=== PATIENT | female | born 1930 | race Caucasian/White ===

== ENCOUNTER 2016-09-01 09:49 | Inpatient (IN) | payer OTHER, MEDICARE ==
[~2016-09-01] VITALS: Ht 149.9 cm; Wt 108.4 kg
[~2016-09-01 09:49] MED LIST: ALLOPURINOL300 M1 PO; BIOTIN1 M1 PO; COUMADIN3 M1 PO; FUROSEMIDE40 M1 PO; LOSARTAN POTASS50 M1 PO; MELATONIN3 M4 PO; POTASSIUM CHLO20 ME2 PO; PROAIR HFA8.5 GM INH; SPIRIVA18 MCG INH; VITAMIN D2000 UNI1 PO
--- NOTE | 2016-09-01 10:36 | NUR ---
PT TO ED C/O VAGINAL BLEEDING FOR A FEW DAYS. DENIES ANY ABD OR PELVIC PAIN. ALSO STATES HER LEG EDEMA HAS BEEN WORSENING AND HAVING WORSENING SOB WITH IT. REPORTS SHE HAD A PACEMAKER PLACED IN APRIL FOR LOW HR AND THAT HELPED SOME OF THE SOB AT THAT TIME, BUT HAS BEEN GETTING WORSE SINCE THEN. STATES ACCOUNTS COLLECTOR IS DR MARTINEZ. STATES SHE HAS HAD INCREASED LETHARGY WELL AND HER INDEPENDENCE AT HOME HAS DECREASED. REPORTS ON VACATION LAST WEEK HAD A BLISTER THAT SWELLED UP AND HAD IT DRAINED IN THE HOSPITAL AND WAS TOLD IT WAS TESTED AND CAME BACK RINGWORM.
--- NOTE | 2016-09-01 10:38 | NUR ---
PA AT BEDSIDE.
--- NOTE | 2016-09-01 10:41 | ED CARDIAC/CP/PALPITATIONS ---
History of Present Illness General Chief Complaint: General Adult Stated Complaint: VAG BLEEDING, SOB, EDEMA Source: patient, family, old records Exam Limitations: no limitations Vital Signs & Intake/Output Vital Signs & Intake/Output Vital Signs Date Time Temp Pulse Resp B/P B/P Pulse O2 O2 Flow FiO2 Mean Ox Delivery Rate 09/01 1755 97.8 61 20 128/78 93 Room Air 09/01 1612 97.0 67 22 135/77 94 Room Air 09/01 1350 134/63 09/01 1226 97.7 63 16 127/59 95 Room Air 09/01 1022 98.1 60 18 117/72 95 Room Air Triage Note: PT TO ED C/O VAGINAL BLEEDING FOR A FEW DAYS. DENIES ANY ABD OR PELVIC PAIN. ALSO STATES HER LEG EDEMA HAS BEEN WORSENING AND HAVING WORSENING SOB WITH IT. REPORTS SHE HAD A PACEMAKER PLACED IN APRIL FOR LOW HR AND THAT HELPED SOME OF THE SOB AT THAT TIME, BUT HAS BEEN GETTING WORSE SINCE THEN. STATES HORTICULTURAL AGENT IS DR MARTINEZ. STATES SHE HAS HAD INCREASED LETHARGY WELL AND HER INDEPENDENCE AT HOME HAS DECREASED. REPORTS ON VACATION LAST WEEK HAD A BLISTER THAT SWELLED UP AND HAD IT DRAINED IN THE HOSPITAL AND WAS TOLD IT WAS TESTED AND CAME BACK RINGWORM. Triage Nurses Notes Reviewed? yes Onset: Gradual Duration: getting worse Timing: recent history Radiation: no radiation HPI: Patient is a 86-year-old female with a past medical history of postmenopausal bleeding with history of D&C Dr. 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 fib on Coumadin, diabetes, hypertension, sleep apnea and obesity who presents emergency room with daughter and which patient recently flew to [place] on August 21 and has noticed increased bilateral leg edema and shortness of breath and dyspnea on exertion in which they were evaluated on 2 occasions in [place] at the emergency room where she was advised to be admitted however she declined patient also had complaints of a dorsal right foot blister that is significant worsen or she is in [place] where the ER provider had drained the blister. Patient also has been complaining of intermittent vaginal bleeding episodes and patient also complains of generalized weakness and fatigue. Patient returned from [place] yesterday and is complaining of persistent leg edema increased weight gain and generalized weakness and fatigue. Patient did take her Lasix this morning of 40 mg. Patient denies any fever chills chest pain arm pain and jaw pain nausea vomiting. (MANAN SCHMIDT) Allergies Coded Allergies: guaifenesin (HIVES 09/01/16) Reconcile Medications Acetaminophen (Tylenol Arthritis) 650 MG TABLET.ER 2 TAB PO QPM PAIN ( Reported) Albuterol Sulfate (Proair Hfa) 90 MCG HFA.AER.AD 2 PUF INH Q4-6 PRN PRN BREATHING (Reported) Allopurinol 300 MG TABLET 0.5 TAB PO QAM GOUT (Reported) Biotin (Unknown Strength) TABLET (Unknown Dose) PO DAILY SUPPLEMENT (Reported ) Calcium Carb/Vitamin D3/Vit K1 (Calcium + Vit D & K Chew Tab) 500 MG CALCIUM-500 UNIT-40 MCG TAB.CHEW 1 TAB PO DAILY SUPPLEMENT (Reported) Cephalexin 500 MG CAPSULE 1 CAP PO TID ANTIBIOTIC (Reported) Cholecalciferol (Vitamin D3) (Vitamin D) 2,000 UNIT TABLET 1 TAB PO 1700 SUPPLEMENT (Reported) Citalopram Hydrobromide (Citalopram HBr) 20 MG TABLET 1 TAB PO DAILY MENTAL HEALTH (Reported) Furosemide 40 MG TABLET 1 TAB PO BID WATER PILL (Reported) Ketoconazole 2 % CREAM..G. 1 PONCHO TOP BID RINGWORM (Reported) apply to affected area(s) Losartan Potassium 50 MG TABLET 1 TAB PO DAILY HEART (Reported) Potassium Chloride 20 MEQ TAB.ER.PRT 1 TAB PO DAILY SUPPLEMENT (Reported) Tiotropium [place] (Spiriva) 18 MCG CAP.W.DEV 1 CAP INH DAILY BREATHING PROBLEMS (Reported) Tramadol HCl 50 MG TABLET 1 TAB PO QPM PRN PAIN (Reported) Warfarin Sodium (Coumadin) 3 MG TABLET 1 TAB PO AD BLOOD THINNER (Reported) Warfarin Sodium (Coumadin) 1 MG TABLET 1.5 TAB PO AD BLOOD THINNER (Reported) (VADIM REYNOLDS,YVAN Moseley) Past History Travel History Traveled to [place] past 21 day No Medical History Any Pertinent Medical History? see below for history Neurological: NONE EENT: NONE Cardiovascular: AFIB, CHF, hypertension Respiratory: NONE Gastrointestinal: NONE Hepatic: NONE Renal: NONE Musculoskeletal: NONE Psychiatric: NONE Endocrine: NONE Blood Disorders: NONE Cancer(s): NONE SAND BOBBER/Reproductive: NONE Surgical History Surgical History: non-contributory Psychosocial History Who do you live with Patient/Self What is your primary language Faroese Tobacco Use: Never used Family History Hx Contributory? No (MANAN SCHMIDT) Review of Systems Review of Systems Constitutional: Reports: see HPI, malaise, weakness. EENTM: Reports: no symptoms. Respiratory: Reports: see HPI, short of breath. Cardiovascular: Reports: see HPI, peripheral edema. Denies: chest pain. GI: Reports: no symptoms. Genitourinary: Reports: no symptoms. Musculoskeletal: Reports: no symptoms. Skin: Reports: no symptoms. Neurological/Psychological: Reports: no symptoms. Hematologic/Endocrine: Reports: see HPI, bleeding. Immunologic/Allergic: Reports: no symptoms. All Other Systems: Reviewed and Negative (MANAN SCHMIDT) Physical Exam Physical Exam General Appearance: no apparent distress, obese Head: atraumatic Eyes: Bilateral: normal appearance, PERRL. Ears, Nose, Throat: normal pharynx, hearing grossly normal Neck: normal inspection Respiratory: quiet respiration, decreased breath sounds Cardiovascular: regular rate/rhythm Peripheral Pulses: 2+ dorsalis pedis (R), 2+ dorsalis pedis (L) Gastrointestinal: normal bowel sounds, soft, non-tender, no organomegaly Back: normal inspection Extremities: +2 BILATERAL LOWER EXTREMITY PITTING EDEMA Skin: normal color Lymphatic: no anterior cervical victor m Comments: Right foot noted 4 cm circular superficial skin open wound, no active bleeding no surrounding erythema no warmth no tenderness - NORMAL EXTERNAL INSPECTION NO ACTIVE BLEEDING MILD BLOOD NOTED AFTER DIGITAL INSPECTION NO MASS Core Measures ACS in differential dx? Yes Severe Sepsis Present: No Septic Shock Present: No (MANAN SCHMIDT) Progress Differential Diagnosis: AMI, aortic dissection, atrial fibrillation, cholecystitis, CHF/pulm edema, costochondritis, hyperkalemia, hypovolemia, hyperthyroid, hyperventilation, intracranial hemorrhage, musculoskeletal pain, myocarditis, pancreatitis, pericarditis, pneumonia, pneumothorax, PSVT, pulmonary embolism, PUD/GERD, PVCs/PACs, respiratory failure, rib fracture, sepsis, unstable angina, V-fib/V-Tach, WPW syndrome Plan of Care: Orders Procedure Date/time Status Regular Diet 09/01 D Active Vital Signs 09/01 1749 Active Teach/Educate 09/01 1749 Active Pain Treatment and Response 09/01 1749 Active Nutritional Intake, Monitor 09/01 1749 Active Isolation 09/01 1749 Active Intake & Output 09/01 1749 Active Patient Care Conference 05/21 1750 Active Activity/Ambulation 09/01 1750 Active Simpson, Insertion/Removal/Asses 09/01 1613 Active Saline Lock 09/01 1456 Active Misc Message 09/01 1456 Active ED Holding Orders 09/01 1456 Active Vital Signs 09/01 1456 Active Activity/Ambulation 09/01 1456 Active Code Status 09/01 1456 Active Patient Data 09/01 1452 Active CULTURE,URINE 09/01 1449 Active Admit to inpatient 09/01 1427 Active Intake & Output 09/01 1209 Active EKG 09/01 1155 Active Add-on Test (ER Only) 09/01 1139 Active DIRECT BILIRUBIN 09/01 1050 Complete URINALYSIS 09/01 1042 Complete TROPONIN LEVEL 09/01 1042 Complete PARTIAL THROMBOPLASTIN TIME 09/01 1042 Complete PROTHROMBIN TIME 09/01 1042 Complete D-DIMER 09/01 1042 Complete COMPREHENSIVE METABOLIC PANEL 09/01 1042 Complete CBC WITHOUT DIFFERENTIAL 09/01 1042 Complete B-TYPE NATRIURETIC PEP (BNP) 09/01 1042 Complete Laboratory Tests 09/01/16 1200: Urinalysis LIGHT H, Urine Color BLDY H, Urine Clarity CLDY H, Urine pH 5.5, Ur Specific Morgan 1.020, Urine Protein 100 H, Urine Ketones TRACE H, Urine Nitrite POS H, Urine Bilirubin NEG, Urine Urobilinogen 1.0, Ur Leukocyte Esterase TRACE H, Ur Microscopic SEDIMENT EXAMINED, Urine RBC PACKD H, Urine WBC 3-5 H, Ur Epithelial Cells FEW, Urine Bacteria FEW H, Hyaline Casts RARE H, Urine Hemoglobin LARGE H, Urine Glucose NEG 09/01/16 1050: Anion Gap 11, Estimated GFR 53 L, BUN/Creatinine Ratio 35.0 H, Glucose 120 H, Calcium 8.5, Total Bilirubin 3.9 H, Direct Bilirubin 2.0 H, AST 30, ALT 28, Alkaline Phosphatase 172 H, Troponin I 0.04, Goy-D-Qxqzguwgikr Pept 2680 H, Total Protein 6.7, Albumin 3.1 L, Globulin 3.6, Albumin/Globulin Ratio 0.9 L, PT 43.5 *H, INR 4.20 *H, APTT 50 H, D-Dimer 301 H, CBC w Diff MAN DIFF ORDERED , RBC 3.38 L, MCV 99.0, MCH 31.7 H, RDW 17.7 H, MPV 10.9 H, Gran % 69.8, Lymphocytes % 15.1 L, Monocytes % 12.8 H, Eosinophils % 1.7, Basophils % 0.6, Absolute Granulocytes 3.2, Absolute Lymphocytes 0.7 L, Absolute Monocytes 0.6, Absolute Eosinophils 0.1, Absolute Basophils 0, Platelet Estimate DECREASED, Polychromasia 1+, Anisocytosis 1+, Stomatocytes 1+, PUBS MCHC 32.0 L Microbiology 09/01 1450 URINE ROUT: Urine Culture - RECD Patient currently was resting comfortably at bedside. It is noted through previous emergency room visits in [place] that patient had chest x-ray findings concerning of cardiomegaly however no overt signs of pleural effusion. Patient also had a previous BNP of 1367. Today patient has chest x-ray findings of trace pleural effusion elevated BNP and worsening leg edema and shortness of breath and dyspnea on exertion which patient was advised to be admitted under telemetry for consistent with CHF. Discussed plan with patient and daughter who agreed. Patient was given IV Lasix. Simpson will be placed for measurement of in and out. Patient also had elevated bilirubin however ultrasound was unremarkable for acute cholecystitis however there is distention noted. Patient may require gastroenterology consultation and CARPENTER SUPERVISOR for vaginal bleeding. Also discussed with patient of elevated INR. (WOOD MICHAELS,MANAN) Diagnostic Imaging: Viewed by Me: Radiology Read, Ultrasound. Radiology Impression: SEE COMMENTS Initial ED EKG: normal intervals, normal p-waves, normal QRS complex, 59 BPM NORMAL SINUS RHYTHM Prior EKG: unchanged Comments: PATIENT: HENRY CHAMBERS PRESENT AGE: 86 PATIENT ACCOUNT NO: [id number] : 32 LOCATION: [facility] ORDERING PHYSICIAN: MANAN MICHAELS SERVICE DATE: 09/01/16-2754 EXAM TYPE: US - US-LIMITED ABDOMEN EXAMINATION: US ABDOMEN LIMITED CLINICAL INFORMATION: Increased bilirubin level. COMPARISON: CT abdomen and pelvis dated 03/25/2012; abdominal ultrasound dated 03/23/2012. TECHNIQUE: Real-time imaging of the right upper quadrant abdominal viscera. Imaging limited by overlapping bowel gas. FINDINGS: PANCREAS: Largely obscured by overlapping bowel gas. LIVER: Normal. The liver demonstrates normal size, contour and echogenicity. No focal lesion or intrahepatic biliary duct dilatation. GALLBLADDER: Normal. The gallbladder is physiologically distended without evidence of stones, sludge, polyps, wall thickening or pericholecystic fluid. There is no sonographic Jones's sign. COMMON BILE DUCT: Normal in caliber measuring 0.2 cm in diameter. RIGHT KIDNEY: Normal. No hydronephrosis. No renal calculi or focal parenchymal lesions. The kidney measures 10.0 cm in maximum dimension. FREE FLUID: None. IMPRESSION: 1. Ultrasound examination, in particular of the pancreas, limited by overlapping bowel gas. 2. No acute finding. PATIENT: HENRY CHAMBERS PRESENT AGE: 86 PATIENT ACCOUNT NO: [id number] : 32 LOCATION: [facility] ORDERING PHYSICIAN: MANAN MICHAELS SERVICE DATE: 09/01/16 EXAM TYPE: RAD - XRY-CHEST XRAY, PA AND LATERAL EXAMINATION: XR CHEST CLINICAL INFORMATION: Congestive heart failure. COMPARISON: Chest x-ray of 03/27/2016 and multiple previous chest x-rays dated back to 09/15/2013. TECHNIQUE: Frontal and lateral views of the chest are acquired. FINDINGS: There is interval placement of single lead pacemaker with the intact-appearing pacer lead terminating in the expected location of the proximal portion of the right ventricle. Recommend clinical correlation and comparison with prior post pacemaker placement chest x-rays. The cardiomediastinal silhouette is stable with moderate cardiomegaly. The lungs are normally and symmetrically expanded. There is mild diffuse some vascular interstitial prominent, suggesting interstitial pulmonary edema. No evidence of overt alveolar edema. Trace bilateral pleural effusions. No focal consolidation. No pneumothorax. Minimal degenerative changes are noted in the spine. IMPRESSION: Stable moderate cardiomegaly. Mild changes of interstitial edema. Trace bilateral pleural effusions. The pacemaker lead terminates in the expected location of the proximal portion of the right ventricle. There are no prior post pacemaker placement x-rays were comparison at this institution. DICTATED BY: GERMÁN REYNOLDS,RODOLFO DATE/TIME DICTATED:09/01/161110 STRING TOP SEALER:IVORY (WOOD MICHAELS,MANAN) Departure Departure Disposition: STILL A PATIENT Condition: Stable Clinical Impression Primary Impression: CHF (congestive heart failure) Secondary Impressions: Elevated bilirubin, Elevated INR, Vaginal bleeding Referrals: CADY MOLINA APRN (PCP/Family) Departure Forms: Customer Survey General Discharge Information Admission Note Spoke With: SAM PATRICIA MD Documentation of Exam: Documentation of any treatments & extenuating circumstances including Concerns Regarding Discharge (functional status, medication knowledge or non-compliance, living conditions, etc.) that warrant an admission rather than observation: [ Discussed patient with who agrees with telemetry admission for concerns of CHF is requires IV Lasix in which patient has failed outpatient treatment, patient will also require cardiology consultation gastroenterology Consultation and CARPENTER SUPERVISOR, WOUND CARE OF FOOT. Patient Requires Repeat Lab bilirubin INR, Echocardiogram. Outpatient Treatment at This Time Would Be Medically Harmful] (MANAN SCHMIDT) PA/GUIDANCE CONSULTANT Co-Sign Statement Statement: ED Attending supervision documentation- [X] I saw and evaluated the patient. I have also reviewed all the pertinent lab results and diagnostic results. I agree with the findings and the plan of care as documented in the PA's/GUIDANCE CONSULTANT's documentation. [X] I have reviewed the ED Record and agree with the PA's/GUIDANCE CONSULTANT's documentation. [] Additions or exceptions (if any) to the PAs/GUIDANCE CONSULTANT's note and plan are summarized below: [] (VADIM REYNOLDS,YVAN Moseley) Critical Care Note Critical Care Note Critical Care Time: 30-74 min (MANAN SCHMIDT)
--- NOTE | 2016-09-01 10:55 | NUR ---
PT ALERT ORIENTED,REPORTS FEELING SOB, TIRED. PT VERY EDEMATOUS, ALL OVER. R FOOT HAS HALF DOLLAR SIZE BLISTER TO TOP OF FOOT 1/2 OPEN, NONDRAINING. NO OVERT S/S OF BLEEDING. LABS DRAWN AND SENT LAV, GOLD, BLUE, SINGH , PINK. FAMILY AT BEDSIDE
[2016-09-01 11:15] LABS: ABSOLUTE BASOPHIL COUNT 0 /CUMM (0.0-0.2); ABSOLUTE EOSINOPHIL COUNT 0.1 /CUMM (0.0-0.7); ABSOLUTE GRANULOCYTE CT 3.2 /CUMM (1.4-6.5); ABSOLUTE LYMPH COUNT 0.7 /CUMM (1.2-3.4); ABSOLUTE MONOCYTE COUNT 0.6 /CUMM (0.10-0.60); BASOPHIL % 0.6 % (0.0-2.0); EOSINOPHIL % 1.7 % (0-5); GRANULOCYTE % 69.8 % (42.2-75.2); HEMATOCRIT 33.4 % (37-47); MEAN CORPUSCULAR HGB 31.7 PG (27.0-31.0); MEAN PLATELET VOLUME 10.9 FL (7.4-10.4); RBC DISTRIBUTION WIDTH 17.7 % (11.5-14.5); RED BLOOD CELL CT 3.38 /CUMM (4.20-5.40); WHITE BLOOD CELL COUNT 4.5 /CUMM (4.8-10.8)
[2016-09-01 11:16] LABS: PTT 50 SEC (25-37)
[2016-09-01 11:18] LABS: PLATELET COUNT 69 /CUMM (130-400)
--- NOTE | 2016-09-01 11:18 | NUR ---
ASSUMED CARE OF PATIENT
[2016-09-01 11:25] LABS: PT 43.5 SEC (9.4-12.5)
--- NOTE | 2016-09-01 11:25 | NUR ---
CRITICAL TEST RESULTS [id number] HENRY CHAMBERS 86 F TESTS AND RESULTS: PT: 43.5 INR: 4.20 Results received and read back by: ROB BREEN Results received date and time: 09/01/16 1125 The following provider was notified of the results, and read the results back: DR FIERRO Notified date and time: 09/01/16 at 1126
--- NOTE | 2016-09-01 11:27 | RADIOLOGY REPORT ---
EXAMINATION: XR CHEST CLINICAL INFORMATION: Congestive heart failure. COMPARISON: Chest x-ray of 03/27/2016 and multiple previous chest x-rays dated back to 09/15/2013. TECHNIQUE: Frontal and lateral views of the chest are acquired. FINDINGS: There is interval placement of single lead pacemaker with the intact-appearing pacer lead terminating in the expected location of the proximal portion of the right ventricle. Recommend clinical correlation and comparison with prior post pacemaker placement chest x-rays. The cardiomediastinal silhouette is stable with moderate cardiomegaly. The lungs are normally and symmetrically expanded. There is mild diffuse some vascular interstitial prominent, suggesting interstitial pulmonary edema. No evidence of overt alveolar edema. Trace bilateral pleural effusions. No focal consolidation. No pneumothorax. Minimal degenerative changes are noted in the spine. IMPRESSION: Stable moderate cardiomegaly. Mild changes of interstitial edema. Trace bilateral pleural effusions. The pacemaker lead terminates in the expected location of the proximal portion of the right ventricle. There are no prior post pacemaker placement x-rays were comparison at this institution.
--- NOTE | 2016-09-01 11:46 | NUR ---
PA AT BEDSIDE WITH FAMILY AND PT
--- NOTE | 2016-09-01 12:58 | NUR ---
PT TO ULTRASOUND
--- NOTE | 2016-09-01 13:06 | NUR ---
PT RETURNED FROM ULTRASOUND
--- NOTE | 2016-09-01 13:31 | NUR ---
PT BACK FROM ULTRASOUND
--- NOTE | 2016-09-01 13:47 | ULTRASOUND REPORT ---
EXAMINATION: US ABDOMEN LIMITED CLINICAL INFORMATION: Increased bilirubin level. COMPARISON: CT abdomen and pelvis dated 03/25/2012; abdominal ultrasound dated 03/23/2012. TECHNIQUE: Real-time imaging of the right upper quadrant abdominal viscera. Imaging limited by overlapping bowel gas. FINDINGS: PANCREAS: Largely obscured by overlapping bowel gas. LIVER: Normal. The liver demonstrates normal size, contour and echogenicity. No focal lesion or intrahepatic biliary duct dilatation. GALLBLADDER: Normal. The gallbladder is physiologically distended without evidence of stones, sludge, polyps, wall thickening or pericholecystic fluid. There is no sonographic Jones's sign. COMMON BILE DUCT: Normal in caliber measuring 0.2 cm in diameter. RIGHT KIDNEY: Normal. No hydronephrosis. No renal calculi or focal parenchymal lesions. The kidney measures 10.0 cm in maximum dimension. FREE FLUID: None. IMPRESSION: 1. Ultrasound examination, in particular of the pancreas, limited by overlapping bowel gas. 2. No acute finding.
--- NOTE | 2016-09-01 14:45 | NUR ---
PT WITH CATHETER IN PLACE, RESTING IN NAD
--- NOTE | 2016-09-01 14:53 | History & Physical ---
DENISSE BOLES 09/01/16 1453: General Information and HPI MD Statement: I have seen and personally examined HENRY CHAMBERS and documented this H&P. The patient is a 86 year old F who presented with a patient stated chief complaint of worsening lower extremity edema and shortness of breath for 1 week []. Source of Information: patient, family Exam Limitations: no limitations History of Present Illness: Patient is 86-year-old female with past medical history significant for congestive heart failure, chronic lower extremity edema, obstructive sleep apnea on CPAP. Atrial fibrillation on anticoagulation, hypertension, gout on allopurinol came with chief complaint of worsening shortness of breath and lower extremity edema for last week. According to patient she had chronic lower extremity edema and visiting CHF clinic weekly for IV Lasix. She stayed in [place] from August 21 to August 31. She was seen in emergency room in [place] because of worsening lower extremity rash and blister on right dorsum of her foot. First he was treated for cellulitis with cephalexin 500 mg 3 times a day for 7 days which she finished today and also her blister on right foot was drained and was also given topical ketoconazole for ringworm. Her rash/ cellulitis is getting better but her edema is not at her baseline. She also More short of breath than usual but no hypoxia was noted. She denied cough, chills, fever, chest pain, palpitations, nausea, vomiting, diarrhea, any urinary or bowel complaints. Of note patient had pacemaker placement in April 2016 when she was noted to have symptomatic bradycardia. Patient sees Dr. Gottlieb and last was is was almost a month ago. Her vital signs on admission were temperature 98.1, pulse 60, respiratory rate 18, blood pressure 117/72 and she was saturating 95% on room air. Allergies/Medications Allergies: Coded Allergies: guaifenesin (HIVES 09/01/16) Home Med list Acetaminophen (Tylenol Arthritis) 650 MG TABLET.ER 2 TAB PO QPM PAIN ( Reported) Albuterol Sulfate (Proair Hfa) 90 MCG HFA.AER.AD 2 PUF INH Q4-6 PRN PRN BREATHING (Reported) Allopurinol 300 MG TABLET 0.5 TAB PO QAM GOUT (Reported) Biotin (Unknown Strength) TABLET (Unknown Dose) PO DAILY SUPPLEMENT (Reported ) Calcium Carb/Vitamin D3/Vit K1 (Calcium + Vit D & K Chew Tab) 500 MG CALCIUM-500 UNIT-40 MCG TAB.CHEW 1 TAB PO DAILY SUPPLEMENT (Reported) Cephalexin 500 MG CAPSULE 1 CAP PO TID ANTIBIOTIC (Reported) Cholecalciferol (Vitamin D3) (Vitamin D) 2,000 UNIT TABLET 1 TAB PO 1700 SUPPLEMENT (Reported) Citalopram Hydrobromide (Citalopram HBr) 20 MG TABLET 1 TAB PO DAILY MENTAL HEALTH (Reported) Furosemide 40 MG TABLET 1 TAB PO BID WATER PILL (Reported) Ketoconazole 2 % CREAM..G. 1 PONCHO TOP BID RINGWORM (Reported) apply to affected area(s) Potassium Chloride 20 MEQ TAB.ER.PRT 1 TAB PO DAILY SUPPLEMENT (Reported) Tiotropium [place] (Spiriva) 18 MCG CAP.W.DEV 1 CAP INH DAILY BREATHING PROBLEMS (Reported) Tramadol HCl 50 MG TABLET 1 TAB PO QPM PRN PAIN (Reported) Warfarin Sodium (Coumadin) 3 MG TABLET 1 TAB PO AD BLOOD THINNER (Reported) Warfarin Sodium (Coumadin) 1 MG TABLET 1.5 TAB PO AD BLOOD THINNER (Reported) Compliance With Home Meds: FAIR Past History Travel History Traveled to [place] past 21 day No Medical History Neurological: NONE EENT: NONE Cardiovascular: AFIB, CHF, hypertension Respiratory: NONE Gastrointestinal: NONE Hepatic: NONE Renal: NONE Musculoskeletal: NONE Psychiatric: NONE Endocrine: NONE Blood Disorders: NONE Cancer(s): 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 Home Who Do You Live With? self Services at Home: Home Health Aide Primary Language: Tuval[place] ETOH Use: denies use Illicit Drug Use: denies illicit drug use Living Will? no Functional Ability ADLs Independent: dressing, eating, toileting, bathing. Ambulation: independent, walker IADLs Needs Assist: shopping, housework, finances, food prep, telephone, transportation, medication admin. Review of Systems Review of Systems Constitutional: Reports: weakness. Denies: chills, diaphoresis. Cardiovascular: Reports: edema, orthopena, peripheral edema. Denies: chest pain, palpitations. Respiratory: Reports: short of breath. Denies: cough, hemoptysis. GI: Denies: bloating, constipation, diarrhea. Genitourinary: Denies: dysuria, frequency, hematuria. Musculoskeletal: Reports: gout. Skin: Reports: see HPI. Neurological/Psychological: Reports: see HPI. Hematologic/Endocrine: Reports: bleeding. Exam & Diagnostic Data Last 24 Hrs of Vital Signs/I&O Vital Signs Date Time Temp Pulse Resp B/P B/P Pulse O2 O2 Flow FiO2 Mean Ox Delivery Rate 09/01 1755 97.8 61 20 128/78 93 Room Air 09/01 1612 97.0 67 22 135/77 94 Room Air 09/01 1350 134/63 09/01 1226 97.7 63 16 127/59 95 Room Air 09/01 1022 98.1 60 18 117/72 95 Room Air Intake & Output 09/01 1600 09/01 0800 09/01 0000 Intake Total Output Total 50 Balance -50 Output, Urine 50 Patient 225 lb Weight Weight Reported by Patient Measurement Method Physical Exam General Appearance Alert, Oriented X3, Cooperative, No Acute Distress Skin SUPERFICIAL SKIN PEELING ON RIGHT DORSUM OF FOOT WITH NORMAL GRANULATION, NO SIGNS OF INFECTION Cardiovascular Normal S1, Normal S2, IRREGULARLY IRREGULAR Lungs BILATERAL BASAL CREPTS/RONCHI Abdomen Soft, No Tenderness, No Hepatospenomegaly, OBESE Neurological Normal Speech, Normal Tone, Sensation Intact Extremities MODERATE TO SEVERE BILATERAL LOWER EXTREMITY EDEMA Last 24 Hrs of Labs/Otis: Laboratory Tests 09/01/16 1200: Urinalysis LIGHT H, Urine Color BLDY H, Urine Clarity CLDY H, Urine pH 5.5, Ur Specific [place] 1.020, Urine Protein 100 H, Urine Ketones TRACE H, Urine Nitrite POS H, Urine Bilirubin NEG, Urine Urobilinogen 1.0, Ur Leukocyte Esterase TRACE H, Ur Microscopic SEDIMENT EXAMINED, Urine RBC PACKD H, Urine WBC 3-5 H, Ur Epithelial Cells FEW, Urine Bacteria FEW H, Hyaline Casts RARE H, Urine Hemoglobin LARGE H, Urine Glucose NEG 09/01/16 1050: Anion Gap 11, Estimated GFR 53 L, BUN/Creatinine Ratio 35.0 H, Glucose 120 H, Calcium 8.5, Total Bilirubin 3.9 H, Direct Bilirubin 2.0 H, AST 30, ALT 28, Alkaline Phosphatase 172 H, Troponin I 0.04, Ftz-X-Jjaiotnwdzp Pept 2680 H, Total Protein 6.7, Albumin 3.1 L, Globulin 3.6, Albumin/Globulin Ratio 0.9 L, PT 43.5 *H, INR 4.20 *H, APTT 50 H, D-Dimer 301 H, CBC w Diff MAN DIFF ORDERED , RBC 3.38 L, MCV 99.0, MCH 31.7 H, RDW 17.7 H, MPV 10.9 H, Gran % 69.8, Lymphocytes % 15.1 L, Monocytes % 12.8 H, Eosinophils % 1.7, Basophils % 0.6, Absolute Granulocytes 3.2, Absolute Lymphocytes 0.7 L, Absolute Monocytes 0.6, Absolute Eosinophils 0.1, Absolute Basophils 0, Platelet Estimate DECREASED, Polychromasia 1+, Anisocytosis 1+, Stomatocytes 1+, PUBS MCHC 32.0 L Microbiology 09/01 1450 URINE ROUT: Urine Culture - RECD Diagnostic Data EKG Results NO ACUTE AT T WAVE CHANGES CXR Results EXAMINATION: XR CHEST CLINICAL INFORMATION: Congestive heart failure. COMPARISON: Chest x-ray of 03/27/2016 and multiple previous chest x-rays dated back to 09/15/2013. TECHNIQUE: Frontal and lateral views of the chest are acquired. FINDINGS: There is interval placement of single lead pacemaker with the intact-appearing pacer lead terminating in the expected location of the proximal portion of the right ventricle. Recommend clinical correlation and comparison with prior post pacemaker placement chest x-rays. The cardiomediastinal silhouette is stable with moderate cardiomegaly. The lungs are normally and symmetrically expanded. There is mild diffuse some vascular interstitial prominent, suggesting interstitial pulmonary edema. No evidence of overt alveolar edema. Trace bilateral pleural effusions. No focal consolidation. No pneumothorax. Minimal degenerative changes are noted in the spine. IMPRESSION: Stable moderate cardiomegaly. Mild changes of interstitial edema. Trace bilateral pleural effusions. The pacemaker lead terminates in the expected location of the proximal portion of the right ventricle. There are no prior post pacemaker placement x-rays were comparison at this institution. Assessment/Plan Assessment: Patient is 86-year-old female with past medical history significant for atrial fibrillation on Coumadin, congestive heart failure with preserved ejection fraction, status post pacemaker placement, chronic lower extremity edema with peripheral vascular disease, gout on allopurinol, hypertension and hyperlipidemia came with worsening lower extremity edema and shortness of breath most likely due to CHF exacerbation. Problem list 1. Shortness of breath and worsening edema most likely CHF exacerbation 2. Right lower extremity wound 3. Hypertension 4. History of hyperlipidemia 5. Obstructive sleep apnea on nocturnal CPAP 6. Supratherapeutic INR 7. Thrombocytopenia which is chronic 8. Elevated bilirubin which is chronic 9. Postmenopausal bleeding status post D&C Plan 1. We'll monitor patient on telemetry floor 2. Patient was given 60 mg of Lasix here and she took 20 at home. We'll start her on 40 mg Lasix IV twice a day. 3. We will consult cardiology in a.m. 4. As her last echocardiogram was in 2011 repeat echocardiogram for left ventricular function and rule out myocardial ischemia 5. Her initial troponins were negative but we will trend troponins and EKG 3 6. We will repeat LFTs in the morning as her liver function tests were abnormal and showed elevated bilirubin which was present in the past as well. 7. Patient was found to have elevated INR to supratherapeutic level. We will hold warfarin for now and will repeat INR in a.m. 8. We will hold her allopurinol for gout as that can cause a rash or hepatic insufficiency and we'll restart after confirming LFTs in a.m. 9. Local wound care 10. We will restart her home medications except allopurinol. 11. Daily ins and outs Heart healthy diet We will pharmacological DVT prophylaxis as her INR is supratherapeutic as well as she has thrombocytopenia Patient is full code As Ranked By This Provider Problem List: 1. Elevated INR 2. Vaginal bleeding 3. Elevated bilirubin 4. CHF (congestive heart failure) Core Measures/Miscellaneous Acute Coronary Syndrome ACS Diagnosis: No Cerebrovascular Accident CVA/TIA Diagnosis: No Congestive Heart Failure CHF Diagnosis: Yes Date of most recent Echo: 03/23/12 Last Known EF %: 65 Venous Thromboembolism VTE Risk Factors: Age > 40 No [facility] VTE prophylaxis d/t: LE Edema No VTE Pharm Prophylaxis d/t: Blood coag disorder VTE Diagnosis: No VTE Type: NONE VTE Confirmed by (Test): NONE Severe Sepsis Severe Sepsis Present: No Septic Shock Septic Shock Present: No Miscellaneous Documentation Attending Case Discussed With: SAM PATRICIA MD Primary Care Physician: CADY MOLINA APRN Patient sees these Specialists CARDIOLOGY Level of Patient Care: Telemetry SAM PATRICIA MD 09/01/16 2332: Attending Review Statement Attending Statement Attending Statement: examined this patient, discuss w/resident/PA/DIRECTOR OF SEARCH ENGINE MARKETING, agreed w/resident/PA/DIRECTOR OF SEARCH ENGINE MARKETING, discussed with family, reviewed EMR data (avail), discussed with nursing, discussed with case mgmt, reviewed images, amended to note Attending Assessment/Plan: 86F with pmhx of cHF, obstructive sleep apnea on CPAP, Afib on AC, HTN, comes with c/o worsening shortness of breath and lower extremity edema for one week. Pt goes to CHF clinic weekly for IV Lasix. Was recently treated for LE cellulitis. CXR- Stable moderate cardiomegaly. Mild changes of interstitial edema. Trace bilateral pleural effusions. BNP-2680. Pertinant +ve labs: Pancytopenia(chronic) , Elevated T bili and Alk phos. USG abdo -ve. P/E- b/l lung crackles, b/l pedal edema. Plan: Admit to tele. iv Lasix 40mg BiD Strict I/o's Serial EKG/Trops Echo Cardio consult. Hold coumadin for supratherapeutic INR Repeat LFT in am. DVT Px- Supratherapeutic INR, on Coumadin
--- NOTE | 2016-09-01 15:48 | NUR ---
PT ASSIGNED TO [place] [id number]
--- NOTE | 2016-09-01 16:12 | NUR ---
HOUSE STAFF IN WITH PATIENT
--- NOTE | 2016-09-01 16:50 | NUR ---
REPORT GIVEN TO JOLIE MOORE
[2016-09-01] MEDS ORDERED: CALCIUM + VIT1 EACH PO (17:00)
[2016-09-01] MEDS ORDERED: CITALOPRAM HBR20 MG PO (17:01)
[2016-09-01] MEDS ORDERED: COUMADIN1 M1 PO (17:02)
[2016-09-01] MEDS ORDERED: KETOCONAZOLE15 GM TOP (17:03)
[2016-09-01] MEDS ORDERED: CEPHALEXIN500 M3 PO (17:03)
[2016-09-01] MEDS ORDERED: TRAMADOL HCL50 M1 PO (17:04)
[2016-09-01] MEDS ORDERED: TYLENOL ARTHRI650 M1 PO (17:05)
[2016-09-01] MEDS ORDERED: ALLOPURINOL300 M1 PO (17:05)
[2016-09-01 17:55] VITALS: BP 128/78
--- NOTE | 2016-09-01 18:02 | Admission Certification ---
Admission Certification Certification Statement - As attending physician, I certify that at the time of - admission, based on clinical presentation, severity of - symptoms, need for further diagnostic testing and - therapeutic interventions, and risk of adverse outcomes - without in-hospital treatment, in my clinical assessment, - this patient requires an acute hospital stay for a minimum - of two nights or longer. I have also considered psychsocial - factors such as support system, advanced age, financial - issues, cognitive issues, and failed out-patient treatments, - past re-admission history, safety of patient, and lack of - compliance as applicable. Specific rationale supporting this admission is: Acute on chronic CHF exacerbation, will need IV lasix, Cardiology consult, I/O's monitoring, serial EKG/Troponin
[2016-09-01 23:00] VITALS: BP 110/62
--- NOTE | 2016-09-02 07:29 | PN- Housestaff ---
See Addendum Subjective Follow-up For: 1. CHF exacerbation 2. Right lower extremity wound 3. Hypertension 4. History of hyperlipidemia 5. Obstructive sleep apnea on nocturnal CPAP 6. Supratherapeutic INR 7. Thrombocytopenia 8. Elevated bilirubin which is chronic 9. Postmenopausal bleeding status post D&C Tele-Events Since Last Visit: Normal sinus rhythm, heart rate 60-65, with no events. Subjective: Afebrile, hemodynamically stable, saturating well on room air. No overnight event reported. Patient denies any current complaints. Review of Systems Constitutional: Reports: no symptoms. Objective Last 24 Hrs of Vital Signs/I&O Vital Signs Date Time Temp Pulse Resp B/P B/P Pulse O2 O2 Flow FiO2 Mean Ox Delivery Rate 09/02 0904 98.2 59 17 124/56 96 Room Air 09/02 0846 95 09/02 0008 60 98 09/02 0000 CPAP 2.0L 09/01 2300 97.7 60 24 110/62 94 Room Air 09/01 2150 60 99 09/01 1755 97.8 61 20 128/78 93 Room Air 09/01 1612 97.0 67 22 135/77 94 Room Air Intake & Output 09/02 1600 09/02 0800 09/02 0000 Intake Total 100 100 Output Total 175 250 Balance -75 -150 Intake, IV 0 0 Intake, Oral 100 100 Number 0 0 Bowel Movements Output, Urine 175 250 Physical Exam General Appearance: Alert, Oriented X3, Cooperative, No Acute Distress HEENT: Atraumatic, PERRLA, EOMI, Mucous Membr. moist/pink Cardiovascular: Regular Rate, Normal S1, Normal S2, No Murmurs Lungs: diminished air-entry over both lungs Abdomen: Normal Bowel Sounds, Soft, No Tenderness Neurological: Normal Speech Extremities: No Clubbing, No Cyanosis, +2 Edema , right foot has an unlcer thats covered with dress Assessment/Plan Assessment: 86-year-old woman with a past medical history of atrial fibrillation, chronic congestive heart failure (preserved LV systolic function) and hypertension. She presents to our hospital with worsening dyspnea as well as recent increase in her lower extremity edema. She was found to have an elevated BNP and findings consistent with acute on chronic congestive heart failure. #Exertional dyspnea most likely CHF exacerbation As she has recently had a pacemaker implantation. Patient would like to exclude acute pacer-induced cardio myopathy by ordering echo. * Pending echo * Lasix as needed * Strict I's and O's * Daily weights #Atrial fibrillation: * Heartrate is in 60s well controlled with the pacemaker * Patient was found to have a supratherapeutic INR * We will hold Coumadin and repeat INR daily * We will dose Coumadin once necessary #Right lower extremity wound: * Wound consult #Vaginal bleeding: * Can be addressed as an outpatient #Obstructive sleep apnea. * Continue nocturnal CPAP #Elevated bilirubin * We will repeat liver function test tomorrow morning\ * We will order a GGT Heart healthy diet DVT prophylaxis patient is supratherapeutic INR Full code Problem List: 1. Elevated INR 2. Obstructive sleep apnea syndrome 3. CHF (congestive heart failure) 4. Elevated bilirubin 5. Vaginal bleeding Pain Ratin Pain Location: NA Pain Goal: Remain pain free Pain Plan: See A&P Tomorrow's Labs & Rationales: bep and lft and GGt
[2016-09-02 08:31] LABS: ABSOLUTE BASOPHIL COUNT 0 /CUMM (0.0-0.2); ABSOLUTE EOSINOPHIL COUNT 0.1 /CUMM (0.0-0.7); ABSOLUTE GRANULOCYTE CT 2.8 /CUMM (1.4-6.5); ABSOLUTE LYMPH COUNT 0.8 /CUMM (1.2-3.4); ABSOLUTE MONOCYTE COUNT 0.5 /CUMM (0.10-0.60); BASOPHIL % 0.6 % (0.0-2.0); EOSINOPHIL % 2.9 % (0-5); HEMATOCRIT 33.8 % (37-47); MEAN CORPUSCULAR HGB 31.8 PG (27.0-31.0); MEAN CORPUSCULAR VOLUME 99.2 FL (81.0-99.0); MEAN PLATELET VOLUME 11.1 FL (7.4-10.4); PLATELET COUNT 71 /CUMM (130-400); RBC DISTRIBUTION WIDTH 18.7 % (11.5-14.5); RED BLOOD CELL CT 3.41 /CUMM (4.20-5.40); WHITE BLOOD CELL COUNT 4.2 /CUMM (4.8-10.8)
[2016-09-02 08:55] LABS: PT 41.9 SEC (9.4-12.5)
[2016-09-02 09:04] VITALS: BP 124/56
--- NOTE | 2016-09-02 11:34 | Cons- Cardiology ---
General Information and HPI Consulting Request Date of Consult: 09/02/16 Requested By: SUN CHI MD Reason for Consult: Edema, dyspnea Source of Information: patient, old records Exam Limitations: no limitations History of Present Illness: The patient is an 86-year-old woman with a past medical history of atrial fibrillation, chronic congestive heart failure (preserved LV systolic function) and hypertension. She presents to our hospital with worsening dyspnea as well as increasing pedal edema over period of proximately one month; however, worsening over the past several days. The patient had recently been in [place] over the past week, and was treated for possible cellulitis (subsequently diagnosed as ringworm). She had been enrolled in a CHF during system wherein she was receiving weekly IV Lasix treatments; however, had apparently not receive one while in [place]. The patient otherwise denies symptoms of chest pains palpitations nor URI symptoms recently. She describes being able to perform approximately 4 METs of physical activity and a regular basis without difficulty. 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 Her presenting BNP however was elevated at 2680 Allergies/Medications Allergies: Coded Allergies: guaifenesin (HIVES 09/01/16) Home Med List: Acetaminophen (Tylenol Arthritis) 650 MG TABLET.ER 2 TAB PO QPM PAIN ( Reported) Albuterol Sulfate (Proair Hfa) 90 MCG HFA.AER.AD 2 PUF INH Q4-6 PRN PRN BREATHING (Reported) Allopurinol 300 MG TABLET 0.5 TAB PO QAM GOUT (Reported) Biotin (Unknown Strength) TABLET (Unknown Dose) PO DAILY SUPPLEMENT (Reported ) Calcium Carb/Vitamin D3/Vit K1 (Calcium + Vit D & K Chew Tab) 500 MG CALCIUM-500 UNIT-40 MCG TAB.CHEW 1 TAB PO DAILY SUPPLEMENT (Reported) Cephalexin 500 MG CAPSULE 1 CAP PO TID ANTIBIOTIC (Reported) Cholecalciferol (Vitamin D3) (Vitamin D) 2,000 UNIT TABLET 1 TAB PO 1700 SUPPLEMENT (Reported) Citalopram Hydrobromide (Citalopram HBr) 20 MG TABLET 1 TAB PO DAILY MENTAL HEALTH (Reported) Furosemide 40 MG TABLET 1 TAB PO BID WATER PILL (Reported) Ketoconazole 2 % CREAM..G. 1 PONCHO TOP BID RINGWORM (Reported) apply to affected area(s) Potassium Chloride 20 MEQ TAB.ER.PRT 1 TAB PO DAILY SUPPLEMENT (Reported) Tiotropium [place] (Spiriva) 18 MCG CAP.W.DEV 1 CAP INH DAILY BREATHING PROBLEMS (Reported) Tramadol HCl 50 MG TABLET 1 TAB PO QPM PRN PAIN (Reported) Warfarin Sodium (Coumadin) 3 MG TABLET 1 TAB PO AD BLOOD THINNER (Reported) Warfarin Sodium (Coumadin) 1 MG TABLET 1.5 TAB PO AD BLOOD THINNER (Reported) Current Medications: Current Medications Sig/Aparna Start time Last Medication Dose Route Stop Time Status Admin Acetaminophen 650 MG Q6P PRN 09/01 181 AC PO Citalopram 20 MG DAILY 09/02 1000 AC 09/02 Hydrobromide PO 1030 Furosemide 40 MG 7:30 AM, & 4:30 PM 09/02 0730 AC 09/02 IV 1029 Furosemide 0 .STK-MED ONE 09/01 1313 DC IV Furosemide 60 MG ONCE ONE 09/01 1300 DC 09/01 IV 09/01 1301 1350 Ibuprofen 600 MG Q6P PRN 09/01 181 AC PO Morphine Sulfate 2 MG Q4P PRN 09/01 181 AC IV Tiotropium [place] 1 PUF DAILY 09/01 1817 AC 09/02 INH 1030 Review of Systems Review of Systems: The review of systems is negative for chest pains, palpitations nor lightheadedness. The remainder of the 14 point review of systems is noncontributory with the exception of above. 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 Home Who Do You Live With? self Services at Home: Home Health Aide Primary Language: [place] Islander Smoking Status: Never Smoked ETOH Use: denies use Illicit Drug Use: denies illicit drug use Living Will? no Functional Ability ADLs Independent: dressing, eating, toileting, bathing. Ambulation: independent, walker IADLs Needs Assist: shopping, housework, finances, food prep, telephone, transportation, medication admin. Exam & Diagnostic Data Vital Signs and I&O Vital Signs Date Time Temp Pulse Resp B/P B/P Pulse O2 O2 Flow FiO2 Mean Ox Delivery Rate 09/02 0904 98.2 59 17 124/56 96 Room Air 09/02 0846 95 09/02 0008 60 98 09/02 0000 CPAP 2.0L 09/01 2300 97.7 60 24 110/62 94 Room Air 09/01 2150 60 99 09/01 1755 97.8 61 20 128/78 93 Room Air 09/01 1612 97.0 67 22 135/77 94 Room Air 09/01 1350 134/63 09/01 1226 97.7 63 16 127/59 95 Room Air Intake & Output 09/02 1600 09/02 0800 09/02 0000 09/01 1600 09/01 0800 09/01 0000 Intake Total 100 100 Output Total 175 250 50 Balance -75 -150 -50 Intake, IV 0 0 Intake, Oral 100 100 Number 0 0 Bowel Movements Output, Urine 175 250 50 Patient 225 lb Weight Weight Reported by Patient Measurement Method Physical Exam: General: Nontoxic, no apparent distress. HEENT: Sclera and conjunctiva within normal limits, without xanthelasmas. Neck: Carotids 2+ without bruits. Respiratory: Clear to auscultation, air movement is good, without accessory respiratory muscle use. Heart: Irregularly irregular rate and rhythm, 2-6 systolic ejection murmur at left sternal border, without JVD. Abdomen: Soft, nontender, no masses, normoactive bowel sounds. Extremities: Without clubbing, cyanosis, mixed pitting and nonpitting edema in both lower extremities with approximately 2 mm of pitting edema to the knees.. Neuro: Nonfocal exam, strength, 5 out of 5 Skin: Within normal limits without lesions, with the exception of right dorsum of foot. Psych: Mood and affect: Normal Labs/Otis Results: Laboratory Tests 09/02 09/02 09/01 0650 0030 1848 Chemistry Sodium (137 - 145 mmol/L) 139 Potassium (3.5 - 5.1 mmol/L) 3.8 Chloride (98 - 107 mmol/L) 102 Carbon Dioxide (22 - 30 mmol/L) 28 Anion Gap (5 - 16) 9 BUN (7 - 17 mg/dL) 34 H Creatinine (0.5 - 1.0 mg/dL) 1.0 Estimated GFR (>60 ml/min) 53 L BUN/Creatinine Ratio (7 - 25 %) 34.0 H Total Bilirubin (0.2 - 1.3 mg/dL) 3.7 H Direct Bilirubin (< 0.4 mg/dL) 2.1 H AST (14 - 36 U/L) 32 ALT (9 - 52 U/L) 36 Alkaline Phosphatase (<127 U/L) 197 H Troponin I (< 0.11 ng/ml) 0.04 0.04 Total Protein (6.3 - 8.2 g/dL) 7.0 Albumin (3.5 - 5.0 g/dL) 3.2 L Coagulation PT (9.4 - 12.5 SEC) 41.9 H INR (0.90 - 1.19) 4.05 *H Hematology CBC w Diff NO MAN DIFF REQ WBC (4.8 - 10.8 /CUMM) 4.2 L RBC (4.20 - 5.40 /CUMM) 3.41 L Hgb (12.0 - 16.0 G/DL) 10.8 L Hct (37 - 47 %) 33.8 L MCV (81.0 - 99.0 FL) 99.2 H MCH (27.0 - 31.0 PG) 31.8 H RDW (11.5 - 14.5 %) 18.7 H Plt Count (130 - 400 /CUMM) 71 L MPV (7.4 - 10.4 FL) 11.1 H Gran % (42.2 - 75.2 %) 67.0 Lymphocytes % (20.5 - 51.1 %) 18.3 L Monocytes % (1.7 - 9.3 %) 11.2 H Eosinophils % (0 - 5 %) 2.9 Basophils % (0.0 - 2.0 %) 0.6 Absolute Granulocytes (1.4 - 6.5 /CUMM) 2.8 Absolute Lymphocytes (1.2 - 3.4 /CUMM) 0.8 L Absolute Monocytes (0.10 - 0.60 /CUMM) 0.5 Absolute Eosinophils (0.0 - 0.7 /CUMM) 0.1 Absolute Basophils (0.0 - 0.2 /CUMM) 0 PUBS MCHC (33.0 - 37.0 G/DL) 32.0 L / 05/21 1200 1050 Chemistry Sodium (137 - 145 mmol/L) 138 Potassium (3.5 - 5.1 mmol/L) 4.2 Chloride (98 - 107 mmol/L) 100 Carbon Dioxide (22 - 30 mmol/L) 27 Anion Gap (5 - 16) 11 BUN (7 - 17 mg/dL) 35 H Creatinine (0.5 - 1.0 mg/dL) 1.0 Estimated GFR (>60 ml/min) 53 L BUN/Creatinine Ratio (7 - 25 %) 35.0 H Glucose (65 - 99 mg/dL) 120 H Calcium (8.4 - 10.2 mg/dL) 8.5 Total Bilirubin (0.2 - 1.3 mg/dL) 3.9 H Direct Bilirubin (< 0.4 mg/dL) 2.0 H AST (14 - 36 U/L) 30 ALT (9 - 52 U/L) 28 Alkaline Phosphatase (<127 U/L) 172 H Troponin I (< 0.11 ng/ml) 0.04 [id number]-[id number] Pept (<125 pg/mL) 2680 H Total Protein (6.3 - 8.2 g/dL) 6.7 Albumin (3.5 - 5.0 g/dL) 3.1 L Globulin (1.9 - 4.2 gm/dL) 3.6 Albumin/Globulin Ratio (1.1 - 2.2 %) 0.9 L Coagulation PT (9.4 - 12.5 SEC) 43.5 *H INR (0.90 - 1.19) 4.20 *H APTT (25 - 37 SEC) 50 H D-Dimer (70 - 232 ng/ml) 301 H Hematology CBC w Diff MAN DIFF ORDERED WBC (4.8 - 10.8 /CUMM) 4.5 L RBC (4.20 - 5.40 /CUMM) 3.38 L Hgb (12.0 - 16.0 G/DL) 10.7 L Hct (37 - 47 %) 33.4 L MCV (81.0 - 99.0 FL) 99.0 MCH (27.0 - 31.0 PG) 31.7 H RDW (11.5 - 14.5 %) 17.7 H Plt Count (130 - 400 /CUMM) 69 L MPV (7.4 - 10.4 FL) 10.9 H Gran % (42.2 - 75.2 %) 69.8 Lymphocytes % (20.5 - 51.1 %) 15.1 L Monocytes % (1.7 - 9.3 %) 12.8 H Eosinophils % (0 - 5 %) 1.7 Basophils % (0.0 - 2.0 %) 0.6 Absolute Granulocytes (1.4 - 6.5 /CUMM) 3.2 Absolute Lymphocytes (1.2 - 3.4 /CUMM) 0.7 L Absolute Monocytes (0.10 - 0.60 /CUMM) 0.6 Absolute Eosinophils (0.0 - 0.7 /CUMM) 0.1 Absolute Basophils (0.0 - 0.2 /CUMM) 0 Platelet Estimate (ADEQUATE) DECREASED Polychromasia 1+ Anisocytosis 1+ Stomatocytes 1+ PUBS MCHC (33.0 - 37.0 G/DL) 32.0 L Urines Urinalysis LIGHT H Urine Color (YEL,AMB,STR) BLDY H Urine Clarity (CLEAR) CLDY H Urine pH (5.0 - 8.0) 5.5 Ur Specific [place] (1.001 - 1.035) 1.020 Urine Protein (NEG,<30 MG/DL) 100 H Urine Ketones (NEG) TRACE H Urine Nitrite (NEG) POS H Urine Bilirubin (NEG) NEG Urine Urobilinogen (0.1 - 1.0 EU/dl) 1.0 Ur Leukocyte Esterase (NEG) TRACE H Ur Microscopic SEDIMENT EXAMINED Urine RBC (0 - 5 /HPF) PACKD H Urine WBC (0 - 2 /HPF) 3-5 H Ur Epithelial Cells (NONE,FEW) FEW Urine Bacteria (NEG/NONE) FEW H Hyaline Casts (0/LPF) RARE H Urine Hemoglobin (NEG) LARGE H Urine Glucose (N MG/DL) NEG Assessment/Plan Assessment/Plan 86-year-old woman with a past medical history of atrial fibrillation, chronic congestive heart failure (preserved LV systolic function) and hypertension. She presents to our hospital with worsening dyspnea as well as increasing pedal edema over period of proximately one month; however, worsening over the past several days. She was found to have an elevated BNP and findings consistent with acute on chronic congestive heart failure. Acute CHF secondary to diastolic dysfunction: Possibly due to a change in her regimen recently while in [place]. As she has recently had a pacemaker implantation, we will obtain an echocardiogram to ensure acute pacer-induced cardio myopathy is not a cause. We will diurese with IV Lasix as needed. Daily weights should be followed strictly Atrial fibrillation: Stable, continue with current medication regimen and full and coagulation Right lower extremity wound: Continue treatment as per medical team Hypertension: Stable, we'll continue to monitor Vaginal bleeding: The patient had a remote D&C performed approximately 3 years ago. We will follow up with LOCKSTITCH HEMMER Thank you for allowing us to participate in the care of your patient. Please do not hesitate to contact us further with any questions. Sincerely, Roman Snider MD [facility] Consult Acknowledgment - Thank you for your consult request.
[2016-09-02 16:13] VITALS: BP 123/54
--- NOTE | 2016-09-02 18:10 | Cons- Gastroenterology ---
General Information and HPI Consulting Request Date of Consult: 09/02/16 (MD MEE/GASTROENTEROLOGY) Requested By: SUN CHI MD Reason for Consult: Jaundice Source of Information: patient, old records History of Present Illness: 86-year-old female admitted with CHF. She has been found to have hyperbilirubinemia and elevated alkaline phosphatase, the latter of which is chronic. The patient denies previous liver disease or known abnormal liver tests, jaundice, abdominal pain, history of gallbladder or pancreatic disease. She denies recurrent or frequent heartburn, dyspepsia, dysphagia, nausea. Her bowel movements are regular, without blood or black stool. There is no family history of liver disease. She is remote alcohol drinker, but not recently excessive. Review of records demonstrates elevated alkaline phosphatase since 2008 as well as thrombocytopenia. She had elevated bilirubin from February 2012 through May 2012, with normal ultrasound and CT scan of the liver and spleen. There is no apparent further evaluation. Allergies/Medications Allergies: Coded Allergies: guaifenesin (HIVES 09/01/16) Home Med List: Acetaminophen (Tylenol Arthritis) 650 MG TABLET.ER 2 TAB PO QPM PAIN ( Reported) Albuterol Sulfate (Proair Hfa) 90 MCG HFA.AER.AD 2 PUF INH Q4-6 PRN PRN BREATHING (Reported) Allopurinol 300 MG TABLET 0.5 TAB PO QAM GOUT (Reported) Biotin (Unknown Strength) TABLET (Unknown Dose) PO DAILY SUPPLEMENT (Reported ) Calcium Carb/Vitamin D3/Vit K1 (Calcium + Vit D & K Chew Tab) 500 MG CALCIUM-500 UNIT-40 MCG TAB.CHEW 1 TAB PO DAILY SUPPLEMENT (Reported) Cephalexin 500 MG CAPSULE 1 CAP PO TID ANTIBIOTIC (Reported) Cholecalciferol (Vitamin D3) (Vitamin D) 2,000 UNIT TABLET 1 TAB PO 1700 SUPPLEMENT (Reported) Citalopram Hydrobromide (Citalopram HBr) 20 MG TABLET 1 TAB PO DAILY MENTAL HEALTH (Reported) Furosemide 40 MG TABLET 1 TAB PO BID WATER PILL (Reported) Ketoconazole 2 % CREAM..G. 1 PONCHO TOP BID RINGWORM (Reported) apply to affected area(s) Potassium Chloride 20 MEQ TAB.ER.PRT 1 TAB PO DAILY SUPPLEMENT (Reported) Tiotropium [place] (Spiriva) 18 MCG CAP.W.DEV 1 CAP INH DAILY BREATHING PROBLEMS (Reported) Tramadol HCl 50 MG TABLET 1 TAB PO QPM PRN PAIN (Reported) Warfarin Sodium (Coumadin) 3 MG TABLET 1 TAB PO AD BLOOD THINNER (Reported) Warfarin Sodium (Coumadin) 1 MG TABLET 1.5 TAB PO AD BLOOD THINNER (Reported) Current Medications: Current Medications Sig/Aparna Start time Last Medication Dose Route Stop Time Status Admin Acetaminophen 650 MG Q6P PRN 09/01 1814 AC PO Citalopram 20 MG DAILY 09/02 1000 AC 09/02 Hydrobromide PO 1030 Furosemide 40 MG 7:30 AM, & 4:30 PM 09/02 0730 AC 09/02 IV 1728 Ibuprofen 600 MG Q6P PRN 09/01 1814 AC PO Morphine Sulfate 2 MG Q4P PRN 09/01 1814 AC IV Tiotropium [place] 1 PUF DAILY 09/01 181 AC 09/02 INH 1030 Past History Travel History Traveled to [place] past 21 day No Medical History Blood Transfusion Hx: No Neurological: NONE EENT: NONE Cardiovascular: AFIB, CHF, hypertension Respiratory: NONE Gastrointestinal: NONE Hepatic: NONE Renal: NONE Musculoskeletal: NONE Psychiatric: NONE Endocrine: NONE Blood Disorders: NONE Cancer(s): 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 Home Who Do You Live With? self Services at Home: Home Health Aide Primary Language: Czech Smoking Status: Never Smoked ETOH Use: denies use Illicit Drug Use: denies illicit drug use Living Will? no Functional Ability ADLs Independent: dressing, eating, toileting, bathing. Ambulation: independent, walker IADLs Needs Assist: shopping, housework, finances, food prep, telephone, transportation, medication admin. Review of Systems Review of Systems Constitutional: Denies: chills, fever. EENTM: Denies: icterus, epistaxis. Cardiovascular: Reports: peripheral edema. Denies: chest pain, palpitations, syncope. Respiratory: Reports: short of breath. Denies: cough, hemoptysis. GI: Reports: see HPI. Genitourinary: Denies: dysuria, hematuria. Musculoskeletal: Denies: joint swelling, neck pain. Skin: Denies: jaundice, lesions. Neurological/Psychological: Denies: cognitive dysfunction, dementia. Hematologic/Endocrine: Reports: bruising. Denies: bleeding. Exam & Diagnostic Data Vital Signs and I&O Vital Signs Date Time Temp Pulse Resp B/P B/P Pulse O2 O2 Flow FiO2 Mean Ox Delivery Rate 09/02 1613 98.1 70 17 123/54 94 Room Air 09/02 0904 98.2 59 17 124/56 96 Room Air 09/02 0846 95 09/02 0008 60 98 09/02 0000 CPAP 2.0L 09/01 2300 97.7 60 24 110/62 94 Room Air 09/01 2150 60 99 Intake & Output 09/02 1600 09/02 0400 09/01 0400 08/31 0400 Intake Total 580 100 Output Total 575 250 50 Balance 5 -150 -50 Intake, IV 0 0 Intake, Oral 580 100 Number 0 0 Bowel Movements Output, Urine 575 250 50 Patient 225 lb Weight Weight Reported by Patient Measurement Method Physical Exam: Obese white female, no apparent distress. Alert and oriented with normal cognition. Skin without rash, jaundice, spider telangiectasias or palmar erythema. No adenopathy. Sclera are anicteric. No oropharyngeal lesions. Neck supple without mass or thyromegaly. Positive hepatojugular reflux. Heart with irregular rhythm, and 2/6 systolic murmur. Pacemaker intact. Lungs clear bilaterally. Abdomen obese with pannus, normal bowel sounds; no tenderness, no appreciable hepatosplenomegaly. Extremities with bilateral edema to the knees, no cyanosis. Results Pertinent Lab Results: Laboratory Tests 09/02 09/02 09/01 0650 0030 1848 Chemistry Sodium (137 - 145 mmol/L) 139 Potassium (3.5 - 5.1 mmol/L) 3.8 Chloride (98 - 107 mmol/L) 102 Carbon Dioxide (22 - 30 mmol/L) 28 Anion Gap (5 - 16) 9 BUN (7 - 17 mg/dL) 34 H Creatinine (0.5 - 1.0 mg/dL) 1.0 Estimated GFR (>60 ml/min) 53 L BUN/Creatinine Ratio (7 - 25 %) 34.0 H Total Bilirubin (0.2 - 1.3 mg/dL) 3.7 H Direct Bilirubin (< 0.4 mg/dL) 2.1 H AST (14 - 36 U/L) 32 ALT (9 - 52 U/L) 36 Alkaline Phosphatase (<127 U/L) 197 H Troponin I (< 0.11 ng/ml) 0.04 0.04 Total Protein (6.3 - 8.2 g/dL) 7.0 Albumin (3.5 - 5.0 g/dL) 3.2 L Coagulation PT (9.4 - 12.5 SEC) 41.9 H INR (0.90 - 1.19) 4.05 *H Hematology CBC w Diff NO MAN DIFF REQ WBC (4.8 - 10.8 /CUMM) 4.2 L RBC (4.20 - 5.40 /CUMM) 3.41 L Hgb (12.0 - 16.0 G/DL) 10.8 L Hct (37 - 47 %) 33.8 L MCV (81.0 - 99.0 FL) 99.2 H MCH (27.0 - 31.0 PG) 31.8 H RDW (11.5 - 14.5 %) 18.7 H Plt Count (130 - 400 /CUMM) 71 L MPV (7.4 - 10.4 FL) 11.1 H Gran % (42.2 - 75.2 %) 67.0 Lymphocytes % (20.5 - 51.1 %) 18.3 L Monocytes % (1.7 - 9.3 %) 11.2 H Eosinophils % (0 - 5 %) 2.9 Basophils % (0.0 - 2.0 %) 0.6 Absolute Granulocytes (1.4 - 6.5 /CUMM) 2.8 Absolute Lymphocytes (1.2 - 3.4 /CUMM) 0.8 L Absolute Monocytes (0.10 - 0.60 /CUMM) 0.5 Absolute Eosinophils (0.0 - 0.7 /CUMM) 0.1 Absolute Basophils (0.0 - 0.2 /CUMM) 0 PUBS MCHC (33.0 - 37.0 G/DL) 32.0 L 09/01 04/ 1200 1050 Chemistry Sodium (137 - 145 mmol/L) 138 Potassium (3.5 - 5.1 mmol/L) 4.2 Chloride (98 - 107 mmol/L) 100 Carbon Dioxide (22 - 30 mmol/L) 27 Anion Gap (5 - 16) 11 BUN (7 - 17 mg/dL) 35 H Creatinine (0.5 - 1.0 mg/dL) 1.0 Estimated GFR (>60 ml/min) 53 L BUN/Creatinine Ratio (7 - 25 %) 35.0 H Glucose (65 - 99 mg/dL) 120 H Calcium (8.4 - 10.2 mg/dL) 8.5 Total Bilirubin (0.2 - 1.3 mg/dL) 3.9 H Direct Bilirubin (< 0.4 mg/dL) 2.0 H AST (14 - 36 U/L) 30 ALT (9 - 52 U/L) 28 Alkaline Phosphatase (<127 U/L) 172 H Troponin I (< 0.11 ng/ml) 0.04 [id number] Pept (<125 pg/mL) 2680 H Total Protein (6.3 - 8.2 g/dL) 6.7 Albumin (3.5 - 5.0 g/dL) 3.1 L Globulin (1.9 - 4.2 gm/dL) 3.6 Albumin/Globulin Ratio (1.1 - 2.2 %) 0.9 L Coagulation PT (9.4 - 12.5 SEC) 43.5 *H INR (0.90 - 1.19) 4.20 *H APTT (25 - 37 SEC) 50 H D-Dimer (70 - 232 ng/ml) 301 H Hematology CBC w Diff MAN DIFF ORDERED WBC (4.8 - 10.8 /CUMM) 4.5 L RBC (4.20 - 5.40 /CUMM) 3.38 L Hgb (12.0 - 16.0 G/DL) 10.7 L Hct (37 - 47 %) 33.4 L MCV (81.0 - 99.0 FL) 99.0 MCH (27.0 - 31.0 PG) 31.7 H RDW (11.5 - 14.5 %) 17.7 H Plt Count (130 - 400 /CUMM) 69 L MPV (7.4 - 10.4 FL) 10.9 H Gran % (42.2 - 75.2 %) 69.8 Lymphocytes % (20.5 - 51.1 %) 15.1 L Monocytes % (1.7 - 9.3 %) 12.8 H Eosinophils % (0 - 5 %) 1.7 Basophils % (0.0 - 2.0 %) 0.6 Absolute Granulocytes (1.4 - 6.5 /CUMM) 3.2 Absolute Lymphocytes (1.2 - 3.4 /CUMM) 0.7 L Absolute Monocytes (0.10 - 0.60 /CUMM) 0.6 Absolute Eosinophils (0.0 - 0.7 /CUMM) 0.1 Absolute Basophils (0.0 - 0.2 /CUMM) 0 Platelet Estimate (ADEQUATE) DECREASED Polychromasia 1+ Anisocytosis 1+ Stomatocytes 1+ PUBS MCHC (33.0 - 37.0 G/DL) 32.0 L Urines Urinalysis LIGHT H Urine Color (YEL,AMB,STR) BLDY H Urine Clarity (CLEAR) CLDY H Urine pH (5.0 - 8.0) 5.5 Ur Specific [place] (1.001 - 1.035) 1.020 Urine Protein (NEG,<30 MG/DL) 100 H Urine Ketones (NEG) TRACE H Urine Nitrite (NEG) POS H Urine Bilirubin (NEG) NEG Urine Urobilinogen (0.1 - 1.0 EU/dl) 1.0 Ur Leukocyte Esterase (NEG) TRACE H Ur Microscopic SEDIMENT EXAMINED Urine RBC (0 - 5 /HPF) PACKD H Urine WBC (0 - 2 /HPF) 3-5 H Ur Epithelial Cells (NONE,FEW) FEW Urine Bacteria (NEG/NONE) FEW H Hyaline Casts (0/LPF) RARE H Urine Hemoglobin (NEG) LARGE H Urine Glucose (N MG/DL) NEG Imaging/Other Studies: Ultrasound normal gallbladder, bile ducts, and liver. 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 The thrombocytopenia is concerning for underlying cirrhosis. 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 There may of course be other reasons for cholestasis such as medications ( apparently recently on ketoconazole), autoimmune cholangiopathy, etc. Recommendations * Follow LFTs with diuresis * Consider cross-sectional imaging (multiphasic CT scan with contrast) of liver and spleen to assess for evidence of congestive hepatopathy (dilated IVC and hepatic veins) and cirrhosis, screening for hepatocellular carcinoma, and confirm absence of obstructive or infiltrative process. * Check mitochondrial antibody, antinuclear antibody, 5'-nucleotidase * Would not pursue nuclear liver spleen scan or elastography; they are unreliable in the setting of passive congestion. At this point would not consider liver biopsy, since it would be unlikely to alter management. * Would consider eventual EGD to rule out varices, if cardiac status allows Copies To: CADY MOLINA APRN Consult Acknowledgment - Thank you for your consult request.
[2016-09-03 00:31] VITALS: BP 120/60
--- NOTE | 2016-09-03 07:50 | ECHOCARDIOGRAM REPORT ---
HENRY CHAMBERS Age: 86 : 1930 Gender: F Exam Date: 09/02/2016 11:50 Exam Location: [address] Ht (in): 59 Wt (lb): 225 BSA: 2.13 BP: 124 / 56 Ordering Physician: DENISSE BOLES MD Referring Physician: DENISSE BOLES MD Technologist: Joaquín Merrill [facility] Room Number: 188-1 Indications: AFIB/FLUTTER Rhythm: Atrial fibrillation Technical Quality: fair FINDINGS Left Ventricle Normal global left ventricular size, wall thickness, systolic function with no obvious regional wall motion abnormalities. Normal left ventricular ejection fraction estimated at 60-65%. Right Ventricle Mild right ventricular dilatation. Mildly reduced right ventricular global systolic function. Right Atrium Mild Right atrial enlargement Left Atrium Mild left atrial dilatation. Mitral Valve Mild mitral annular calcification. Mild mitral regurgitation. Aortic Valve Diffuse thickening (sclerosis) of the aortic valve cusps without reduced excursion. Mild Aortic regurgitation Tricuspid Valve Tricuspid valve is normal in structure and function. Mild tricuspid regurgitation. Right ventricular systolic pressure estimated to be elevated at 80 mmHg. Pulmonic Valve Pulmonic valve not well visualized, grossly normal. Moderate Pulmonary regurgitation Pericardium No pericardial effusion. Great Vessels Normal size aortic root. CONCLUSIONS Normal left ventricular systolic function with borderline hypertrophy. Right ventricular dilatation and hypokinesia. Severe Pulmonary hypertension by doppler. Biatrial enlargement. Mookie Rizvi M.D. (Electronically Signed) Final Date: 03 Sep 2016 07:49 MEASUREMENTS (Male / Female) Normal Values 2D ECHO LV Diastolic Diameter PLAX 4.5 cm 4.2 - 5.9 / 3.9 - 5.3 cm LV Systolic Diameter PLAX 2.9 cm 2.1 - 4.0 cm LV Fractional Shortening PLAX 35.6 % 25 - 46 % LV Ejection Fraction 2D Teich 65.2 % IVS Diastolic Thickness 1.1 cm LVPW Diastolic Thickness 1.2 cm LV Relative Wall Thickness 0.5 RV Internal Dim ED PLAX 4.4 cm 1.9 - 3.8 cm LVOT Diameter 1.9 cm Aortic Root Diameter 3.0 cm LA Systolic Diameter LX 3.8 cm 3.0 - 4.0 / 2.7 - 3.8 cm LA Volume 67.0 cm 18 - 58 / 22 - 52 cm Ascending Aorta Diameter 3.2 cm DOPPLER AV Peak Velocity 166.0 cm/s AV Peak Gradient 11.0 mmHg AV Mean Velocity 114.0 cm/s AV Mean Gradient 6.0 mmHg AV Velocity Time Integral 44.1 cm AI Deceleration [place] 195.0 cm/s AI Peak Velocity 366.0 cm/s AI Pressure Half Time 549.5 ms AI Peak Gradient 53.6 mmHg LVOT Peak Velocity 65.8 cm/s LVOT Peak Gradient 1.7 mmHg LVOT Mean Velocity 42.3 cm/s LVOT Mean Gradient 1.0 mmHg LVOT Velocity Time Integral 16.4 cm LVOT Stroke Volume 46.5 cm AV Area Cont Eq vti 1.1 cm AV Area Cont Eq pk 1.1 cm MV Peak Velocity 178.0 cm/s MV Peak Gradient 12.7 mmHg MV Mean Velocity 75.6 cm/s MV Mean Gradient 3.0 mmHg Mitral E Point Velocity 176.0 cm/s Mitral A Point Velocity 48.7 cm/s Mitral E to A Ratio 3.6 MV PHT Velocity 187.0 cm/s MV Deceleration [place] 807.0 cm/s MV Pressure Half Time 69.5 ms MV Area PHT 3.2 cm MV Deceleration Time 194.0 ms MR Peak Velocity 493.0 cm/s MR Peak Gradient 97.2 mmHg TR Peak Velocity 425.0 cm/s TR Peak Gradient 72.3 mmHg Right Atrial Pressure 10.0 mmHg Pulmonary Artery Systolic Pressu 82.3 mmHg Right Ventricular Systolic Press 82.3 mmHg PV Peak Velocity 127.0 cm/s PV Peak Gradient 6.5 mmHg PV Mean Velocity 74.8 cm/s PV Mean Gradient 3.0 mmHg PV Velocity Time Integral 27.0 cm
[2016-09-03 07:54] VITALS: BP 124/62
--- NOTE | 2016-09-03 08:44 | PN- Housestaff ---
See Addendum Subjective Follow-up For: 1. CHF exacerbation 2. Right lower extremity wound 3. Hypertension 4. History of hyperlipidemia 5. Obstructive sleep apnea on nocturnal CPAP 6. Supratherapeutic INR 7. Thrombocytopenia 8. Elevated bilirubin which is chronic 9. Postmenopausal bleeding status post D&C Tele-Events Since Last Visit: NSR, HR 62-72, with 1st heart block and some PVCs Subjective: Afebrile, hemodynamically stable, saturating well on 2 L of oxygen. No overnight event reported. Patient denies any current complaints. Patient has blood on the Simpson cath bag. Review of Systems Constitutional: Reports: no symptoms. Objective Last 24 Hrs of Vital Signs/I&O Vital Signs Date Time Temp Pulse Resp B/P B/P Pulse O2 O2 Flow FiO2 Mean Ox Delivery Rate 09/03 0959 CPAP 2.0L 09/03 0754 97.5 62 20 124/62 97 CPAP 09/03 0031 98.3 67 18 120/60 96 BIPAP 09/03 0000 CPAP 09/02 1613 98.1 70 17 123/54 94 Room Air Intake & Output 09/03 1600 09/03 0800 09/03 0000 Intake Total 60 730 Output Total 300 1150 Balance -240 -420 Intake, IV 10 10 Intake, Oral 50 720 Output, Urine 300 1150 Physical Exam General Appearance: Alert, Oriented X3, Cooperative, No Acute Distress HEENT: Atraumatic, PERRLA, EOMI, Mucous Membr. moist/pink Cardiovascular: Regular Rate, Normal S1, Normal S2, No Murmurs Lungs: diminished air entry over lung bases bilaterally Abdomen: Normal Bowel Sounds, Soft, No Tenderness Neurological: Normal Speech Extremities: No Clubbing, No Cyanosis, +1 edema over lower extremity bilaterally Assessment/Plan Assessment: 86-year-old woman with a past medical history of atrial fibrillation, chronic congestive heart failure (preserved LV systolic function) and hypertension. She presents to our hospital with worsening dyspnea as well as recent increase in her lower extremity edema. She was found to have an elevated BNP and findings consistent with acute on chronic congestive heart failure. #Exertional dyspnea most likely CHF exacerbation As she has recently had a pacemaker implantation. Cardiology would like to exclude acute pacer-induced cardio myopathy by echo. Echocardiogram result: Normal left ventricular systolic function with borderline hypertrophy. Right ventricular dilatation and hypokinesia. Severe Pulmonary hypertension by doppler. Biatrial enlargement. * Continue diuresis * Strict I's and O's * Daily weights #Atrial fibrillation: * Heartrate is in 60s well controlled with the pacemaker * Patient was found to have a supratherapeutic INR * We will hold Coumadin and repeat INR daily * We will dose Coumadin once necessary #Right lower extremity wound: * Wound consult #Vaginal bleeding vs hematuria Patient fully catheter bag is filled with urine mixed with blood. Urinalysis on the day of admission shows packed RBCs. Patient had a supratherapeutic INR. * We will consult urology * Repeat CBC daily #Obstructive sleep apnea. * Continue nocturnal CPAP #Elevated bilirubin Patient bilirubin slightly improved, GGT is high up to 64. GI was consulted * Follow LFTs * As per GI, we will consider outpatient cross-sectional imaging, check mitochondrial antibody, antinuclear antibody, 5'-nucleotidase, and consider eventual EGD to rule out varices, if cardiac status allows Heart healthy diet DVT prophylaxis patient is supratherapeutic INR Full code Problem List: 1. Elevated INR 2. Elevated bilirubin 3. CHF (congestive heart failure) Pain Ratin Pain Location: NA Pain Goal: Remain pain free Pain Plan: See A&P Tomorrow's Labs & Rationales: CBC, BEP and INR
--- NOTE | 2016-09-03 10:43 | PN- Cardiology ---
Subjective Subjective: The patient is awake, alert States feeling minimally improved from a respiratory status The events of the last 24 hours as well as telemetry were reviewed. Review of Systems: The review of systems is negative for chest pains, palpitations nor lightheadedness. The remainder of the 14 point review of systems is noncontributory with the exception of above. Objective Vital Signs and I&Os Vital Signs Date Time Temp Pulse Resp B/P B/P Pulse O2 O2 Flow FiO2 Mean Ox Delivery Rate 09/03 0959 CPAP 2.0L 09/03 0754 97.5 62 20 124/62 97 CPAP 09/03 0031 98.3 67 18 120/60 96 BIPAP 09/03 0000 CPAP 09/02 1613 98.1 70 17 123/54 94 Room Air Intake & Output 09/03 1600 09/03 0800 09/03 0000 09/02 1600 09/02 0809/02 0000 Intake Total 60 250 960 100 100 Output Total 300 750 800 175 250 Balance -240 -500 160 -75 -150 Intake, IV 10 10 0 0 Intake, Oral 50 240 960 100 100 Number 0 0 Bowel Movements Output, Urine 300 750 800 175 250 Physical Exam: General: Nontoxic, no apparent distress. HEENT: Sclera and conjunctiva within normal limits, without xanthelasmas. Neck: Carotids 2+ without bruits. Respiratory: Scattered rhonchi, air movement is good, without accessory respiratory muscle use. Heart: Regular rate and rhythm, 2/6 systolic ejection murmur at left sternal border, without JVD. Abdomen: Soft, nontender, no masses, normoactive bowel sounds. Extremities: Without clubbing, cyanosis, without edema. Neuro: Nonfocal exam, strength, 5 out of 5 Skin: Within normal limits without lesions. Psych: Mood and affect: Normal Current Medications: Current Medications Sig/Aparna Start time Last Medication Dose Route Stop Time Status Admin Acetaminophen 650 MG Q6P PRN 09/01 1814 AC PO Citalopram 20 MG DAILY 09/02 1000 AC 09/03 Hydrobromide PO 31 Furosemide 40 MG 7:30 AM, & 4:30 PM 09/02 0730 AC 09/03 IV 0831 Ibuprofen 600 MG Q6P PRN 09/01 1814 AC PO Morphine Sulfate 2 MG Q4P PRN 09/01 1814 AC IV Tiotropium [place] 1 PUF DAILY 09/01 181 AC 09/03 INH 0831 Results Last 48 Hrs of Labs/Mics: Laboratory Tests 09/03/16 0620: Anion Gap 10, Estimated GFR 47 L, BUN/Creatinine Ratio 31.8 H, Total Bilirubin 3.5 H, Direct Bilirubin 2.0 H, GGT 64 H, AST 35, ALT 38, Alkaline Phosphatase 193 H, Total Protein 6.7, Albumin 3.1 L 09/02/16 0650: Anion Gap 9, Estimated GFR 53 L, BUN/Creatinine Ratio 34.0 H, Total Bilirubin 3.7 H, Direct Bilirubin 2.1 H, AST 32, ALT 36, Alkaline Phosphatase 197 H, Total Protein 7.0, Albumin 3.2 L, PT 41.9 H, INR 4.05 *H, CBC w Diff NO MAN DIFF REQ, RBC 3.41 L, MCV 99.2 H, MCH 31.8 H, RDW 18.7 H, MPV 11.1 H, Gran % 67.0, Lymphocytes % 18.3 L, Monocytes % 11.2 H, Eosinophils % 2.9, Basophils % 0.6, Absolute Granulocytes 2.8, Absolute Lymphocytes 0.8 L, Absolute Monocytes 0.5, Absolute Eosinophils 0.1, Absolute Basophils 0, PUBS MCHC 32.0 L 09/02/16 0030: Troponin I 0.04 09/01/16 1848: Troponin I 0.04 09/01/16 1200: Urinalysis LIGHT H, Urine Color BLDY H, Urine Clarity CLDY H, Urine pH 5.5, Ur Specific Hedley 1.020, Urine Protein 100 H, Urine Ketones TRACE H, Urine Nitrite POS H, Urine Bilirubin NEG, Urine Urobilinogen 1.0, Ur Leukocyte Esterase TRACE H, Ur Microscopic SEDIMENT EXAMINED, Urine RBC PACKD H, Urine WBC 3-5 H, Ur Epithelial Cells FEW, Urine Bacteria FEW H, Hyaline Casts RARE H, Urine Hemoglobin LARGE H, Urine Glucose NEG 09/01/16 1050: Anion Gap 11, Estimated GFR 53 L, BUN/Creatinine Ratio 35.0 H, Glucose 120 H, Calcium 8.5, Total Bilirubin 3.9 H, Direct Bilirubin 2.0 H, AST 30, ALT 28, Alkaline Phosphatase 172 H, Troponin I 0.04, Nts-X-Rjyiukqulpw Pept 2680 H, Total Protein 6.7, Albumin 3.1 L, Globulin 3.6, Albumin/Globulin Ratio 0.9 L, PT 43.5 *H, INR 4.20 *H, APTT 50 H, D-Dimer 301 H, CBC w Diff MAN DIFF ORDERED , RBC 3.38 L, MCV 99.0, MCH 31.7 H, RDW 17.7 H, MPV 10.9 H, Gran % 69.8, Lymphocytes % 15.1 L, Monocytes % 12.8 H, Eosinophils % 1.7, Basophils % 0.6, Absolute Granulocytes 3.2, Absolute Lymphocytes 0.7 L, Absolute Monocytes 0.6, Absolute Eosinophils 0.1, Absolute Basophils 0, Platelet Estimate DECREASED, Polychromasia 1+, Anisocytosis 1+, Stomatocytes 1+, PUBS MCHC 32.0 L Microbiology 09/01 1450 URINE ROUT: Urine Culture - COMP Assessment/Plan Assessment/Plan 86-year-old woman with a past medical history of atrial fibrillation, chronic congestive heart failure (preserved LV systolic function) and hypertension. She presents to our hospital with worsening dyspnea as well as increasing pedal edema over period of proximately one month; however, worsening over the past several days. She was found to have an elevated BNP and findings consistent with acute on chronic congestive heart failure. Acute CHF secondary to diastolic dysfunction: Possibly due to a change in her regimen recently while in [place]. Her repeat echocardiogram demonstrated significant pulmonary hypertension (80 mmHg). She has diuresed slightly overnight and we will attempt to continue the same. Further follow-up with pulmonary regarding treatment for underlying pulmonary hypertension will be maintained; however, will be reevaluated following diuresis. Atrial fibrillation: Stable, continue with current medication regimen and full and coagulation Right lower extremity wound: Continue treatment as per medical team Hypertension: Stable, we'll continue to monitor Vaginal bleeding: The patient had a remote D&C performed approximately 3 years ago. We will follow up with [employer] Continue telemetry? Yes
[2016-09-03 12:00] LABS: PT 43.4 SEC (9.4-12.5)
[2016-09-03 15:40] VITALS: BP 128/70
--- NOTE | 2016-09-03 15:49 | Cons- Urology ---
General Information and HPI Consulting Request Date of Consult: 09/03/16 Requested By: SUN CHI MD Reason for Consult: gross hematuria Source of Information: patient Exam Limitations: no limitations History of Present Illness: Patient is an 86-year-old female with congestive heart failure, chronic lower extremity edema, obstructive sleep apnea on CPAP, atrial fibrillation on anticoagulation, hypertension, gout who was admitted with worsening shortness of breath and lower extremity edema for one week. She is on warfarin for Afibb. She also had vaginal bleeding (D&C three years ago) and had a edgar placed with subsequent gross hematuria. She has no hx of chronic UTIs or kidney stones. An ABD US showed no abnormalities in the right kidney. Allergies/Medications Allergies: Coded Allergies: guaifenesin (HIVES 09/01/16) Home Med List: Acetaminophen (Tylenol Arthritis) 650 MG TABLET.ER 2 TAB PO QPM PAIN ( Reported) Albuterol Sulfate (Proair Hfa) 90 MCG HFA.AER.AD 2 PUF INH Q4-6 PRN PRN BREATHING (Reported) Allopurinol 300 MG TABLET 0.5 TAB PO QAM GOUT (Reported) Biotin (Unknown Strength) TABLET (Unknown Dose) PO DAILY SUPPLEMENT (Reported ) Calcium Carb/Vitamin D3/Vit K1 (Calcium + Vit D & K Chew Tab) 500 MG CALCIUM-500 UNIT-40 MCG TAB.CHEW 1 TAB PO DAILY SUPPLEMENT (Reported) Cephalexin 500 MG CAPSULE 1 CAP PO TID ANTIBIOTIC (Reported) Cholecalciferol (Vitamin D3) (Vitamin D) 2,000 UNIT TABLET 1 TAB PO 1700 SUPPLEMENT (Reported) Citalopram Hydrobromide (Citalopram HBr) 20 MG TABLET 1 TAB PO DAILY MENTAL HEALTH (Reported) Furosemide 40 MG TABLET 1 TAB PO BID WATER PILL (Reported) Ketoconazole 2 % CREAM..G. 1 PONCHO TOP BID RINGWORM (Reported) apply to affected area(s) Potassium Chloride 20 MEQ TAB.ER.PRT 1 TAB PO DAILY SUPPLEMENT (Reported) Tiotropium Coello (Spiriva) 18 MCG CAP.W.DEV 1 CAP INH DAILY BREATHING PROBLEMS (Reported) Tramadol HCl 50 MG TABLET 1 TAB PO QPM PRN PAIN (Reported) Warfarin Sodium (Coumadin) 3 MG TABLET 1 TAB PO AD BLOOD THINNER (Reported) Warfarin Sodium (Coumadin) 1 MG TABLET 1.5 TAB PO AD BLOOD THINNER (Reported) Current Medications: Current Medications Sig/Aparna Start time Last Medication Dose Route Stop Time Status Admin Acetaminophen 650 MG Q6P PRN 09/01 1814 AC PO Citalopram 20 MG DAILY 09/02 1000 AC 09/03 Hydrobromide PO 08 Furosemide 40 MG 7:30 AM, & 4:30 PM 09/02 0730 AC 09/03 IV 0831 Ibuprofen 600 MG Q6P PRN 09/01 181 AC PO Morphine Sulfate 2 MG Q4P PRN 09/01 181 AC IV Patient Medication 1 ED .STK-MED ONE 09/03 1413 DC Teaching ED 09/03 1414 Phytonadione 5 MG ONCE ONE 09/03 1600 DC PO 09/03 1601 Tiotropium [place] 1 PUF DAILY 09/01 1816 AC 09/03 INH 0831 Past History Medical History Blood Transfusion Hx: No Neurological: NONE EENT: NONE Cardiovascular: AFIB, CHF, hypertension Respiratory: NONE Gastrointestinal: NONE Hepatic: NONE Renal: NONE Musculoskeletal: NONE Psychiatric: NONE Endocrine: NONE Blood Disorders: NONE Cancer(s): NONE 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 Home Who Do You Live With? self Services at Home: Home Health Aide Primary Language: Latvian Smoking Status: Never Smoked (exposed 2nd hand smoke chronic) ETOH Use: denies use Illicit Drug Use: denies illicit drug use Living Will? no Functional Ability ADLs Independent: dressing, eating, toileting, bathing. Ambulation: independent, walker IADLs Needs Assist: shopping, housework, finances, food prep, telephone, transportation, medication admin. Review of Systems Review of Systems Constitutional: Reports: weakness. EENTM: Reports: no symptoms. Cardiovascular: Reports: see HPI. Respiratory: Reports: short of breath. GI: Reports: no symptoms. Genitourinary: Reports: hematuria. Musculoskeletal: Reports: gout. Skin: Reports: see HPI. Neurological/Psychological: Reports: no symptoms. Hematologic/Endocrine: Reports: bleeding. Immunologic/Allergic: Reports: no symptoms. Exam & Diagnostic Data Vital Signs and I&O Vital Signs Date Time Temp Pulse Resp B/P B/P Pulse O2 O2 Flow FiO2 Mean Ox Delivery Rate 09/03 1540 98.3 59 16 128/70 98 Nasal 2.0L Cannula 09/03 1448 CPAP 2.0L 09/03 1445 CPAP 2.0L 09/03 0959 CPAP 2.0L 09/03 0754 97.5 62 20 124/62 97 CPAP 09/03 0031 98.3 67 18 120/60 96 BIPAP 09/03 0000 CPAP Intake & Output 09/03 0800 09/03 0000 09/02 0800 09/02 0000 Intake Total 480 60 250 960 100 100 Output Total 400 300 750 800 175 250 Balance 80 -240 -500 160 -75 -150 Intake, IV 10 10 0 0 Intake, Oral 480 50 240 960 100 100 Number 0 0 Bowel Movements Output, Urine 400 300 750 800 175 250 Patient 106.821 kg Weight Weight Chair scale Measurement Method Physical Exam: awake and alert, NAD sitting up in chair Bad soft, obese and nontender Edgar in place with gross hematuria- dark merlot colored urine output with some clots LE edema Physical Exam General Appearance: alert, awake, comfortable Head: atraumatic, normal appearance Ears, Nose, Throat: normal ENT inspection Gastrointestinal: normal bowel sounds, soft, non-tender Back: normal inspection Extremities: swelling Neurologic/Psych: awake, alert, oriented x 3 Cranial Nerves: normal hearing, normal speech Skin: intact, warm/dry Last 24 Hours of Labs: Laboratory Tests 09/03 09/03 1100 0620 Chemistry Sodium (137 - 145 mmol/L) 138 Potassium (3.5 - 5.1 mmol/L) 4.0 Chloride (98 - 107 mmol/L) 101 Carbon Dioxide (22 - 30 mmol/L) 27 Anion Gap (5 - 16) 10 BUN (7 - 17 mg/dL) 35 H Creatinine (0.5 - 1.0 mg/dL) 1.1 H Estimated GFR (>60 ml/min) 47 L BUN/Creatinine Ratio (7 - 25 %) 31.8 H Total Bilirubin (0.2 - 1.3 mg/dL) 3.5 H Direct Bilirubin (< 0.4 mg/dL) 2.0 H GGT (12 - 43 U/L) 64 H AST (14 - 36 U/L) 35 ALT (9 - 52 U/L) 38 Alkaline Phosphatase (<127 U/L) 193 H Total Protein (6.3 - 8.2 g/dL) 6.7 Albumin (3.5 - 5.0 g/dL) 3.1 L Coagulation PT (9.4 - 12.5 SEC) 43.4 *H INR (0.90 - 1.19) 4.19 *H Imaging Results: abd US with normal right kidney Assessment/Plan Assessment/Plan 86 yo female on warfarin for Afib with gross hematuria of unclear etiology. SHe has no hx of UTIs chronically and her urine culture was negative. Recommend renal/bladder US. May be due to traumatic edgar placement with supratherapeutic INR vs bladder abnormality eg tumor. FU after imaging. Consult Acknowledgment - Thank you for your consult request.
--- NOTE | 2016-09-03 17:55 | ULTRASOUND REPORT ---
EXAMINATION: US RETROPERITONEAL COMPLETE (RENAL) CLINICAL INFORMATION: Hematuria.. COMPARISON: Ultrasound from 09/01/2016. CT 03/25/2012. TECHNIQUE: Real-time imaging of the kidneys and bladder. FINDINGS: RIGHT KIDNEY: 10 x 4.9 x 5.2 cm (SAG x AP x TRV). The kidney is normal in size, contour, and echogenicity. Renal cortical thickness is normal. No calculi or focal parenchymal lesions. No hydronephrosis. LEFT KIDNEY: 10.6 x 5 x 4.2 cm (SAG x AP x TRV). The kidney is normal in size, contour, and echogenicity. Renal cortical thickness is normal. No calculi or focal parenchymal lesions. No hydronephrosis. BLADDER: The bladder is decompressed with a Simpson catheter in place. IMPRESSION: Unremarkable appearance of the kidneys. Decompressed bladder limits evaluation..
[2016-09-04 00:09] VITALS: BP 130/64
[2016-09-04 08:00] VITALS: BP 118/58
[2016-09-04 08:12] LABS: ABSOLUTE BASOPHIL COUNT 0 /CUMM (0.0-0.2); ABSOLUTE EOSINOPHIL COUNT 0.1 /CUMM (0.0-0.7); ABSOLUTE GRANULOCYTE CT 3.2 /CUMM (1.4-6.5); ABSOLUTE LYMPH COUNT 0.9 /CUMM (1.2-3.4); ABSOLUTE MONOCYTE COUNT 0.5 /CUMM (0.10-0.60); BASOPHIL % 0.4 % (0.0-2.0); EOSINOPHIL % 1.9 % (0-5); GRANULOCYTE % 68.2 % (42.2-75.2); HEMATOCRIT 31.5 % (37-47); MEAN CORPUSCULAR HGB 31.7 PG (27.0-31.0); MEAN CORPUSCULAR HGB CONC 32.1 G/DL (33.0-37.0); PLATELET COUNT 69 /CUMM (130-400); RBC DISTRIBUTION WIDTH 18.5 % (11.5-14.5); RED BLOOD CELL CT 3.18 /CUMM (4.20-5.40); WHITE BLOOD CELL COUNT 4.7 /CUMM (4.8-10.8)
[2016-09-04 08:16] LABS: PT 31.3 SEC (9.4-12.5)
--- NOTE | 2016-09-04 09:30 | PN- Housestaff ---
Subjective Follow-up For: 1. CHF exacerbation 2. Right lower extremity wound 3. Hypertension 4. History of hyperlipidemia 5. Obstructive sleep apnea on nocturnal CPAP 6. Supratherapeutic INR 7. Thrombocytopenia 8. Elevated bilirubin which is chronic 9. Postmenopausal bleeding status post D&C Tele-Events Since Last Visit: Junctional rhythm, heart rate 68-85. No overnight events reported on the nurse monitoring Subjective: Afebrile, hemodynamically stable, saturating well on 2 L of oxygen. No overnight events reported. Patient denies any current complaint. Patient still having hematuria. Her INR is down to 3 the same. She denies any symptoms suggestive of anemia. Review of Systems Constitutional: Reports: no symptoms. Objective Last 24 Hrs of Vital Signs/I&O Vital Signs Date Time Temp Pulse Resp B/P B/P Pulse O2 O2 Flow FiO2 Mean Ox Delivery Rate 09/04 1721 97.9 58 18 116/60 98 09/04 0800 Nasal 2.0L Cannula 09/04 0800 98.6 73 18 118/58 97 Nasal 2.0L Cannula 09/04 0009 98.3 67 16 130/64 98 BIPAP 09/04 0000 CPAP 09/03 2103 63 98 Intake & Output 09/04 1600 09/04 0800 09/04 0000 Intake Total 490 120 480 Output Total 450 300 400 Balance 40 -180 80 Intake, IV 10 Intake, Oral 480 120 480 Output, Urine 450 300 400 Patient 108.947 kg Weight Weight Chair scale Measurement Method Physical Exam General Appearance: Alert, Oriented X3, Cooperative, No Acute Distress HEENT: Atraumatic, PERRLA, EOMI, Mucous Membr. moist/pink Cardiovascular: Normal S1, Normal S2, No Murmurs, irregular Lungs: decrease air entry over both lungs bases Abdomen: Normal Bowel Sounds, Soft, No Tenderness Neurological: Normal Speech Extremities: No Clubbing, No Cyanosis, trace edema Current Medications: Current Medications Sig/Aparna Start time Last Medication Dose Route Stop Time Status Admin Acetaminophen 650 MG Q6P PRN 09/01 1815 AC 09/04 PO 1258 Citalopram 20 MG DAILY 09/02 1000 AC 09/04 Hydrobromide PO 0810 Furosemide 40 MG 7:30 AM, & 4:30 PM 09/02 0730 AC 09/04 IV 1621 Ibuprofen 600 MG Q6P PRN 09/01 181 AC PO Morphine Sulfate 2 MG Q4P PRN 09/01 1814 IV Potassium Chloride 40 MEQ ONCE ONE 09/04 1515 DC 09/04 PO 09/04 1516 1621 Tiotropium [place] 1 PUF DAILY 09/01 1816 AC 09/04 INH 0810 Last 24 Hrs of Lab/Otis Results Last 24 Hrs of Labs/Mics: Laboratory Tests 09/04/16 0616: Anion Gap 10, Estimated GFR 53 L, BUN/Creatinine Ratio 33.0 H, PT 31.3 H, INR 3.01 H, CBC w Diff NO MAN DIFF REQ, RBC 3.18 L, MCV 99.0, MCH 31.7 H, RDW 18.5 H, MPV 11.0 H, Gran % 68.2, Lymphocytes % 19.3 L, Monocytes % 10.2 H, Eosinophils % 1.9, Basophils % 0.4, Absolute Granulocytes 3.2, Absolute Lymphocytes 0.9 L, Absolute Monocytes 0.5, Absolute Eosinophils 0.1, Absolute Basophils 0, PUBS MCHC 32.1 L Assessment/Plan Assessment: 86-year-old woman with a past medical history of atrial fibrillation, chronic congestive heart failure (preserved LV systolic function) and hypertension. She presents to our hospital with worsening dyspnea as well as recent increase in her lower extremity edema. She was found to have an elevated BNP and findings consistent with acute on chronic congestive heart failure. #Exertional dyspnea most likely CHF exacerbation As she has recently had a pacemaker implantation. Cardiology would like to exclude acute pacer-induced cardio myopathy by echo. Echocardiogram result: Normal left ventricular systolic function with borderline hypertrophy. Right ventricular dilatation and hypokinesia. Severe Pulmonary hypertension by doppler. Biatrial enlargement. * We will increase furosemide from 40 mg twice a day IV to 60 mg twice a day IV, as patient had positive fluid balance yesterday * Strict I's and O's * Daily weights * We will consult pulmonology to further address her pulmonary hypertension #Atrial fibrillation: * Heartrate is in 60s well controlled with the pacemaker * Patient was found to have a supratherapeutic INR, today's INR is 3 * We will hold Coumadin and repeat INR daily * We will dose Coumadin once necessary #Right lower extremity wound: * Wound consult #Vaginal bleeding vs hematuria Patient fully catheter bag is filled with urine mixed with blood. Urinalysis on the day of admission shows packed RBCs. Patient had a supratherapeutic INR. Renal ultrasound was done and the results came back benign with no pathology to be addressed. * We will follow neurology recommendation * Repeat CBC daily #Obstructive sleep apnea. * Continue nocturnal CPAP #Elevated bilirubin Patient bilirubin slightly improved, GGT is high up to 64. GI is on board * Follow LFTs * As per GI, we will consider outpatient cross-sectional imaging, check mitochondrial antibody, antinuclear antibody, 5'-nucleotidase, and consider eventual EGD to rule out varices, if cardiac status allows Heart healthy diet DVT prophylaxis patient is supratherapeutic INR Full code Problem List: 1. Elevated INR 2. Vaginal bleeding 3. Elevated bilirubin 4. CHF (congestive heart failure) Pain Ratin Pain Location: na Pain Goal: Remain pain free Pain Plan: See A&P Tomorrow's Labs & Rationales: INR CBC BEP
--- NOTE | 2016-09-04 10:18 | Cons- Pulmonary ---
See Addendum General Information and HPI Consulting Request Date of Consult: 09/04/16 Requested By: Dr. Stein Reason for Consult: pulmonary htn Source of Information: patient Exam Limitations: no limitations History of Present Illness: 86 year old woman. Known to me from office. Last seen 06/2016. History of a Pacemaker. Patient is compliant with CPAP therapy. Her equipment is up to date. She reports that her daytime fatigue has improved overall. Mask fit is good. She has no snoring overall and no obvious leaks. She has not had a download recently. Chronic obstructive lung disease - Spiriva once daily and albuterol. Hx of Mediastinal lymphadenopathy, hx of mediastinoscopy for reactive adenopathy. Hx of pulmonary hypertension, obstructive sleep apnea syndrome - Severe obstructive sleep apnea AHI 21.8 with nocturnal desaturation, has nocturnal o2 for bleed in. Admitted with leg edema and dyspnea. CXR cardiomegaly with interstitial edema. Leg edema improved since admisison. Severe ph, RV dilatation and hypokinesia. Allergies/Medications Allergies: Coded Allergies: guaifenesin (HIVES 09/01/16) Home Med List: Acetaminophen (Tylenol Arthritis) 650 MG TABLET.ER 2 TAB PO QPM PAIN ( Reported) Albuterol Sulfate (Proair Hfa) 90 MCG HFA.AER.AD 2 PUF INH Q4-6 PRN PRN BREATHING (Reported) Allopurinol 300 MG TABLET 0.5 TAB PO QAM GOUT (Reported) Biotin (Unknown Strength) TABLET (Unknown Dose) PO DAILY SUPPLEMENT (Reported ) Calcium Carb/Vitamin D3/Vit K1 (Calcium + Vit D & K Chew Tab) 500 MG CALCIUM-500 UNIT-40 MCG TAB.CHEW 1 TAB PO DAILY SUPPLEMENT (Reported) Cephalexin 500 MG CAPSULE 1 CAP PO TID ANTIBIOTIC (Reported) Cholecalciferol (Vitamin D3) (Vitamin D) 2,000 UNIT TABLET 1 TAB PO 1700 SUPPLEMENT (Reported) Citalopram Hydrobromide (Citalopram HBr) 20 MG TABLET 1 TAB PO DAILY MENTAL HEALTH (Reported) Furosemide 40 MG TABLET 1 TAB PO BID WATER PILL (Reported) Ketoconazole 2 % CREAM..G. 1 PONCHO TOP BID RINGWORM (Reported) apply to affected area(s) Potassium Chloride 20 MEQ TAB.ER.PRT 1 TAB PO DAILY SUPPLEMENT (Reported) Tiotropium [place] (Spiriva) 18 MCG CAP.W.DEV 1 CAP INH DAILY BREATHING PROBLEMS (Reported) Tramadol HCl 50 MG TABLET 1 TAB PO QPM PRN PAIN (Reported) Warfarin Sodium (Coumadin) 3 MG TABLET 1 TAB PO AD BLOOD THINNER (Reported) Warfarin Sodium (Coumadin) 1 MG TABLET 1.5 TAB PO AD BLOOD THINNER (Reported) Current Medications: Current Medications Sig/Aparna Start time Last Medication Dose Route Stop Time Status Admin Acetaminophen 650 MG Q6P PRN 09/01 1815 AC PO Citalopram 20 MG DAILY 09/02 1000 AC 09/04 Hydrob[place] PO 0810 Furosemide 40 MG 7:30 AM, & 4:30 PM 09/02 0730 AC 09/04 IV 0810 Ibuprofen 600 MG Q6P PRN 09/01 181 AC PO Morphine Sulfate 2 MG Q4P PRN 09/01 181 AC IV Patient Medication 1 ED .STK-MED ONE 09/03 1413 DC Teaching ED 09/03 1414 Phytonadione 5 MG ONCE ONE 09/03 1600 DC 09/03 PO 09/03 1601 1722 Tiotropium [place] 1 PUF DAILY 09/01 1817 AC 09/04 INH 0810 Review of Systems Comments 18 point review of systems performed. Pertinent positive and negative findings are in the HPI, otherwise negative. 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 Home Who Do You Live With? self Services at Home: Home Health Aide Primary Language: [place] Smoking Status: Never Smoked (exposed 2nd hand smoke chronic) ETOH Use: denies use Illicit Drug Use: denies illicit drug use Living Will? no Functional Ability ADLs Independent: dressing, eating, toileting, bathing. Ambulation: independent, walker IADLs Needs Assist: shopping, housework, finances, food prep, telephone, transportation, medication admin. Exam & Diagnostic Data Last 24 Hrs of Vital Signs/I&O Vital Signs Date Time Temp Pulse Resp B/P B/P Pulse O2 O2 Flow FiO2 Mean Ox Delivery Rate 09/04 0800 98.6 73 18 118/58 97 Nasal 2.0L Cannula 09/04 0009 98.3 67 16 130/64 98 BIPAP 09/04 0000 CPAP 09/03 2103 63 98 09/03 1600 Nasal 2.0L Cannula 09/03 1540 98.3 59 16 128/70 98 Nasal 2.0L Cannula 09/03 1448 CPAP 2.0L 09/03 1445 CPAP 2.0L Intake & Output 09/04 1600 09/04 0800 09/04 0000 Intake Total 120 480 Output Total 300 400 Balance -180 80 Intake, Oral 120 480 Output, Urine 300 400 Patient 240 lb Weight Weight Chair scale Measurement Method Physical Exam Other Physical Findings: gen awake and alert heent ncat cvs s1, s2, systolic murmur lungs rare rhonchi abd soft bs+ ext edematous Last 48 Hrs of Labs/Otis: Laboratory Tests 09/04/16 0616: Anion Gap 10, Estimated GFR 53 L, BUN/Creatinine Ratio 33.0 H, PT 31.3 H, INR 3.01 H, CBC w Diff NO MAN DIFF REQ, RBC 3.18 L, MCV 99.0, MCH 31.7 H, RDW 18.5 H, MPV 11.0 H, Gran % 68.2, Lymphocytes % 19.3 L, Monocytes % 10.2 H, Eosinophils % 1.9, Basophils % 0.4, Absolute Granulocytes 3.2, Absolute Lymphocytes 0.9 L, Absolute Monocytes 0.5, Absolute Eosinophils 0.1, Absolute Basophils 0, PUBS MCHC 32.1 L 09/03/16 1100: PT 43.4 *H, INR 4.19 *H 09/03/16 0620: Anion Gap 10, Estimated GFR 47 L, BUN/Creatinine Ratio 31.8 H, Total Bilirubin 3.5 H, Direct Bilirubin 2.0 H, GGT 64 H, AST 35, ALT 38, Alkaline Phosphatase 193 H, Total Protein 6.7, Albumin 3.1 L Assessment/Plan Impression/Plan: Impression 86 year old woman * acute diastolic chf exacerbation * copd * mark * a.fib * htn * hematuria vs vaginal bleeding Plan -cont cpap -TRC/Nebs -cont spiriva -f/u cardiology -urology f/u -pulmonary htn can be multifactorial - hypoxemia, copd, mark and chf DVT prophylaxis at all times Consult Acknowledgment - Thank you for your consult request.
--- NOTE | 2016-09-04 11:14 | PN- Cardiology ---
Subjective Subjective: The patient is awake, alert The results of the echocardiogram were reviewed with the patient and her family The events of the last 24 hours as well as telemetry were reviewed. Review of Systems: The review of systems is negative for chest pains, palpitations nor lightheadedness. The remainder of the 14 point review of systems is noncontributory with the exception of above. Objective Vital Signs and I&Os Vital Signs Date Time Temp Pulse Resp B/P B/P Pulse O2 O2 Flow FiO2 Mean Ox Delivery Rate 09/04 08 Nasal 2.0L Cannula 09/04 08 98.6 73 18 118/58 97 Nasal 2.0L Cannula 09/04 0009 98.3 67 16 130/64 98 BIPAP 09/04 0000 CPAP 09/03 2103 63 98 09/03 1600 Nasal 2.0L Cannula 09/03 1540 98.3 59 16 128/70 98 Nasal 2.0L Cannula 09/03 1448 CPAP 2.0L 09/03 1445 CPAP 2.0L Intake & Output 09/04 1600 09/04 0800 09/04 0000 09/03 1600 09/03 0800 09/03 0000 Intake Total 120 480 480 60 730 Output Total 300 400 017 655 9232 Balance -180 80 80 -240 -420 Intake, IV 10 10 Intake, Oral 120 480 480 50 720 Output, Urine 300 400 [id number] Patient 240 lb 236 lb Weight Weight Chair scale Chair scale Measurement Method Physical Exam: General: Nontoxic, no apparent distress. HEENT: Sclera and conjunctiva within normal limits, without xanthelasmas. Neck: Carotids 2+ without bruits. Respiratory: Scattered rhonchi, air movement is good, without accessory respiratory muscle use. Heart: Regular rate and rhythm, without murmurs, without JVD. Abdomen: Soft, nontender, no masses, normoactive bowel sounds. Extremities: Without clubbing, cyanosis. Neuro: Nonfocal exam, strength, 5 out of 5 Skin: Within normal limits without lesions. Psych: Mood and affect: Normal Current Medications: Current Medications Sig/Aparna Start time Last Medication Dose Route Stop Time Status Admin Acetaminophen 650 MG Q6P PRN 09/01 1815 AC PO Citalopram 20 MG DAILY 09/02 1000 AC 09/04 Hydrobromide PO 0810 Furosemide 40 MG 7:30 AM, & 4:30 PM 09/02 0730 AC 09/04 IV 0810 Ibuprofen 600 MG Q6P PRN 09/01 1814 AC PO Morphine Sulfate 2 MG Q4P PRN 09/01 1814 AC IV Patient Medication 1 ED .STK-MED ONE 09/03 1413 DC Teaching ED 09/03 1414 Phytonadione 5 MG ONCE ONE 09/03 1600 DC 09/03 PO 09/03 1601 1722 Tiotropium [place] 1 PUF DAILY 09/01 1816 AC 09/04 INH 0810 Results Last 48 Hrs of Labs/Mics: Laboratory Tests 09/04/16 0616: Anion Gap 10, Estimated GFR 53 L, BUN/Creatinine Ratio 33.0 H, PT 31.3 H, INR 3.01 H, CBC w Diff NO MAN DIFF REQ, RBC 3.18 L, MCV 99.0, MCH 31.7 H, RDW 18.5 H, MPV 11.0 H, Gran % 68.2, Lymphocytes % 19.3 L, Monocytes % 10.2 H, Eosinophils % 1.9, Basophils % 0.4, Absolute Granulocytes 3.2, Absolute Lymphocytes 0.9 L, Absolute Monocytes 0.5, Absolute Eosinophils 0.1, Absolute Basophils 0, PUBS MCHC 32.1 L 09/03/16 1100: PT 43.4 *H, INR 4.19 *H 09/03/16 0620: Anion Gap 10, Estimated GFR 47 L, BUN/Creatinine Ratio 31.8 H, Total Bilirubin 3.5 H, Direct Bilirubin 2.0 H, GGT 64 H, AST 35, ALT 38, Alkaline Phosphatase 193 H, Total Protein 6.7, Albumin 3.1 L Assessment/Plan Assessment/Plan 86-year-old woman with a past medical history of atrial fibrillation, chronic congestive heart failure (preserved LV systolic function) and hypertension. She presents to our hospital with worsening dyspnea as well as increasing pedal edema over period of proximately one month; however, worsening over the past several days. She was found to have an elevated BNP and findings consistent with acute on chronic congestive heart failure. Acute CHF secondary to diastolic dysfunction: Possibly due to a change in her regimen recently while in [place]. Her repeat echocardiogram demonstrated significant pulmonary hypertension (80 mmHg). She has diuresed slightly overnight and we will attempt to continue the same. Further follow-up with pulmonary regarding treatment for underlying pulmonary hypertension will be maintained; however, will be reevaluated following diuresis. The patient has maintained a slightly positive fluid balance over the past 24 hours. I would attempt to further diuresis attempts. Atrial fibrillation: Stable, continue with current medication regimen and full and coagulation Right lower extremity wound: Continue treatment as per medical team Hypertension: Stable, we'll continue to monitor Vaginal bleeding: The patient had a remote D&C performed approximately 3 years ago. 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 No
--- NOTE | 2016-09-04 15:03 | NUR ---
PT'S K LEVEL IS 3.9 TODAY. MD PANKAJ MILLNA MADE AWARE. WILL CONTINUE TO MONITOR.
[2016-09-04 17:21] VITALS: BP 116/60
--- NOTE | 2016-09-04 23:41 | NUR ---
INFORMED AIR EXPORT COORDINATOR GLADIS THAT PT CONTINUES WITH DARK HEMATURIA AND CLOTS IN YO UNCHANGED AMOUNT OR COLOR FROM CHANGE OF SHIFT AT 3 PM WHEN THIS RN ASSUMED CARE OF PT.
[2016-09-05 00:16] VITALS: BP 146/72
--- NOTE | 2016-09-05 07:52 | PN- Housestaff ---
See Addendum Subjective Follow-up For: 1. CHF exacerbation 2. Right lower extremity wound 3. Hypertension 4. History of hyperlipidemia 5. Obstructive sleep apnea on nocturnal CPAP 6. Supratherapeutic INR 7. Thrombocytopenia 8. Elevated bilirubin which is chronic 9. Postmenopausal bleeding status post D&C Subjective: Afebrile, hemodynamically stable, and saturating upper 90s on 1 L of oxygen. Patient denies any current active complaints. No acute overnight events reported. Patient urine is still dark, however improved comparing to yesterday and there is no drop in H&H. INR this a.m. is 1.96. Review of Systems Constitutional: Reports: no symptoms. Objective Last 24 Hrs of Vital Signs/I&O Vital Signs Date Time Temp Pulse Resp B/P B/P Pulse O2 O2 Flow FiO2 Mean Ox Delivery Rate 09/05 1004 97 Nasal 1.0L Cannula 09/05 0836 98.4 71 17 125/55 95 Room Air 09/05 0800 95 Nasal 1.0L Cannula 09/05 0016 97.2 59 20 146/72 98 BIPAP 09/05 0000 CPAP 1.0L 09/04 1954 98 Nasal 2.0L Cannula 09/04 1949 Nasal 2.0L Cannula 09/04 1721 97.9 58 18 116/60 98 09/04 1600 Nasal 2.0L Cannula Intake & Output 09/05 1600 09/05 0800 09/05 0000 Intake Total 150 490 Output Total 300 350 Balance -150 140 Intake, IV 0 10 Intake, Oral 150 480 Number 0 Bowel Movements Output, Urine 300 350 Patient 109.032 kg Weight Weight Chair scale Measurement Method Physical Exam General Appearance: Alert, Oriented X3, Cooperative, No Acute Distress HEENT: Atraumatic, PERRLA, EOMI, Mucous Membr. moist/pink Cardiovascular: Normal S1, Normal S2, No Murmurs, irregular Lungs: Clear to Auscultation, Normal Air Movement Abdomen: Soft, No Tenderness Neurological: Normal Speech Extremities: No Clubbing, No Cyanosis, trace edema,imporving Current Medications: Current Medications Sig/Aparna Start time Last Medication Dose Route Stop Time Status Admin Acetaminophen 650 MG .STK-MED ONE 09/04 1257 DC PO 09/04 1258 Acetaminophen 650 MG Q6P PRN 09/01 1815 AC 09/04 PO 1258 Albuterol Sulfate 3 ML Q4P PRN 09/05 1999 AC INH Citalopram 20 MG DAILY 09/02 1000 AC 09/05 Hydrobromide PO 08 Furosemide 60 MG 7:30 AM, & 4:30 PM 09/05 07 AC 09/05 IV 08 Furosemide 40 MG 7:30 AM, & 4:30 PM 09/02 07 DC 09/04 IV 1621 Ibuprofen 600 MG Q6P PRN 09/01 1814 AC PO Morphine Sulfate 2 MG Q4P PRN 09/01 1814 AC IV Potassium Chloride 40 MEQ ONCE ONE 09/04 151 DC 09/04 PO 09/04 151 1621 Tiotropium [place] 1 PUF DAILY 09/01 1816 AC 09/05 INH 0822 Last 24 Hrs of Lab/Otis Results Last 24 Hrs of Labs/Mics: Laboratory Tests 09/05/16 0705: Anion Gap 10, Estimated GFR 47 L, BUN/Creatinine Ratio 33.6 H, PT 20.5 H, INR 1.97 H, CBC w Diff NO MAN DIFF REQ, RBC 3.27 L, MCV 98.4, MCH 31.6 H, RDW 18.5 H, MPV 10.4, Gran % 66.6, Lymphocytes % 19.5 L, Monocytes % 10.1 H, Eosinophils % 3.3, Basophils % 0.5, Absolute Granulocytes 3.0, Absolute Lymphocytes 0.9 L, Absolute Monocytes 0.4, Absolute Eosinophils 0.1, Absolute Basophils 0, PUBS MCHC 32.1 L Assessment/Plan Assessment: 86-year-old woman with a past medical history of atrial fibrillation, chronic congestive heart failure (preserved LV systolic function) and hypertension. She presents to our hospital with worsening dyspnea as well as recent increase in her lower extremity edema. She was found to have an elevated BNP and findings consistent with acute on chronic congestive heart failure. #Exertional dyspnea most likely CHF exacerbation As she has recently had a pacemaker implantation. Cardiology exclude acute pacer-induced cardio myopathy by echo. Echocardiogram result: Normal left ventricular systolic function with borderline hypertrophy. Right ventricular dilatation and hypokinesia. Severe Pulmonary hypertension by doppler. Biatrial enlargement. * Can continue furosemide IV 60 mg twice a day. * Strict I's and O's * Daily weights * We will follow pulmonology and cardiology recommendation #Atrial fibrillation: * Patient was found to have a supratherapeutic INR, today's INR is 1.97 * We will touch base with cardiology and urology about restarting Coumadin * We will repeat INR daily and dose Coumadin when necessary. #Right lower extremity wound: * We will follow wound recommendation #Vaginal bleeding vs hematuria Patient fully catheter bag is filled with urine mixed with blood. Urinalysis on the day of admission shows packed RBCs. Patient had a supratherapeutic INR. Renal ultrasound was done and the results came back benign with no pathology to be addressed. * We will follow neurology recommendation * Repeat CBC daily #Obstructive sleep apnea. * Continue nocturnal CPAP #Elevated bilirubin Patient bilirubin slightly improved, GGT is high up to 64. GI is on board * Follow LFTs * As per GI, we will consider outpatient cross-sectional imaging, check mitochondrial antibody, antinuclear antibody, 5'-nucleotidase, and consider eventual EGD to rule out varices, if cardiac status allows Heart healthy diet DVT prophylaxis patient is supratherapeutic INR Full code Problem List: 1. Elevated INR 2. Vaginal bleeding 3. Elevated bilirubin 4. CHF (congestive heart failure) Pain Ratin Pain Location: na Pain Goal: Remain pain free Pain Plan: See A&P Tomorrow's Labs & Rationales: INR CBC BEP
[2016-09-05 08:19] LABS: PT 20.5 SEC (9.4-12.5)
[2016-09-05 08:36] VITALS: BP 125/55
[2016-09-05 08:59] LABS: ABSOLUTE BASOPHIL COUNT 0 /CUMM (0.0-0.2); ABSOLUTE EOSINOPHIL COUNT 0.1 /CUMM (0.0-0.7); ABSOLUTE LYMPH COUNT 0.9 /CUMM (1.2-3.4); ABSOLUTE MONOCYTE COUNT 0.4 /CUMM (0.10-0.60); BASOPHIL % 0.5 % (0.0-2.0); EOSINOPHIL % 3.3 % (0-5); GRANULOCYTE % 66.6 % (42.2-75.2); HEMATOCRIT 32.2 % (37-47); MEAN CORPUSCULAR HGB 31.6 PG (27.0-31.0); MEAN CORPUSCULAR HGB CONC 32.1 G/DL (33.0-37.0); MEAN CORPUSCULAR VOLUME 98.4 FL (81.0-99.0); MEAN PLATELET VOLUME 10.4 FL (7.4-10.4); PLATELET COUNT 73 /CUMM (130-400); RBC DISTRIBUTION WIDTH 18.5 % (11.5-14.5); RED BLOOD CELL CT 3.27 /CUMM (4.20-5.40); WHITE BLOOD CELL COUNT 4.4 /CUMM (4.8-10.8)
--- NOTE | 2016-09-05 09:45 | PN- Pulmonary ---
Subjective HPI/Critical Care Issues: pt seen and examined afebrile hemodynamically stable on cpap overnight Objective Current Medications: Current Medications Sig/Aparna Start time Last Medication Dose Route Stop Time Status Admin Acetaminophen 650 MG .STK-MED ONE 09/04 1257 DC PO 09/04 1258 Acetaminophen 650 MG Q6P PRN 09/01 181 AC 09/04 PO 1258 Albuterol Sulfate 3 ML Q4P PRN 09/05 1999 AC INH Citalopram 20 MG DAILY 09/02 1000 AC 09/05 Hydrobromide PO 0823 Furosemide 60 MG 7:30 AM, & 4:30 PM 09/05 0730 AC 09/05 IV 0825 Furosemide 40 MG 7:30 AM, & 4:30 PM 09/02 0730 DC 09/04 IV 1621 Ibuprofen 600 MG Q6P PRN 09/01 1814 AC PO Morphine Sulfate 2 MG Q4P PRN 09/01 1814 AC IV Potassium Chloride 40 MEQ ONCE ONE 09/04 1515 DC 09/04 PO 09/04 1516 1621 Tiotropium [place] 1 PUF DAILY 09/01 1816 AC 09/05 INH 0822 Vital Signs & I&O Last 24 Hrs of Vitals and I&O: Vital Signs Date Time Temp Pulse Resp B/P B/P Pulse O2 O2 Flow FiO2 Mean Ox Delivery Rate 09/05 0836 98.4 71 17 125/55 95 Room Air 09/05 0016 97.2 59 20 146/72 98 BIPAP 09/05 0000 CPAP 1.0L 09/04 1953 98 Nasal 2.0L Cannula 09/04 1949 Nasal 2.0L Cannula 09/04 1721 97.9 58 18 116/60 98 09/04 1600 Nasal 2.0L Cannula Intake & Output 09/05 1600 09/05 0800 09/05 0000 Intake Total 150 490 Output Total 300 350 Balance -150 140 Intake, IV 0 10 Intake, Oral 150 480 Number 0 Bowel Movements Output, Urine 300 350 Patient 240 lb Weight Weight Chair scale Measurement Method Exam Other Physical Findings: gen awake and alert heent ncat cvs s1, s2, systolic murmur lungs rare rhonchi abd soft bs+ ext edematous Results Last 24 Hrs of Lab Results: Laboratory Tests 09/05/16 0705: Anion Gap 10, Estimated GFR 47 L, BUN/Creatinine Ratio 33.6 H, PT 20.5 H, INR 1.97 H, CBC w Diff NO MAN DIFF REQ, RBC 3.27 L, MCV 98.4, MCH 31.6 H, RDW 18.5 H, MPV 10.4, Gran % 66.6, Lymphocytes % 19.5 L, Monocytes % 10.1 H, Eosinophils % 3.3, Basophils % 0.5, Absolute Granulocytes 3.0, Absolute Lymphocytes 0.9 L, Absolute Monocytes 0.4, Absolute Eosinophils 0.1, Absolute Basophils 0, PUBS MCHC 32.1 L Impression/Plan Impression/Plan Impression/Plan: Impression 86 year old woman * acute diastolic chf exacerbation * copd * mark * a.fib * htn * hematuria vs vaginal bleeding * cirrhosis which can be related to congestion from heart disease or other etiology. Plan -cont nocturnal cpap -TRC/Nebs -cont spiriva -gastroenterology, urology, cardiology followup DVT prophylaxis at all times
--- NOTE | 2016-09-05 12:38 | PN- Cardiology ---
Subjective Subjective: Feels well this morning. sitting up in bed resting comfortably. Still with dark urine in the Simpson. Objective Vital Signs and I&Os Vital Signs Date Time Temp Pulse Resp B/P B/P Pulse O2 O2 Flow FiO2 Mean Ox Delivery Rate 09/05 1004 97 Nasal 1.0L Cannula 09/05 0836 98.4 71 17 125/55 95 Room Air 09/05 0800 95 Nasal 1.0L Cannula 09/05 0016 97.2 59 20 146/72 98 BIPAP 09/05 0000 CPAP 1.0L 09/04 195 98 Nasal 2.0L Cannula 09/04 194 Nasal 2.0L Cannula 09/04 1721 97.9 58 18 116/60 98 09/05 1599 Nasal 2.0L Cannula Intake & Output 09/05 0809/05 0000 09/04 1600 09/04 0000 Intake Total 150 490 490 120 480 Output Total 300 350 450 300 400 Balance -150 140 40 -180 80 Intake, IV 0 10 10 Intake, Oral 150 480 480 120 480 Number 0 Bowel Movements Output, Urine 300 350 450 300 400 Patient 240 lb 240 lb Weight Weight Chair scale Chair scale Measurement Method Physical Exam: General: no apparent distress. Alert. on NC. Eyes: No obvious scleral icterus. HEENT: No jugular venous distention or abnormal jugular venous pulsations. Cardiovascular: Normal intensity S1/S2. PMI not grossly displaced. Respiratory: decreased air entry at the bases Abdomen: no guarding or rebound tenderness. Musculoskeletal: No clubbing or cyanosis noted, 2+ LE edema Skin: warm Neuro: Grossly nonfocal Current Medications: Current Medications Sig/Aparna Start time Last Medication Dose Route Stop Time Status Admin Acetaminophen 650 MG .STK-MED ONE 09/04 1257 DC PO 09/04 1258 Acetaminophen 650 MG Q6P PRN 09/01 181 AC 09/04 PO 1258 Albuterol Sulfate 3 ML Q4P PRN 09/04 2000 AC INH Citalopram 20 MG DAILY 09/02 1000 AC 09/05 Hydrobromide PO 0823 Furosemide 60 MG 7:30 AM, & 4:30 PM 09/05 0730 AC 09/05 IV 0825 Furosemide 40 MG 7:30 AM, & 4:30 PM 09/02 0730 DC 09/04 IV 1621 Ibuprofen 600 MG Q6P PRN 09/01 1814 AC PO Morphine Sulfate 2 MG Q4P PRN 09/01 1814 AC IV Potassium Chloride 40 MEQ ONCE ONE 09/04 151 DC 09/04 PO 09/04 1516 1621 Tiotropium [place] 1 PUF DAILY 09/01 1816 AC 09/05 INH 0822 Results Last 48 Hrs of Labs/Mics: Laboratory Tests 09/05/16 0705: Anion Gap 10, Estimated GFR 47 L, BUN/Creatinine Ratio 33.6 H, PT 20.5 H, INR 1.97 H, CBC w Diff NO MAN DIFF REQ, RBC 3.27 L, MCV 98.4, MCH 31.6 H, RDW 18.5 H, MPV 10.4, Gran % 66.6, Lymphocytes % 19.5 L, Monocytes % 10.1 H, Eosinophils % 3.3, Basophils % 0.5, Absolute Granulocytes 3.0, Absolute Lymphocytes 0.9 L, Absolute Monocytes 0.4, Absolute Eosinophils 0.1, Absolute Basophils 0, PUBS MCHC 32.1 L 09/04/16 0616: Anion Gap 10, Estimated GFR 53 L, BUN/Creatinine Ratio 33.0 H, PT 31.3 H, INR 3.01 H, CBC w Diff NO MAN DIFF REQ, RBC 3.18 L, MCV 99.0, MCH 31.7 H, RDW 18.5 H, MPV 11.0 H, Gran % 68.2, Lymphocytes % 19.3 L, Monocytes % 10.2 H, Eosinophils % 1.9, Basophils % 0.4, Absolute Granulocytes 3.2, Absolute Lymphocytes 0.9 L, Absolute Monocytes 0.5, Absolute Eosinophils 0.1, Absolute Basophils 0, PUBS MCHC 32.1 L Recent Imaging Studies: Echo: CONCLUSIONS Normal left ventricular systolic function with borderline hypertrophy. Right ventricular dilatation and hypokinesia. Severe Pulmonary hypertension by doppler. Biatrial enlargement. Mookie Rizvi M.D. (Electronically Signed) Final Date: 03 Sep 2016 07:49 Assessment/Plan Assessment/Plan 1. Acute on chronic congestive heart failure with normal left ventricular ejection fraction and mild right ventricular dysfunction 2. Pulmonary hypertension with mild right ventricular dysfunction 3. Atrial fibrillation on outpatient Coumadin 4. Right lower extremity wound 5. Hypertension 6. Obstructive sleep apnea on nocturnal CPAP 7. Postmenopausal bleeding status post prior D&C 8. History of bradycardia with permanent pacemaker in situ 9. Thrombocytopenia 10. Elevated bilirubin Agree with increased Lasix dosing as the patient does not seem to have a very negative fluid balance and remains volume overloaded. INR down to 1.97 today. Management of the thrombocytopenia per the medical team. Patient is currently hemodynamically stable with grossly stable hemoglobin. Walker Holm MD [facility] Continue telemetry? Not applicable
[2016-09-05 16:05] VITALS: BP 158/67
[2016-09-05 22:33] VITALS: BP 122/60
--- NOTE | 2016-09-06 07:15 | PN- Housestaff ---
See Addendum Subjective Follow-up For: 1. CHF exacerbation 2. Right lower extremity wound 3. Hypertension 4. History of hyperlipidemia 5. Obstructive sleep apnea on nocturnal CPAP 6. Supratherapeutic INR 7. Thrombocytopenia 8. Chronic elevated bilirubin 9. Postmenopausal bleeding 10. Hematuria Subjective: Afebrile, hemodynamically stable, and saturating well on room air. Patient denies any current active complaints. No acute overnight events reported. Hematuria almost resolved with stable H&H. INR this a.m. is 1.7. Continue to have vaginal bleeding. Review of Systems Constitutional: Reports: no symptoms. Objective Last 24 Hrs of Vital Signs/I&O Vital Signs Date Time Temp Pulse Resp B/P B/P Pulse O2 O2 Flow FiO2 Mean Ox Delivery Rate 09/06 0850 97.9 73 18 98/58 96 Nasal Cannula 09/06 0831 98 Nasal 1.0L Cannula 09/06 0800 Nasal 1.0L Cannula 09/06 0000 CPAP 2.0L 09/05 2233 97.5 58 18 122/60 99 CPAP 2.0L 09/05 1909 98 Nasal 1.0L Cannula 09/05 1605 97.4 60 18 158/67 98 Nasal 2.0L Cannula Intake & Output 09/06 1600 09/06 0800 09/06 0000 Intake Total 60 250 Output Total 250 250 Balance -190 0 Intake, IV 10 10 Intake, Oral 50 240 Output, Urine 250 250 Patient 109.316 kg Weight Weight Chair scale Measurement Method Physical Exam General Appearance: Alert, Oriented X3, Cooperative, No Acute Distress HEENT: Atraumatic, PERRLA, EOMI, Mucous Membr. moist/pink Cardiovascular: Regular Rate, Normal S1, Normal S2, No Murmurs Lungs: diminished air-entry over lung base b/l Abdomen: Normal Bowel Sounds, Soft, No Tenderness Neurological: Normal Speech Extremities: No Clubbing, No Cyanosis, trace edema Current Medications: Current Medications Sig/Aparna Start time Last Medication Dose Route Stop Time Status Admin Acetaminophen 650 MG .STK-MED ONE 09/05 2010 DC PO 09/06 2011 Acetaminophen 650 MG Q6P PRN 09/01 1815 AC 09/06 PO 0951 Albuterol Sulfate 3 ML Q4P PRN 09/05 1999 AC INH Citalopram 20 MG DAILY 09/02 1000 AC 09/06 Hydrobromide PO 0949 Furosemide 60 MG 7:30 AM, & 4:30 PM 09/05 0730 AC 09/06 IV 0647 Ibuprofen 600 MG Q6P PRN 09/01 1814 AC PO Morphine Sulfate 2 MG Q4P PRN 09/01 1814 AC IV Patient Medication 1 ED .STK-MED ONE 09/05 1348 NE Teaching ED 09/05 1349 Tiotropium [place] 1 PUF DAILY 09/01 1816 AC 09/06 INH 0949 Last 24 Hrs of Lab/Otis Results Last 24 Hrs of Labs/Mics: Laboratory Tests 09/06/16 0628: Anion Gap 10, Estimated GFR 43 L, BUN/Creatinine Ratio 33.3 H, PT 18.4 H, INR 1.76 H, CBC w Diff NO MAN DIFF REQ, RBC 3.24 L, MCV 98.8, MCH 32.0 H, RDW 19.0 H, MPV 9.4, Gran % 64.6, Lymphocytes % 19.7 L, Monocytes % 10.8 H, Eosinophils % 4.4, Basophils % 0.5, Absolute Granulocytes 2.9, Absolute Lymphocytes 0.9 L, Absolute Monocytes 0.5, Absolute Eosinophils 0.2, Absolute Basophils 0, PUBS MCHC 32.4 L Assessment/Plan Assessment: 86-year-old woman with a past medical history of atrial fibrillation, chronic congestive heart failure (preserved LV systolic function) and hypertension. She presents to our hospital with worsening dyspnea as well as recent increase in her lower extremity edema. She was found to have an elevated BNP and findings consistent with acute on chronic congestive heart failure. #Exertional dyspnea most likely CHF exacerbation As she has recently had a pacemaker implantation, obstetrics/gynecology nurse excluded acute pacer-induced cardio myopathy by echo. Echocardiogram result: Normal left ventricular systolic function with borderline hypertrophy. Right ventricular dilatation and hypokinesia. Severe Pulmonary hypertension by doppler. Biatrial enlargement. * Can continue furosemide IV 60 mg twice a day. * Strict I's and O's * Daily weights * We will follow pulmonology and cardiology recommendation #Atrial fibrillation: * Patient was found to have a supratherapeutic INR, today's INR is 1.7 * Patient has hematuria(resolved today) and vaginal bleeding. We will touch base with urology and gynecology to obtain a clearance for restarting Coumadin * We will repeat INR daily and dose Coumadin after she gets cleared. #Right lower extremity wound: * We will follow wound recommendation #Hematuria After placing the Simpson catheter the bag was filled with urine mixed with blood. Urinalysis on the day of admission shows packed RBCs. On admission patient had a supratherapeutic INR. Renal ultrasound was done and the results came back benign with no pathology to be addressed. Patient hematuria almost resolved today, Simpson catheter is filled with clear urine. * We will follow urology recommendation * Repeat CBC daily #Vaginal bleeding Patient has chronic vaginal bleeding. She had D&C done 3 years ago with the pathology being normal at that time. * We will order pelvic ultrasound looking for uterine and ovarian pathology. * We will ask for gynecological consult. * Patient may eventually need transvaginal ultrasound #Obstructive sleep apnea. * Continue nocturnal CPAP #Elevated bilirubin Patient bilirubin slightly improved, GGT is high up to 64. GI is on board * Follow LFTs * As per GI, we will consider outpatient cross-sectional imaging, check mitochondrial antibody, antinuclear antibody, 5'-nucleotidase, and consider eventual EGD to rule out varices, if cardiac status allows Heart healthy diet DVT prophylaxis patient is supratherapeutic INR Full code Problem List: 1. Elevated INR 2. Vaginal bleeding 3. Elevated bilirubin 4. CHF (congestive heart failure) 5. Obstructive sleep apnea syndrome Pain Ratin Pain Location: NA Pain Goal: Remain pain free Pain Plan: See A&P Tomorrow's Labs & Rationales: INR CBC because of active bleeding BEP to follow renal function
[2016-09-06 08:03] LABS: ABSOLUTE BASOPHIL COUNT 0 /CUMM (0.0-0.2); ABSOLUTE EOSINOPHIL COUNT 0.2 /CUMM (0.0-0.7); ABSOLUTE GRANULOCYTE CT 2.9 /CUMM (1.4-6.5); ABSOLUTE LYMPH COUNT 0.9 /CUMM (1.2-3.4); ABSOLUTE MONOCYTE COUNT 0.5 /CUMM (0.10-0.60); BASOPHIL % 0.5 % (0.0-2.0); EOSINOPHIL % 4.4 % (0-5); GRANULOCYTE % 64.6 % (42.2-75.2); MEAN CORPUSCULAR HGB CONC 32.4 G/DL (33.0-37.0); MEAN CORPUSCULAR VOLUME 98.8 FL (81.0-99.0); MEAN PLATELET VOLUME 9.4 FL (7.4-10.4); PLATELET COUNT 71 /CUMM (130-400); RED BLOOD CELL CT 3.24 /CUMM (4.20-5.40); WHITE BLOOD CELL COUNT 4.4 /CUMM (4.8-10.8)
[2016-09-06 08:22] LABS: PT 18.4 SEC (9.4-12.5)
[2016-09-06 08:50] VITALS: BP 98/58
--- NOTE | 2016-09-06 09:14 | PN- Pulmonary ---
See Addendum Subjective HPI/Critical Care Issues: pt seen and examined afebrile hemodynamically stable some leg edema Objective Current Medications: Current Medications Sig/Aparna Start time Last Medication Dose Route Stop Time Status Admin Acetaminophen 650 MG .STK-MED ONE 09/05 2010 DC PO 09/06 2011 Acetaminophen 650 MG Q6P PRN 09/01 181 AC 09/05 PO 2009 Albuterol Sulfate 3 ML Q4P PRN 09/05 1999 AC INH Citalopram 20 MG DAILY 09/02 1000 AC 09/05 Hydrobromide PO 08 Furosemide 60 MG 7:30 AM, & 4:30 PM 09/05 0730 AC 09/06 IV 0647 Ibuprofen 600 MG Q6P PRN 09/01 1814 AC PO Morphine Sulfate 2 MG Q4P PRN 09/01 1814 AC IV Patient Medication 1 ED .STK-MED ONE 09/05 1348 DC Teaching ED 09/05 1349 Tiotropium [place] 1 PUF DAILY 09/01 181 AC 09/05 INH 0822 Vital Signs & I&O Last 24 Hrs of Vitals and I&O: Vital Signs Date Time Temp Pulse Resp B/P B/P Pulse O2 O2 Flow FiO2 Mean Ox Delivery Rate 09/06 0850 97.9 73 18 98/58 96 Nasal Cannula 09/06 0831 98 Nasal 1.0L Cannula 09/06 0000 CPAP 2.0L 09/05 2233 97.5 58 18 122/60 99 CPAP 2.0L 09/05 1909 98 Nasal 1.0L Cannula 09/05 1605 97.4 60 18 158/67 98 Nasal 2.0L Cannula 09/05 1004 97 Nasal 1.0L Cannula Intake & Output 09/06 1600 09/06 0800 09/06 0000 Intake Total 60 250 Output Total 250 250 Balance -190 0 Intake, IV 10 10 Intake, Oral 50 240 Output, Urine 250 250 Patient 241 lb Weight Weight Chair scale Measurement Method Exam Other Physical Findings: gen awake and alert heent ncat cvs s1, s2, systolic murmur lungs rare rhonchi abd soft bs+ ext edematous Results Last 24 Hrs of Lab Results: Laboratory Tests 09/06/16 0628: Anion Gap 10, Estimated GFR 43 L, BUN/Creatinine Ratio 33.3 H, PT 18.4 H, INR 1.76 H, CBC w Diff NO MAN DIFF REQ, RBC 3.24 L, MCV 98.8, MCH 32.0 H, RDW 19.0 H, MPV 9.4, Gran % 64.6, Lymphocytes % 19.7 L, Monocytes % 10.8 H, Eosinophils % 4.4, Basophils % 0.5, Absolute Granulocytes 2.9, Absolute Lymphocytes 0.9 L, Absolute Monocytes 0.5, Absolute Eosinophils 0.2, Absolute Basophils 0, PUBS MCHC 32.4 L Impression/Plan Impression/Plan Impression/Plan: Impression 86 year old woman * acute diastolic chf exacerbation * copd * mark * a.fib * htn * hematuria vs vaginal bleeding * cirrhosis which can be related to congestion from heart disease or other etiology. Plan -cont nocturnal cpap -trc/nebs -cont spiriva -gastroenterology, urology, cardiology followup DVT prophylaxis at all times Call with any further questions
--- NOTE | 2016-09-06 11:09 | PN- Cardiology ---
Subjective Subjective: The patient is awake, alert Hematuria has improved significantly; however, concern for vaginal bleeding continues The events of the last 24 hours as well as telemetry were reviewed. Review of Systems: The review of systems is negative for chest pains, palpitations nor lightheadedness. The remainder of the 14 point review of systems is noncontributory with the exception of above. Objective Vital Signs and I&Os Vital Signs Date Time Temp Pulse Resp B/P B/P Pulse O2 O2 Flow FiO2 Mean Ox Delivery Rate 09/06 0850 97.9 73 18 98/58 96 Nasal Cannula 09/06 0831 98 Nasal 1.0L Cannula 09/06 0800 Nasal 1.0L Cannula 09/06 0000 CPAP 2.0L 09/05 2233 97.5 58 18 122/60 99 CPAP 2.0L 09/05 1909 98 Nasal 1.0L Cannula 09/05 1605 97.4 60 18 158/67 98 Nasal 2.0L Cannula Intake & Output 09/06 1600 09/06 0800 09/06 0000 09/05 1600 09/05 0800 09/05 0000 Intake Total 60 250 620 150 490 Output Total 250 250 850 300 350 Balance -190 0 -230 -150 140 Intake, IV 10 10 0 10 Intake, Oral 50 240 620 150 480 Number 0 Bowel Movements Output, Urine 250 250 850 300 350 Patient 241 lb 240 lb Weight Weight Chair scale Chair scale Measurement Method Physical Exam: General: Nontoxic, no apparent distress. HEENT: Sclera and conjunctiva within normal limits, without xanthelasmas. Neck: Carotids 2+ without bruits. Respiratory: Scattered rhonchi, air movement is good, without accessory respiratory muscle use. Heart: Regular rate and rhythm, without murmurs, without JVD. Abdomen: Soft, nontender, no masses, normoactive bowel sounds. Extremities: Without clubbing, cyanosis, without edema. Neuro: Nonfocal exam, strength, 5 out of 5 Skin: Within normal limits without lesions. Psych: Mood and affect: Normal Current Medications: Current Medications Sig/Aparna Start time Last Medication Dose Route Stop Time Status Admin Acetaminophen 650 MG .STK-MED ONE 09/05 2010 DC PO 09/06 2011 Acetaminophen 650 MG Q6P PRN 09/01 1815 AC 09/06 PO 0951 Albuterol Sulfate 3 ML Q4P PRN 09/05 1999 AC INH Citalopram 20 MG DAILY 09/02 1000 AC 09/06 Hydrobromide PO 0949 Furosemide 60 MG 7:30 AM, & 4:30 PM 09/05 0730 09/06 IV 0647 Ibuprofen 600 MG Q6P PRN 09/01 1814 AC PO Morphine Sulfate 2 MG Q4P PRN 09/01 1814 IV Patient Medication 1 ED .STK-MED ONE 09/05 1348 [place] Teaching ED 09/05 1349 Tiotropium [place] 1 PUF DAILY 09/01 1816 09/06 INH 0949 Results Last 48 Hrs of Labs/Mics: Laboratory Tests 09/06/16 0628: Anion Gap 10, Estimated GFR 43 L, BUN/Creatinine Ratio 33.3 H, PT 18.4 H, INR 1.76 H, CBC w Diff NO MAN DIFF REQ, RBC 3.24 L, MCV 98.8, MCH 32.0 H, RDW 19.0 H, MPV 9.4, Gran % 64.6, Lymphocytes % 19.7 L, Monocytes % 10.8 H, Eosinophils % 4.4, Basophils % 0.5, Absolute Granulocytes 2.9, Absolute Lymphocytes 0.9 L, Absolute Monocytes 0.5, Absolute Eosinophils 0.2, Absolute Basophils 0, PUBS MCHC 32.4 L 09/05/16 0705: Anion Gap 10, Estimated GFR 47 L, BUN/Creatinine Ratio 33.6 H, PT 20.5 H, INR 1.97 H, CBC w Diff NO MAN DIFF REQ, RBC 3.27 L, MCV 98.4, MCH 31.6 H, RDW 18.5 H, MPV 10.4, Gran % 66.6, Lymphocytes % 19.5 L, Monocytes % 10.1 H, Eosinophils % 3.3, Basophils % 0.5, Absolute Granulocytes 3.0, Absolute Lymphocytes 0.9 L, Absolute Monocytes 0.4, Absolute Eosinophils 0.1, Absolute Basophils 0, PUBS MCHC 32.1 L Assessment/Plan Assessment/Plan 86-year-old woman with a past medical history of atrial fibrillation, chronic congestive heart failure (preserved LV systolic function) and hypertension. She presents to our hospital with worsening dyspnea as well as increasing pedal edema over period of proximately one month; however, worsening over the past several days. She was found to have an elevated BNP and findings consistent with acute on chronic congestive heart failure. Acute CHF secondary to diastolic dysfunction: Possibly due to a change in her regimen recently while in [place]. Her repeat echocardiogram demonstrated significant pulmonary hypertension (80 mmHg). The patient has diuresed only minimally since admission and would therefore recent her diuretic regimen to target a negative output of approximately 1/2-1 L per day Atrial fibrillation: Stable, continue with current medication regimen and full and coagulation. Full anticoagulation would resume once cleared by both urology and gynecology. Full anticoagulation will as well be necessary given her significant pulmonary hypertension. A target INR should be 2.5; however, if there is difficulty instability, switching to a direct oral anticoagulant may be of value. No heparin bridging would be necessary prior to obtaining a therapeutic INR level. Right lower extremity wound: Continue treatment as per medical team Hypertension: Stable, we'll continue to monitor Vaginal bleeding: The patient had a remote D&C performed approximately 3 years ago. We will follow up with [employer] Continue telemetry? Yes
--- NOTE | 2016-09-06 15:16 | ULTRASOUND REPORT ---
EXAMINATION: ULTRASOUND OF THE PELVIS CLINICAL INFORMATION: Vaginal bleeding. Presumptive diagnosis of mass. COMPARISON: None TECHNIQUE: Transabdominal and transvaginal pelvic ultrasound. A transvaginal study was performed in addition to the transabdominal study which did not yield an adequate examination of the uterus and ovaries due to superimposed distended gas-filled loops of bowel. FINDINGS: Uterus: The uterus is anteverted and normal in size, measuring 11.3 x 5.9 x 5.7 cm. The endometrial stripe thickness is slightly indistinct, but normal in thickness, measuring 0.5 cm in thickness. No endometrial free fluid or abnormal endometrial thickening is seen. No focal myometrial mass is seen. The cervical length is normal measuring 2.4 cm. There is a 2.5 x 1.3 x 1.7 cm echogenic mass with a peripheral rim of hypoechogenicity is seen in the cervix, close to the internal os. This appears to be endocervical in location and raises the suspicion of an endocervical mass, whether related to a hematoma/hemorrhage in this patient with known vaginal bleeding versus an endocervical polyp/solid mass. Less likely, findings may represent a complex nabothian cyst within the cervical parenchyma rather than an endocervical mass. I was unable to verify the location of this finding with real-time scanning, as the patient declined repeat imaging. Ovaries: The ovaries bilaterally are not visualized. Other: No adnexal mass or free fluid collection seen. IMPRESSION: 1. Uterus and endometrial stripe appear grossly unremarkable. No definite endometrial thickening or mass or endometrial free fluid is seen. 2. Complex appearing mass in the cervix, most likely endocervical in location, possibly representing an endocervical hematoma versus an endocervical polyp/solid mass. Depending on clinical circumstances, this finding could be reassessed with repeat imaging in 7-10 days versus further assessed with an MRI scan of the pelvis with and without contrast. 3. Ovaries not visualized.
[2016-09-06 15:30] VITALS: BP 118/64
--- NOTE | 2016-09-06 17:25 | PN- Urology ---
Subjective Subjective: pt with no complaints regarding her urinary system. still with edgar in place with merlot colored urine output. Denies any N/V/F/C. No abd pain, suprapoubic pain or flank discomfort. Review of Systems Constitutional: Reports: no symptoms. EENTM: Reports: no symptoms. Cardiovascular: Reports: no symptoms. Respiratory: Reports: short of breath. Gastrointestinal: Reports: no symptoms. Genitourinary: Reports: hematuria. Musculoskeletal: Reports: no symptoms. Skin: Reports: no symptoms. Neurological/Psychological: Reports: no symptoms. Hematologic/Endocrine: Reports: bleeding. Immunologic/Allergic: Reports: no symptoms. Objective Vital Signs and I&Os Vital Signs Date Time Temp Pulse Resp B/P B/P Pulse O2 O2 Flow FiO2 Mean Ox Delivery Rate 09/06 1530 97.5 58 16 118/64 100 Nasal 3.0L Cannula 09/06 0850 97.9 73 18 98/58 96 Nasal Cannula 09/06 0831 98 Nasal 1.0L Cannula 09/06 0800 Nasal 1.0L Cannula 09/06 0000 CPAP 2.0L 09/05 2233 97.5 58 18 122/60 99 CPAP 2.0L 09/05 1909 98 Nasal 1.0L Cannula Intake & Output 09/06 1600 09/06 0800 09/06 0000 09/05 1600 09/05 0800 09/05 0000 Intake Total 480 60 250 620 150 490 Output Total 1050 250 250 850 300 350 Balance -570 -190 0 -230 -150 140 Intake, IV 10 10 0 10 Intake, Oral 480 50 240 620 150 480 Number 0 Bowel Movements Output, Urine 1050 250 250 850 300 350 Patient 109.486 kg 109.316 kg 109.032 kg Weight Weight Chair scale Chair scale Measurement Method Physical Exam: Pt sitting up in chair with NC in place. Abd Soft, ND/NT Edgar in place with merlot colored gross hematuria Physical Exam General Appearance: no apparent distress, alert, awake, comfortable Head: atraumatic, normal appearance Ears, Nose, Throat: normal ENT inspection Neck: normal inspection Respiratory: no respiratory distress Abdomen: soft, non-tender Rectal: deferred Skin: intact, normal color, warm/dry Current Medications: Current Medications Sig/Aparna Start time Last Medication Dose Route Stop Time Status Admin Acetaminophen 650 MG .STK-MED ONE 09/05 2010 DC PO 09/06 2011 Acetaminophen 650 MG Q6P PRN 09/01 1814 AC 09/06 PO 0951 Albuterol Sulfate 3 ML Q4P PRN 09/05 1999 AC INH Citalopram 20 MG DAILY 09/02 999 AC 09/06 Hydrobromide PO 0949 Furosemide 60 MG 7:30 AM, & 4:30 PM 09/05 0730 AC 09/06 IV 1712 Ibuprofen 600 MG Q6P PRN 09/01 1814 AC PO Morphine Sulfate 2 MG Q4P PRN 09/01 1814 AC IV Tiotropium [place] 1 PUF DAILY 09/01 1816 AC 09/06 INH 0949 Results Last 48 Hours of Labs: Laboratory Tests 09/06 09/05 0628 0705 Chemistry Sodium (137 - 145 mmol/L) 137 137 Potassium (3.5 - 5.1 mmol/L) 4.2 4.1 Chloride (98 - 107 mmol/L) 102 103 Carbon Dioxide (22 - 30 mmol/L) 25 24 Anion Gap (5 - 16) 10 10 BUN (7 - 17 mg/dL) 40 H 37 H Creatinine (0.5 - 1.0 mg/dL) 1.2 H 1.1 H Estimated GFR (>60 ml/min) 43 L 47 L BUN/Creatinine Ratio (7 - 25 %) 33.3 H 33.6 H Coagulation PT (9.4 - 12.5 SEC) 18.4 H 20.5 H INR (0.90 - 1.19) 1.76 H 1.97 H Hematology CBC w Diff NO MAN DIFF REQ NO MAN DIFF REQ WBC (4.8 - 10.8 /CUMM) 4.4 L 4.4 L RBC (4.20 - 5.40 /CUMM) 3.24 L 3.27 L Hgb (12.0 - 16.0 G/DL) 10.4 L 10.3 L Hct (37 - 47 %) 32.0 L 32.2 L MCV (81.0 - 99.0 FL) 98.8 98.4 MCH (27.0 - 31.0 PG) 32.0 H 31.6 H RDW (11.5 - 14.5 %) 19.0 H 18.5 H Plt Count (130 - 400 /CUMM) 71 L 73 L MPV (7.4 - 10.4 FL) 9.4 10.4 Gran % (42.2 - 75.2 %) 64.6 66.6 Lymphocytes % (20.5 - 51.1 %) 19.7 L 19.5 L Monocytes % (1.7 - 9.3 %) 10.8 H 10.1 H Eosinophils % (0 - 5 %) 4.4 3.3 Basophils % (0.0 - 2.0 %) 0.5 0.5 Absolute Granulocytes (1.4 - 6.5 /CUMM) 2.9 3.0 Absolute Lymphocytes (1.2 - 3.4 /CUMM) 0.9 L 0.9 L Absolute Monocytes (0.10 - 0.60 /CUMM) 0.5 0.4 Absolute Eosinophils (0.0 - 0.7 /CUMM) 0.2 0.1 Absolute Basophils (0.0 - 0.2 /CUMM) 0 0 PUBS MCHC (33.0 - 37.0 G/DL) 32.4 L 32.1 L Recent Imaging Studies: Renal Bladder US was WNL. Assessment/Plan Assessment/Plan 86yo female with a hx of gross hematuria and vaginal bleeding. Normal renal/ bladder US. Recommend cystoscopy once bleeding improves. HCT has remained stable. Her urine culture was negative. Continue edgar catheter for now. Core Measures/Miscellaneous Venous Thromboembolism VTE Risk Factors: Acute medical illness, Age > 40, Obesity VTE Contraindications: Active Bleeding VTE Diagnosis: No VTE Type: NONE VTE Confirmed by (Test): NONE Beta Shar Is Beta Shar a Home Med? Yes Antibiotics Is Patient on Antibiotics? No
--- NOTE | 2016-09-06 17:32 | Discharge Summary ---
Visit Information Visit Dates Admission Date: 09/01/16 Discharge Date: ---- Hospital Course Course Attending Physician: SUN CHI MD Primary Care Physician: CADY MOLINA APRN Consulting Request: Consulting Specialty: Gynecology Consulting Physician: Dr Snider Reason for Consult: vaginal bleeding Hospital Course: Patient is 86-year-old female with past medical history significant for congestive heart failure, chronic lower extremity edema, obstructive sleep apnea on CPAP. Atrial fibrillation on anticoagulation, hypertension, gout on allopurinol came with chief complaint of worsening shortness of breath and lower extremity edema for 1 week. Of note patient had pacemaker placement in April 2016 when she was noted to have symptomatic bradycardia. Of note patient had pacemaker placement in April 2016 when she was noted to have symptomatic bradycardia. Patient was admitted on telemetry floor and following issues were addressed #Exertional dyspnea most likely CHF exacerbation As she has recently had a pacemaker implantation, director heart excluded acute pacer-induced cardio myopathy by echo. Echocardiogram result: Normal left ventricular systolic function with borderline hypertrophy. Right ventricular dilatation and hypokinesia. Severe Pulmonary hypertension by doppler. Biatrial enlargement. She was given IV Lasix daily and we were checking daily strict ins and outs with daily weight. #Atrial fibrillation: * She has a pacemaker. Her heart rate was controlled during hospital stay. Her INR was supratherapeutic on admission. While during hospital stay her INR became subtherapeutic but we didn't dose her Coumadin because of vaginal bleeding/hematuria. #Right lower extremity wound: * daily dressing changes #Hematuria After placing the Simpson catheter the bag was filled with urine mixed with blood. Urinalysis on the day of admission shows packed RBCs. On admission patient had a supratherapeutic INR. Renal ultrasound was done and the results came back benign with no pathology to be addressed. Patient hematuria almost resolved , Simpson catheter is filled with clear urine. #Vaginal bleeding Patient has chronic vaginal bleeding. She had D&C done 3 years ago with the pathology being normal at that time. * CVICU NURSE consultation was placed and vaginal ultrasound was done that showed 1. Uterus and endometrial stripe appear grossly unremarkable. No definite endometrial thickening or mass or endometrial free fluid is seen. 2. Complex appearing mass in the cervix, most likely endocervical in location, possibly representing an endocervical hematoma versus an endocervical polyp/solid mass. Depending on clinical circumstances, this finding could be reassessed with repeat imaging in 7-10 days versus further assessed with an MRI scan of the pelvis with and without contrast. 3. Ovaries not visualized. #Obstructive sleep apnea. * Continue nocturnal CPAP #Elevated bilirubin Admission her bilirubin was high to 3.9 and GI was consulted. We trend her LFTs and came down nicely to 3.7 and 3.5. Most likely her changes are due to congestive heart failure that she will need follow-up as out patient with GI. * As per GI, we will consider outpatient cross-sectional imaging, check mitochondrial antibody, antinuclear antibody, 5'-nucleotidase, and consider eventual EGD to rule out varices, if cardiac status allows Heart healthy diet DVT prophylaxis patient is supratherapeutic INR Full code Allergies: Coded Allergies: guaifenesin (HIVES 09/01/16) Significant Procedures: SERVICE DATE: 09/06/16-1199 EXAM TYPE: US - US-PELVIC MASS DIAG; US-TRANSVAGINAL EXAMINATION: ULTRASOUND OF THE PELVIS CLINICAL INFORMATION: Vaginal bleeding. Presumptive diagnosis of mass. COMPARISON: None TECHNIQUE: Transabdominal and transvaginal pelvic ultrasound. A transvaginal study was performed in addition to the transabdominal study which did not yield an adequate examination of the uterus and ovaries due to superimposed distended gas-filled loops of bowel. FINDINGS: Uterus: The uterus is anteverted and normal in size, measuring 11.3 x 5.9 x 5.7 cm. The endometrial stripe thickness is slightly indistinct, but normal in thickness, measuring 0.5 cm in thickness. No endometrial free fluid or abnormal endometrial thickening is seen. No focal myometrial mass is seen. The cervical length is normal measuring 2.4 cm. There is a 2.5 x 1.3 x 1.7 cm echogenic mass with a peripheral rim of hypoechogenicity is seen in the cervix, close to the internal os. This appears to be endocervical in location and raises the suspicion of an endocervical mass, whether related to a hematoma/hemorrhage in this patient with known vaginal bleeding versus an endocervical polyp/solid mass. Less likely, findings may represent a complex nabothian cyst within the cervical parenchyma rather than an endocervical mass. I was unable to verify the location of this finding with real-time scanning, as the patient declined repeat imaging. Ovaries: The ovaries bilaterally are not visualized. Other: No adnexal mass or free fluid collection seen. IMPRESSION: 1. Uterus and endometrial stripe appear grossly unremarkable. No definite endometrial thickening or mass or endometrial free fluid is seen. 2. Complex appearing mass in the cervix, most likely endocervical in location, possibly representing an endocervical hematoma versus an endocervical polyp/solid mass. Depending on clinical circumstances, this finding could be reassessed with repeat imaging in 7-10 days versus further assessed with an MRI scan of the pelvis with and without contrast. 3. Ovaries not visualized. Pertinent Lab Results: HENRY CHAMBERS Age: 86 : 1930 Gender: F Exam Date: 09/02/2016 11:50 Exam Location: 1 [place] Ht (in): 59 Wt (lb): 225 BSA: 2.13 BP: 124 / 56 Ordering Physician: DENISSE BOLES MD Referring Physician: DENISSE BOLES MD Technologist: Joaquín Merrill [facility] Room Number: 188-1 Indications: AFIB/FLUTTER Rhythm: Atrial fibrillation Technical Quality: fair FINDINGS Left Ventricle Normal global left ventricular size, wall thickness, systolic function with no obvious regional wall motion abnormalities. Normal left ventricular ejection fraction estimated at 60-65%. Right Ventricle Mild right ventricular dilatation. Mildly reduced right ventricular global systolic function. Right Atrium Mild Right atrial enlargement Left Atrium Mild left atrial dilatation. Mitral Valve Mild mitral annular calcification. Mild mitral regurgitation. Aortic Valve Diffuse thickening (sclerosis) of the aortic valve cusps without reduced excursion. Mild Aortic regurgitation Tricuspid Valve Tricuspid valve is normal in structure and function. Mild tricuspid regurgitation. Right ventricular systolic pressure estimated to be elevated at 80 mmHg. Pulmonic Valve Pulmonic valve not well visualized, grossly normal. Moderate Pulmonary regurgitation Pericardium No pericardial effusion. Great Vessels Normal size aortic root. CONCLUSIONS Normal left ventricular systolic function with borderline hypertrophy. Right ventricular dilatation and hypokinesia. Severe Pulmonary hypertension by doppler. Biatrial enlargement. Lidia Rizvi M.D. (Electronically Signed) Final Date: 03 Sep 2016 07:49 MEASUREMENTS (Male / Female) Normal Values 2D ECHO LV Diastolic Diameter PLAX 4.5 cm 4.2 - 5.9 / 3.9 - 5.3 cm LV Systolic Diameter PLAX 2.9 cm 2.1 - 4.0 cm LV Fractional Shortening PLAX 35.6 % 25 - 46 % LV Ejection Fraction 2D Teich 65.2 % IVS Diastolic Thickness 1.1 cm LVPW Diastolic Thickness 1.2 cm LV Relative Wall Thickness 0.5 RV Internal Dim ED PLAX 4.4 cm 1.9 - 3.8 cm LVOT Diameter 1.9 cm Aortic Root Diameter 3.0 cm LA Systolic Diameter LX 3.8 cm 3.0 - 4.0 / 2.7 - 3.8 cm LA Volume 67.0 cm 18 - 58 / 22 - 52 cm Ascending Aorta Diameter 3.2 cm DOPPLER AV Peak Velocity 166.0 cm/s AV Peak Gradient 11.0 mmHg AV Mean Velocity 114.0 cm/s AV Mean Gradient 6.0 mmHg AV Velocity Time Integral 44.1 cm AI Deceleration Powell 195.0 cm/s AI Peak Velocity 366.0 cm/s AI Pressure Half Time 549.5 ms AI Peak Gradient 53.6 mmHg LVOT Peak Velocity 65.8 cm/s LVOT Peak Gradient 1.7 mmHg LVOT Mean Velocity 42.3 cm/s LVOT Mean Gradient 1.0 mmHg LVOT Velocity Time Integral 16.4 cm LVOT Stroke Volume 46.5 cm AV Area Cont Eq vti 1.1 cm AV Area Cont Eq pk 1.1 cm MV Peak Velocity 178.0 cm/s MV Peak Gradient 12.7 mmHg MV Mean Velocity 75.6 cm/s MV Mean Gradient 3.0 mmHg Mitral E Point Velocity 176.0 cm/s Mitral A Point Velocity 48.7 cm/s Mitral E to A Ratio 3.6 MV PHT Velocity 187.0 cm/s MV Deceleration Powell 807.0 cm/s MV Pressure Half Time 69.5 ms MV Area PHT 3.2 cm MV Deceleration Time 194.0 ms MR Peak Velocity 493.0 cm/s MR Peak Gradient 97.2 mmHg TR Peak Velocity 425.0 cm/s TR Peak Gradient 72.3 mmHg Right Atrial Pressure 10.0 mmHg Pulmonary Artery Systolic Pressu 82.3 mmHg Right Ventricular Systolic Press 82.3 mmHg PV Peak Velocity 127.0 cm/s PV Peak Gradient 6.5 mmHg PV Mean Velocity 74.8 cm/s PV Mean Gradient 3.0 mmHg PV Velocity Time Integral 27.0 cm DICTATED BY: LIDIA RIZVI MD DATE/TIME DICTATED:09/03/16749 [facility] RESEARCH [employer]ATEGIC ANALYSIS:IVORY DATE/TIME TRANSCRIBED:09/03/16749 Disposition Summary Disposition Principal Diagnosis: CHF exacerbation Additional Diagnosis: Atrial fibrillation Discharge Disposition: SNF Discharge Instructions General Discharge Information Code Status: Full Code Patient's Diet: Heart healthy diet Patient's Activity: As tolerated with assistance Follow-Up Instructions/Appts: Please follow with primary care physician 1 week of discharge Please follow-up with your director heart on record discharge Please follow-up with your rugby league footballer in 1 week of discharge Please follow up with an oncologist in 1 week of discharge Please follow-up with urology as outpatient. Medications at Discharge Discharge Medications: Stop taking the following medications: Cephalexin (Cephalexin) 500 MG CAPSULE ORAL THREE TIMES DAILY Qty = 21 Continue taking these medications: Tiotropium [place] (Spiriva) 18 MCG CAP.W.DEV 1 Capsule Inhale through mouth DAILY Qty = 90 Comments: Last Taken: 09/19/16 Time: 9:00 AM Albuterol Sulfate (Proair Hfa) 90 MCG HFA.AER.AD 2 Puff Inhale through mouth EVERY 4-6 HOURS NEEDED as needed for BREATHING Comments: NOT GIVEN IN HOSPTIAL Potassium Chloride (Potassium Chloride) 20 MEQ TAB.ER.PRT 0.5 Tablet ORAL DAILY Qty = 90 Comments: NOT GIVEN IN HOSPITAL Furosemide (Furosemide) 40 MG TABLET 1 Milligram ORAL DAILY Qty = 180 Comments: Last Taken: 09/19/16 Time: 9:00 AM Cholecalciferol (Vitamin D3) (Vitamin D) 2,000 UNIT TABLET 1 Tablet ORAL 5 PM Comments: NOT GIVEN IN HOSPITAL Warfarin Sodium (Coumadin) 3 MG TABLET 1 Tablet ORAL As Directed Qty = 90 Comments: 5 MG PO GIVEN 09/19/16 @ 1230PM Biotin (Biotin) (Unknown Strength) TABLET 30 Microgram ORAL DAILY Comments: NOT GIVEN IN HOSPITAL Calcium Carb/Vitamin D3/Vit K1 (Calcium + Vit D & K Chew Tab) 500 MG CALCIUM-500 UNIT-40 MCG TAB.CHEW 1 Tablet ORAL DAILY Comments: NOT GIVEN IN HOSPITAL Citalopram Hydrobromide (Citalopram HBr) 20 MG TABLET 1 Tablet ORAL DAILY Qty = 90 Comments: Last Taken: 09/19/16 Time: 9:00 AM Warfarin Sodium (Coumadin) 1 MG TABLET 1.5 Tablet ORAL As Directed Comments: 5 MG PO GIVEN 09/19/16 @ 12:30 PM Ketoconazole (Ketoconazole) 2 % CREAM..G. 1 Application On the skin TWICE DAILY Qty = 30 Instructions: apply to affected area(s) Comments: NOT GIVEN IN HOSPITAL Tramadol HCl (Tramadol HCl) 50 MG TABLET 1 Tablet ORAL Every night as needed for PAIN Qty = 30 Comments: Last Taken: 09/17/16 Time: 9:30 PM Acetaminophen (Tylenol Arthritis) 650 MG TABLET.ER 2 Tablet ORAL Every night Comments: Last Taken: 09/14/16 Time: 9:10 PM Allopurinol (Allopurinol) 300 MG TABLET 0.5 Tablet ORAL Every Morning Qty = 45 Comments: NOT GIVEN IN HOSPITAL Start taking the following new medications: Ciprofloxacin HCl (Cipro) 500 MG TABLET 1 Tablet ORAL TWICE DAILY Qty = 8 No Refills Comments: Last Taken: 09/18/16 Time: 10:00 PM Copies To: CADY MOLINA APRN, MD Review Statement Documenting Attending: SUN CHI MD
--- NOTE | 2016-09-06 17:34 | Patient Discharge Instructions ---
See Addendum Discharge Instructions General Discharge Information You were seen/treated for: CHF Exacerbation Special Instructions: Please follow with primary care physician 1 week of discharge Please follow-up with your basic acoustic analyst on record discharge Please follow-up with your retail customer service representative in 1 week of discharge Please follow up with an oncologist in 1 week of discharge Please follow-up with urology as outpatient. Diet Recommended Diet: Heart Healthy Activity Additional ACTIVITY Info: As tolerated with assistance Acute Coronary Syndrome Inclusion Criteria At DC or during hospital stay patient has or had the following: ACS DIAGNOSIS No Discharge Core Measures Meds if any: Prescribed or Continued at Discharge Meds if any: NOT Prescribed or Continued at Discharge Congestive Heart Failure Inclusion Criteria At DC or during hospital stay patient has or had the following: CHF DIAGNOSIS Yes Discharge Core Measures Meds if any: Prescribed or Continued at Discharge Meds if any: NOT Prescribed or Continued at Discharge Comment ef . 60% Cerebrovascular accident Inclusion Criteria At DC or during hospital stay patient has or had the following: CVA/TIA Diagnosis No Discharge Core Measures Meds if any: Prescribed or Continued at Discharge Meds if any: NOT Prescribed or Continued at Discharge Venous thromboembolism Inclusion Criteria VTE Diagnosis No VTE Type NONE VTE Confirmed by (Test) NONE Discharge Core Measures - Per Current guidelines, there needs to be overlap - treatment for the first 5 days of Warfarin therapy. - If discharged on Warfarin prior to 5 days of - overlap therapy, the patient will need to be - assessed for post discharge needs including - *Post discharge parental anticoagulation - *Warfarin and/or parental anticoagulation education - *Follow up date to check INR post discharge At least 5 days overlap therapy as Inpatient No Meds if any: Prescribed or Continued at Discharge Note: Overlap Therapy is Warfarin and Anticoagulant Meds if any: NOT Prescribed or Continued at Discharge
[2016-09-07 01:02] VITALS: BP 114/62
[2016-09-07 07:41] LABS: PT 18.4 SEC (9.4-12.5)
[2016-09-07 08:26] VITALS: BP 106/62
[2016-09-07 08:27] LABS: ABSOLUTE BASOPHIL COUNT 0 /CUMM (0.0-0.2); ABSOLUTE EOSINOPHIL COUNT 0.2 /CUMM (0.0-0.7); ABSOLUTE GRANULOCYTE CT 2.7 /CUMM (1.4-6.5); ABSOLUTE LYMPH COUNT 0.8 /CUMM (1.2-3.4); ABSOLUTE MONOCYTE COUNT 0.5 /CUMM (0.10-0.60); BASOPHIL % 0.6 % (0.0-2.0); EOSINOPHIL % 4.2 % (0-5); GRANULOCYTE % 63.8 % (42.2-75.2); HEMATOCRIT 30.8 % (37-47); MEAN CORPUSCULAR HGB 31.9 PG (27.0-31.0); MEAN CORPUSCULAR VOLUME 99.8 FL (81.0-99.0); MEAN PLATELET VOLUME 10.9 FL (7.4-10.4); RBC DISTRIBUTION WIDTH 18.7 % (11.5-14.5); RED BLOOD CELL CT 3.09 /CUMM (4.20-5.40); WHITE BLOOD CELL COUNT 4.3 /CUMM (4.8-10.8)
[2016-09-07 09:07] LABS: PLATELET COUNT 80 /CUMM (130-400)
--- NOTE | 2016-09-07 10:13 | PN- Housestaff ---
See Addendum Subjective Follow-up For: Exertional Dyspnea supra theraputic INR Tele-Events Since Last Visit: off tele Subjective: Seen and examined at bedside. Does not report any increase vagional bleeding/ changed 1 pad today only. No omplaints of hematuria either. No acute o/n event including chest pain/palpitation,shortness of breath. Review of Systems Constitutional: Reports: see HPI. Objective Last 24 Hrs of Vital Signs/I&O Vital Signs Date Time Temp Pulse Resp B/P B/P Pulse O2 O2 Flow FiO2 Mean Ox Delivery Rate 09/07 1559 98.7 62 18 118/59 97 Room Air 09/07 0826 97.8 70 20 106/62 98 Nasal 3.0L Cannula 09/07 0800 95 Nasal 1.0L Cannula 09/07 0102 97.9 57 16 114/62 98 CPAP 09/07 0000 CPAP Intake & Output 09/07 1600 09/07 0800 09/07 0000 Intake Total 800 600 Output Total 900 50 325 Balance -100 -50 275 Intake, Oral 800 600 Number 1 Bowel Movements Output, Urine 900 50 325 Physical Exam General Appearance: Alert, Oriented X3, Cooperative Other Physical Findings: HEENT: Atraumatic, PERRLA, EOMI, Mucous Membr. moist/pink Cardiovascular: Regular Rate, Normal S1, Normal S2, No Murmurs Lungs: diminished air-entry over lung base b/l Abdomen: Normal Bowel Sounds, Soft, No Tenderness Neurological: Normal Speech Extremities: No Clubbing, No Cyanosis, trace edema Current Medications: Current Medications Sig/Aparna Start time Last Medication Dose Route Stop Time Status Admin Acetaminophen 650 MG .STK-MED ONE 09/06 2110 DC PO 09/07 2111 Acetaminophen 650 MG Q6P PRN 09/01 1814 AC 09/06 PO 2109 Albuterol Sulfate 3 ML Q4P PRN 09/04 2000 AC INH Citalopram 20 MG DAILY 09/02 1000 AC 09/07 Hydrobromide PO 08 Furosemide 60 MG 7:30 AM, & 4:30 PM 09/05 0730 AC 09/07 IV 0823 Heparin Sodium 25,000 UNIT Q24H 09/07 1230 AC 09/07 (Porcine) IV 1528 Sodium Chloride 500 ML Ibuprofen 600 MG Q6P PRN 09/01 1814 AC PO Morphine Sulfate 2 MG Q4P PRN 09/01 1814 AC IV Tiotropium [place] 1 PUF DAILY 09/01 1816 AC 09/07 INH 0824 Warfarin Sodium 5 MG COUMADIN 1700 ONE 09/07 170 AC PO 09/07 170 Last 24 Hrs of Lab/Otis Results Last 24 Hrs of Labs/Mics: Laboratory Tests 09/07/16626: Anion Gap 8, Estimated GFR 43 L, BUN/Creatinine Ratio 34.2 H, PT 18.4 H, INR 1.76 H, CBC w Diff NO MAN DIFF REQ, RBC 3.09 L, MCV 99.8 H, MCH 31.9 H, RDW 18.7 H, MPV 10.9 H, Gran % 63.8, Lymphocytes % 19.2 L, Monocytes % 12.2 H, Eosinophils % 4.2, Basophils % 0.6, Absolute Granulocytes 2.7, Absolute Lymphocytes 0.8 L, Absolute Monocytes 0.5, Absolute Eosinophils 0.2, Absolute Basophils 0, PUBS MCHC 32.0 L Assessment/Plan Assessment: 86-year-old woman with a past medical history of atrial fibrillation, chronic congestive heart failure (preserved LV systolic function) and hypertension. She presents to our hospital with worsening dyspnea as well as recent increase in her lower extremity edema. She was found to have an elevated BNP and findings consistent with acute on chronic congestive heart failure. #Exertional dyspnea most likely CHF exacerbation As she has recently had a pacemaker implantation, color mixer excluded acute pacer-induced cardio myopathy by echo. Echocardiogram result: Normal left ventricular systolic function with borderline hypertrophy. Right ventricular dilatation and hypokinesia. Severe Pulmonary hypertension by doppler. Biatrial enlargement. * Can continue furosemide IV 60 mg twice a day. * Strict I's and O's * Daily weights * We will follow pulmonology and cardiology recommendation #Atrial fibrillation: * Patient was found to have a supratherapeutic INR, today's INR is 1.7 * Patient's coagulation was been held due to vaginal bleeding and TV/US finding of cervical mass. Today, ROOF DESIGNER so the patient and he was their recommendation that patient's bleeding is not severe enough (H&H is also noted to be stable) to wind stopping the anticoagulation. Discussed with cardiologY who recommended starting heparin drip and Coumadin 5 mg (even though patient really does not need bridging, starting the heparin drip will be able to assess and evaluate any impending worsening of the vaginal bleed and could be stopped once patient is noted not to have any increased vaginal bleeding, #Right lower extremity wound: * We will follow wound recommendation #Hematuria After placing the Simpson catheter the bag was filled with urine mixed with blood. Urinalysis on the day of admission shows packed RBCs. On admission patient had a supratherapeutic INR. Renal ultrasound was done and the results came back benign with no pathology to be addressed. Patient hematuria almost resolved today, Simpson catheter is filled with clear urine. * Will leave Simpson in place per urology recommendations * Repeat CBC daily #Vaginal bleeding Patient has chronic vaginal bleeding. She had D&C done 3 years ago with the pathology being normal at that time. * Evaluated by ROOF DESIGNER today, due to patient body habitus speculum exam could not be done at bedside. However, ROOF DESIGNER did not feel that the vaginal bleeding was severe enough to exclude starting anticoagulation for A. fib. Recommendation for workup on vaginal bleed which could be secondary to the cervical mass seen in TV US or the thickened endometrial stripe will be done on an outpatient basis. If patient stays longer might consider an MRI. #Obstructive sleep apnea. * Continue nocturnal CPAP #Elevated bilirubin Patient bilirubin slightly improved, GGT is high up to 64. GI is on board * Follow LFTs * As per GI, we will consider outpatient cross-sectional imaging, check mitochondrial antibody, antinuclear antibody, 5'-nucleotidase, and consider eventual EGD to rule out varices, if cardiac status allows Heart healthy diet DVT prophylaxis patient is supratherapeutic INR Full code Problem List: 1. Elevated INR 2. Vaginal bleeding 3. Endometrial thickening on ultra sound 4. ATRIAL FIBRILATION Pain Ratin Pain Location: none Pain Goal: Remain pain free Pain Plan: pain pathway Tomorrow's Labs & Rationales: BEP CBC Consulting Request: Consulting Specialty: Gynecology Consulting Physician: Dr Snider Reason for Consult: vaginal bleeding
--- NOTE | 2016-09-07 12:49 | Cons- OBGYN ---
General Information and HPI Consulting Request Date of Consult: 09/07/16 Requested By: SUN CHI MD Reason for Consult: Vaginal bleeding Source of Information: patient, EMS, nursing, primary team History of Present Illness: 86 yo female patient here for CHF exacerbation. Primary team had noted that she was supratherapeutic on her INR which they have since corrected, however patient also reported a history of vaignal bleeding which she is still experiencing. Primary team would like to restart Coumadin, however wanted ENVIRONMENTAL REMEDIATION CONSULTANT input prior to proceeding. Per patient describes a 3 week history of vaginal bleeding. Initially only when wiping, however this progressed to having to wear a pad. She describes only spotting on the pad and maybe changing it once a day, more for personal reasons, and never saturated. She describes a history of PMB, and this was worked up in 2014 for which she had a D&C performed by Dr. Moctezuma which was reportedly negative (unable to verify pathology). She describes not having any vaginal bleeding since the surgery until 3 weeks ago as described above. Per patient, bleeding has not changed since being in the hospital. However, after talking to the nurses, the bleeding amount is very minimal in which there is only spotting on the pad that is changed once a day. She denies any cramping or lower abdominal pain. She denies any fullness or difficulty urinating. Does not recall when she last had a pap smear. Denies difficulty stooling. Not sexually active. Patient also reports hematuria (noted by medicine team) for which urology is currently on consult as well. Allergies/Medications Allergies: Coded Allergies: guaifenesin (HIVES 09/01/16) Home Med List: Acetaminophen (Tylenol Arthritis) 650 MG TABLET.ER 2 TAB PO QPM PAIN ( Reported) Albuterol Sulfate (Proair Hfa) 90 MCG HFA.AER.AD 2 PUF INH Q4-6 PRN PRN BREATHING (Reported) Allopurinol 300 MG TABLET 0.5 TAB PO QAM GOUT (Reported) Biotin (Unknown Strength) TABLET (Unknown Dose) PO DAILY SUPPLEMENT (Reported ) Calcium Carb/Vitamin D3/Vit K1 (Calcium + Vit D & K Chew Tab) 500 MG CALCIUM-500 UNIT-40 MCG TAB.CHEW 1 TAB PO DAILY SUPPLEMENT (Reported) Cephalexin 500 MG CAPSULE 1 CAP PO TID ANTIBIOTIC (Reported) Cholecalciferol (Vitamin D3) (Vitamin D) 2,000 UNIT TABLET 1 TAB PO 1700 SUPPLEMENT (Reported) Citalopram Hydrobromide (Citalopram HBr) 20 MG TABLET 1 TAB PO DAILY MENTAL HEALTH (Reported) Furosemide 40 MG TABLET 1 TAB PO BID WATER PILL (Reported) Ketoconazole 2 % CREAM..G. 1 PONCHO TOP BID RINGWORM (Reported) apply to affected area(s) Potassium Chloride 20 MEQ TAB.ER.PRT 1 TAB PO DAILY SUPPLEMENT (Reported) Tiotropium [place] (Spiriva) 18 MCG CAP.W.DEV 1 CAP INH DAILY BREATHING PROBLEMS (Reported) Tramadol HCl 50 MG TABLET 1 TAB PO QPM PRN PAIN (Reported) Warfarin Sodium (Coumadin) 3 MG TABLET 1 TAB PO AD BLOOD THINNER (Reported) Warfarin Sodium (Coumadin) 1 MG TABLET 1.5 TAB PO AD BLOOD THINNER (Reported) Past History Medical History Blood Transfusion Hx: No Neurological: NONE EENT: NONE Cardiovascular: AFIB, CHF, hypertension Respiratory: NONE Gastrointestinal: NONE Hepatic: NONE Renal: NONE Musculoskeletal: NONE Psychiatric: NONE Endocrine: NONE Blood Disorders: NONE Cancer(s): NONE ENVIRONMENTAL REMEDIATION CONSULTANT/Reproductive: NONE Surgical History Pertinent Surgical History: D&C Psychosocial History Where Do You Live? Home Who Do You Live With? self Services at Home: Home Health Aide Primary Language: [place] Smoking Status: Never Smoked (exposed 2nd hand smoke chronic) ETOH Use: denies use Illicit Drug Use: denies illicit drug use Living Will? no Functional Ability ADLs Independent: dressing, eating, toileting, bathing. Ambulation: independent, walker IADLs Needs Assist: shopping, housework, finances, food prep, telephone, transportation, medication admin. Review of Systems Review of Systems: per history Exam & Diagnostic Data Vital Signs and I&O Vital Signs Date Time Temp Pulse Resp B/P B/P Pulse O2 O2 Flow FiO2 Mean Ox Delivery Rate 09/07 825 97.8 70 20 106/62 98 Nasal 3.0L Cannula 09/07 0800 95 Nasal 1.0L Cannula 09/07 0102 97.9 57 16 114/62 98 CPAP 09/07 0000 CPAP 09/06 1530 97.5 58 16 118/64 100 Nasal 3.0L Cannula Intake & Output 09/07 1600 09/07 0800 09/07 0000 09/06 1600 09/06 0809/06 0000 Intake Total 600 480 60 250 Output Total 50 325 1050 250 250 Balance -50 275 -570 -190 0 Intake, IV 10 10 Intake, Oral 600 480 50 240 Output, Urine 50 325 1050 250 250 Patient 109.486 kg 109.316 kg Weight Weight Chair scale Measurement Method Physical Exam: No acute distress Abd: NT, ND, obese, Good bowel sounds, no masses palpated. Pelvic: Extremely limited. Patient deferred exam. No spotting on pad currently. Last 24 Hours of Labs: Laboratory Tests 09/07 0627 Chemistry Sodium (137 - 145 mmol/L) 135 L Potassium (3.5 - 5.1 mmol/L) 4.1 Chloride (98 - 107 mmol/L) 101 Carbon Dioxide (22 - 30 mmol/L) 26 Anion Gap (5 - 16) 8 BUN (7 - 17 mg/dL) 41 H Creatinine (0.5 - 1.0 mg/dL) 1.2 H Estimated GFR (>60 ml/min) 43 L BUN/Creatinine Ratio (7 - 25 %) 34.2 H Coagulation PT (9.4 - 12.5 SEC) 18.4 H INR (0.90 - 1.19) 1.76 H Hematology CBC w Diff NO MAN DIFF REQ WBC (4.8 - 10.8 /CUMM) 4.3 L RBC (4.20 - 5.40 /CUMM) 3.09 L Hgb (12.0 - 16.0 G/DL) 9.9 L Hct (37 - 47 %) 30.8 L MCV (81.0 - 99.0 FL) 99.8 H MCH (27.0 - 31.0 PG) 31.9 H RDW (11.5 - 14.5 %) 18.7 H Plt Count (130 - 400 /CUMM) 80 L MPV (7.4 - 10.4 FL) 10.9 H Gran % (42.2 - 75.2 %) 63.8 Lymphocytes % (20.5 - 51.1 %) 19.2 L Monocytes % (1.7 - 9.3 %) 12.2 H Eosinophils % (0 - 5 %) 4.2 Basophils % (0.0 - 2.0 %) 0.6 Absolute Granulocytes (1.4 - 6.5 /CUMM) 2.7 Absolute Lymphocytes (1.2 - 3.4 /CUMM) 0.8 L Absolute Monocytes (0.10 - 0.60 /CUMM) 0.5 Absolute Eosinophils (0.0 - 0.7 /CUMM) 0.2 Absolute Basophils (0.0 - 0.2 /CUMM) 0 PUBS MCHC (33.0 - 37.0 G/DL) 32.0 L Imaging Results: EXAMINATION: ULTRASOUND OF THE PELVIS CLINICAL INFORMATION: Vaginal bleeding. Presumptive diagnosis of mass. COMPARISON: None TECHNIQUE: Transabdominal and transvaginal pelvic ultrasound. A transvaginal study was performed in addition to the transabdominal study which did not yield an adequate examination of the uterus and ovaries due to superimposed distended gas-filled loops of bowel. FINDINGS: Uterus: The uterus is anteverted and normal in size, measuring 11.3 x 5.9 x 5.7 cm. The endometrial stripe thickness is slightly indistinct, but normal in thickness, measuring 0.5 cm in thickness. No endometrial free fluid or abnormal endometrial thickening is seen. No focal myometrial mass is seen. The cervical length is normal measuring 2.4 cm. There is a 2.5 x 1.3 x 1.7 cm echogenic mass with a peripheral rim of hypoechogenicity is seen in the cervix, close to the internal os. This appears to be endocervical in location and raises the suspicion of an endocervical mass, whether related to a hematoma/hemorrhage in this patient with known vaginal bleeding versus an endocervical polyp/solid mass. Less likely, findings may represent a complex nabothian cyst within the cervical parenchyma rather than an endocervical mass. I was unable to verify the location of this finding with real-time scanning, as the patient declined repeat imaging. Ovaries: The ovaries bilaterally are not visualized. Other: No adnexal mass or free fluid collection seen. IMPRESSION: 1. Uterus and endometrial stripe appear grossly unremarkable. No definite endometrial thickening or mass or endometrial free fluid is seen. 2. Complex appearing mass in the cervix, most likely endocervical in location, possibly representing an endocervical hematoma versus an endocervical polyp/solid mass. Depending on clinical circumstances, this finding could be reassessed with repeat imaging in 7-10 days versus further assessed with an MRI scan of the pelvis with and without contrast. 3. Ovaries not visualized. Ultrasound of kidneys and Bladder Unremarkable and negative. Assessment/Plan Assessment/Plan 86 yo female patient with Postmenopausal bleeding, CHF exacerbation and Afib requiring anticoagulation. The amount of bleeding that patient is currently having is not extremely concerning. Her H/H has remained stable since presentation. I believe her vaginal bleeding is likely related to her supratherapeutic INR that has resolved. TVUS was reviewed, difficulty to ascertain the exact etiology of visualized mass, however clot suspicion is high. This being said, she will required further evaluation and workup that can be performed on outpatient basis. I offered to perform a pelvic exam as she will require one soon, however she refused it and given the current setting, I do not believe that I would be able to perform a thorough exam. I would like patient to follow up within the week for further evaluation, not only for the mass, but also due to her thickened endometrial stripe in setting of PMB (>4mm). If medical team inclined if patient remains in house for longer period, an MRI can be obtained to better evaluate this mass. I would continue to monitor the progression of her vaginal bleeding. At this time, if medically indicated and necessary, I believe she can restart her coumadin and maintain an appropriate INR. I spoke with patient who voiced understanding. I also relayed this information to the primary team. Thank you for consulting us. Please call with further questions and reconsult if clinical pictures warrants. Problem List: 1. ATRIAL FIBRILATION 2. CHF (congestive heart failure) 3. Vaginal bleeding 4. Postmenopausal bleeding 5. Endometrial thickening on ultra sound Consult Acknowledgment - Thank you for your consult request. Attending MD Review Statement Attending Statement Attending MD Statement: examined this patient, discuss w/resident/PA/[employer]OADB[employer] TECHNICIAN, discussed w/nursing, reviewed images
--- NOTE | 2016-09-07 14:21 | PN- Cardiology ---
Subjective Subjective: Clinically unchanged. No evidence of active bleeding at the present time. Urology input noted. Objective Vital Signs and I&Os Vital Signs Date Time Temp Pulse Resp B/P B/P Pulse O2 O2 Flow FiO2 Mean Ox Delivery Rate 09/07 825 97.8 70 20 106/62 98 Nasal 3.0L Cannula 09/07 0800 95 Nasal 1.0L Cannula 09/07 0102 97.9 57 16 114/62 98 CPAP 09/07 0000 CPAP 09/06 1530 97.5 58 16 118/64 100 Nasal 3.0L Cannula Intake & Output 09/07 0809/07 0000 09/06 1600 09/06 0800 09/06 0000 Intake Total 600 480 60 250 Output Total 50 325 1050 250 250 Balance -50 275 -570 -190 0 Intake, IV 10 10 Intake, Oral 600 480 50 240 Output, Urine 50 325 1050 250 250 Patient 241 lb 241 lb Weight Weight Chair scale Measurement Method Current Medications: Current Medications Sig/Aparna Start time Last Medication Dose Route Stop Time Status Admin Acetaminophen 650 MG .STK-MED ONE 09/06 2110 DC PO 09/07 2111 Acetaminophen 650 MG Q6P PRN 09/01 1814 AC 09/06 PO 2109 Albuterol Sulfate 3 ML Q4P PRN 09/05 1999 AC INH Citalopram 20 MG DAILY 09/02 1000 AC 09/07 Hydrobromide PO 08 Furosemide 60 MG 7:30 AM, & 4:30 PM 09/05 0730 AC 09/07 IV 0823 Heparin Sodium 25,000 UNIT Q24H 09/07 1230 AC (Porcine) IV Sodium Chloride 500 ML Ibuprofen 600 MG Q6P PRN 09/01 1814 AC PO Morphine Sulfate 2 MG Q4P PRN 09/01 181 AC IV Tiotropium [place] 1 PUF DAILY 09/01 181 AC 09/07 INH 0824 Warfarin Sodium 5 MG COUMADIN 1700 ONE 09/07 1700 AC PO 09/07 170 Results Last 48 Hrs of Labs/Mics: Laboratory Tests 09/07/16626: Anion Gap 8, Estimated GFR 43 L, BUN/Creatinine Ratio 34.2 H, PT 18.4 H, INR 1.76 H, CBC w Diff NO MAN DIFF REQ, RBC 3.09 L, MCV 99.8 H, MCH 31.9 H, RDW 18.7 H, MPV 10.9 H, Gran % 63.8, Lymphocytes % 19.2 L, Monocytes % 12.2 H, Eosinophils % 4.2, Basophils % 0.6, Absolute Granulocytes 2.7, Absolute Lymphocytes 0.8 L, Absolute Monocytes 0.5, Absolute Eosinophils 0.2, Absolute Basophils 0, PUBS MCHC 32.0 L 09/06/16 0628: Anion Gap 10, Estimated GFR 43 L, BUN/Creatinine Ratio 33.3 H, PT 18.4 H, INR 1.76 H, CBC w Diff NO MAN DIFF REQ, RBC 3.24 L, MCV 98.8, MCH 32.0 H, RDW 19.0 H, MPV 9.4, Gran % 64.6, Lymphocytes % 19.7 L, Monocytes % 10.8 H, Eosinophils % 4.4, Basophils % 0.5, Absolute Granulocytes 2.9, Absolute Lymphocytes 0.9 L, Absolute Monocytes 0.5, Absolute Eosinophils 0.2, Absolute Basophils 0, PUBS MCHC 32.4 L Assessment/Plan Assessment/Plan Assessment: 1. Acute on chronic congestive heart failure with normal left ventricular ejection fraction and mild right ventricular dysfunction 2. Pulmonary hypertension with mild right ventricular dysfunction 3. Atrial fibrillation on outpatient Coumadin 4. Right lower extremity wound 5. Hypertension 6. Obstructive sleep apnea on nocturnal CPAP 7. Postmenopausal bleeding status post prior D&C 8. History of bradycardia with permanent pacemaker in situ 9. Thrombocytopenia 10. Elevated bilirubin Recommendations: -I discussed the situation in detail with the patient and with the house staff. -As per clearance by urology, the patient will be restarted on anticoagulation. -Although, I agree, that the patient does not require bridging with IV heparin or Lovenox, we might be worthwhile to use IV heparin over the first 24-36 hours since it is easily reversible and will allow monitoring for any increase in active bleeding while anticoagulated. The patient also be started on warfarin at the same time period -If, in 24-36 hours there is no evidence of any active change in her bleeding status, the heparin can be discontinued pending a therapeutic INR.
--- NOTE | 2016-09-07 15:35 | NUR ---
14:45 PM [facility] NOTIFIED THIS RN YO CATHETER WAS LEAKING. DR TAVERAS MADE AWARE. NEW YO CATHETER PLACED AT THIS TIME PER DR TAVERAS. URINE DARK LOIDA IN COLOR. DRAINING TO GRAVITY.
--- NOTE | 2016-09-07 15:37 | NUR ---
15:30 PM HEPARIN GTT STARTED AT THIS TIME PER MD ORDER. STOOL SAMPLE WAS GUIAC NEGATIVE BEFORE STARTING GTT. DR TAVERAS MADE AWARE.
[2016-09-07 15:59] VITALS: BP 118/59
[2016-09-07 22:31] LABS: PTT > 120 SEC (25-37)
[2016-09-08 04:47] LABS: PTT > 120 SEC (25-37)
[2016-09-08 07:29] VITALS: BP 124/70
--- NOTE | 2016-09-08 08:38 | PN- Housestaff ---
Subjective Follow-up For: CHF exacerbation Vaginal bleeding Afib on coumadin Subjective: I saw and examined the patient today morning She is lying comfortably on the chair. Currently on 1L oxygen. reports difficulty with breathing. Started noticing blood in the edgar catheter again. denies any pain in her lower abdominal/genital region. No overnight issues otherwise. Review of Systems Constitutional: Reports: see HPI. Comments: ROS negative except the above. Objective Last 24 Hrs of Vital Signs/I&O Vital Signs Date Time Temp Pulse Resp B/P B/P Pulse O2 O2 Flow FiO2 Mean Ox Delivery Rate 09/08 0729 96.9 60 18 124/70 97 Room Air 09/08 0000 CPAP 09/07 1559 98.7 62 18 118/59 97 Room Air Intake & Output 09/08 1600 09/08 0800 09/08 0000 Intake Total 150 315 Output Total 600 350 Balance -450 -35 Intake, IV 150 75 Intake, Oral 240 Output, Urine 600 350 Physical Exam General Appearance: Alert, Oriented X3 Skin: No Rashes, No Breakdown HEENT: Atraumatic, PERRLA, EOMI Cardiovascular: Normal S1, Normal S2 Lungs: Normal Air Movement, bibasilar crackles present Abdomen: Normal Bowel Sounds, Soft, No Tenderness Neurological: Normal Speech, Sensation Intact Extremities: No Clubbing, No Cyanosis, 4+ pitting edema with skin changes Current Medications: Current Medications Sig/Aparna Start time Last Medication Dose Route Stop Time Status Admin Acetaminophen 650 MG Q6P PRN 09/01 1814 AC 09/07 PO 1725 Albuterol Sulfate 3 ML Q4P PRN 09/05 1999 AC INH Artificial Tears 2 GTT 4 TIMES/DAY 09/08 1000 AC OPH Citalopram 20 MG DAILY 09/02 1000 AC 09/08 Hydrobromide PO 0819 Diphenhydramine HCl 25 MG ONCE ONE 09/08 0030 DC 09/08 PO 09/08 0031 0022 Furosemide 60 MG 7:30 AM, & 4:30 PM 09/05 0730 AC 09/08 IV 0601 Heparin Sodium 25,000 UNIT Q24H 09/07 1230 AC 09/08 (Porcine) IV 0601 Sodium Chloride 500 ML Ibuprofen 600 MG Q6P PRN 09/01 1814 AC PO Morphine Sulfate 2 MG Q4P PRN 09/01 1814 AC IV Tiotropium [place] 1 PUF DAILY 09/01 1817 AC 09/08 INH 0819 Warfarin Sodium 5 MG COUMADIN 1700 ONE 09/07 1700 DC 09/07 PO 09/07 1701 1715 Last 24 Hrs of Lab/Otis Results Last 24 Hrs of Labs/Mics: Laboratory Tests 09/08/16 1820: Anion Gap 12, PT 18.0 H, INR 1.72 H, APTT 78 H, CBC w Diff NO MAN DIFF REQ, RBC 3.22 L, MCV 100.6 H, MCH 32.1 H, RDW 19.1 H, MPV 10.2, Gran % 63.1, Lymphocytes % 21.3, Monocytes % 10.7 H, Eosinophils % 4.5, Basophils % 0.4, Absolute Granulocytes 2.4, Absolute Lymphocytes 0.8 L, Absolute Monocytes 0.4, Absolute Eosinophils 0.2, Absolute Basophils 0, PUBS MCHC 31.9 L 09/08/16 1035: APTT > 120 *H 09/08/16 0600: Sodium Cancelled, Potassium Cancelled, Chloride Cancelled, Carbon Dioxide Cancelled, Anion Gap Cancelled, BUN Cancelled, Creatinine Cancelled, BUN/ Creatinine Ratio Cancelled, PT Cancelled, INR Cancelled, CBC w Diff Cancelled, WBC Cancelled, RBC Cancelled, Hgb Cancelled, Hct Cancelled, MCV Cancelled, MCH Cancelled, RDW Cancelled, Plt Count Cancelled, MPV Cancelled, PUBS MCHC Cancelled 09/08/16 0350: APTT > 120 *H Assessment/Plan Assessment: 86-year-old woman with a past medical history of atrial fibrillation, chronic congestive heart failure (preserved LV systolic function) and hypertension. She presents to our hospital with worsening dyspnea as well as recent increase in her lower extremity edema. She was found to have an elevated BNP and findings consistent with acute on chronic congestive heart failure. #Exertional dyspnea most likely CHF exacerbation As she has recently had a pacemaker implantation, senior operator excluded acute pacer-induced cardio myopathy by echo. Echocardiogram result: Normal left ventricular systolic function with borderline hypertrophy. Right ventricular dilatation and hypokinesia. Severe Pulmonary hypertension by doppler. Biatrial enlargement. * Can continue furosemide IV 60 mg twice a day. * Strict I's and O's * Daily weights * We will follow pulmonology and cardiology recommendation #Atrial fibrillation: * Patient was found to have a supratherapeutic INR, today's INR is 1.7 * Patient's coagulation was been held due to vaginal bleeding and TV/US finding of cervical mass. As per JINRIKISHA DRIVER the patient and he was their recommendation that patient's bleeding is not severe enough (H&H is also noted to be stable) to wind stopping the anticoagulation. Discussed with cardiologY who recommended starting heparin drip and Coumadin 5 mg yesterday (even though patient really does not need bridging, starting the heparin drip will be able to assess and evaluate any impending worsening of the vaginal bleed and could be stopped once patient is noted not to have any increased vaginal bleeding till yesterday. * As patient started to rebleed overnight, we reassessed --> currently STOP warfarin at this moment, continue IV heparin. We will monitor for any bleeding in the next 24hrs. If she bleeds Plan to stop all anticoagulants till her bleeding stops. #Right lower extremity wound: * We will follow wound recommendation #Hematuria After placing the Edgar catheter the bag was filled with urine mixed with blood. Urinalysis on the day of admission shows packed RBCs. On admission patient had a supratherapeutic INR. Renal ultrasound was done and the results came back benign with no pathology to be addressed. Started to have bleed in her edgar today again although clear yesterday. * Will leave Edgar in place per urology recommendations * Repeat CBC daily #Vaginal bleeding Patient has chronic vaginal bleeding. She had D&C done 3 years ago with the pathology being normal at that time. * Evaluated by JINRIKISHA DRIVER today, due to patient body habitus speculum exam could not be done at bedside. However, JINRIKISHA DRIVER did not feel that the vaginal bleeding was severe enough to exclude starting anticoagulation for A. fib. Recommendation for workup on vaginal bleed which could be secondary to the cervical mass seen in TV US or the thickened endometrial stripe will be done on an outpatient basis. If patient stays longer might consider an MRI. (unavailable till friday) #Obstructive sleep apnea. * Continue nocturnal CPAP #Elevated bilirubin Patient bilirubin slightly improved, GGT is high up to 64. GI is on board * Follow LFTs * As per GI, we will consider outpatient cross-sectional imaging, check mitochondrial antibody, antinuclear antibody, 5'-nucleotidase, and consider eventual EGD to rule out varices, if cardiac status allows Heart healthy diet DVT prophylaxis patient is supratherapeutic INR Full code Problem List: 1. BIPEDAL EDEMA 2. ATRIAL FIBRILATION 3. COPD 4. CHF (congestive heart failure) 5. Vaginal bleeding Pain Ratin Pain Location: n/a Pain Goal: Pain 4 or less Pain Plan: tylenol prn Morphine 2mg IV Q4 Tomorrow's Labs & Rationales: cbc and bep to monitor renal and H&H Consulting Request: Consulting Specialty: Gynecology Consulting Physician: Dr Snider Reason for Consult: vaginal bleeding
--- NOTE | 2016-09-08 10:59 | NUR ---
Physical therapy: Patient approached for PT. Patient refused at this time due to fatigue. WIll follow up with patient as appropriate. Thank you.
--- NOTE | 2016-09-08 11:04 | NUR ---
PER MD RYLAN BEACH DRAW 0600 BLOOD WORK WITH NEXT PTT.
[2016-09-08 12:24] LABS: PTT > 120 SEC (25-37)
--- NOTE | 2016-09-08 13:32 | PN- Att Addend ---
Attending MD Review Statement Attending Statement Attending MD Statement: examined this patient, discuss w/resident/PA/MRI TECH, agreed w/resident/PA/MRI TECH, reviewed EMR data (avail), discussed w/nursing Attending Assessment/Plan: A [facility] admission: The further Laboratory Tests 09/08/16 1035: APTT > 120 *H 09/08/16 0350: APTT > 120 *H 09/07/16 2133: APTT > 120 *H Vital Signs Date Time Temp Pulse Resp B/P B/P Pulse O2 O2 Flow FiO2 Mean Ox Delivery Rate 09/08 0800 Nasal 1.0L Cannula 09/08 0729 96.9 60 18 124/70 97 Room Air 09/08 0000 CPAP 09/07 1559 98.7 62 18 118/59 97 Room Air Patient seen and examined at bedside. Discussed with patient the care plan. Discussed with patient's family at bedside the care plan. Patient still continues to have hematuria. We will discuss with cardiology if we should stop the heparin drip for now and once the hematuria resolves then try restarting it again.
[2016-09-08 14:23] VITALS: BP 112/60
--- NOTE | 2016-09-08 17:37 | PN- Cardiology ---
Subjective Subjective: Clinically the patient is doing about the same. However, there appears to be more hematuria noted at the present time, on IV heparin with a PTT of >120. Objective Vital Signs and I&Os Vital Signs Date Time Temp Pulse Resp B/P B/P Pulse O2 O2 Flow FiO2 Mean Ox Delivery Rate 09/08 1600 Nasal 1.0L Cannula 09/08 1423 97.4 60 18 112/60 98 Nasal 2.0L Cannula 09/08 0800 Nasal 1.0L Cannula 09/08 0729 96.9 60 18 124/70 97 Room Air 09/08 0000 CPAP Intake & Output 09/08 1600 09/08 0800 09/08 0000 09/07 1600 09/07 0800 09/07 0000 Intake Total 630 150 315 800 600 Output Total 800 600 350 900 50 325 Balance -170 -450 -35 -100 -50 275 Intake, IV 150 150 75 Intake, Oral 480 240 800 600 Number 1 Bowel Movements Output, Urine 800 600 350 900 50 325 Patient 242 lb Weight Current Medications: Current Medications Sig/Aparna Start time Last Medication Dose Route Stop Time Status Admin Acetaminophen 650 MG Q6P PRN 09/01 181 AC 09/08 PO 1606 Albuterol Sulfate 3 ML Q4P PRN 09/05 1999 AC INH Artificial Tears 2 GTT 4 TIMES/DAY 09/08 1000 AC 09/08 OPH 1613 Citalopram 20 MG DAILY 09/02 1000 AC 09/08 Hydrobromide PO 0819 Diphenhydramine HCl 25 MG ONCE ONE 09/08 0030 DC 09/08 PO 09/08 0031 0022 Furosemide 60 MG 7:30 AM, & 4:30 PM 09/05 0730 AC 09/08 IV 1604 Heparin Sodium 25,000 UNIT Q24H 09/07 1230 AC 09/08 (Porcine) IV 0601 Sodium Chloride 500 ML Ibuprofen 600 MG Q6P PRN 09/01 1814 AC PO Morphine Sulfate 2 MG Q4P PRN 09/01 1814 AC IV Tiotropium [place] 1 PUF DAILY 09/01 181 AC 09/08 INH 0819 Results Last 48 Hrs of Labs/Mics: Laboratory Tests 09/08/16 1035: APTT > 120 *H 09/08/16 0600: Sodium Cancelled, Potassium Cancelled, Chloride Cancelled, Carbon Dioxide Cancelled, Anion Gap Cancelled, BUN Cancelled, Creatinine Cancelled, BUN/ Creatinine Ratio Cancelled, PT Cancelled, INR Cancelled, CBC w Diff Cancelled, WBC Cancelled, RBC Cancelled, Hgb Cancelled, Hct Cancelled, MCV Cancelled, MCH Cancelled, RDW Cancelled, Plt Count Cancelled, MPV Cancelled, PUBS MCHC Cancelled 09/08/16 0350: APTT > 120 *H 09/07/16 2133: APTT > 120 *H 09/07/16 0627: Anion Gap 8, Estimated GFR 43 L, BUN/Creatinine Ratio 34.2 H, PT 18.4 H, INR 1.76 H, CBC w Diff NO MAN DIFF REQ, RBC 3.09 L, MCV 99.8 H, MCH 31.9 H, RDW 18.7 H, MPV 10.9 H, Gran % 63.8, Lymphocytes % 19.2 L, Monocytes % 12.2 H, Eosinophils % 4.2, Basophils % 0.6, Absolute Granulocytes 2.7, Absolute Lymphocytes 0.8 L, Absolute Monocytes 0.5, Absolute Eosinophils 0.2, Absolute Basophils 0, PUBS MCHC 32.0 L Assessment/Plan Assessment/Plan Assessment: 1. Acute on chronic congestive heart failure with normal left ventricular ejection fraction and mild right ventricular dysfunction 2. Pulmonary hypertension with mild right ventricular dysfunction 3. Atrial fibrillation on outpatient Coumadin 4. Right lower extremity wound 5. Hypertension 6. Obstructive sleep apnea on nocturnal CPAP 7. Postmenopausal bleeding status post prior D&C 8. History of bradycardia with permanent pacemaker in situ 9. Thrombocytopenia 10. Elevated bilirubin Recommendations: -I discussed the situation in detail with the patient and with the house staff. -As per clearance by urology, the patient was restarted on anticoagulation. -Currently on IV heparin with increase hematuria noted with PTT >120 - Discussed at lengty with the housestaff. For now I would continue the heparin and monitor the PTT within the therapeutic range of 60-80. IF the hematuria remains or worsens, then consideration for discontinuation of the anticoagulation will have to be entertained.
[2016-09-08 18:46] LABS: ABSOLUTE BASOPHIL COUNT 0 /CUMM (0.0-0.2); ABSOLUTE EOSINOPHIL COUNT 0.2 /CUMM (0.0-0.7); ABSOLUTE GRANULOCYTE CT 2.4 /CUMM (1.4-6.5); ABSOLUTE LYMPH COUNT 0.8 /CUMM (1.2-3.4); ABSOLUTE MONOCYTE COUNT 0.4 /CUMM (0.10-0.60); BASOPHIL % 0.4 % (0.0-2.0); EOSINOPHIL % 4.5 % (0-5); GRANULOCYTE % 63.1 % (42.2-75.2); HEMATOCRIT 32.4 % (37-47); MEAN CORPUSCULAR HGB 32.1 PG (27.0-31.0); MEAN CORPUSCULAR HGB CONC 31.9 G/DL (33.0-37.0); MEAN CORPUSCULAR VOLUME 100.6 FL (81.0-99.0); MEAN PLATELET VOLUME 10.2 FL (7.4-10.4); PLATELET COUNT 83 /CUMM (130-400); RBC DISTRIBUTION WIDTH 19.1 % (11.5-14.5); RED BLOOD CELL CT 3.22 /CUMM (4.20-5.40); WHITE BLOOD CELL COUNT 3.9 /CUMM (4.8-10.8)
[2016-09-08 19:00] LABS: PTT 78 SEC (25-37)
[2016-09-08 22:02] VITALS: BP 124/68
[2016-09-09 07:46] VITALS: BP 128/71
--- NOTE | 2016-09-09 08:04 | PN- Housestaff ---
Subjective Follow-up For: CHF exacerbation Vaginal bleeding Hematuria Afib not on anticoagulation due to tendency to bleed. Complaints: depression and hematuria Subjective: Patient is seen and examined at bed side. She was c/o feeling depressed because of prologed stay in hospital and multiple medical problems. I coincelled about how cope with it and offered help if she needs than we can call psyche to help. She also want urologist to come and see her, we placed the consult. Review of Systems Constitutional: Reports: malaise, weakness. Cardiovascular: Reports: peripheral edema. Denies: chest pain, edema. Respiratory: Denies: cough, short of breath. Gastrointestinal: Denies: no symptoms. Genitourinary: Reports: hematuria. Musculoskeletal: Reports: back pain. Skin: Reports: change in skin color, lesions. Objective Last 24 Hrs of Vital Signs/I&O Vital Signs Date Time Temp Pulse Resp B/P B/P Pulse O2 O2 Flow FiO2 Mean Ox Delivery Rate 09/10 0000 CPAP 09/09 2148 97.7 58 20 116/58 96 Room Air 09/09 1447 97.1 57 18 116/60 98 Nasal 1.0L Cannula 09/09 1058 98 Nasal 1.0L Cannula 09/09 0800 94 Nasal 1.0L Cannula 09/09 0746 98.1 56 20 128/71 97 CPAP Intake & Output 09/10 0800 09/10 0000 09/09 1600 Intake Total 250 702.4 Output Total 300 450 Balance -50 252.4 Intake, IV 102.4 Intake, Oral 250 600 Output, Urine 300 450 Patient 109.826 kg Weight Weight Chair scale Measurement Method Physical Exam General Appearance: Alert, Oriented X3, Cooperative, depressed Cardiovascular: irregularly irregular Lungs: bilateral lower lobe crepts Abdomen: Soft, distended Extremities: bilateral lower extremeites non pitting edema Vascular: cannt aceesed due to edema Current Medications: Current Medications Sig/Aparna Start time Last Medication Dose Route Stop Time Status Admin Acetaminophen 650 MG Q6P PRN 09/01 1814 AC 09/08 PO 1606 Albuterol Sulfate 3 ML Q4P PRN 09/05 1999 AC INH Artificial Tears 2 GTT 4 TIMES/DAY 09/08 1000 AC 09/09 OPH 2126 Citalopram 20 MG DAILY 09/02 1000 AC 09/09 Hydrobromide PO 0940 Clonazepam 1 MG .STK-MED ONE 09/09 1920 DC PO 09/09 1921 Furosemide 60 MG 7:30 AM, & 4:30 PM 09/05 0730 AC 09/09 IV 165 Heparin Sodium 25,000 UNIT Q24H 09/07 1230 AC 09/08 (Porcine) IV 2028 Sodium Chloride 500 ML Ibuprofen 600 MG Q6P PRN 09/01 1814 AC 09/09 PO 2129 Melatonin 3 MG AT BEDTIME 09/10 0045 AC 09/10 PO 0117 Tiotropium [place] 1 PUF DAILY 09/01 1816 AC 09/09 INH 0940 Last 24 Hrs of Lab/[place] Results Last 24 Hrs of Labs/Mics: Laboratory Tests 09/09/16 2150: APTT 68 H 09/09/16 0655: Anion Gap 10, Estimated GFR 43 L, BUN/Creatinine Ratio 40.0 H, PT 18.8 H, INR 1.80 H, APTT 88 H, CBC w Diff NO MAN DIFF REQ, RBC 3.13 L, MCV 99.8 H, MCH 32.2 H, RDW 19.4 H, MPV 10.0, Gran % 49.6, Lymphocytes % 32.8, Monocytes % 13.2 H, Eosinophils % 4.0, Basophils % 0.4, Absolute Granulocytes 1.8, Absolute Lymphocytes 1.2, Absolute Monocytes 0.5, Absolute Eosinophils 0.1, Absolute Basophils 0, PUBS MCHC 32.2 L 09/09/16 0600: PT Cancelled, INR Cancelled Assessment/Plan Assessment: 86-year-old woman with a past medical history of atrial fibrillation, chronic congestive heart failure (preserved LV systolic function) and hypertension. She presents to our hospital with worsening dyspnea as well as recent increase in her lower extremity edema. She was found to have an elevated BNP and findings consistent with acute on chronic congestive heart failure. #Exertional dyspnea most likely CHF exacerbation As she has recently had a pacemaker implantation, intercell connector placer excluded acute pacer-induced cardio myopathy by echo. Echocardiogram result: Normal left ventricular systolic function with borderline hypertrophy. Right ventricular dilatation and hypokinesia. Severe Pulmonary hypertension by doppler. Biatrial enlargement. * Can continue furosemide IV 60 mg twice a day. * Strict I's and O's * Daily weights * We will follow pulmonology and cardiology recommendation #Atrial fibrillation: * Patient was found to have a supratherapeutic INR, today's INR is 1.8 * Patient's coagulation was been held due to vaginal bleeding and TV/US finding of cervical mass. As per [employer] SUPER[employer] the patient and he was their recommendation that patient's bleeding is not severe enough (H&H is also noted to be stable) to wind stopping the anticoagulation. Discussed with cardiologY who recommended starting heparin drip and Coumadin 5 mg yesterday (even though patient really does not need bridging, starting the heparin drip will be able to assess and evaluate any impending worsening of the vaginal bleed and could be stopped once patient is noted not to have any increased vaginal bleeding till yesterday. * As patient started to rebleed overnight, we reassessed --> currently STOP warfarin at this moment, continue IV heparin. We will monitor for any bleeding in the next 24hrs. If she bleeds Plan to stop all anticoagulants till her bleeding stops. * Currently she is on heparin, off coumadin and having mild hematuria. According to Dr keene we will plan tmr for antocoagulation. #Right lower extremity wound: * We will follow wound recommendation #Hematuria After placing the Edgar catheter the bag was filled with urine mixed with blood. Urinalysis on the day of admission shows packed RBCs. On admission patient had a supratherapeutic INR. Renal ultrasound was done and the results came back benign with no pathology to be addressed. Started to have bleed in her edgar today again although clear yesterday. * Will leave Edgar in place per urology recommendations * Repeat CBC daily * Placed urology consult and will follow their rcms #Vaginal bleeding Patient has chronic vaginal bleeding. She had D&C done 3 years ago with the pathology being normal at that time. * Evaluated by [employer] today, due to patient body habitus speculum exam could not be done at bedside. However, [employer] SU[employer] did not feel that the vaginal bleeding was severe enough to exclude starting anticoagulation for A. fib. Recommendation for workup on vaginal bleed which could be secondary to the cervical mass seen in TV US or the thickened endometrial stripe will be done on an outpatient basis. If patient stays longer might consider an MRI. (unavailable till friday) #Obstructive sleep apnea. * Continue nocturnal CPAP #Elevated bilirubin Patient bilirubin slightly improved, GGT is high up to 64. GI is on board * Follow LFTs * As per GI, we will consider outpatient cross-sectional imaging, check mitochondrial antibody, antinuclear antibody, 5'-nucleotidase, and consider eventual EGD to rule out varices, if cardiac status allows Heart healthy diet DVT prophylaxis patient is supratherapeutic INR Full code Problem List: 1. Vaginal bleeding 2. Hematuria Pain Ratin Pain Location: back Pain Goal: Remain pain free Pain Plan: mild Tomorrow's Labs & Rationales: cbc,bep to monitor Hb DVT/Prophylaxis: mechanical Consulting Request: Consulting Specialty: Gynecology Consulting Physician: Dr Snider Reason for Consult: vaginal bleeding
--- NOTE | 2016-09-09 08:25 | PN- Housestaff ---
Assessment/Plan Assessment: 86-year-old woman with a past medical history of atrial fibrillation, chronic congestive heart failure (preserved LV systolic function) and hypertension. She presents to our hospital with worsening dyspnea as well as recent increase in her lower extremity edema. She was found to have an elevated BNP and findings consistent with acute on chronic congestive heart failure. #Exertional dyspnea most likely CHF exacerbation As she has recently had a pacemaker implantation, linoleum floor layer excluded acute pacer-induced cardio myopathy by echo. Echocardiogram result: Normal left ventricular systolic function with borderline hypertrophy. Right ventricular dilatation and hypokinesia. Severe Pulmonary hypertension by doppler. Biatrial enlargement. * Can continue furosemide IV 60 mg twice a day. * Strict I's and O's * Daily weights * We will follow pulmonology and cardiology recommendation #Atrial fibrillation: * Patient was found to have a supratherapeutic INR, today's INR is 1.7 * Patient's coagulation was been held due to vaginal bleeding and TV/US finding of cervical mass. As per [employer] the patient and he was their recommendation that patient's bleeding is not severe enough (H&H is also noted to be stable) to wind stopping the anticoagulation. Discussed with cardiologY who recommended starting heparin drip and Coumadin 5 mg yesterday (even though patient really does not need bridging, starting the heparin drip will be able to assess and evaluate any impending worsening of the vaginal bleed and could be stopped once patient is noted not to have any increased vaginal bleeding till yesterday. * As patient started to rebleed overnight, we reassessed --> currently STOP warfarin at this moment, continue IV heparin. We will monitor for any bleeding in the next 24hrs. If she bleeds Plan to stop all anticoagulants till her bleeding stops. #Right lower extremity wound: * We will follow wound recommendation #Hematuria After placing the Edgar catheter the bag was filled with urine mixed with blood. Urinalysis on the day of admission shows packed RBCs. On admission patient had a supratherapeutic INR. Renal ultrasound was done and the results came back benign with no pathology to be addressed. Started to have bleed in her edgar today again although clear yesterday. * Will leave Edgar in place per urology recommendations * Repeat CBC daily #Vaginal bleeding Patient has chronic vaginal bleeding. She had D&C done 3 years ago with the pathology being normal at that time. * Evaluated by [employer] DEVELOPER today, due to patient body habitus speculum exam could not be done at bedside. However, [employer] DEVELOPER did not feel that the vaginal bleeding was severe enough to exclude starting anticoagulation for A. fib. Recommendation for workup on vaginal bleed which could be secondary to the cervical mass seen in TV US or the thickened endometrial stripe will be done on an outpatient basis. If patient stays longer might consider an MRI. (unavailable till friday) #Obstructive sleep apnea. * Continue nocturnal CPAP #Elevated bilirubin Patient bilirubin slightly improved, GGT is high up to 64. GI is on board * Follow LFTs * As per GI, we will consider outpatient cross-sectional imaging, check mitochondrial antibody, antinuclear antibody, 5'-nucleotidase, and consider eventual EGD to rule out varices, if cardiac status allows Heart healthy diet DVT prophylaxis patient is supratherapeutic INR Full code Consulting Request: Consulting Specialty: Gynecology Consulting Physician: Dr Snider Reason for Consult: vaginal bleeding
[2016-09-09 08:51] LABS: PT 18.8 SEC (9.4-12.5); PTT 88 SEC (25-37)
[2016-09-09 09:04] LABS: ABSOLUTE BASOPHIL COUNT 0 /CUMM (0.0-0.2); ABSOLUTE EOSINOPHIL COUNT 0.1 /CUMM (0.0-0.7); ABSOLUTE GRANULOCYTE CT 1.8 /CUMM (1.4-6.5); ABSOLUTE LYMPH COUNT 1.2 /CUMM (1.2-3.4); ABSOLUTE MONOCYTE COUNT 0.5 /CUMM (0.10-0.60); BASOPHIL % 0.4 % (0.0-2.0); GRANULOCYTE % 49.6 % (42.2-75.2); HEMATOCRIT 31.2 % (37-47); MEAN CORPUSCULAR HGB 32.2 PG (27.0-31.0); MEAN CORPUSCULAR HGB CONC 32.2 G/DL (33.0-37.0); MEAN CORPUSCULAR VOLUME 99.8 FL (81.0-99.0); PLATELET COUNT 73 /CUMM (130-400); RBC DISTRIBUTION WIDTH 19.4 % (11.5-14.5); RED BLOOD CELL CT 3.13 /CUMM (4.20-5.40); WHITE BLOOD CELL COUNT 3.7 /CUMM (4.8-10.8)
--- NOTE | 2016-09-09 14:44 | PN- Cardiology ---
Subjective Subjective: The patient is sitting comfort only in the bedside chair. Simpson catheter in place. I discussed the situation with the nursing staff. The patient has fluctuating hematuria. However, according to the nurses, her urine has never been completely clear. At the moment, she has dark red urine with evidence of clots. Objective Vital Signs and I&Os Vital Signs Date Time Temp Pulse Resp B/P B/P Pulse O2 O2 Flow FiO2 Mean Ox Delivery Rate 09/09 1058 98 Nasal 1.0L Cannula 09/09 0800 94 Nasal 1.0L Cannula 09/09 0746 98.1 56 20 128/71 97 CPAP 09/09 0000 CPAP 09/08 2202 97.8 62 16 124/68 98 Nasal Cannula 09/08 1600 Nasal 1.0L Cannula Intake & Output 09/09 1600 09/09 0800 09/09 0000 09/08 1600 09/08 0809/08 0000 Intake Total 702.4 216 158 630 150 315 Output Total 450 200 250 800 600 350 Balance 252.4 16 -92 -170 -450 -35 Intake, IV 102.4 96 38 150 150 75 Intake, Oral 600 120 120 480 240 Output, Urine 450 200 250 800 600 350 Patient 242 lb 242 lb Weight Weight Chair scale Measurement Method Current Medications: Current Medications Sig/Aparna Start time Last Medication Dose Route Stop Time Status Admin Acetaminophen 650 MG .STK-MED ONE 09/08 1603 DC PO 09/08 1604 Acetaminophen 650 MG Q6P PRN 09/01 PO 1606 Albuterol Sulfate 3 ML Q4P PRN 09/05 1999 AC INH Artificial Tears 2 GTT 4 TIMES/DAY 09/08 1000 AC 09/09 OPH 0940 Citalopram 20 MG DAILY 09/02 1000 AC 09/09 Hydrobromide PO 0940 Furosemide 60 MG 7:30 AM, & 4:30 PM 09/05 0730 09/09 IV 0556 Heparin Sodium 25,000 UNIT Q24H 09/07 1230 AC 09/08 (Porcine) IV 2028 Sodium Chloride 500 ML Ibuprofen 600 MG Q6P PRN 09/01 1814 AC 09/08 PO 2043 Morphine Sulfate 2 MG Q4P PRN 09/01 181 DC IV Tiotropium [place] 1 PUF DAILY 09/01 INH 0940 Results Last 48 Hrs of Labs/Mics: Laboratory Tests 09/09/16 0655: Anion Gap 10, Estimated GFR 43 L, BUN/Creatinine Ratio 40.0 H, PT 18.8 H, INR 1.80 H, APTT 88 H, CBC w Diff NO MAN DIFF REQ, RBC 3.13 L, MCV 99.8 H, MCH 32.2 H, RDW 19.4 H, MPV 10.0, Gran % 49.6, Lymphocytes % 32.8, Monocytes % 13.2 H, Eosinophils % 4.0, Basophils % 0.4, Absolute Granulocytes 1.8, Absolute Lymphocytes 1.2, Absolute Monocytes 0.5, Absolute Eosinophils 0.1, Absolute Basophils 0, PUBS MCHC 32.2 L 09/09/16 0600: PT Cancelled, INR Cancelled 09/08/16 1820: Anion Gap 12, PT 18.0 H, INR 1.72 H, APTT 78 H, CBC w Diff NO MAN DIFF REQ, RBC 3.22 L, MCV 100.6 H, MCH 32.1 H, RDW 19.1 H, MPV 10.2, Gran % 63.1, Lymphocytes % 21.3, Monocytes % 10.7 H, Eosinophils % 4.5, Basophils % 0.4, Absolute Granulocytes 2.4, Absolute Lymphocytes 0.8 L, Absolute Monocytes 0.4, Absolute Eosinophils 0.2, Absolute Basophils 0, PUBS MCHC 31.9 L 09/08/16 1035: APTT > 120 *H 09/08/16 0600: Sodium Cancelled, Potassium Cancelled, Chloride Cancelled, Carbon Dioxide Cancelled, Anion Gap Cancelled, BUN Cancelled, Creatinine Cancelled, BUN/ Creatinine Ratio Cancelled, PT Cancelled, INR Cancelled, CBC w Diff Cancelled, WBC Cancelled, RBC Cancelled, Hgb Cancelled, Hct Cancelled, MCV Cancelled, MCH Cancelled, RDW Cancelled, Plt Count Cancelled, MPV Cancelled, PUBS MCHC Cancelled 09/08/16 0350: APTT > 120 *H 09/07/16 2133: APTT > 120 *H Assessment/Plan Assessment/Plan Assessment: 1. Acute on chronic congestive heart failure with normal left ventricular ejection fraction and mild right ventricular dysfunction 2. Pulmonary hypertension with mild right ventricular dysfunction 3. Atrial fibrillation on outpatient Coumadin 4. Right lower extremity wound 5. Hypertension 6. Obstructive sleep apnea on nocturnal CPAP 7. Postmenopausal bleeding status post prior D&C 8. History of bradycardia with permanent pacemaker in situ 9. Thrombocytopenia 10. Elevated bilirubin Recommendations: -I discussed the situation in detail with the patient and with the house staff. -In view of the patient's persistent hematuria on IV heparin, I would be reluctant to start the patient on long-term oral anticoagulation for now. -Continue IV heparin overnight. -Tomorrow, situation should be reassessed and decisions about long-term anticoagulation orally can be made at that time.
[2016-09-09 14:47] VITALS: BP 116/60
--- NOTE | 2016-09-09 16:35 | PN- Att Addend ---
Attending Addendum Attending Brief Note Laboratory Tests 09/09/16 0655: Anion Gap 10, Estimated GFR 43 L, BUN/Creatinine Ratio 40.0 H, PT 18.8 H, INR 1.80 H, APTT 88 H, CBC w Diff NO MAN DIFF REQ, RBC 3.13 L, MCV 99.8 H, MCH 32.2 H, RDW 19.4 H, MPV 10.0, Gran % 49.6, Lymphocytes % 32.8, Monocytes % 13.2 H, Eosinophils % 4.0, Basophils % 0.4, Absolute Granulocytes 1.8, Absolute Lymphocytes 1.2, Absolute Monocytes 0.5, Absolute Eosinophils 0.1, Absolute Basophils 0, PUBS MCHC 32.2 L 09/09/16 0600: PT Cancelled, INR Cancelled 09/08/16 1820: Anion Gap 12, PT 18.0 H, INR 1.72 H, APTT 78 H, CBC w Diff NO MAN DIFF REQ, RBC 3.22 L, MCV 100.6 H, MCH 32.1 H, RDW 19.1 H, MPV 10.2, Gran % 63.1, Lymphocytes % 21.3, Monocytes % 10.7 H, Eosinophils % 4.5, Basophils % 0.4, Absolute Granulocytes 2.4, Absolute Lymphocytes 0.8 L, Absolute Monocytes 0.4, Absolute Eosinophils 0.2, Absolute Basophils 0, PUBS MCHC 31.9 L Vital Signs Date Time Temp Pulse Resp B/P B/P Pulse O2 O2 Flow FiO2 Mean Ox Delivery Rate 09/09 1447 97.1 57 18 116/60 98 Nasal 1.0L Cannula 09/09 1058 98 Nasal 1.0L Cannula 09/09 0800 94 Nasal 1.0L Cannula 09/09 0746 98.1 56 20 128/71 97 CPAP 09/09 0000 CPAP 09/08 2202 97.8 62 16 124/68 98 Nasal Cannula Patient seen and examined at bedside. Discussed with patient the care plan. He is still having hematuria. We'll continue her on heparin drip for now and the patient off on Coumadin. Cardiology following the patient closely. If continues to have hematuria we will reconsult urology tomorrow morning to address the hematuria issue. Also we'll need follow-up platelet counts as her platelet count has dropped to 73,000 from 83,000 yesterday.
[2016-09-09 21:48] VITALS: BP 116/58
[2016-09-09 23:17] LABS: PTT 68 SEC (25-37)
--- NOTE | 2016-09-10 00:34 | NUR ---
A+O X 3. ON ROOM AIR. LUNG SOUNDS CLEAR. DENIES SHORTNESS OF BREATH VITAL SIGNS STABLE. DENIES CHEST PAIN. + PULSES +3 EDEMA AND REDNESS TO BLE. TRACE EDEMA TO RUE. HEPARIN DRIP RUNNING. YO CARE GIVEN. MEDICATION GIVEN FOR DISCOMFORT. WILL CONTINUE TO MONITOR
[2016-09-10 07:21] VITALS: BP 124/66
[2016-09-10 07:24] LABS: PTT 88 SEC (25-37)
[2016-09-10 08:02] LABS: ABSOLUTE BASOPHIL COUNT 0 /CUMM (0.0-0.2); ABSOLUTE EOSINOPHIL COUNT 0.1 /CUMM (0.0-0.7); ABSOLUTE GRANULOCYTE CT 2.2 /CUMM (1.4-6.5); ABSOLUTE LYMPH COUNT 1.1 /CUMM (1.2-3.4); ABSOLUTE MONOCYTE COUNT 0.4 /CUMM (0.10-0.60); BASOPHIL % 0.6 % (0.0-2.0); EOSINOPHIL % 3.7 % (0-5); GRANULOCYTE % 57.2 % (42.2-75.2); MEAN CORPUSCULAR HGB CONC 32.2 G/DL (33.0-37.0); MEAN CORPUSCULAR VOLUME 99.3 FL (81.0-99.0); MEAN PLATELET VOLUME 10.6 FL (7.4-10.4); PLATELET COUNT 77 /CUMM (130-400); RBC DISTRIBUTION WIDTH 19.4 % (11.5-14.5); RED BLOOD CELL CT 3.13 /CUMM (4.20-5.40); WHITE BLOOD CELL COUNT 3.9 /CUMM (4.8-10.8)
--- NOTE | 2016-09-10 08:19 | PN- Housestaff ---
ARNOLD REYNOLDS,TERRIE 09/10/16 0819: Subjective Follow-up For: Hematuria under evaluation Shortness of breath, Recovered Depression Complaints: complaining of feeling depressed because of multiple medical problems and being in the hospital. Subjective: Patient is seen and examined at the bedside. She was very depressed about her situation and told that she is now started feeling weak. She want to know why she has hematuria. We set together and discussed about the plan. Review of Systems Constitutional: Reports: malaise, weakness. Denies: chills, diaphoresis. EENTM: Denies: no symptoms. Cardiovascular: Reports: edema, orthopena, peripheral edema. Denies: chest pain. Respiratory: Reports: orthopnea. Gastrointestinal: Denies: abdominal pain, bloating, constipation, diarrhea, distention. Genitourinary: Reports: hematuria. Musculoskeletal: Reports: back pain, joint pain, joint swelling. Skin: Reports: lesions. Objective Last 24 Hrs of Vital Signs/I&O Vital Signs Date Time Temp Pulse Resp B/P B/P Pulse O2 O2 Flow FiO2 Mean Ox Delivery Rate 09/10 1525 97.8 64 20 120/60 94 Room Air 09/10 0800 94 Room Air Room Air 09/10 0721 98.1 56 20 124/66 98 Room Air 09/10 0000 CPAP 09/09 2148 97.7 58 20 116/58 96 Room Air Intake & Output 09/10 1600 09/10 0800 09/10 0000 Intake Total 902.4 343 250 Output Total 400 50 300 Balance 502.4 293 -50 Intake, IV 102.4 103 Intake, Oral 800 240 250 Number 0 Bowel Movements Output, Urine 400 50 300 Physical Exam General Appearance: Alert, Oriented X3, Cooperative, No Acute Distress Assessment/Plan Assessment: 86-year-old woman with a past medical history of atrial fibrillation, chronic congestive heart failure (preserved LV systolic function) and hypertension. She presents to our hospital with worsening dyspnea as well as recent increase in her lower extremity edema. She was found to have an elevated BNP and findings consistent with acute on chronic congestive heart failure. Echocardiogram -Echocardiogram result: Normal left ventricular systolic function with borderline hypertrophy. Right ventricular dilatation and hypokinesia. Severe Pulmonary hypertension by doppler. Biatrial enlargement. #Hematuria * Patient is having intermittent hematuria * Will leave Simpson in place per urology recommendations * Repeat CBC daily * Placed urology consult and will follow their rcms * We will keep patient nothing by mouth for possible cystoscopy tomorrow at 11 a.m. Bleeding per vagina * Currently she is having intermittent spotting * Patient has chronic vaginal bleeding. She had D&C done 3 years ago with the pathology being normal at that time. * Evaluated by NUT FEEDER today, due to patient body habitus speculum exam could not be done at bedside. However, NUT FEEDER did not feel that the vaginal bleeding was severe enough to exclude starting anticoagulation for A. fib. * Recommendation for workup on vaginal bleed which could be secondary to the cervical mass seen in TV US or the thickened endometrial stripe will be done on an outpatient basis. * If patient stays longer might consider an MRI. #Exertional dyspnea most likely CHF exacerbation * As she has recently had a pacemaker implantation, cna gna excluded acute pacer-induced cardio myopathy by echo. * We stopped IV furosemide and started patient on tablet furosemide 40 milligrams twice a day. * Strict I's and O's * Daily weights * We will follow pulmonology and cardiology recommendation #Atrial fibrillation: * Patient INR is 1.8 * We'll hold the oral anticoagulation and continue IV heparin * According to the Dr. Gottlieb we should find the cause of the hematuria. We will decide for anticoagulation after getting cystoscopy. #Right lower extremity wound: * We will follow wound recommendation * We will do dry dressing as advised by wound #Obstructive sleep apnea. * Continue nocturnal CPAP #Elevated bilirubin * Patient bilirubin slightly improved, GGT is high up to 64. GI is on board * Follow LFTs * As per GI, we will consider outpatient cross-sectional imaging, check mitochondrial antibody, antinuclear antibody, 5'-nucleotidase, and consider eventual EGD to rule out varices, if cardiac status allows Diet - Heart healthy diet DVT prophylaxis -as patient is having bilateral lower leg edema ALP S cannot be used, she is on heparin drip, which will take care of the DVT prophylaxis. CODE STATUS - Full code Problem List: 1. Hematuria 2. Endometrial thickening on ultra sound 3. CHF (congestive heart failure) 4. Obstructive sleep apnea syndrome 5. COPD 6. Benign essential hypertension 7. BIPEDAL EDEMA 8. ATRIAL FIBRILATION Pain Ratin Pain Location: All joints, more in the left shoulder Pain Goal: Remain pain free Pain Plan: Avoid NSAIDs because of the poor renal function Tomorrow's Labs & Rationales: CBC, BMP, PT, PTT, as patient is going for cystoscopy DVT/Prophylaxis: mechanical, pharmacological Consulting Request: Consulting Specialty: Gynecology Consulting Physician: Dr Snider Reason for Consult: vaginal bleeding STEPAN ALEXANDER 09/10/16 1343: Attending MD Review Statement Attending Statement Attending MD Statement: examined this patient, discuss w/resident/PA/ROCKET MOTOR TESTER, agreed w/resident/PA/ROCKET MOTOR TESTER, discussed with family, reviewed EMR data (avail), discussed with nursing, discussed with case mgmt, reviewed images, amended to note Attending Assessment/Plan: Patient seen and examined at bedside. Discussed with patient/daughter the care plan. SHe is still having hematuria. We'll continue her on heparin drip for now and the patient off on Coumadin. Cardiology following the patient closely. urology consulted, plan for cystoscopy, stop heparin in am as per urology, plat count stable, f/u cardiology, urology and pulmonary for d/c plans. f/u MARINE FIRE FIGHTER as outpatient.
--- NOTE | 2016-09-10 10:23 | PN- Cardiology ---
Subjective Subjective: Patient denies chest pain or shortness of breath. She describes left shoulder pain with movement. Daughter is at the bedside. They're both concerned regarding her recurrent hematuria. Review of Systems: Eyes no blurred or double vision Ears no deafness or ringing Nose and throat no recurrent sinusitis Lungs per history of present illness Heart per history of present illness Abdomen no nausea vomiting Musculoskeletal occasional muscle and joint pains Psych no anxiety or depression Neuro without recurrent headache or seizures Endocrine no heat or cold intolerance Objective Vital Signs and I&Os Vital Signs Date Time Temp Pulse Resp B/P B/P Pulse O2 O2 Flow FiO2 Mean Ox Delivery Rate 09/10 0721 98.1 56 20 124/66 98 Room Air 09/10 0000 CPAP 09/09 2148 97.7 58 20 116/58 96 Room Air 09/09 1447 97.1 57 18 116/60 98 Nasal 1.0L Cannula 09/09 1058 98 Nasal 1.0L Cannula Intake & Output 09/10 1600 09/10 0800 09/10 0000 09/09 1600 09/09 0800 09/09 0000 Intake Total 343 250 702.4 216 158 Output Total 50 300 450 200 250 Balance 293 -50 252.4 16 -92 Intake, IV 103 102.4 96 38 Intake, Oral 240 250 600 120 120 Number 0 Bowel Movements Output, Urine 50 300 450 200 250 Patient 242 lb Weight Weight Chair scale Measurement Method Physical Exam: Patient is a well-developed well-nourished female appearing in no acute distress HEENT is unremarkable Neck is supple there is no JVD Lungs are clear Heart irregular rhythm S1 and S2 are normal no murmurs gallops or rubs Abdomen bowel sounds positive Extremities 2+ edema Current Medications: Current Medications Sig/Aparna Start time Last Medication Dose Route Stop Time Status Admin Acetaminophen 650 MG Q6P PRN 09/01 181 AC 09/10 PO 0845 Albuterol Sulfate 3 ML Q4P PRN 09/05 1999 AC INH Artificial Tears 2 GTT 4 TIMES/DAY 09/08 1000 AC 09/10 OPH 0846 Citalopram 20 MG DAILY 09/02 1000 AC 09/10 Hydrobromide PO 0845 Clonazepam 1 MG .STK-MED ONE 09/09 1920 DC PO 09/09 1921 Furosemide 60 MG 7:30 AM, & 4:30 PM 09/05 729 AC 09/10 IV 0702 Heparin Sodium 25,000 UNIT Q24H 09/07 1230 AC 09/10 (Porcine) IV 0848 Sodium Chloride 500 ML Ibuprofen 600 MG .STK-MED ONE 09/09 2128 DC PO 09/09 213 Ibuprofen 600 MG Q6P PRN 09/01 1814 09/09 PO 212 Melatonin 5 MG .STK-MED ONE 09/10 0113 DC PO 09/10 0114 Melatonin 3 MG AT BEDTIME 09/10 0045 AC 09/10 PO 0117 Tiotropium Baird 1 PUF DAILY 09/01 1816 09/10 INH 0846 Results Last 48 Hrs of Labs/Mics: Laboratory Tests 09/10/16 0615: Anion Gap 9, Estimated GFR 39 L, BUN/Creatinine Ratio 37.7 H, APTT 88 H, CBC w Diff NO MAN DIFF REQ, RBC 3.13 L, MCV 99.3 H, MCH 32.0 H, RDW 19.4 H, MPV 10.6 H, Gran % 57.2, Lymphocytes % 27.4, Monocytes % 11.1 H, Eosinophils % 3.7 , Basophils % 0.6, Absolute Granulocytes 2.2, Absolute Lymphocytes 1.1 L, Absolute Monocytes 0.4, Absolute Eosinophils 0.1, Absolute Basophils 0, PUBS MCHC 32.2 L 09/09/16 2150: APTT 68 H 09/09/16 0655: Anion Gap 10, Estimated GFR 43 L, BUN/Creatinine Ratio 40.0 H, PT 18.8 H, INR 1.80 H, APTT 88 H, CBC w Diff NO MAN DIFF REQ, RBC 3.13 L, MCV 99.8 H, MCH 32.2 H, RDW 19.4 H, MPV 10.0, Gran % 49.6, Lymphocytes % 32.8, Monocytes % 13.2 H, Eosinophils % 4.0, Basophils % 0.4, Absolute Granulocytes 1.8, Absolute Lymphocytes 1.2, Absolute Monocytes 0.5, Absolute Eosinophils 0.1, Absolute Basophils 0, PUBS MCHC 32.2 L 09/09/16 0600: PT Cancelled, INR Cancelled 09/08/16 1820: Anion Gap 12, PT 18.0 H, INR 1.72 H, APTT 78 H, CBC w Diff NO MAN DIFF REQ, RBC 3.22 L, MCV 100.6 H, MCH 32.1 H, RDW 19.1 H, MPV 10.2, Gran % 63.1, Lymphocytes % 21.3, Monocytes % 10.7 H, Eosinophils % 4.5, Basophils % 0.4, Absolute Granulocytes 2.4, Absolute Lymphocytes 0.8 L, Absolute Monocytes 0.4, Absolute Eosinophils 0.2, Absolute Basophils 0, PUBS MCHC 31.9 L 09/08/16 1035: APTT > 120 *H Assessment/Plan Assessment/Plan 1. Acute on chronic congestive heart failure with normal left ventricular ejection fraction and mild right ventricular dysfunction 2. Pulmonary hypertension with mild right ventricular dysfunction 3. Atrial fibrillation on outpatient Coumadin currently being held she is on IV heparin 4. Right lower extremity wound 5. Hypertension 6. Obstructive sleep apnea on nocturnal CPAP 7. Postmenopausal bleeding status post prior D&C 8. History of bradycardia with permanent pacemaker in situ 9. Thrombocytopenia 10. Elevated bilirubin 11. Hematuria Recommendations: -I discussed the situation in detail with the patient and her daughter -In view of the patient's persistent hematuria on IV heparin, I would be reluctant to start the patient on long-term oral anticoagulation for now. -Per urology plan is for possible cystoscopy in the morning -Continue current medications Continue telemetry? No
--- NOTE | 2016-09-10 10:49 | PN- Pulmonary ---
Subjective HPI/Critical Care Issues: pt seen and examined stable from resp perspective on cpap at night on heparin hematuria subsided, however still brownish edema persists Objective Current Medications: Current Medications Sig/Aparna Start time Last Medication Dose Route Stop Time Status Admin Acetaminophen 650 MG Q6P PRN 09/01 1814 AC 09/10 PO 0845 Albuterol Sulfate 3 ML Q4P PRN 09/05 1999 AC INH Artificial Tears 2 GTT 4 TIMES/DAY 09/08 1000 AC 09/10 OPH 0846 Citalopram 20 MG DAILY 09/02 1000 AC 09/10 Hydrobromide PO 0845 Clonazepam 1 MG .STK-MED ONE 09/09 1920 DC PO 09/09 192 Furosemide 60 MG 7:30 AM, & 4:30 PM 09/05 0730 AC 09/10 IV 0702 Heparin Sodium 25,000 UNIT Q24H 09/07 1230 AC 09/10 (Porcine) IV 0848 Sodium Chloride 500 ML Ibuprofen 600 MG .STK-MED ONE 09/09 2128 DC PO 09/09 2129 Ibuprofen 600 MG Q6P PRN 09/01 181 AC 09/09 PO 2129 Melatonin 5 MG .STK-MED ONE 09/10 0113 DC PO 09/10 0114 Melatonin 3 MG AT BEDTIME 09/10 0045 AC 09/10 PO 0117 Tiotropium Magnolia 1 PUF DAILY 09/01 1816 AC 09/10 INH 0846 Vital Signs & I&O Last 24 Hrs of Vitals and I&O: Vital Signs Date Time Temp Pulse Resp B/P B/P Pulse O2 O2 Flow FiO2 Mean Ox Delivery Rate 09/10 0721 98.1 56 20 124/66 98 Room Air 09/10 0000 CPAP 09/09 2148 97.7 58 20 116/58 96 Room Air 09/09 1447 97.1 57 18 116/60 98 Nasal 1.0L Cannula 09/09 1058 98 Nasal 1.0L Cannula Intake & Output 09/10 1600 09/10 0800 09/10 0000 Intake Total 343 250 Output Total 50 300 Balance 293 -50 Intake, IV 103 Intake, Oral 240 250 Number 0 Bowel Movements Output, Urine 50 300 Exam Other Physical Findings: gen awake and alert heent ncat cvs s1, s2, systolic murmur lungs rare rhonchi abd soft bs+ ext edematous Results Last 24 Hrs of Lab Results: Laboratory Tests 09/10/16 0615: Anion Gap 9, Estimated GFR 39 L, BUN/Creatinine Ratio 37.7 H, Lactate Dehydrogenase Pending, APTT 88 H, CBC w Diff NO MAN DIFF REQ, RBC 3.13 L, MCV 99.3 H, MCH 32.0 H, RDW 19.4 H, MPV 10.6 H, Gran % 57.2, Lymphocytes % 27.4, Monocytes % 11.1 H, Eosinophils % 3.7, Basophils % 0.6, Absolute Granulocytes 2.2, Absolute Lymphocytes 1.1 L, Absolute Monocytes 0.4, Absolute Eosinophils 0.1, Absolute Basophils 0, PUBS MCHC 32.2 L 09/09/16 2150: APTT 68 H Impression/Plan Impression/Plan Impression/Plan: Impression 86 year old woman * acute diastolic chf exacerbation * copd * mark * a.fib * htn * hematuria * cirrhosis which can be related to congestion from heart disease or other etiology. Plan -cont nocturnal cpap -trc/nebs -cont spiriva -gastroenterology, urology, cardiology followup DVT prophylaxis at all times Call with any further questions - will sign off at this time
--- NOTE | 2016-09-10 13:42 | PN- Urology ---
Subjective Subjective: No acute distress. Breathing seems improved. Hematuria continues Objective Vital Signs and I&Os Vital Signs Date Time Temp Pulse Resp B/P B/P Pulse O2 O2 Flow FiO2 Mean Ox Delivery Rate 09/10 0800 94 Room Air Room Air 09/10 0721 98.1 56 20 124/66 98 Room Air 09/10 0000 CPAP 09/09 2148 97.7 58 20 116/58 96 Room Air 09/09 1447 97.1 57 18 116/60 98 Nasal 1.0L Cannula Intake & Output 09/10 0800 09/10 0000 09/09 1600 09/09 0000 Intake Total 343 250 702.4 216 158 Output Total 50 300 450 200 250 Balance 293 -50 252.4 16 -92 Intake, IV 103 102.4 96 38 Intake, Oral 240 250 600 120 120 Number 0 Bowel Movements Output, Urine 50 300 450 200 250 Patient 242 lb Weight Weight Chair scale Measurement Method Abd: soft and non tender Genitalia: edgar in place Laboratory Tests 09/10 09/09 0615 2150 Chemistry Sodium (137 - 145 mmol/L) 135 L Potassium (3.5 - 5.1 mmol/L) 4.1 Chloride (98 - 107 mmol/L) 101 Carbon Dioxide (22 - 30 mmol/L) 25 Anion Gap (5 - 16) 9 BUN (7 - 17 mg/dL) 49 H Creatinine (0.5 - 1.0 mg/dL) 1.3 H Estimated GFR (>60 ml/min) 39 L BUN/Creatinine Ratio (7 - 25 %) 37.7 H Lactate Dehydrogenase (313 - 618 U/L) 357 Coagulation APTT (25 - 37 SEC) 88 H 68 H Hematology CBC w Diff NO MAN DIFF REQ WBC (4.8 - 10.8 /CUMM) 3.9 L RBC (4.20 - 5.40 /CUMM) 3.13 L Hgb (12.0 - 16.0 G/DL) 10.0 L Hct (37 - 47 %) 31.0 L MCV (81.0 - 99.0 FL) 99.3 H MCH (27.0 - 31.0 PG) 32.0 H RDW (11.5 - 14.5 %) 19.4 H Plt Count (130 - 400 /CUMM) 77 L MPV (7.4 - 10.4 FL) 10.6 H Gran % (42.2 - 75.2 %) 57.2 Lymphocytes % (20.5 - 51.1 %) 27.4 Monocytes % (1.7 - 9.3 %) 11.1 H Eosinophils % (0 - 5 %) 3.7 Basophils % (0.0 - 2.0 %) 0.6 Absolute Granulocytes (1.4 - 6.5 /CUMM) 2.2 Absolute Lymphocytes (1.2 - 3.4 /CUMM) 1.1 L Absolute Monocytes (0.10 - 0.60 /CUMM) 0.4 Absolute Eosinophils (0.0 - 0.7 /CUMM) 0.1 Absolute Basophils (0.0 - 0.2 /CUMM) 0 PUBS MCHC (33.0 - 37.0 G/DL) 32.2 L Assessment/Plan Assessment/Plan Imp: 1. Gross hematuria, unclear cause. Renal ultrasound essentially negative Plan: 1. I will put on schedule for tomorrow at 11:00 AM for cysto and fulgeration of bleeding. 2. Please keep npo after midnight except for po meds with a sip 3. Stop heparin drip at 5:00 AM
[2016-09-10 15:25] VITALS: BP 120/60
[2016-09-10 21:54] LABS: PTT 90 SEC (25-37)
[2016-09-10 22:29] VITALS: BP 102/50
--- NOTE | 2016-09-11 07:13 | PN- Housestaff ---
ARNOLD REYNOLDS,TERRIE 09/11/16 0712: Subjective Follow-up For: Hematuria under evaluation Shortness of breath, Recovered Complaints: she was complaining of gaining the weight, according to the records. Subjective: Patient is seen and examined at the bedside. She was very worried that she got 30lb according to the records. We discussed about the error. She was denying of any shortness of the breath,increase in swelling in the both legs. She was still having intermittent hematuria. Review of Systems Constitutional: Reports: weakness. Cardiovascular: Reports: peripheral edema. Respiratory: Denies: no symptoms. Gastrointestinal: Denies: abdominal pain, bloating, constipation, diarrhea. Genitourinary: Reports: hematuria. Musculoskeletal: Reports: joint pain. Skin: Denies: no symptoms. Objective Last 24 Hrs of Vital Signs/I&O Vital Signs Date Time Temp Pulse Resp B/P B/P Pulse O2 O2 Flow FiO2 Mean Ox Delivery Rate 09/11 1446 97.9 70 18 118/62 95 Nasal 1.0L Cannula 09/11 0754 94 Nasal 1.0L Cannula 09/11 0752 102/54 09/11 0718 97.7 67 20 98/50 97 09/11 0000 CPAP 09/10 2229 97.6 56 20 102/50 98 CPAP Intake & Output 09/11 1600 09/11 0800 09/11 0000 Intake Total 0 89.6 480 Output Total 200 200 150 Balance -200 -110.4 330 Intake, IV 89.6 Intake, Oral 0 480 Number 0 2 Bowel Movements Output, Urine 200 200 150 Patient 122.47 kg Weight Weight Chair scale Measurement Method Physical Exam General Appearance: Alert, Oriented X3, Cooperative Skin: area of ecchymotic patches Cardiovascular: Normal S1, Normal S2 Lungs: bilateral basilar crackles and wheezing Abdomen: Soft, distended Neurological: Normal Speech Extremities: bilateral lower leg non-pitting edema Vascular: difficult to palpate due to the edema and thickness of the skin Current Medications: Current Medications Sig/Aparna Start time Last Medication Dose Route Stop Time Status Admin Acetaminophen 650 MG Q6P PRN 09/11 1430 AC PO Acetaminophen 650 MG Q6P PRN 09/01 1815 DC 09/10 PO 0845 Albuterol Sulfate 2 PUF Q4P PRN 09/11 1500 AC INH Albuterol Sulfate 3 ML Q4P PRN 09/04 2000 AC INH Artificial Tears 2 GTT 4 TIMES/DAY 09/11 1800 AC OPH Artificial Tears 2 GTT 4 TIMES/DAY 09/08 1000 DC 09/11 OPH 0758 Citalopram 20 MG DAILY 09/12 1000 AC Hydrobromide PO Citalopram 20 MG DAILY 09/02 1000 DC 09/11 Hydrobromide PO 0758 Dextrose/Sodium 1,000 ML Q20H 09/11 1445 AC 09/11 Chloride IV 1449 Furosemide 40 MG QAM 09/12 1000 AC PO Furosemide 40 MG 7:30 AM, & 4:30 PM 09/11 0730 DC 09/11 PO 0759 Furosemide 60 MG 7:30 AM, & 4:30 PM 09/05 0730 DC 09/10 IV 09/10 2300 1614 Heparin Sodium 25,000 UNIT Q24H 09/07 1230 DC 09/10 (Porcine) IV 09/11 0500 0848 Sodium Chloride 500 ML Ibuprofen 600 MG Q6P PRN 09/01 1815 DC 09/10 PO 1319 Melatonin 3 MG AT BEDTIME 09/11 2200 AC PO Melatonin 3 MG AT BEDTIME 09/10 0045 DC 09/10 PO 2154 Tiotropium Gantt 1 PUF DAILY 09/12 1000 AC INH Tiotropium Gantt 1 PUF DAILY 09/01 1817 DC 09/11 INH 0758 Tramadol HCl 50 MG Q6P PRN 09/11 1445 AC PO Tramadol HCl 50 MG Q6P PRN 09/10 1430 DC 09/10 PO 2154 Last 24 Hrs of Lab/Otis Results Last 24 Hrs of Labs/Mics: Laboratory Tests 09/11/16 0615: Anion Gap 12, Estimated GFR 31 L, BUN/Creatinine Ratio 35.0 H, PT 19.0 H, INR 1.82 H, APTT 62 H, CBC w Diff NO MAN DIFF REQ, RBC 3.20 L, MCV 98.9, MCH 32.2 H, RDW 19.3 H, MPV 11.4 H, Gran % 74.2, Lymphocytes % 13.9 L, Monocytes % 10.2 H, Eosinophils % 1.5, Basophils % 0.2, Absolute Granulocytes 5.0, Absolute Lymphocytes 0.9 L, Absolute Monocytes 0.7 H, Absolute Eosinophils 0.1, Absolute Basophils 0, PUBS MCHC 32.5 L 05/30/17 1959: APTT 90 H Microbiology 09/11 1352 URINE ROUT: Urine Culture - COLB 09/11 1225 URINE OR: Urine Culture - RECD Assessment/Plan Assessment: 86-year-old woman with a past medical history of atrial fibrillation, chronic congestive heart failure (preserved LV systolic function) and hypertension. She presents to our hospital with worsening dyspnea as well as recent increase in her lower extremity edema. She was found to have an elevated BNP and findings consistent with acute on chronic congestive heart failure. Echocardiogram -Echocardiogram result: Normal left ventricular systolic function with borderline hypertrophy. Right ventricular dilatation and hypokinesia. Severe Pulmonary hypertension by doppler. Biatrial enlargement. #Hematuria * Patient is having intermittent hematuria * Patient underwent cystoscopy today which showed diffuse erythema in the bladder.Biopsy was taken and send for the pathology. According to the urologist erythematouse area in bladder had tendency to bleed. If urine remained clear overnight, then we will restart heparin and plan for removal of catheter. We'll follow pathology report. * Repeat CBC daily Bleeding per vagina * Currently she is having intermittent spotting * Patient has chronic vaginal bleeding. She had D&C done 3 years ago with the pathology being normal at that time. * Evaluated by TEST ENGINEER today, due to patient body habitus speculum exam could not be done at bedside. However, TEST ENGINEER did not feel that the vaginal bleeding was severe enough to exclude starting anticoagulation for A. fib. * Recommendation for workup on vaginal bleed which could be secondary to the cervical mass seen in TV US or the thickened endometrial stripe will be done on an outpatient basis. * If patient stays longer might consider an MRI. #Exertional dyspnea most likely CHF exacerbation * As she has recently had a pacemaker implantation, icu tech excluded acute pacer-induced cardio myopathy by echo. * We stopped IV furosemide and started patient on tablet furosemide 40 milligrams twice a day. Her creatinine bumped up to 1.6. It can be due to acute on chronic CKD. We will regularly monitor the creatinine and adjust the dose of Lasix. * Strict I's and O's * Daily weights * We will follow pulmonology and cardiology recommendation #Atrial fibrillation: * Patient INR is 1.8 * We will decide for heparin if patient will not have any hematuria. * According to the Dr. Gottlieb we should find the cause of the hematuria. #Right lower extremity wound: * We will follow wound recommendation * We will do dry dressing as advised by wound #Obstructive sleep apnea. * Continue nocturnal CPAP #Elevated bilirubin * Patient bilirubin slightly improved, GGT is high up to 64. GI is on board * Follow LFTs * As per GI, we will consider outpatient cross-sectional imaging, check mitochondrial antibody, antinuclear antibody, 5'-nucleotidase, and consider eventual EGD to rule out varices, if cardiac status allows Chronic thrombocytopenia under evaluation * We will place the hematology/oncology consult and followed the recommendation * We will regularly monitor platelet count and watch for bleeding * Blood workup showed that she has stable chronic thrombocytopenia. Diet - Heart healthy diet DVT prophylaxis -as patient is having bilateral lower leg edema ALP S cannot be used, she is on heparin drip, which will take care of the DVT prophylaxis. CODE STATUS - Full code Problem List: 1. Hematuria 2. Elevated bilirubin 3. CHF (congestive heart failure) 4. Obstructive sleep apnea syndrome 5. COPD Pain Ratin Pain Location: Joint, specifically left shoulder Pain Goal: Remain pain free Pain Plan: [id number] and avoid NSAIDs Tomorrow's Labs & Rationales: CBC, BEP DVT/Prophylaxis: mechanical, pharmacological Consulting Request: Consulting Specialty: Gynecology Consulting Physician: Dr Snider Reason for Consult: vaginal bleeding BENJAMINSTEPAN 09/11/16 1119: Attending MD Review Statement Attending Statement Attending MD Statement: examined this patient, discuss w/resident/PA/[employer], agreed w/resident/PA/[employer], discussed with family, reviewed EMR data (avail), discussed with nursing, discussed with case mgmt, reviewed images, amended to note Attending Assessment/Plan: Patient seen and examined at bedside. Discussed with patient/daughter the care plan. SHe is still having hematuria. We'll continue her on heparin drip for now and the patient off on Coumadin. Cardiology following the patient closely. urology consulted, plan for cystoscopy today, stopped heparin this am as per urology, plat count stable, lasix use and a/c as per cardiology, urology and pulmonary for d/c plans. f/u TANKAGE GRINDER OPERATOR as outpatient. follow labs and creatinine
[2016-09-11 07:18] VITALS: BP 98/50
[2016-09-11 07:52] VITALS: BP 102/54
[2016-09-11 07:58] LABS: ABSOLUTE BASOPHIL COUNT 0 /CUMM (0.0-0.2); ABSOLUTE EOSINOPHIL COUNT 0.1 /CUMM (0.0-0.7); ABSOLUTE LYMPH COUNT 0.9 /CUMM (1.2-3.4)
[2016-09-11 08:18] LABS: PTT 62 SEC (25-37)
[2016-09-11 08:30] LABS: ABSOLUTE MONOCYTE COUNT 0.7 /CUMM (0.10-0.60); BASOPHIL % 0.2 % (0.0-2.0); EOSINOPHIL % 1.5 % (0-5); GRANULOCYTE % 74.2 % (42.2-75.2); HEMATOCRIT 31.6 % (37-47); MEAN CORPUSCULAR HGB 32.2 PG (27.0-31.0); MEAN CORPUSCULAR HGB CONC 32.5 G/DL (33.0-37.0); MEAN CORPUSCULAR VOLUME 98.9 FL (81.0-99.0); MEAN PLATELET VOLUME 11.4 FL (7.4-10.4); PLATELET COUNT 62 /CUMM (130-400); RBC DISTRIBUTION WIDTH 19.3 % (11.5-14.5)
[2016-09-11 08:36] LABS: WHITE BLOOD CELL COUNT 6.7 /CUMM (4.8-10.8)
--- NOTE | 2016-09-11 10:58 | NUR ---
NURSING NOTE: OFF FLOOR TO OR.
--- NOTE | 2016-09-11 11:26 | PN- Cardiology ---
Subjective Subjective: Patient is resting comfortable. She is planned for cystoscopy. Denies dyspnea at rest. Objective Vital Signs and I&Os Vital Signs Date Time Temp Pulse Resp B/P B/P Pulse O2 O2 Flow FiO2 Mean Ox Delivery Rate 09/11 0754 94 Nasal 1.0L Cannula 09/11 0752 102/54 09/11 0718 97.7 67 20 98/50 97 09/11 0000 CPAP 09/10 2229 97.6 56 20 102/50 98 CPAP 09/10 1600 94 Nasal 1.0L Cannula 09/10 1525 97.8 64 20 120/60 94 Room Air Intake & Output 09/11 1600 09/11 0800 09/11 0000 09/10 1600 09/10 0800 09/10 0000 Intake Total 89.6 480 902.4 343 250 Output Total 200 150 400 50 300 Balance -110.4 330 502.4 293 -50 Intake, IV 89.6 102.4 103 Intake, Oral 480 800 240 250 Number 2 0 Bowel Movements Output, Urine 200 150 400 50 300 Patient 270 lb Weight Weight Chair scale Measurement Method Physical Exam: General: no apparent distress. Alert. on NC. Eyes: No obvious scleral icterus. HEENT: No jugular venous distention or abnormal jugular venous pulsations. Cardiovascular: Normal intensity S1/S2. Respiratory: No rales or rhonchi Abdomen: no guarding or rebound tenderness. Musculoskeletal: No clubbing or cyanosis noted, 1+ LE edema Skin: warm Neuro: Grossly nonfocal Current Medications: Current Medications Sig/Aparna Start time Last Medication Dose Route Stop Time Status Admin Acetaminophen 650 MG Q6P PRN 09/01 1815 AC 09/10 PO 0845 Albuterol Sulfate 3 ML Q4P PRN 09/05 1999 AC INH Artificial Tears 2 GTT 4 TIMES/DAY 09/08 1000 AC 09/11 OPH 0758 Citalopram 20 MG DAILY 09/02 1000 AC 09/11 Hydrobromide PO 0758 Furosemide 40 MG 7:30 AM, & 4:30 PM 09/11 07 AC 09/11 PO 0759 Furosemide 60 MG 7:30 AM, & 4:30 PM 09/05 0730 DC 09/10 IV 09/10 2300 1614 Heparin Sodium 25,000 UNIT Q24H 09/07 1230 DC 09/10 (Porcine) IV 09/11 0500 0848 Sodium Chloride 500 ML Ibuprofen 600 MG Q6P PRN 09/01 1814 W[place] 09/10 PO 1319 Melatonin 3 MG AT BEDTIME 09/10 0045 AC 09/10 PO 2154 Patient Medication 1 ED .STK-MED ONE 09/10 1348 [place] Teaching ED 09/10 1349 Tiotropium [place] 1 PUF DAILY 09/01 1816 09/11 INH 0758 Tramadol HCl 50 MG Q6P PRN 09/10 1430 AC 09/10 PO 215 Results Last 48 Hrs of Labs/Mics: Laboratory Tests 09/11/16614: Anion Gap 12, Estimated GFR 31 L, BUN/Creatinine Ratio 35.0 H, PT 19.0 H, INR 1.82 H, APTT 62 H, CBC w Diff NO MAN DIFF REQ, RBC 3.20 L, MCV 98.9, MCH 32.2 H, RDW 19.3 H, MPV 11.4 H, Gran % 74.2, Lymphocytes % 13.9 L, Monocytes % 10.2 H, Eosinophils % 1.5, Basophils % 0.2, Absolute Granulocytes 5.0, Absolute Lymphocytes 0.9 L, Absolute Monocytes 0.7 H, Absolute Eosinophils 0.1, Absolute Basophils 0, PUBS MCHC 32.5 L 09/10/161958: APTT 90 H 09/10/16614: Anion Gap 9, Estimated GFR 39 L, BUN/Creatinine Ratio 37.7 H, Lactate Dehydrogenase 357, APTT 88 H, CBC w Diff NO MAN DIFF REQ, RBC 3.13 L, MCV 99.3 H, MCH 32.0 H, RDW 19.4 H, MPV 10.6 H, Gran % 57.2, Lymphocytes % 27.4, Monocytes % 11.1 H, Eosinophils % 3.7, Basophils % 0.6, Absolute Granulocytes 2.2, Absolute Lymphocytes 1.1 L, Absolute Monocytes 0.4, Absolute Eosinophils 0.1, Absolute Basophils 0, PUBS MCHC 32.2 L 09/09/162149: APTT 68 H Recent Imaging Studies: The patient is not on telemetry. Assessment/Plan Assessment/Plan 1. Acute on chronic congestive heart failure with normal left ventricular ejection fraction and mild right ventricular dysfunction 2. Pulmonary hypertension with mild right ventricular dysfunction 3. Atrial fibrillation on outpatient Coumadin, currently on hold 4. Right lower extremity wound 5. Hypertension 6. Obstructive sleep apnea on nocturnal CPAP 7. Postmenopausal bleeding status post prior D&C 8. History of bradycardia with permanent pacemaker in situ 9. Thrombocytopenia 10. Elevated bilirubin 11. Hematuria Anticoagulation currently on hold for planned cystoscopy. Of note her platelets are down to 62 and the thrombocytopenia may be contributing to hematuria. Assessment/management of the thrombocytopenia per the medical team. She is now on oral Lasix as her creatinine was trending up. Hemoglobin appears grossly stable. Walker Holm MD [facility] Continue telemetry? Not applicable
--- NOTE | 2016-09-11 12:00 | RADIOLOGY REPORT ---
EXAMINATION: XR PORTABLE CHEST CLINICAL INFORMATION: Dyspnea. COMPARISON: Chest x-ray 09/01/2016. TECHNIQUE: Portable 85 degrees semierect frontal view of the chest was obtained. FINDINGS: The study redemonstrates the single lead pacemaker from the left chest, which appears intact. The lung bravo are well-expanded. There is no focal consolidation. There may be small bilateral pleural effusions. There is prominence of the cardiac silhouette, similar compared to the prior study, with moderate cardiomegaly. The aortic arch is calcified and unfolded. There is mild prominence of the central pulmonary vasculature, similar compared to the prior study. There are no acute osseous findings. IMPRESSION: 1. The study redemonstrates cardiomegaly and mild interstitial edema. 2. There are small pleural effusions. 3. There is a single lead pacemaker from the left chest. 4. The findings appear stable.
--- NOTE | 2016-09-11 13:13 | Operative Report ---
Operative/Inv Procedure Report Surgery Date: 09/11/16 Name of Procedure: Cystoscopy, bladder biopsy, fulguration of bleeding points Pre-Operative Diagnosis: Gross hematuria Post-Operative Diagnosis: Gross hematuria likely secondary to cystitis Estimated Blood Loss: less than 50ml Surgeon/School Childcare Attendant: Cezar REYNOLDS, Emigdio ALEXANDER MD,STEPAN Anesthesia: moderate sedation Drains: 22 Faroese Simpson catheter Specimens: Urine culture and bladder biopsy Complications: None Condition: Stable Operative Indication: This patient has atrial fibrillation and requires anticoagulation. While hospitalized she developed gross hematuria. When anticoagulation was held hematuria improved however one anticoagulated she had significant hematuria. Sounds are normal kidneys. She is now scheduled for cystoscopy and fulguration of any bleeding points. Operative/Procedure Note Note: The patient was taken to the cystoscopy room identified. She's placed in supine position on the cystoscopy table. A timeout was executed appropriately with the patient awake. Intravenous anesthesia was given. She was placed in the dorsolithotomy position and prepped and draped in usual fashion for cystoscopy. A 22 Faroese cystoscope sheath placed into the bladder after a surgical pause was executed appropriately. Cystoscopy was performed. There was diffuse erythema of the bladder. Most of the erythema was on the floor and trigone areas. There were no definite papillary lesions seen. No stones were seen. Both ureteral orifices were normal in location and appearance. Using a flexible biopsy forceps 3 of the erythematous areas were biopsied to rule out carcinoma. Next using a rollerball the biopsy sites were fulgurated. Most of the remaining erythema was fulgurated an effort to try and prevent bleeding going forward. At this point no significant bleeding was noted. The bladder was left full and the resectoscope removed. A 22 Faroese Simpson catheter was inserted. Urine was clear at this time. The patient tolerated the procedure well and as completion was taken recovery room in stable condition. Findings: Erythematous areas within the bladder. This could be most likely inflammatory in nature but could also be neoplastic. Discharge Disposition: PACU
--- NOTE | 2016-09-11 13:17 | PN- Urology ---
Surgical Brief Attending Note Brief Attending Note: Patient underwent cystoscopy which showed diffuse area of erythema in the bladder which appeared to bleed easily. No solid tumors were seen. The erythematous areas were biopsied to r/o malignancy. Erythematous areas were then fulgerated. A edgar was placed. Plan: Leave edgar in place for now to monitor hematuria If urine is clear tonight would restart heparin drip and aim for lower end of therapeutic range If urine remains clear would remove edgar or Friday Will f/u on urine culture and bx results
[2016-09-11 14:46] VITALS: BP 118/62
--- NOTE | 2016-09-11 14:53 | NUR ---
NURSING NOTE: PT ARRIVED BACK TO FLOOR FROM OR AT 1445. PT A&O, VSS CHARTED. YO TO BSD WITH PINK URINE. PT DENIES PAIN AT PRESENT. PT RESTING IN BED COMFORTABLY AT PRESENT
[2016-09-11 23:29] VITALS: BP 116/70
[2016-09-12 06:58] VITALS: BP 120/72
--- NOTE | 2016-09-12 07:10 | Cons- Hematology ---
General Information and HPI Consulting Request Date of Consult: 09/12/16 Requested By: BENJAMIN REYNOLDS,STEPAN History of Present Illness: Joan Le is an 86-year-old woman with a complex past medical history admitted for gross hematuria. Patient's CBC reveals thrombocytopenia. In speaking to the patient she is aware of this for many years. Her biggest concern this point is for gross hematuria. Allergies/Medications Allergies: Coded Allergies: guaifenesin (HIVES 09/01/16) Home Med List: Acetaminophen (Tylenol Arthritis) 650 MG TABLET.ER 2 TAB PO QPM PAIN ( Reported) Albuterol Sulfate (Proair Hfa) 90 MCG HFA.AER.AD 2 PUF INH Q4-6 PRN PRN BREATHING (Reported) Allopurinol 300 MG TABLET 0.5 TAB PO QAM GOUT (Reported) Biotin (Unknown Strength) TABLET (Unknown Dose) PO DAILY SUPPLEMENT (Reported ) Calcium Carb/Vitamin D3/Vit K1 (Calcium + Vit D & K Chew Tab) 500 MG CALCIUM-500 UNIT-40 MCG TAB.CHEW 1 TAB PO DAILY SUPPLEMENT (Reported) Cephalexin 500 MG CAPSULE 1 CAP PO TID ANTIBIOTIC (Reported) Cholecalciferol (Vitamin D3) (Vitamin D) 2,000 UNIT TABLET 1 TAB PO 1700 SUPPLEMENT (Reported) Citalopram Hydrobromide (Citalopram HBr) 20 MG TABLET 1 TAB PO DAILY MENTAL HEALTH (Reported) Furosemide 40 MG TABLET 1 TAB PO BID WATER PILL (Reported) Ketoconazole 2 % CREAM..G. 1 PONCHO TOP BID RINGWORM (Reported) apply to affected area(s) Potassium Chloride 20 MEQ TAB.ER.PRT 1 TAB PO DAILY SUPPLEMENT (Reported) Tiotropium [place] (Spiriva) 18 MCG CAP.W.DEV 1 CAP INH DAILY BREATHING PROBLEMS (Reported) Tramadol HCl 50 MG TABLET 1 TAB PO QPM PRN PAIN (Reported) Warfarin Sodium (Coumadin) 3 MG TABLET 1 TAB PO AD BLOOD THINNER (Reported) Warfarin Sodium (Coumadin) 1 MG TABLET 1.5 TAB PO AD BLOOD THINNER (Reported) Current Medications: Current Medications Sig/Aparna Start time Last Medication Dose Route Stop Time Status Admin Acetaminophen 650 MG Q6P PRN 09/11 1430 AC PO Acetaminophen 1,000 MG .STK-MED ONE 09/11 1124 DC IV 09/11 1125 Acetaminophen 650 MG Q6P PRN 09/01 1815 DC 09/10 PO 0845 Albuterol Sulfate 2 PUF Q4P PRN 09/11 1500 AC INH Albuterol Sulfate 3 ML Q4P PRN 09/04 2000 AC INH Artificial Tears 2 GTT 4 TIMES/DAY 09/11 1800 AC 09/11 OPH 2121 Artificial Tears 2 GTT 4 TIMES/DAY 09/08 1000 DC 09/11 OPH 0758 Citalopram 20 MG DAILY 09/12 1000 AC Hydrobromide PO Citalopram 20 MG DAILY 09/02 1000 DC 09/11 Hydrobromide PO 0758 Dexamethasone 4 MG .STK-MED ONE 09/11 1124 DC IM 09/11 1125 Dextrose/Sodium 1,000 ML Q20H 09/11 1445 AC 09/11 Chloride IV 1449 Fentanyl Citrate 200 MCG .STK-MED ONE 09/11 1124 DC IM 09/11 1125 Furosemide 40 MG QAM 09/12 1000 AC PO Furosemide 40 MG 7:30 AM, & 4:30 PM 09/11 0730 DC 09/11 PO 0759 Hydromorphone HCl 2 MG .STK-MED ONE 09/11 1326 DC IM 09/11 1327 Ibuprofen 600 MG Q6P PRN 09/01 1815 DC 09/10 PO 1319 Melatonin 3 MG AT BEDTIME 09/11 2200 AC 09/11 PO 2124 Melatonin 3 MG AT BEDTIME 09/10 0045 DC 09/10 PO 2154 Midazolam HCl 2 MG .STK-MED ONE 09/11 1124 DC IM 09/11 1125 Ondansetron HCl 8 MG .STK-MED ONE 09/11 1124 DC IM 09/11 1125 Tiotropium [place] 1 PUF DAILY 09/12 1000 AC INH Tiotropium [place] 1 PUF DAILY 09/01 1817 DC 09/11 INH 0758 Tramadol HCl 50 MG Q6P PRN 09/11 1445 AC 09/11 PO 2350 Tramadol HCl 50 MG Q6P PRN 09/10 1430 DC 09/10 PO 2154 Review of Systems Review of Systems: Patient denies headaches or dizziness. Recent denies worsening shortness of breath cough chest pain or hemoptysis . She denies nausea vomiting or abdominal pain. Patient denies bone aches or focal neurologic deficit Past History Travel History Traveled to [place] past 21 day No Medical History Blood Transfusion Hx: No Neurological: NONE EENT: NONE Cardiovascular: AFIB, CHF, hypertension Respiratory: NONE Gastrointestinal: NONE Hepatic: NONE Renal: NONE Musculoskeletal: NONE Psychiatric: NONE Endocrine: NONE Blood Disorders: NONE Cancer(s): NONE VERIFICATION SPECIALIST/Reproductive: NONE Surgical History Surgical History: D&C Psychosocial History Where Do You Live? Home Who Do You Live With? self Services at Home: Home Health Aide Primary Language: [place] Smoking Status: Never Smoked (exposed 2nd hand smoke chronic) ETOH Use: denies use Illicit Drug Use: denies illicit drug use Living Will? no Functional Ability ADLs Independent: dressing, eating, toileting, bathing. Ambulation: independent, walker IADLs Needs Assist: shopping, housework, finances, food prep, telephone, transportation, medication admin. Exam & Diagnostic Data Vital Signs and I&O Vital Signs Date Time Temp Pulse Resp B/P B/P Pulse O2 O2 Flow FiO2 Mean Ox Delivery Rate 09/12 0658 97.6 65 18 120/72 97 Nasal 3.0L Cannula 09/12 0012 98 Nasal 1.0L Cannula 09/12 0000 97 CPAP 09/11 2329 97.4 67 18 116/70 97 Nasal 1.0L Cannula 09/11 1600 Nasal 1.0L Cannula 09/11 1446 97.9 70 18 118/62 95 Nasal 1.0L Cannula 09/11 0754 94 Nasal 1.0L Cannula 09/11 0752 102/54 09/11 0718 97.7 67 20 98/50 97 Intake & Output 09/12 0800 09/12 0000 09/11 1600 Intake Total 440 0 Output Total 250 200 Balance 190 -200 Intake, IV 200 Intake, Oral 240 0 Number 0 Bowel Movements Output, Urine 250 200 Patient 229 lb Weight Gen.: in NAD ENT: Sclera anicteric Chest: Normal respiratory effort, decreased breath sounds Cor: RRR, no extra sounds Abdomen: Soft, bowel sounds present, no tenderness, no rebound Extremities: Without clubbing, cyanosis, edema is present but symmetric Neurology: Alert and oriented 3, no gross deficit Skin: No rashes Last 48 Hours of Lab Results: Laboratory Tests 09/12 09/11 09/10 0614 0615 1959 Chemistry Sodium (137 - 145 mmol/L) Pending 135 L Potassium (3.5 - 5.1 mmol/L) Pending 4.1 Chloride (98 - 107 mmol/L) Pending 99 Carbon Dioxide (22 - 30 mmol/L) Pending 24 Anion Gap (5 - 16) Pending 12 BUN (7 - 17 mg/dL) Pending 56 H Creatinine (0.5 - 1.0 mg/dL) Pending 1.6 H Estimated GFR (>60 ml/min) 31 L BUN/Creatinine Ratio (7 - 25 %) Pending 35.0 H Coagulation PT (9.4 - 12.5 SEC) 19.0 H INR (0.90 - 1.19) 1.82 H APTT (25 - 37 SEC) 62 H 90 H Hematology CBC w Diff Pending NO MAN DIFF REQ WBC (4.8 - 10.8 /CUMM) Pending 6.7 RBC (4.20 - 5.40 /CUMM) Pending 3.20 L Hgb (12.0 - 16.0 G/DL) Pending 10.3 L Hct (37 - 47 %) Pending 31.6 L MCV (81.0 - 99.0 FL) Pending 98.9 MCH (27.0 - 31.0 PG) Pending 32.2 H RDW (11.5 - 14.5 %) Pending 19.3 H Plt Count (130 - 400 /CUMM) Pending 62 L MPV (7.4 - 10.4 FL) Pending 11.4 H Gran % (42.2 - 75.2 %) 74.2 Lymphocytes % (20.5 - 51.1 %) 13.9 L Monocytes % (1.7 - 9.3 %) 10.2 H Eosinophils % (0 - 5 %) 1.5 Basophils % (0.0 - 2.0 %) 0.2 Absolute Granulocytes (1.4 - 6.5 /CUMM) 5.0 Absolute Lymphocytes (1.2 - 3.4 /CUMM) 0.9 L Absolute Monocytes (0.10 - 0.60 /CUMM) 0.7 H Absolute Eosinophils (0.0 - 0.7 /CUMM) 0.1 Absolute Basophils (0.0 - 0.2 /CUMM) 0 PUBS MCHC (33.0 - 37.0 G/DL) Pending 32.5 L Imaging/Other Studies: Ultrasound-question endocervical mass Assessment/Plan Assessment: 1. thrombocytopenia-careful review of her hospital records revealed thrombocytopenia back as 2008. Patient has also been anemic. Previous LEDY was negative. Patient has been noted to have hyperbilirubinemia and elevated alkaline PHOSPHATASE.. Terrell Edge MD has seen the patient and suggested that the patient likely has underlying hepatic issues including cirrhosis/ hypersplenism. Patient also has documented congestive heart failure also may be leading to hypersplenism. Given the chronicity of the problem, I do not believe an aggressive workup is indicated at this time. Recommend- Repeat LEDY Anticardiolipin antibody serology Follow CBC No bone or aspirin biopsy seems indicated\ No immediate need for platelet transfusion Terrell Edge MD felt liver spleen scan would not be helpful at this time 2. Anemia-chronic and the patient is currently bleeding () 3. Coagulopathy-patient has been on Coumadin 4. ? Endocervical mass (by [facility]) 5. Hematuria-patient is status post cystoscopy, biopsy is pending 6. Abnormal liver function test-as per Dr. Edge Recommendations: .. Consult Acknowledgment - Thank you for your consult request.
--- NOTE | 2016-09-12 07:11 | PN- Housestaff ---
See Addendum Subjective Follow-up For: Hematuria status post cystoscopy, which showed generalized erythema of the bladder probably secondary infection//? Malignancy Thrombocytopenia, possibly secondary to chronic liver disease Complaints: feeling depressed, feel short of breath when she moves Subjective: Patient was seen and examined at the bedside. She was feeling much comfortable and wanted to know the results of the cystoscopy procedure. We talked in detail about the procedure and its result, including generalized erythema of the bladder and the biopsy. I told that she needs to keep Simpson till hematuria subsided. I also talked about the low platelet count and she is aware of this problem. According to her, she was diagnosed with it couple of years ago and was told that this is due to her liver problem secondary to heart failure. Review of Systems Constitutional: Reports: weakness. Cardiovascular: Denies: chest pain, palpitations. Respiratory: Reports: orthopnea, short of breath. Gastrointestinal: Denies: abdominal pain, bloating, constipation, diarrhea, distention. Genitourinary: Reports: hematuria. Musculoskeletal: Reports: joint pain. Objective Last 24 Hrs of Vital Signs/I&O Vital Signs Date Time Temp Pulse Resp B/P B/P Pulse O2 O2 Flow FiO2 Mean Ox Delivery Rate 09/12 0658 97.6 65 18 120/72 97 Nasal 3.0L Cannula 09/12 0012 98 Nasal 1.0L Cannula 09/12 0000 97 CPAP 09/11 2329 97.4 67 18 116/70 97 Nasal 1.0L Cannula 09/11 1600 Nasal 1.0L Cannula 09/11 1446 97.9 70 18 118/62 95 Nasal 1.0L Cannula Intake & Output 09/12 1600 09/12 0800 09/12 0000 Intake Total 520 440 Output Total 250 250 Balance 270 190 Intake, IV 400 200 Intake, Oral 120 240 Number 0 Bowel Movements Output, Urine 250 250 Patient 103.873 kg Weight Physical Exam General Appearance: Alert, Oriented X3, Cooperative, No Acute Distress Skin: bilateral lower leg edema with thickening of skin HEENT: Atraumatic, PERRLA, EOMI Neck: Supple, No JVD Cardiovascular: Normal S1, Normal S2, murmur is present Lungs: bilateral lowe lobe crepts and occasional wheezing Abdomen: Soft, No Tenderness, distended, Neurological: Normal Speech Extremities: No Clubbing, No Cyanosis, bilateral lower leg non pitting edema Vascular: cannot be palpated due to edema and thickening of the skin Current Medications: Current Medications Sig/Aparna Start time Last Medication Dose Route Stop Time Status Admin Acetaminophen 650 MG Q6P PRN 09/11 1430 AC PO Acetaminophen 1,000 MG .STK-MED ONE 09/11 1124 DC IV 09/11 1125 Acetaminophen 650 MG Q6P PRN 09/01 1815 DC 09/10 PO 0845 Albuterol Sulfate 2 PUF Q4P PRN 09/11 1500 AC INH Albuterol Sulfate 3 ML Q4P PRN 09/04 2000 AC INH Artificial Tears 2 GTT 4 TIMES/DAY 09/11 1800 AC 09/12 OPH 0954 Artificial Tears 2 GTT 4 TIMES/DAY 09/08 1000 DC 09/11 OPH 0758 Citalopram 20 MG DAILY 09/12 1000 AC 09/12 Hydrobromide PO 0954 Citalopram 20 MG DAILY 09/02 1000 DC 09/11 Hydrobromide PO 0758 Dexamethasone 4 MG .STK-MED ONE 09/11 1124 DC IM 09/11 1125 Dextrose/Sodium 1,000 ML Q20H 09/11 1445 DC 09/11 Chloride IV 1449 Fentanyl Citrate 200 MCG .STK-MED ONE 09/11 1124 DC IM 09/11 1125 Furosemide 40 MG QAM 09/12 1000 CAN PO Furosemide 40 MG 7:30 AM, & 4:30 PM 09/11 0730 DC 09/11 PO 0759 Hydromorphone HCl 2 MG .STK-MED ONE 09/11 1326 DC IM 09/11 1327 Melatonin 3 MG AT BEDTIME 09/11 2200 AC 09/11 PO 2124 Melatonin 3 MG AT BEDTIME 09/10 0045 DC 09/10 PO 2154 Midazolam HCl 2 MG .STK-MED ONE 09/11 1124 DC IM 09/11 1125 Ondansetron HCl 8 MG .STK-MED ONE 09/11 1124 DC IM 09/11 1125 Polyethylene Glycol 17 GM DAILY 09/12 1000 AC 09/12 PO 1115 Tiotropium [place] 1 PUF DAILY 09/12 1000 AC 09/12 INH 0954 Tiotropium [place] 1 PUF DAILY 09/01 1817 DC 09/11 INH 0758 Tramadol HCl 50 MG Q6P PRN 09/11 1445 AC 09/11 PO 2350 Tramadol HCl 50 MG Q6P PRN 09/10 1430 DC 09/10 PO 2154 Last 24 Hrs of Lab/Otis Results Last 24 Hrs of Labs/Mics: Laboratory Tests 09/12/16 0940: LEDY Titer Pending, Anti-Nuclear Antibody Pending 09/12/16 0614: Anion Gap 12, Estimated GFR 25 L, BUN/Creatinine Ratio 32.6 H, CBC w Diff NO MAN DIFF REQ, RBC 3.12 L, MCV 99.1 H, MCH 31.9 H, RDW 19.5 H, MPV 11.3 H, Gran % 88.6 H, Lymphocytes % 7.4 L, Monocytes % 3.9, Eosinophils % 0, Basophils % 0.1, Absolute Granulocytes 5.1, Absolute Lymphocytes 0.4 L, Absolute Monocytes 0.2, Absolute Eosinophils 0, Absolute Basophils 0, PUBS MCHC 32.2 L 09/12/16 0600: Anti-Cardiolipin IgG Ab Pending, Anti-Cardiolipin IgA Ab Pending, Anti- Cardiolipin IgM Ab Pending, Cardiolipin Ab Comment Pending Microbiology 09/11 1352 URINE ROUT: Urine Culture - COLB 09/11 1225 URINE OR: Urine Culture - RES Assessment/Plan Assessment: 86-year-old woman with a past medical history of atrial fibrillation, chronic congestive heart failure (preserved LV systolic function) and hypertension. She presents to our hospital with worsening dyspnea as well as recent increase in her lower extremity edema. Echocardiogram -Echocardiogram result: Normal left ventricular systolic function with borderline hypertrophy. Right ventricular dilatation and hypokinesia. Severe Pulmonary hypertension by doppler. Biatrial enlargement. #Hematuria * Patient is having intermittent hematuria * Patient underwent cystoscopy on 09/11/2016 which showed diffuse erythema in the bladder.Biopsy was taken and send for the pathology. According to the urologist erythematouse area in bladder had tendency to bleed. * We'll follow pathology report. * Patient is still having hematuria today. Discuss with the urologist. They want to keep patient off anticoagultion and watch for hematuria. * Repeat CBC daily Bleeding per vagina * Currently she is having intermittent spotting * Patient has chronic vaginal bleeding. She had D&C done 3 years ago with the pathology being normal at that time. * Evaluated by CARD SORTER today, due to patient body habitus speculum exam could not be done at bedside. However, CARD SORTER did not feel that the vaginal bleeding was severe enough to exclude starting anticoagulation for A. fib. * Recommendation for workup on vaginal bleed which could be secondary to the cervical mass seen in TV US or the thickened endometrial stripe will be done on an outpatient basis. * If patient stays longer might consider an MRI. #Exertional dyspnea most likely CHF exacerbation * She recently had pacemaker implantation, and we excluded acute pacer-induced cardio myopathy by echo. * We stopped IV furosemide and started patient on tablet furosemide 40 milligrams twice a day. Her creatinine bumped up to 1.6 to 1.9. We will stop lasix for next 24 -48 hrs. We will regularly monitor the creatinine, decide from it. * Strict I's and O's * Daily weights * We will follow pulmonology and cardiology recommendation #Atrial fibrillation: * Patient INR is 1.8 * We will decide for heparin if patient will not have any hematuria. * According to Dr Escalante we will decide for anticoagulation after hematuria been stopped. #Right lower extremity wound: * We will follow wound recommendation * We will do dry dressing as advised by wound #Obstructive sleep apnea. * Continue nocturnal CPAP #Elevated bilirubin * Patient bilirubin slightly improved, GGT is high up to 64. GI is on board * Follow LFTs * As per GI, we will consider outpatient cross-sectional imaging, check mitochondrial antibody, antinuclear antibody, 5'-nucleotidase, and consider eventual EGD to rule out varices, if cardiac status allows Chronic thrombocytopenia under evaluation * We will follow the hematology/oncology recommendation * We will regularly monitor platelet count and watch for bleeding * Blood workup showed that she has stable chronic thrombocytopenia. * We ordered LEDY and anticadiolipin antibody. Diet - Heart healthy diet DVT prophylaxis -as patient is having bilateral lower leg edema ALP S cannot be used, she is also not on heparin drip, because of tendency to bleed. Will encourage for ambulation. CODE STATUS - Full code Problem List: 1. Hematuria 2. Endometrial thickening on ultra sound 3. Postmenopausal bleeding 4. Elevated bilirubin 5. Thrombocytopenia Pain Ratin Pain Location: joints, left shoulder Pain Goal: Remain pain free Pain Plan: mild to moderate Tomorrow's Labs & Rationales: cbc, bep DVT/Prophylaxis: mechanical Consulting Request: Consulting Specialty: Gynecology Consulting Physician: Dr Snider Reason for Consult: vaginal bleeding
--- NOTE | 2016-09-12 07:51 | PN- Urology ---
Subjective Subjective: No distress Objective Vital Signs and I&Os Vital Signs Date Time Temp Pulse Resp B/P B/P Pulse O2 O2 Flow FiO2 Mean Ox Delivery Rate 09/12 0658 97.6 65 18 120/72 97 Nasal 3.0L Cannula 09/12 0012 98 Nasal 1.0L Cannula 09/12 0000 97 CPAP 09/11 2329 97.4 67 18 116/70 97 Nasal 1.0L Cannula 09/11 1600 Nasal 1.0L Cannula 09/11 1446 97.9 70 18 118/62 95 Nasal 1.0L Cannula 09/11 0754 94 Nasal 1.0L Cannula 09/11 0752 102/54 Intake & Output 09/12 0800 09/12 0000 09/11 1600 09/11 0800 09/11 0000 09/10 1600 Intake Total 440 0 89.6 480 902.4 Output Total 250 200 200 150 400 Balance 190 -200 -110.4 330 502.4 Intake, IV 200 89.6 102.4 Intake, Oral 240 0 480 800 Number 0 2 Bowel Movements Output, Urine 250 200 200 150 400 Patient 229 lb 270 lb Weight Weight Chair scale Measurement Method Abd: soft Genitalia: edgar in place. Draining light tea-colored urine Laboratory Tests 09/12 613 Chemistry Sodium Pending Potassium Pending Chloride Pending Carbon Dioxide Pending Anion Gap Pending BUN Pending Creatinine Pending BUN/Creatinine Ratio Pending Hematology CBC w Diff Pending WBC Pending RBC Pending Hgb Pending Hct Pending MCV Pending MCH Pending RDW Pending Plt Count Pending MPV Pending PUBS MCHC Pending Assessment/Plan Assessment/Plan Imp: 1. Gross hematuria appears to be due to diffuse cystitis Plan: 1. Leave edgar today 2. f/u recent cultures and if positive treat with appropriate abx 3. f/u bladder bx path 4. If possible would hold anticoagulation until urine clears
[2016-09-12 08:02] LABS: ABSOLUTE BASOPHIL COUNT 0 /CUMM (0.0-0.2); ABSOLUTE EOSINOPHIL COUNT 0 /CUMM (0.0-0.7); ABSOLUTE GRANULOCYTE CT 5.1 /CUMM (1.4-6.5); ABSOLUTE LYMPH COUNT 0.4 /CUMM (1.2-3.4); ABSOLUTE MONOCYTE COUNT 0.2 /CUMM (0.10-0.60); BASOPHIL % 0.1 % (0.0-2.0); EOSINOPHIL % 0 % (0-5); MEAN CORPUSCULAR HGB 31.9 PG (27.0-31.0); MEAN CORPUSCULAR HGB CONC 32.2 G/DL (33.0-37.0); MEAN CORPUSCULAR VOLUME 99.1 FL (81.0-99.0); MEAN PLATELET VOLUME 11.3 FL (7.4-10.4); RBC DISTRIBUTION WIDTH 19.5 % (11.5-14.5); RED BLOOD CELL CT 3.12 /CUMM (4.20-5.40); WHITE BLOOD CELL COUNT 5.7 /CUMM (4.8-10.8)
--- NOTE | 2016-09-12 08:59 | PN- Cardiology ---
Subjective Subjective: Patient claims to be feeling a little better today. She had cystoscopy yesterday. She is otherwise on no anticoagulation. No cardiac issues overnight. Objective Vital Signs and I&Os Vital Signs Date Time Temp Pulse Resp B/P B/P Pulse O2 O2 Flow FiO2 Mean Ox Delivery Rate 09/12 0658 97.6 65 18 120/72 97 Nasal 3.0L Cannula 09/12 0012 98 Nasal 1.0L Cannula 09/12 0000 97 CPAP 09/11 2329 97.4 67 18 116/70 97 Nasal 1.0L Cannula 09/11 1600 Nasal 1.0L Cannula 09/11 1446 97.9 70 18 118/62 95 Nasal 1.0L Cannula Intake & Output 09/12 1600 09/12 0800 09/12 0000 09/11 1600 09/11 0800 09/11 0000 Intake Total 520 440 0 89.6 480 Output Total 250 250 200 200 150 Balance 270 190 -200 -110.4 330 Intake, IV 400 200 89.6 Intake, Oral 120 240 0 480 Number 0 0 2 Bowel Movements Output, Urine 250 250 200 200 150 Patient 229 lb 270 lb Weight Weight Chair scale Measurement Method Physical Exam: On general exam she appeared comfortable. Head normocephalic atraumatic Eyes sclera anicteric conjunctiva showed no pallor extraocular muscles were normal Neck mild jugular venous distention, no thyroid masses no palpable nodes Chest lungs anterior lung field appeared to be clear. Heart irregular rhythm with a ventricular rate of around 90. Abdomen protuberant soft no organomegaly nontender Extremities chronic venous stasis chronic brawny induration. Neurological no gross motor or sensory deficits Current Medications: Current Medications Sig/Aparna Start time Last Medication Dose Route Stop Time Status Admin Acetaminophen 650 MG Q6P PRN 09/11 1430 AC PO Acetaminophen 1,000 MG .STK-MED ONE 09/11 1124 DC IV 09/11 1125 Acetaminophen 650 MG Q6P PRN 09/01 1815 DC 09/10 PO 0845 Albuterol Sulfate 2 PUF Q4P PRN 09/11 1500 AC INH Albuterol Sulfate 3 ML Q4P PRN 09/04 2000 AC INH Artificial Tears 2 GTT 4 TIMES/DAY 09/11 1800 AC 09/11 OPH 2121 Artificial Tears 2 GTT 4 TIMES/DAY 09/08 1000 DC 09/11 OPH 0758 Citalopram 20 MG DAILY 09/12 1000 AC Hydrobromide PO Citalopram 20 MG DAILY 09/02 1000 DC 09/11 Hydrobromide PO 0758 Dexamethasone 4 MG .STK-MED ONE 09/11 1124 DC IM 09/11 1125 Dextrose/Sodium 1,000 ML Q20H 09/11 1445 DC 09/11 Chloride IV 1449 Fentanyl Citrate 200 MCG .STK-MED ONE 09/11 1124 DC IM 09/11 1125 Furosemide 40 MG QAM 09/12 1000 AC PO Furosemide 40 MG 7:30 AM, & 4:30 PM 09/11 0730 DC 09/11 PO 0759 Hydromorphone HCl 2 MG .STK-MED ONE 09/11 1326 DC IM 09/11 1327 Ibuprofen 600 MG Q6P PRN 09/01 1815 DC 09/10 PO 1319 Melatonin 3 MG AT BEDTIME 09/11 2200 AC 09/11 PO 2124 Melatonin 3 MG AT BEDTIME 09/10 0045 DC 09/10 PO 2154 Midazolam HCl 2 MG .STK-MED ONE 09/11 1124 AL IM 09/11 1125 Ondansetron HCl 8 MG .STK-MED ONE 09/11 1124 DC IM 09/11 1125 Tiotropium [place] 1 PUF DAILY 09/12 1000 AC INH Tiotropium [place] 1 PUF DAILY 09/01 1817 DC 09/11 INH 0758 Tramadol HCl 50 MG Q6P PRN 09/11 1445 AC 09/11 PO 2350 Tramadol HCl 50 MG Q6P PRN 09/10 1430 DC 09/10 PO 2154 Results Last 48 Hrs of Labs/Mics: Laboratory Tests 09/12/16 0614: Anion Gap 12, Estimated GFR 25 L, BUN/Creatinine Ratio 32.6 H, CBC w Diff Pending, WBC Pending, RBC Pending, Hgb Pending, Hct Pending, MCV Pending, MCH Pending, RDW Pending, Plt Count Pending, MPV Pending, Gran % Pending, Lymphocytes % Pending, Monocytes % Pending, Eosinophils % Pending, Basophils % Pending, Absolute Granulocytes Pending, Absolute Lymphocytes Pending, Absolute Monocytes Pending, Absolute Eosinophils Pending, Absolute Basophils Pending, PUBS MCHC Pending 09/12/16 0600: Anti-Cardiolipin IgG Ab Pending, Anti-Cardiolipin IgA Ab Pending, Anti- Cardiolipin IgM Ab Pending, Cardiolipin Ab Comment Pending 09/11/16 0615: Anion Gap 12, Estimated GFR 31 L, BUN/Creatinine Ratio 35.0 H, PT 19.0 H, INR 1.82 H, APTT 62 H, CBC w Diff NO MAN DIFF REQ, RBC 3.20 L, MCV 98.9, MCH 32.2 H, RDW 19.3 H, MPV 11.4 H, Gran % 74.2, Lymphocytes % 13.9 L, Monocytes % 10.2 H, Eosinophils % 1.5, Basophils % 0.2, Absolute Granulocytes 5.0, Absolute Lymphocytes 0.9 L, Absolute Monocytes 0.7 H, Absolute Eosinophils 0.1, Absolute Basophils 0, PUBS MCHC 32.5 L 09/10/161958: APTT 90 H Assessment/Plan Assessment/Plan 1. Acute on chronic congestive heart failure with normal left ventricular ejection fraction and mild right ventricular dysfunction 2. Pulmonary hypertension with mild right ventricular dysfunction 3. Atrial fibrillation on outpatient Coumadin, currently on hold 4. Right lower extremity wound 5. Hypertension 6. Obstructive sleep apnea on nocturnal CPAP 7. Postmenopausal bleeding status post prior D&C 8. History of bradycardia with permanent pacemaker in situ 9. Thrombocytopenia 10. Elevated bilirubin 11. Hematuria Her creatinine appears to be arising. I would hold Lasix for 24-48 hours and thereafter resume at 40 mg a day. Gentle hydration should be encouraged. Her chest x-ray yesterday showed chronic changes compatible with pulmonary hypertension and chronic diastolic heart failure. Her oxygen saturation tends to drop on ambulation and she might need home oxygen. For the time being she is off anticoagulation. Need clearance from urology prior to restarting anticoagulation. Continue telemetry? Not applicable
[2016-09-12 09:36] LABS: GRANULOCYTE % 88.6 % (42.2-75.2); PLATELET COUNT 60 /CUMM (130-400)
--- NOTE | 2016-09-12 10:00 | NUR ---
NURSING NOTE: PT AMBULATED IN HALLWAY ON RA AND O2 SAT REMAINED 94%.
[2016-09-12 14:24] VITALS: BP 118/70
[2016-09-12 22:46] VITALS: BP 126/65
[2016-09-13 07:13] VITALS: BP 110/82
--- NOTE | 2016-09-13 07:14 | PN- Urology ---
Subjective Subjective: No acute distrss Objective Vital Signs and I&Os Vital Signs Date Time Temp Pulse Resp B/P B/P Pulse O2 O2 Flow FiO2 Mean Ox Delivery Rate 09/13 0000 CPAP 09/12 2246 98.2 61 18 126/65 92 Nasal 2.0L Cannula 09/12 1424 97.4 60 18 118/70 94 Room Air 09/12 0800 94 Room Air Room Air Intake & Output 09/13 0809/13 0000 09/12 1600 09/12 0800 09/12 0000 09/11 1600 Intake Total 800 800 520 440 0 Output Total 350 450 250 250 200 Balance 450 350 270 190 -200 Intake, IV 400 200 Intake, Oral 800 800 120 240 0 Number 0 0 0 Bowel Movements Output, Urine 350 450 250 250 200 Patient 229 lb Weight Abd: soft and non tender Genitalia: edgar in place. Urine in tubing is clear to light tea-colored Platelet count=60k urine C&S: no growth to date Bladder bx path: pending Assessment/Plan Assessment/Plan Imp: 1. Gross hematuria improved. Appears to be due to cystitis, aggrevated by thrombocytopenia 2. s/p cystoscopy, bladder bx and fulgeration Plan: 1. f/u final urine culture results and treat if positive 2. f/u bladder bx results 3. Would remove edgar if not needed for strict I's and O's 4. If urine remains light tea-colored or clear would restart anticoagulation tomorrow and aim for lower end of therapeutic range. If hematura worsens when anticoagulated may have to put on hold again
[2016-09-13 07:53] LABS: ABSOLUTE BASOPHIL COUNT 0 /CUMM (0.0-0.2); ABSOLUTE EOSINOPHIL COUNT 0 /CUMM (0.0-0.7); ABSOLUTE GRANULOCYTE CT 8.7 /CUMM (1.4-6.5); ABSOLUTE LYMPH COUNT 0.7 /CUMM (1.2-3.4); ABSOLUTE MONOCYTE COUNT 0.4 /CUMM (0.10-0.60); BASOPHIL % 0.1 % (0.0-2.0); EOSINOPHIL % 0.2 % (0-5); HEMATOCRIT 31.9 % (37-47); MEAN CORPUSCULAR HGB 32.3 PG (27.0-31.0); MEAN CORPUSCULAR HGB CONC 32.4 G/DL (33.0-37.0); MEAN CORPUSCULAR VOLUME 99.7 FL (81.0-99.0); MEAN PLATELET VOLUME 10.6 FL (7.4-10.4); RBC DISTRIBUTION WIDTH 19.3 % (11.5-14.5)
--- NOTE | 2016-09-13 08:01 | PN- Housestaff ---
ARNOLD REYNOLDS,TERRIE 09/13/16 0800: Subjective Follow-up For: Hematuria status post cystoscopy, which showed generalized erythema of the bladder probably secondary infection/? Malignancy Thrombocytopenia, possibly secondary to chronic liver disease Complaints: she was complaining that she wasn't able to sleep in the night. She cannot able to tell exactly the cause, probably discomfort from bed. She denies for shortness of breath, cough,wheezing. Subjective: Patient is seen and examined at the bedside. She was quite comfortable. She was complaining that she was not able to sleep in the night. She denies of any cough , fever, chest pain, shortness of breath. Urine is still coffee-ground in color. Review of Systems Constitutional: Reports: no symptoms, weakness. Cardiovascular: Reports: edema, peripheral edema. Denies: chest pain. Respiratory: Denies: cough, hemoptysis, short of breath. Gastrointestinal: Denies: no symptoms. Genitourinary: Reports: hematuria. Objective Last 24 Hrs of Vital Signs/I&O Vital Signs Date Time Temp Pulse Resp B/P B/P Pulse O2 O2 Flow FiO2 Mean Ox Delivery Rate 09/13 0713 98.4 66 20 110/82 91 Nasal 2.0L Cannula 09/13 0000 CPAP 09/12 2246 98.2 61 18 126/65 92 Nasal 2.0L Cannula 09/12 1424 97.4 60 18 118/70 94 Room Air Intake & Output 09/13 1600 09/13 0800 09/13 0000 Intake Total 120 800 Output Total 400 350 Balance -280 450 Intake, Oral 120 800 Output, Urine 400 350 Patient 102.965 kg Weight Physical Exam General Appearance: Alert, Oriented X3, Cooperative Skin: thickening of the both lower legs skin Cardiovascular: Normal S1, Normal S2 Lungs: bilateral lower lobe crackles Abdomen: Soft, No Tenderness Neurological: Normal Speech Extremities: bilateral lower leg edema, nonpitting, thickening of the skin, right foot ulcer on the dorsum of right leg Vascular: cannt be palpated due thickening of the skin Current Medications: Current Medications Sig/Aparna Start time Last Medication Dose Route Stop Time Status Admin Acetaminophen 650 MG Q6P PRN 09/11 1430 AC PO Albuterol Sulfate 2 PUF Q4P PRN 09/11 1500 AC INH Albuterol Sulfate 3 ML Q4P PRN 09/05 1999 AC INH Artificial Tears 2 GTT 4 TIMES/DAY 09/11 1800 AC 09/12 OPH 0954 Citalopram 20 MG DAILY 09/12 1000 AC 09/12 Hydrobromide PO 0954 Furosemide 40 MG QAM 09/12 1000 CAN PO Melatonin 3 MG AT BEDTIME 09/11 2200 AC 09/12 PO 2026 Patient Medication 1 ED .STK-MED ONE 09/12 1247 AR Teaching ED 09/12 1248 Polyethylene Glycol 17 GM DAILY 09/12 1000 AC 09/12 PO 1115 Ramelteon 8 MG ONCE ONE 09/12 2315 DC 09/12 PO 09/12 2316 2349 Tiotropium [place] 1 PUF DAILY 09/12 1000 AC 09/12 INH 0954 Tramadol HCl 50 MG Q6P PRN 09/11 1445 AC 09/12 PO 1717 Last 24 Hrs of Lab/Otis Results Last 24 Hrs of Labs/Mics: Laboratory Tests 09/13/16 0613: Anion Gap 11, Estimated GFR 21 L, BUN/Creatinine Ratio 31.8 H, Uric Acid 8.0 H, Calcium 8.3 L, Magnesium 2.3, PT 18.9 H, INR 1.81 H, CBC w Diff NO MAN DIFF REQ, RBC 3.20 L, MCV 99.7 H, MCH 32.3 H, RDW 19.3 H, MPV 10.6 H, Gran % 88.0 H, Lymphocytes % 7.2 L, Monocytes % 4.5, Eosinophils % 0.2, Basophils % 0.1, Absolute Granulocytes 8.7 H, Absolute Lymphocytes 0.7 L, Absolute Monocytes 0.4, Absolute Eosinophils 0, Absolute Basophils 0, PUBS MCHC 32.4 L 09/12/16 0940: LEDY Titer Pending, Anti-Nuclear Antibody Pending Assessment/Plan Assessment: 86-year-old woman with a past medical history of atrial fibrillation, chronic congestive heart failure (preserved LV systolic function) and hypertension. She presents to our hospital with worsening dyspnea as well as recent increase in her lower extremity edema. Echocardiogram -Echocardiogram result: Normal left ventricular systolic function with borderline hypertrophy. Right ventricular dilatation and hypokinesia. Severe Pulmonary hypertension by doppler. Biatrial enlargement. Vital signs -temperature 98.1, pulse 66, respiratory rate 20, blood pressure 110 /82, SPO2 91% on 2 liters of oxygen. Intake/output -2120/1050, Pertinent labs -Hb -10.3, K -5.2, Cr -2.2, BUN -70, INR -1.81 Plan - Acute and chronic kidney disease * Her creatinine is continuously rising to 2.2 * We stopped the Lasix * We will do strict intake output charting * We will continuously monitor BUN/creatinine, if it remains elevated tomorrow, then we will consider nephrology consultation. Hematuria * Patient is having intermittent hematuria * Patient underwent cystoscopy on 09/11/2016 which showed diffuse erythema in the bladder.Biopsy was taken and send for the pathology. According to the urologist erythematouse area in bladder had tendency to bleed. * We'll follow pathology report. * Patient is still having hematuria today. Discuss with the urologist. They want to keep patient off anticoagultion and watch for hematuria. * Repeat CBC daily Bleeding per vagina * Currently she is having intermittent spotting * Patient has chronic vaginal bleeding. She had D&C done 3 years ago with the pathology being normal at that time. * Evaluated by GOLF CLUB HEAD INSPECTOR AND ADJUSTER today, due to patient body habitus speculum exam could not be done at bedside. However, G[employer] CLUB HEAD INSPECTOR AND ADJUSTER did not feel that the vaginal bleeding was severe enough to exclude starting anticoagulation for A. fib. * Recommendation for workup on vaginal bleed which could be secondary to the cervical mass seen in TV US or the thickened endometrial stripe will be done on an outpatient basis. * If patient stays longer might consider an MRI. Exertional dyspnea most likely CHF exacerbation * We will repeat chest x-ray today to see the any signs of pulmonary edema * She recently had pacemaker implantation, and we excluded acute pacer-induced cardio myopathy by echo. * We stopped IV furosemide and started patient on tablet furosemide 40 milligrams twice a day. Her creatinine bumped up to 1.6 to 1.9. We will stop lasix for next 24 -48 hrs. We will regularly monitor the creatinine, decide from it. * Strict I's and O's * Daily weights * We will follow pulmonology and cardiology recommendation Atrial fibrillation: * Patient INR is 1.8 * We will decide for heparin if patient will not have any hematuria. * According to Dr Escalante we will decide for anticoagulation after hematuria been stopped. Right lower extremity wound: * We will follow wound recommendation * We will do dry dressing as advised by wound Obstructive sleep apnea. * Continue nocturnal CPAP Elevated bilirubin * Patient bilirubin slightly improved, GGT is high up to 64. GI is on board * Follow LFTs * As per GI, we will consider outpatient cross-sectional imaging, check mitochondrial antibody, antinuclear antibody, 5'-nucleotidase, and consider eventual EGD to rule out varices, if cardiac status allows Chronic thrombocytopenia under evaluation * We will follow the hematology/oncology recommendation * We will regularly monitor platelet count and watch for bleeding * Blood workup showed that she has stable chronic thrombocytopenia. * We ordered LEDY and anticadiolipin antibody. Diet - Heart healthy diet DVT prophylaxis -as patient is having bilateral lower leg edema ALP S cannot be used, she is also not on heparin drip, because of tendency to bleed. Will encourage for ambulation. CODE STATUS - Full code Problem List: 1. Thrombocytopenia 2. Hematuria 3. Elevated INR 4. CHF (congestive heart failure) 5. Obstructive sleep apnea syndrome 6. COPD 7. BIPEDAL EDEMA Pain Ratin Pain Location: joints Pain Goal: Remain pain free Pain Plan: mild to moderate, avoid NSAID's Tomorrow's Labs & Rationales: cbc,bep DVT/Prophylaxis: ambulation Consulting Request: Consulting Specialty: Gynecology Consulting Physician: Dr Snider Reason for Consult: vaginal bleeding STEPAN ALEXANDER 09/13/16 1133: Attending MD Review Statement Attending Statement Attending MD Statement: examined this patient, discuss w/resident/PA/BAND BIAS MACHINE OPERATOR, agreed w/resident/PA/BAND BIAS MACHINE OPERATOR, discussed with family, reviewed EMR data (avail), discussed with nursing, discussed with case mgmt, reviewed images, amended to note Attending Assessment/Plan: Patient seen and examined at bedside. Discussed with patient/daughter the care plan. SHe is still having hematuria. We'll continue her on heparin drip for now and the patient off on Coumadin. Cardiology following the patient closely. urology consulted, s/p cystoscopy suggestive of diffuse cystitis, resume a/c as per urology, plat count stable, lasix stopped and a/c as per cardiology, urology and pulmonary for d/c plans. f/u RECREATION PROGRAMMER as outpatient. follow labs and creatinine. Patient/family updated plan about stopping lasix, may obtain repeat chest xray today, a/c on hold, may resume tomorrow as per urology, monitoring labs if Cr worsens consider nephrology consult. TTS>37 min
[2016-09-13 08:15] LABS: PT 18.9 SEC (9.4-12.5)
[2016-09-13 08:34] LABS: WHITE BLOOD CELL COUNT 9.9 /CUMM (4.8-10.8)
[2016-09-13 08:56] LABS: PLATELET COUNT 81 /CUMM (130-400)
[2016-09-13 14:28] VITALS: BP 114/72
--- NOTE | 2016-09-13 14:43 | RADIOLOGY REPORT ---
EXAMINATION: XR PORTABLE CHEST CLINICAL INFORMATION: Worsening creatinine. Crackles. Presumptive diagnosis of heart failure. Compare with previous studies. COMPARISON: Chest x-ray dated 09/11/2016, 09/01/2016 and older exams. TECHNIQUE: Portable AP semierect view of the chest was obtained. FINDINGS: Single lead pacer is in place projecting over the left ventricle. The cardiomediastinal silhouette is enlarged and globular in shape. Calcification of the aortic arch is seen. Low lung volumes are noted. Left hemidiaphragm is obscured, likely related to AP technique as well as overlying soft tissues. However, associated small effusion or underlying airspace disease is difficult to exclude based on this exam. The remainder of the lungs is clear. There is mild central vascular congestion without overt pulmonary edema. Bony structures are grossly unremarkable. IMPRESSION: 1. Cardiomegaly and central vascular congestion again noted. No definite pulmonary edema. 2. Limited assessment of left lung base, most likely related to technical factors and patient's body habitus. Difficult to exclude underlying effusion/lung parenchymal process. Consider follow-up PA and lateral view of the chest for further assessment.
[2016-09-13 22:27] VITALS: BP 128/76
[2016-09-14 06:48] VITALS: BP 142/68
--- NOTE | 2016-09-14 07:06 | PN- Housestaff ---
ARNOLD REYNOLDS,TERRIE 09/14/16 0706: Subjective Follow-up For: Hematuria status post cystoscopy, which showed generalized erythema of the bladder probably secondary infection//? Malignancy Thrombocytopenia, possibly secondary to chronic liver disease Complaints: no complaints Subjective: Patient is seen and examined at the bedside. She is still having hematuria intermittently. She denies of any other complaints. Review of Systems Constitutional: Denies: no symptoms. Cardiovascular: Denies: chest pain. Respiratory: Denies: short of breath. Genitourinary: Reports: hematuria. Objective Last 24 Hrs of Vital Signs/I&O Vital Signs Date Time Temp Pulse Resp B/P B/P Pulse O2 O2 Flow FiO2 Mean Ox Delivery Rate 09/14 1550 97.1 65 20 120/70 95 Room Air 09/14 0648 97.7 66 20 142/68 97 09/14 0000 96 Nasal 2.0L Cannula 09/13 2227 97.4 66 16 128/76 94 Room Air Intake & Output 09/14 1600 09/14 0800 09/14 0000 Intake Total 600 120 350 Output Total 350 500 500 Balance 250 -380 -150 Intake, IV 0 Intake, Oral 600 120 350 Number 0 Bowel Movements Output, Urine 350 500 500 Patient 118.841 kg Weight Weight Chair scale Measurement Method Physical Exam General Appearance: Alert, Oriented X3, Cooperative, No Acute Distress Cardiovascular: Normal S1, Normal S2, murmur represent Lungs: bilateral lower lobe crackles Abdomen: Soft, distended, bowel sounds positive Neurological: Normal Speech Extremities: bilateral lower extremity edema with thickening of the skin Vascular: cannot be assessed due to the thickening of the skin and edema Current Medications: Current Medications Sig/Aparna Start time Last Medication Dose Route Stop Time Status Admin Acetaminophen 650 MG Q6P PRN 09/11 1430 AC PO Albuterol Sulfate 2 PUF Q4P PRN 09/11 1500 AC INH Albuterol Sulfate 3 ML Q4P PRN 09/05 1999 AC INH Artificial Tears 2 GTT 4 TIMES/DAY 09/11 1800 AC 09/14 OPH 0849 Ceftriaxone Sodium 1,000 MG 1730 09/14 1730 AC IV Ceftriaxone Sodium 1,000 MG DAILY 09/13 1444 DC 09/13 IV 1736 Citalopram 20 MG DAILY 09/12 1000 AC 09/14 Hydrobromide PO 0849 Docusate Sodium 100 MG DAILY NEEDED PRN 09/14 1615 CANr PO Melatonin 3 MG AT BEDTIME 09/11 2200 AC 09/13 PO 2122 Polyethylene Glycol 17 GM DAILY 09/12 1000 AC 09/14 PO 0849 Senna/Docusate Sodium 1 TAB BID PRN 09/14 1615 CANr PO Tiotropium [place] 1 PUF DAILY 09/12 1000 AC 09/14 INH 0849 Tramadol HCl 50 MG Q6P PRN 09/11 1445 AC 09/13 PO 2124 Last 24 Hrs of Lab/Otis Results Last 24 Hrs of Labs/Mics: Laboratory Tests 09/14/16 0604: Anion Gap 11, Estimated GFR 21 L, BUN/Creatinine Ratio 31.4 H, CBC w Diff NO MAN DIFF REQ, RBC 3.28 L, MCV 99.9 H, MCH 32.1 H, RDW 19.1 H, MPV 10.1, Gran % 84.2 H, Lymphocytes % 8.8 L, Monocytes % 6.7, Eosinophils % 0.2, Basophils % 0.1, Absolute Granulocytes 8.3 H, Absolute Lymphocytes 0.9 L, Absolute Monocytes 0.7 H, Absolute Eosinophils 0, Absolute Basophils 0, PUBS MCHC 32.2 L Assessment/Plan Assessment: 86-year-old woman with a past medical history of atrial fibrillation, chronic congestive heart failure (preserved LV systolic function) and hypertension. She presents to our hospital with worsening dyspnea as well as recent increase in her lower extremity edema. Echocardiogram -Echocardiogram result: Normal left ventricular systolic function with borderline hypertrophy. Right ventricular dilatation and hypokinesia. Severe Pulmonary hypertension by doppler. Biatrial enlargement. Vital signs -temperature 97.1, pulse 65, respiratory 20, blood pressure 120/70, SPO2 95% on room air Intake/output -1070/1250, Pertinent labs -Hb -10.5, K -5.3, Cr -2.2, BUN -70, INR -1.81 Plan - Acute and chronic kidney disease * Her creatinine is still 2.2 * We stopped the Lasix * We will do strict intake output charting * We will continuously monitor BUN/creatinine, if it remains elevated tomorrow, then we will consider nephrology consultation. Hematuria * Patient is having intermittent hematuria * Patient underwent cystoscopy on 09/11/2016 which showed diffuse erythema in the bladder. * Biopsy was taken and send for the pathology. According to the urologist erythematouse area in bladder had tendency to bleed. 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 We will stop ceftriaxone and start pt on ciprofloxacin. * We'll follow pathology report. * Patient is still having hematuria today. * Repeat CBC daily Bleeding per vagina * Currently she is having intermittent spotting * Patient has chronic vaginal bleeding. She had D&C done 3 years ago with the pathology being normal at that time. * Evaluated by CUTTER AND PASTER PRESS CLIPPINGS today, due to patient body habitus speculum exam could not be done at bedside. However, CUTTER AND PASTER PRESS CLIPPINGS did not feel that the vaginal bleeding was severe enough to exclude starting anticoagulation for A. fib. * Recommendation for workup on vaginal bleed which could be secondary to the cervical mass seen in TV US or the thickened endometrial stripe will be done on an outpatient basis. * If patient stays longer might consider an MRI. Exertional dyspnea most likely CHF exacerbation * Repeat chest x-ray - showed stable cardiopulmonary changes. * She recently had pacemaker implantation, and we excluded acute pacer-induced cardio myopathy by echo. * We stopped IV furosemide and started patient on tablet furosemide 40 milligrams twice a day. Her creatinine bumped up to 1.6 to 1.9. We will stop lasix for next 24 -48 hrs. We will regularly monitor the creatinine, decide from it. * Strict I's and O's * Daily weights * We will follow pulmonology and cardiology recommendation Atrial fibrillation: * Patient INR is 1.8 * We will decide for heparin if patient will not have any hematuria. Right lower extremity wound: * We will follow wound recommendation * We will do dry dressing as advised by wound Obstructive sleep apnea. * Continue nocturnal CPAP Elevated bilirubin * Patient bilirubin slightly improved, GGT is high up to 64. GI is on board * Follow LFTs * As per GI, we will consider outpatient cross-sectional imaging, check mitochondrial antibody, antinuclear antibody, 5'-nucleotidase, and consider eventual EGD to rule out varices, if cardiac status allows Chronic thrombocytopenia under evaluation * We will follow the hematology/oncology recommendation * We will regularly monitor platelet count and watch for bleeding * Blood workup showed that she has stable chronic thrombocytopenia. * LEDY - Neg and we will follow anticadiolipin antibody. Diet - Heart healthy diet DVT prophylaxis -as patient is having bilateral lower leg edema ALP S cannot be used, she is also not on heparin drip, because of tendency to bleed. Will encourage for ambulation. CODE STATUS - Full code Problem List: 1. Hematuria 2. Thrombocytopenia 3. Endometrial thickening on ultra sound 4. Postmenopausal bleeding 5. CHF (congestive heart failure) 6. Obstructive sleep apnea syndrome 7. Cardiomegaly 8. BIPEDAL EDEMA Pain Ratin Pain Location: Joints Pain Goal: Remain pain free Pain Plan: Avoid NSAIDs Tomorrow's Labs & Rationales: CBC, BEP, PT/INR DVT/Prophylaxis: mechanical, pharmacological Consulting Request: Consulting Specialty: Gynecology Consulting Physician: Dr Snider Reason for Consult: vaginal bleeding CONCHIS REYNOLDS,[facility] 09/14/16 1359: Attending MD Review Statement Attending Statement Attending MD Statement: examined this patient, discuss w/resident/PA/REHANGER, agreed w/resident/PA/REHANGER, reviewed EMR data (avail), discussed with nursing, discussed with case mgmt, reviewed images, amended to note Attending Assessment/Plan: Patient seen and examined, feels okay. Simpson catheter still shows hematuria. Urine culture growing Enterobacter Cloacae. Vital Signs Date Time Temp Pulse Resp B/P B/P Pulse O2 O2 Flow FiO2 Mean Ox Delivery Rate 09/14 0648 97.7 66 20 142/68 97 09/14 0000 96 Nasal 2.0L Cannula 09/13 2227 97.4 66 16 128/76 94 Room Air 09/13 1600 96 Room Air 09/13 1428 98.0 64 18 114/72 96 Nasal 1.0L Cannula on exam; aox,3, nad. cv; s1,s2, irregular resp; clear abd; soft, nt, bs+ ext; no edema. Laboratory Tests 09/14 06 Chemistry Sodium (137 - 145 mmol/L) 134 L Potassium (3.5 - 5.1 mmol/L) 5.3 H Chloride (98 - 107 mmol/L) 97 L Carbon Dioxide (22 - 30 mmol/L) 26 Anion Gap (5 - 16) 11 BUN (7 - 17 mg/dL) 69 H Creatinine (0.5 - 1.0 mg/dL) 2.2 H Estimated GFR (>60 ml/min) 21 L BUN/Creatinine Ratio (7 - 25 %) 31.4 H Hematology CBC w Diff NO MAN DIFF REQ WBC (4.8 - 10.8 /CUMM) 9.8 RBC (4.20 - 5.40 /CUMM) 3.28 L Hgb (12.0 - 16.0 G/DL) 10.5 L Hct (37 - 47 %) 32.7 L MCV (81.0 - 99.0 FL) 99.9 H MCH (27.0 - 31.0 PG) 32.1 H RDW (11.5 - 14.5 %) 19.1 H Plt Count (130 - 400 /CUMM) 92 L MPV (7.4 - 10.4 FL) 10.1 Gran % (42.2 - 75.2 %) 84.2 H Lymphocytes % (20.5 - 51.1 %) 8.8 L Monocytes % (1.7 - 9.3 %) 6.7 Eosinophils % (0 - 5 %) 0.2 Basophils % (0.0 - 2.0 %) 0.1 Absolute Granulocytes (1.4 - 6.5 /CUMM) 8.3 H Absolute Lymphocytes (1.2 - 3.4 /CUMM) 0.9 L Absolute Monocytes (0.10 - 0.60 /CUMM) 0.7 H Absolute Eosinophils (0.0 - 0.7 /CUMM) 0 Absolute Basophils (0.0 - 0.2 /CUMM) 0 PUBS MCHC (33.0 - 37.0 G/DL) 32.2 L A/P; 86-year-old woman with a past medical history of atrial fibrillation, chronic congestive heart failure (preserved LV systolic function) and hypertension admitted with acute on chronic CHF, hematuria as well as some vaginal bleeding. At this point her anti-coagulation is on hold secondary to having consistent hematuria. Patient also has a UTI. Urine culture growing Enterobacter. It is intermediate to ceftriaxone. Would recommend changing the antibiotic to Cipro. Monitor platelet count, patient has thrombocytopenia. Hold off on anticoagulation for now. Cardiology aware. Lasix was also held secondary to worsening creatinine. Patient has been followed by urology. They recommended to keep holding the ablation on the urine is clear or light colored. H&H relatively stable. Continue other currents meds.
[2016-09-14 08:08] LABS: ABSOLUTE BASOPHIL COUNT 0 /CUMM (0.0-0.2); ABSOLUTE EOSINOPHIL COUNT 0 /CUMM (0.0-0.7); ABSOLUTE GRANULOCYTE CT 8.3 /CUMM (1.4-6.5); ABSOLUTE LYMPH COUNT 0.9 /CUMM (1.2-3.4); ABSOLUTE MONOCYTE COUNT 0.7 /CUMM (0.10-0.60); BASOPHIL % 0.1 % (0.0-2.0); EOSINOPHIL % 0.2 % (0-5); HEMATOCRIT 32.7 % (37-47); MEAN CORPUSCULAR HGB 32.1 PG (27.0-31.0); MEAN CORPUSCULAR HGB CONC 32.2 G/DL (33.0-37.0); MEAN CORPUSCULAR VOLUME 99.9 FL (81.0-99.0); MEAN PLATELET VOLUME 10.1 FL (7.4-10.4); RBC DISTRIBUTION WIDTH 19.1 % (11.5-14.5); RED BLOOD CELL CT 3.28 /CUMM (4.20-5.40); WHITE BLOOD CELL COUNT 9.8 /CUMM (4.8-10.8)
[2016-09-14 09:43] LABS: GRANULOCYTE % 84.2 % (42.2-75.2); PLATELET COUNT 92 /CUMM (130-400)
--- NOTE | 2016-09-14 10:16 | NUR ---
PHYSICAL THERAPY-UNABLE TO DOCUMENT DUE TO COMPUTER SHUTTING DOWN AND THIS [employer] BATH OPERATOR BEING LOCKED OUT OF CHART. PT TREATMENT THIS AM. RECEIVED Pt IN RECLINER AND WILLING TO WORK WITH PT. SEATED THEREX WAS PERFORMED IN ALL PLANES WELL PASSIVE B GASTROC STRETCHING. Pt PERFORMED SIT>STAND WITH CG TO RW. AMBULATED 25 FT WITH RW AND CG. INCREASED FATIGUE AND LOW ENDURANCE. VITALS PRE RX 95% O2 AFTER AMB 84% AND RETURNED TO 94% AFTER RX. Pt WAS IN BEDSIDE RECLINER WITH ALL NEEDS IN REACH POST RX. CONTINUE TO RECOMMEND STR AT THIS TIME DUE TO DECREASED STRENGTH AND ENDURANCE. FORMAL PT NOTE TO FOLLOW. THANK YOU
[2016-09-14 15:50] VITALS: BP 120/70
[2016-09-14 22:29] VITALS: BP 130/60
[2016-09-15 06:51] VITALS: BP 121/66
--- NOTE | 2016-09-15 08:12 | PN- Housestaff ---
ARIAS POSEY 09/15/16 0811: Subjective Follow-up For: Hematuria status post cystoscopy, which showed generalized erythema of the bladder probably secondary infection//? Malignancy Thrombocytopenia, possibly secondary to chronic liver disease Complaints: pain scale (0-10) Subjective: Patient is seen and examined at the bedside. She is alert awake and oriented to time place and person. No acute events happened overnight. She is still having hematuria intermittently. Denies any short of breath Reports bilateral lower extremity edema She denies any other complaints. Review of Systems Constitutional: Denies: chills, diaphoresis, fever. Objective Last 24 Hrs of Vital Signs/I&O Vital Signs Date Time Temp Pulse Resp B/P B/P Pulse O2 O2 Flow FiO2 Mean Ox Delivery Rate 09/15 0800 94 Room Air Room Air 09/15 0651 97.7 64 20 121/66 93 / 0000 CPAP 09/14 2229 97.4 64 20 130/60 97 Room Air 09/14 1550 97.1 65 20 120/70 95 Room Air Intake & Output 09/15 1600 09/15 0800 09/15 0000 Intake Total 120 480 Output Total 350 200 Balance -230 280 Intake, IV 240 Intake, Oral 120 240 Output, Urine 350 200 Patient 98.571 kg Weight Weight Chair scale Measurement Method Physical Exam General Appearance: Alert, Oriented X3, Cooperative, No Acute Distress Skin: No Rashes, No Breakdown HEENT: Atraumatic, PERRLA, EOMI Neck: Supple, No JVD Cardiovascular: Normal S1, Normal S2 Lungs: CRACKLES BIBASILAR Abdomen: Normal Bowel Sounds, Soft, No Tenderness Extremities: No Clubbing, No Cyanosis, B/L +2 PITITING EDEMA Vascular: Normal Pulses, Pulses Symmetrical Current Medications: Current Medications Sig/Aparna Start time Last Medication Dose Route Stop Time Status Admin Acetaminophen 650 MG .STK-MED ONE 09/14 211 DC PO 09/15 2111 Acetaminophen 650 MG Q6P PRN 09/11 1430 AC 09/14 PO 2110 Albuterol Sulfate 2 PUF Q4P PRN 09/11 1500 AC INH Albuterol Sulfate 3 ML Q4P PRN 09/05 1999 AC INH Artificial Tears 2 GTT 4 TIMES/DAY 09/11 1800 AC 09/14 OPH 0849 Ceftriaxone Sodium 1,000 MG 0 09/14 173 CAN IV Ciprofloxacin 400 MG DAILY@09/14 2200 AC 09/14 Dextrose/Water 200 ML IV 2106 Citalopram 20 MG DAILY 09/12 999 AC 09/15 Hydrobromide PO 08 Docusate Sodium 100 MG DAILY NEEDED PRN 09/14 1615 CAN PO Melatonin 3 MG AT BEDTIME 09/11 2199 AC 09/14 PO 2107 Polyethylene Glycol 17 GM DAILY 09/12 999 AC 09/15 PO 0811 Senna/Docusate Sodium 1 TAB BID PRN 09/14 1615 CAN PO Tiotropium [place] 1 PUF DAILY 09/12 1000 AC 09/15 INH 0810 Tramadol HCl 50 MG Q6P PRN 09/11 1445 AC 09/13 PO 2124 Last 24 Hrs of Lab/Otis Results Last 24 Hrs of Labs/Mics: Laboratory Tests 09/15/16 0730: Anion Gap 10, Estimated GFR 24 L, BUN/Creatinine Ratio 38.0 H, PT 17.5 H, INR 1.68 H, CBC w Diff NO MAN DIFF REQ, RBC 3.52 L, MCV 99.3 H, MCH 31.9 H, RDW 19.1 H, MPV 9.4, Gran % 71.2, Lymphocytes % 17.3 L, Monocytes % 8.7, Eosinophils % 2.8, Basophils % 0 L, Absolute Granulocytes 4.6, Absolute Lymphocytes 1.1 L, Absolute Monocytes 0.6, Absolute Eosinophils 0.2, Absolute Basophils 0, PUBS MCHC 32.1 L Assessment/Plan Assessment: 86-year-old woman with a past medical history of atrial fibrillation, chronic congestive heart failure (preserved LV systolic function) and hypertension. She presents to our hospital with worsening dyspnea as well as recent increase in her lower extremity edema. Echocardiogram -Echocardiogram result: Normal left ventricular systolic function with borderline hypertrophy. Right ventricular dilatation and hypokinesia. Severe Pulmonary hypertension by doppler. Biatrial enlargement. Vital signs -temperature 97.1, pulse 65, respiratory 20, blood pressure 120/70, SPO2 95% on room air Intake/output -1070/1250, Pertinent labs -Hb -10.5, K -5.3, Cr -2.2, BUN -70, INR -1.81 Plan - Acute and chronic kidney disease * Her creatinine is 2, IMPROVING * We stopped the Lasix * We will do strict intake output charting * We will continuously monitor BUN/creatinine, if it remains elevated, then we will consider nephrology consultation. Hematuria * Patient is having intermittent hematuria * Patient underwent cystoscopy on 09/11/2016 which showed diffuse erythema in the bladder. * Biopsy was taken and send for the pathology. According to the urologist erythematouse area in bladder had tendency to bleed. 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 We will stop ceftriaxone and start pt on ciprofloxacin. * We'll follow pathology report. * Patient is still having hematuria today. * Repeat CBC daily Bleeding per vagina * Currently she is having intermittent spotting * Patient has chronic vaginal bleeding. She had D&C done 3 years ago with the pathology being normal at that time. * Evaluated by FEED RESEARCH TECHNICIAN , due to patient body habitus speculum exam could not be done at bedside. However, FEED RESEARCH TECHNICIAN did not feel that the vaginal bleeding was severe enough to exclude starting anticoagulation for A. fib. * Recommendation for workup on vaginal bleed which could be secondary to the cervical mass seen in TV US or the thickened endometrial stripe will be done on an outpatient basis. * If patient stays longer might consider an MRI. Exertional dyspnea most likely CHF exacerbation * Repeat chest x-ray - showed stable cardiopulmonary changes. * She recently had pacemaker implantation, and we excluded acute pacer-induced cardio myopathy by echo. * We stopped IV furosemide and started patient on tablet furosemide 40 milligrams twice a day. Her creatinine bumped up to 1.6 to 1.9. We will stop lasix for next 24 -48 hrs. We will regularly monitor the creatinine, decide from it. * Strict I's and O's * Daily weights * We will follow pulmonology and cardiology recommendation Atrial fibrillation: * Patient INR is 1.8 * We will decide for heparin if patient will not have any hematuria. Right lower extremity wound: * We will follow wound recommendation * We will do dry dressing as advised by wound Obstructive sleep apnea. * Continue nocturnal CPAP Elevated bilirubin * Patient bilirubin slightly improved, GGT is high up to 64. GI is on board * Follow LFTs * As per GI, we will consider outpatient cross-sectional imaging, check mitochondrial antibody, antinuclear antibody, 5'-nucleotidase, and consider eventual EGD to rule out varices, if cardiac status allows Chronic thrombocytopenia under evaluation * We will follow the hematology/oncology recommendation * We will regularly monitor platelet count and watch for bleeding * Blood workup showed that she has stable chronic thrombocytopenia. * LEDY - Neg and we will follow anticadiolipin antibody. Diet - Heart healthy diet DVT prophylaxis -as patient is having bilateral lower leg edema ALP S cannot be used, she is also not on heparin drip, because of tendency to bleed. Will encourage for ambulation. CODE STATUS - Full code Problem List: 1. ATRIAL FIBRILATION 2. BILATERAL LEG WEAKNESS 3. Hematuria 4. Thrombocytopenia Pain Ratin Pain Location: JOINT PAINS Pain Goal: Remain pain free Pain Plan: AVOID NSAIDS Tomorrow's Labs & Rationales: CBC BEP PT Consulting Request: Consulting Specialty: Gynecology Consulting Physician: Dr Snider Reason for Consult: vaginal bleeding CONCHIS REYNOLDS,SIMON 09/15/16 1341: Attending MD Review Statement Attending Statement Attending MD Statement: examined this patient, discuss w/resident/PA/POLICE GUARD, agreed w/resident/PA/POLICE GUARD, discussed with family, reviewed EMR data (avail), discussed with nursing, discussed with case mgmt, reviewed images, amended to note Attending Assessment/Plan: Patient seen and examined, denies any current complaints. The urine is dark tea -colored. It is not completely cleared yet. H&H remained stable. Patient's platelet count continue to remain in 90s. Her creatinine slightly better but not back to baseline yet. Her Lasix was on hold. I discussed with the director of consumer marketing. At this point we'll continue to hold her Lasix for now. Continue to hold Coumadin until urine is clear. At that point she will be started back on her Coumadin. No heparin secondary to thrombocytopenia. Antibiotic was switched to Cipro secondary to patient's urine culture growing Enterobacter which is sensitive to Cipro. Cystoscopy biopsy results are pending. D/W family at bedside.
[2016-09-15 08:23] LABS: ABSOLUTE BASOPHIL COUNT 0 /CUMM (0.0-0.2); ABSOLUTE EOSINOPHIL COUNT 0.2 /CUMM (0.0-0.7); ABSOLUTE GRANULOCYTE CT 4.6 /CUMM (1.4-6.5); ABSOLUTE LYMPH COUNT 1.1 /CUMM (1.2-3.4); ABSOLUTE MONOCYTE COUNT 0.6 /CUMM (0.10-0.60); BASOPHIL % 0 % (0.0-2.0); EOSINOPHIL % 2.8 % (0-5); GRANULOCYTE % 71.2 % (42.2-75.2); MEAN CORPUSCULAR HGB 31.9 PG (27.0-31.0); MEAN CORPUSCULAR HGB CONC 32.1 G/DL (33.0-37.0); MEAN CORPUSCULAR VOLUME 99.3 FL (81.0-99.0); MEAN PLATELET VOLUME 9.4 FL (7.4-10.4); PLATELET COUNT 96 /CUMM (130-400); RBC DISTRIBUTION WIDTH 19.1 % (11.5-14.5); RED BLOOD CELL CT 3.52 /CUMM (4.20-5.40); WHITE BLOOD CELL COUNT 6.4 /CUMM (4.8-10.8)
[2016-09-15 09:06] LABS: PT 17.5 SEC (9.4-12.5)
[2016-09-15 14:46] VITALS: BP 116/62
[2016-09-15 22:52] VITALS: BP 110/66
[2016-09-16 06:49] VITALS: BP 133/58
--- NOTE | 2016-09-16 07:16 | PN- Urology ---
Subjective Subjective: Still with hematuria. On cystoscopy last week finding was cystitis. No evidence of bladder tumor Objective Vital Signs and I&Os Vital Signs Date Time Temp Pulse Resp B/P B/P Pulse O2 O2 Flow FiO2 Mean Ox Delivery Rate 09/16 0649 97.4 63 20 133/58 97 09/16 0000 CPAP 09/15 2252 97.5 66 20 110/66 97 Room Air 09/15 1446 97.3 61 20 116/62 95 Room Air 09/15 0800 94 Room Air Room Air Intake & Output 09/16 0800 09/16 0000 09/15 1600 09/15 0800 09/15 0000 09/14 1600 Intake Total 240 720 800 120 480 600 Output Total 550 350 350 200 350 Balance -310 720 450 -230 280 250 Intake, IV 240 0 Intake, Oral 240 720 800 120 240 600 Number 0 Bowel Movements Output, Urine 550 350 350 200 350 Patient 217 lb Weight Weight Chair scale Measurement Method Edgar in place. Urine still bloody. Some leakage of urine around edgar Urine C&S positive. Now on cipro Platelet count improved to 96k Path from bladder bx pending Laboratory Tests 09/16 09/15 0624 0730 Chemistry Sodium (137 - 145 mmol/L) Pending 135 L Potassium (3.5 - 5.1 mmol/L) Pending 5.3 H Chloride (98 - 107 mmol/L) Pending 96 L Carbon Dioxide (22 - 30 mmol/L) Pending 29 Anion Gap (5 - 16) Pending 10 BUN (7 - 17 mg/dL) Pending 76 H Creatinine (0.5 - 1.0 mg/dL) Pending 2.0 H Estimated GFR (>60 ml/min) 24 L BUN/Creatinine Ratio (7 - 25 %) Pending 38.0 H Coagulation PT (9.4 - 12.5 SEC) Pending 17.5 H INR (0.90 - 1.19) Pending 1.68 H Hematology CBC w Diff Pending NO MAN DIFF REQ WBC (4.8 - 10.8 /CUMM) Pending 6.4 RBC (4.20 - 5.40 /CUMM) Pending 3.52 L Hgb (12.0 - 16.0 G/DL) Pending 11.2 L Hct (37 - 47 %) Pending 35.0 L MCV (81.0 - 99.0 FL) Pending 99.3 H MCH (27.0 - 31.0 PG) Pending 31.9 H RDW (11.5 - 14.5 %) Pending 19.1 H Plt Count (130 - 400 /CUMM) Pending 96 L MPV (7.4 - 10.4 FL) Pending 9.4 Gran % (42.2 - 75.2 %) 71.2 Lymphocytes % (20.5 - 51.1 %) 17.3 L Monocytes % (1.7 - 9.3 %) 8.7 Eosinophils % (0 - 5 %) 2.8 Basophils % (0.0 - 2.0 %) 0 L Absolute Granulocytes (1.4 - 6.5 /CUMM) 4.6 Absolute Lymphocytes (1.2 - 3.4 /CUMM) 1.1 L Absolute Monocytes (0.10 - 0.60 /CUMM) 0.6 Absolute Eosinophils (0.0 - 0.7 /CUMM) 0.2 Absolute Basophils (0.0 - 0.2 /CUMM) 0 PUBS MCHC (33.0 - 37.0 G/DL) Pending 32.1 L Imp: 1. Gross hematuria appears to be due to cystitis aggrevated by thrombocytopenia Plan: 1. Have nurse irrigate edgar 2. Would start CBI at least for next 24 hours 3. Continue cipro 4. f/u bladder bx path Assessment/Plan Assessment/Plan see above
--- NOTE | 2016-09-16 07:20 | PN- Housestaff ---
ARNOLD REYNOLDS,TERRIE 09/16/16 0720: Subjective Follow-up For: Hematuria due to chronic UTI Acute on chronic kidney disease, aggravated by diuretics Complaints: feeling lousy due to unable to sleep in the night Subjective: Patient is seen and examined at the bedside. She was complaining of feeling lousy because she was not able to sleep in the night. She is still having hematuria and which is off and on, especially when she changes her position. She was also complaining of shortness of breath when she moves. We advised for the chest x-ray to evaluate for any pulmonary edema because she is not on any diuretics. Review of Systems Constitutional: Reports: no symptoms, weakness. Cardiovascular: Denies: no symptoms. Respiratory: Reports: short of breath. Gastrointestinal: Denies: no symptoms. Genitourinary: Reports: hematuria. Musculoskeletal: Reports: joint pain. Neurological/Psychological: Reports: anxiety, depressed. Objective Last 24 Hrs of Vital Signs/I&O Vital Signs Date Time Temp Pulse Resp B/P B/P Pulse O2 O2 Flow FiO2 Mean Ox Delivery Rate 09/16 1433 97.7 62 20 128/54 94 Room Air 09/16 0800 Room Air 09/16 0649 97.4 63 20 133/58 97 06/05 0000 CPAP 09/15 2252 97.5 66 20 110/66 97 Room Air Intake & Output 09/16 1600 09/16 0800 09/16 0000 Intake Total 240 720 Output Total 380 550 Balance -380 -310 720 Intake, Oral 240 720 Output, Urine 380 550 Patient 107.048 kg Weight Weight Chair scale Measurement Method Physical Exam General Appearance: Alert, Oriented X3, Cooperative, No Acute Distress Skin: bilateral lower extremity thickening of the skin, probably secondary to chronic lower extremity edema Cardiovascular: Normal S1, Normal S2 Lungs: bilateral lower lobe crackles, occasional wheezing Abdomen: Soft, No Tenderness, abdominal hernia Neurological: Normal Speech Extremities: bilateral lower extremity edema, ulcer on the dorsum of the right foot, pulses are not palpable due to edema and/or thickening of the skin Current Medications: Current Medications Sig/Aparna Start time Last Medication Dose Route Stop Time Status Admin Acetaminophen 650 MG Q6P PRN 09/11 1430 AC 06/03 PO 2111 Albuterol Sulfate 2 PUF Q4P PRN 09/11 1500 AC INH Albuterol Sulfate 3 ML Q4P PRN 05/24 2000 AC INH Artificial Tears 2 GTT 4 TIMES/DAY 09/11 1800 AC 09/16 OPH 0906 Ciprofloxacin 500 MG DAILY@2200 09/15 2200 AC 09/15 PO 09/19 Citalopram 20 MG DAILY 09/12 1000 AC 09/16 Hydrobromide PO 09 Melatonin 3 MG AT BEDTIME 09/11 2199 AC 09/15 PO 2201 Patient Medication 1 ED ONE ONE 09/16 1415 DC Teaching ED 09/16 141 Polyethylene Glycol 17 GM DAILY 09/12 1000 AC 09/16 PO 09 Tiotropium [place] 1 PUF DAILY 09/12 1000 AC 09/16 INH 0906 Tramadol HCl 50 MG Q6P PRN 09/11 1445 AC 09/15 PO 1945 Last 24 Hrs of Lab/Otis Results Last 24 Hrs of Labs/Mics: Laboratory Tests 09/16/16623: Anion Gap 9, Estimated GFR 27 L, BUN/Creatinine Ratio 40.0 H, PT 17.2 H, INR 1.65 H, CBC w Diff NO MAN DIFF REQ, RBC 3.38 L, MCV 99.0, MCH 31.5 H, RDW 19.2 H, MPV 9.6, Gran % 61.7, Lymphocytes % 21.0, Monocytes % 11.6 H, Eosinophils % 5.3 H, Basophils % 0.4, Absolute Granulocytes 3.3, Absolute Lymphocytes 1.1 L, Absolute Monocytes 0.6, Absolute Eosinophils 0.3, Absolute Basophils 0, PUBS MCHC 31.8 L Assessment/Plan Assessment: 86-year-old woman with a past medical history of atrial fibrillation, chronic congestive heart failure (preserved LV systolic function) and hypertension. She presents to our hospital with worsening dyspnea as well as recent increase in her lower extremity edema. Echocardiogram -Echocardiogram result: Normal left ventricular systolic function with borderline hypertrophy. Right ventricular dilatation and hypokinesia. Severe Pulmonary hypertension by doppler. Biatrial enlargement. Vital signs -temperature -90 7.7, pulse 62, respiratory rate 20, blood pressure 128/54, SPO2-94% Intake/output -1640/700, Pertinent labs -Hb -10.7, K -5.4, Cr -1.8, BUN -72, INR -1.65 Plan - Acute and chronic kidney disease * Her creatinine is 1.8, IMPROVING * We stopped the Lasix, according to the seamless tube drawer if creatinine is continuing to improve, then we can add tablet Lasix 40 milligrams once a day * We will do strict intake output charting * We will continuously monitor BUN/creatinine, if it remains elevated, then we will consider nephrology consultation. Hematuria * Patient is having intermittent hematuria * Patient underwent cystoscopy on 09/11/2016 which showed diffuse erythema in the bladder. * Biopsy was taken and send for the pathology. According to the urologist erythematouse area in bladder had tendency to bleed. 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 We will stop ceftriaxone and start pt on ciprofloxacin. 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 Robb we will start CBI for next 24 hours and watch for hematuria. * Repeat CBC daily Bleeding per vagina * Currently she is having intermittent spotting * Patient has chronic vaginal bleeding. She had D&C done 3 years ago with the pathology being normal at that time. * Evaluated by EGG PROCESSOR , due to patient body habitus speculum exam could not be done at bedside. However, EGG PROCESSOR did not feel that the vaginal bleeding was severe enough to exclude starting anticoagulation for A. fib. * Recommendation for workup on vaginal bleed which could be secondary to the cervical mass seen in TV US or the thickened endometrial stripe will be done on an outpatient basis. * If patient stays longer might consider an MRI. Exertional dyspnea most likely CHF exacerbation * We will repeat chest x-ray. * She recently had pacemaker implantation, and we excluded acute pacer-induced cardio myopathy by echo. * We stopped lasix as her creatinine bumped up to 1.6 to 1.9. We will regularly monitor the creatinine, decide from it. * Strict I's and O's * Daily weights * We will follow pulmonology and cardiology recommendation Atrial fibrillation: * Patient INR is 1.6 * We will decide for anticoagulation. When she stopped having hematuria. Right lower extremity wound: * We will follow wound recommendation * We will do dry dressing as advised by wound Obstructive sleep apnea. * Continue nocturnal CPAP Elevated bilirubin * Patient bilirubin slightly improved, GGT is high up to 64. GI is on board * Follow LFTs * As per GI, we will consider outpatient cross-sectional imaging, check mitochondrial antibody, antinuclear antibody, 5'-nucleotidase, and consider eventual EGD to rule out varices, if cardiac status allows Chronic thrombocytopenia under evaluation * [place] [address] * We will follow the hematology/oncology recommendation * We will regularly monitor platelet count and watch for bleeding * Blood workup showed that she has stable chronic thrombocytopenia. * LEDY - Neg and we will follow anticadiolipin antibody. Diet - Heart healthy diet DVT prophylaxis -as patient is having bilateral lower leg edema ALP S cannot be used, she is also not on heparin drip, because of tendency to bleed. Will encourage for ambulation. CODE STATUS - Full code Problem List: 1. Thrombocytopenia 2. Hematuria 3. Endometrial thickening on ultra sound 4. Elevated INR 5. CHF (congestive heart failure) 6. Obstructive sleep apnea syndrome 7. COPD Pain Ratin Pain Location: Joints Pain Goal: Remain pain free Pain Plan: [id number] and avoid NSAIDs Tomorrow's Labs & Rationales: CBC, BEP, for follow-up with the creatinine and thrombocytopenia DVT/Prophylaxis: mechanical Consulting Request: Consulting Specialty: Gynecology Consulting Physician: Dr Snider Reason for Consult: vaginal bleeding CONCHIS REYNOLDS,[facility] 09/16/16 1509: Attending MD Review Statement Attending Statement Attending MD Statement: examined this patient, discuss w/resident/PA/ATTACHE, agreed w/resident/PA/ATTACHE, discussed with family, reviewed EMR data (avail), discussed with nursing, discussed with case mgmt, reviewed images, amended to note Attending Assessment/Plan: Patient seen and examined, was feeling slightly tired. Patient's daughter is concerned that she is developing edema in the lower extremities now. She developed worsening of hematuria this morning and urology was called. She was started on CBI. Her creatinine is slightly improving. We will resume her Lasix so 1 once a creatinine continues to improve. Chest x-ray will be ordered today just to make sure that she is not developing any acute vascular congestion. Her bladder pathology is not very clear. It does show some atypia but negative for nasal carcinoma. Pathology results will need to be discussed with the urologist. Continue ciprofloxacin for the treatment of a UTI. Continue other current medications. DVT prophylaxis; ALPS. Coumadin on hold. Patient to continue to work with physical therapy.
[2016-09-16 08:08] LABS: ABSOLUTE BASOPHIL COUNT 0 /CUMM (0.0-0.2); ABSOLUTE EOSINOPHIL COUNT 0.3 /CUMM (0.0-0.7); ABSOLUTE GRANULOCYTE CT 3.3 /CUMM (1.4-6.5); ABSOLUTE LYMPH COUNT 1.1 /CUMM (1.2-3.4); ABSOLUTE MONOCYTE COUNT 0.6 /CUMM (0.10-0.60); BASOPHIL % 0.4 % (0.0-2.0); EOSINOPHIL % 5.3 % (0-5); GRANULOCYTE % 61.7 % (42.2-75.2); HEMATOCRIT 33.5 % (37-47); MEAN CORPUSCULAR HGB 31.5 PG (27.0-31.0); MEAN CORPUSCULAR HGB CONC 31.8 G/DL (33.0-37.0); MEAN PLATELET VOLUME 9.6 FL (7.4-10.4); PLATELET COUNT 94 /CUMM (130-400); RBC DISTRIBUTION WIDTH 19.2 % (11.5-14.5); RED BLOOD CELL CT 3.38 /CUMM (4.20-5.40); WHITE BLOOD CELL COUNT 5.4 /CUMM (4.8-10.8)
[2016-09-16 08:16] LABS: PT 17.2 SEC (9.4-12.5)
--- NOTE | 2016-09-16 12:20 | PN- Cardiology ---
Subjective Subjective: Still with some mild hematuria in the [place]. Feels the legs a little more edematous today. No associated dyspnea. Objective Vital Signs and I&Os Vital Signs Date Time Temp Pulse Resp B/P B/P Pulse O2 O2 Flow FiO2 Mean Ox Delivery Rate 09/16 08 Room Air 09/16 0649 97.4 63 20 133/58 97 / 0000 CPAP 09/15 2252 97.5 66 20 110/66 97 Room Air 09/15 1446 97.3 61 20 116/62 95 Room Air Intake & Output 09/16 1600 09/16 0800 09/16 0000 09/15 1600 09/15 0800 09/15 0000 Intake Total 240 720 800 120 480 Output Total 550 350 350 200 Balance -310 720 450 -230 280 Intake, IV 240 Intake, Oral 240 720 800 120 240 Output, Urine 550 350 350 200 Patient 236 lb 217 lb Weight Weight Chair scale Chair scale Measurement Method Physical Exam: General: no apparent distress. Alert. Eyes: No obvious scleral icterus. HEENT: No jugular venous distention or abnormal jugular venous pulsations. Cardiovascular: Normal intensity S1/S2. Respiratory: No rales or rhonchi Abdomen: no guarding or rebound tenderness. Musculoskeletal: No clubbing or cyanosis noted, 1+ LE edema Skin: warm Neuro: Grossly nonfocal Current Medications: Current Medications Sig/Aparna Start time Last Medication Dose Route Stop Time Status Admin Acetaminophen 650 MG Q6P PRN 09/11 1430 AC 09/14 PO 2111 Albuterol Sulfate 2 PUF Q4P PRN 09/11 1500 AC INH Albuterol Sulfate 3 ML Q4P PRN 09/05 1999 AC INH Artificial Tears 2 GTT 4 TIMES/DAY 09/11 1800 AC 09/16 OPH 0906 Ciprofloxacin 500 MG DAILY@09/15 2200 AC 09/15 PO 09/19 2159 2201 Citalopram 20 MG DAILY 09/12 1000 AC 09/16 Hydrobromide PO 09 Melatonin 3 MG AT BEDTIME 09/11 2199 AC 09/15 PO 220 Polyethylene Glycol 17 GM DAILY 09/12 1000 AC 09/16 PO 09 Tiotropium [place] 1 PUF DAILY 09/12 1000 AC 09/16 INH 0906 Tramadol HCl 50 MG Q6P PRN 09/11 1445 AC 09/15 PO 1945 Results Last 48 Hrs of Labs/Mics: Laboratory Tests 09/16/16 0624: Anion Gap 9, Estimated GFR 27 L, BUN/Creatinine Ratio 40.0 H, PT 17.2 H, INR 1.65 H, CBC w Diff NO MAN DIFF REQ, RBC 3.38 L, MCV 99.0, MCH 31.5 H, RDW 19.2 H, MPV 9.6, Gran % 61.7, Lymphocytes % 21.0, Monocytes % 11.6 H, Eosinophils % 5.3 H, Basophils % 0.4, Absolute Granulocytes 3.3, Absolute Lymphocytes 1.1 L, Absolute Monocytes 0.6, Absolute Eosinophils 0.3, Absolute Basophils 0, PUBS MCHC 31.8 L 09/15/16 0730: Anion Gap 10, Estimated GFR 24 L, BUN/Creatinine Ratio 38.0 H, PT 17.5 H, INR 1.68 H, CBC w Diff NO MAN DIFF REQ, RBC 3.52 L, MCV 99.3 H, MCH 31.9 H, RDW 19.1 H, MPV 9.4, Gran % 71.2, Lymphocytes % 17.3 L, Monocytes % 8.7, Eosinophils % 2.8, Basophils % 0 L, Absolute Granulocytes 4.6, Absolute Lymphocytes 1.1 L, Absolute Monocytes 0.6, Absolute Eosinophils 0.2, Absolute Basophils 0, PUBS MCHC 32.1 L Assessment/Plan Assessment/Plan 1. Acute on chronic congestive heart failure with normal left ventricular ejection fraction and mild right ventricular dysfunction 2. Pulmonary hypertension with mild right ventricular dysfunction 3. Atrial fibrillation on outpatient Coumadin, currently on hold 4. Acute Renal insufficiency, likely diuretic induced 5. Hypertension 6. Obstructive sleep apnea on nocturnal CPAP 7. Postmenopausal bleeding status post prior D&C 8. History of bradycardia with permanent pacemaker in situ 9. Thrombocytopenia 10. Elevated bilirubin 11. Hematuria Anticoagulation remains on hold for hematuria. Urology input reviewed, CBI planned. BUN/Creatinine now trending down. If continues to improve would resume oral Lasix at 40 mg by mouth daily. Hemoglobin appears grossly stable. Walker Holm MD [facility] Continue telemetry? Not applicable
--- NOTE | 2016-09-16 13:59 | NUR ---
PHYSICAL THERAPY: ATTEMPTED TO Pt X2 TODAY; Pt WAS EATING LUNCH AND UPON F/U Pt WAS RESTING AND DEFFERED OOB OR THEREX. Pt EDUCATED ON BENEFITS OF P.T. AND NOTIFIED THAT WE WILL F/U ABLE THIS AFTERNOON OR TOMORROW. Pt AWARE AND AGREEABLE, STATING SHE IS VERY TIRED RIGHT NOW AND CANNOT PARTICIPATE.
[2016-09-16 14:33] VITALS: BP 128/54
--- NOTE | 2016-09-16 16:17 | RADIOLOGY REPORT ---
EXAMINATION: XR PORTABLE CHEST CLINICAL INFORMATION: Shortness of breath, on Lasix, acute kidney disease COMPARISON: 09/13/2016 TECHNIQUE: Portable frontal view of the chest was obtained. FINDINGS: Right-sided pacemaker lead tip overlies the right ventricle. Lung volumes are symmetric. No focal consolidation is seen. No evidence of pneumothorax, significant pleural effusion, or overt pulmonary edema. There is suggestion of some central vascular congestion. The cardiac silhouette remains prominent. Calcification is present at the aortic arch. No acute osseous findings are seen. IMPRESSION: No significant change since 09/13/2016. Central vascular congestion without overt edema. Prominent cardiac silhouette.
[2016-09-16 21:59] VITALS: BP 132/56
--- NOTE | 2016-09-17 07:26 | PN- Housestaff ---
EV RE[facility]OL[facility] 09/17/16 0725: Subjective Follow-up For: Hematuria Acute on chronic kidney disease Subjective: Patient seen and examined this morning, daughter is at bedside, patient sitting comfortably in chair, denied any chest pain, shortness of breath, daughter reported new onset of dry cough overnight. Hematuria improved with CPI, urine is orange in color with some red clots. Patient denied any abdominal pain, nausea or vomiting. Chest x-ray was obtained yesterday that didn't show any new onset of pulmonary edema or pulmonary congestion. Vital signs are stable, afebrile, 68, 132/56, 97.3, overnight on CPAP saturating 93%, currently on room air saturating 95% Review of Systems Constitutional: Reports: see HPI. Objective Last 24 Hrs of Vital Signs/I&O Vital Signs Date Time Temp Pulse Resp B/P B/P Pulse O2 O2 Flow FiO2 Mean Ox Delivery Rate 09/17 0806 97.9 76 20 140/80 93 Room Air 09/17 0000 CPAP 09/16 2159 97.3 68 20 132/56 93 CPAP 09/16 2045 CPAP 2.0L 09/16 1433 97.7 62 20 128/54 94 Room Air Intake & Output 09/17 1600 06 0800 06/06 0000 Intake Total 480 480 Output Total 1200 Balance -720 480 Intake, Oral 480 480 Output, Urine 1200 Patient 109.769 kg Weight Weight Chair scale Measurement Method Physical Exam General Appearance: Alert, Oriented X3, Cooperative, No Acute Distress Skin: No Rashes, No Breakdown, No Significant Lesion Skin Temp/Moisture Exam: Warm/Dry HEENT: Atraumatic, PERRLA, EOMI, Mucous Membr. moist/pink Neck: Supple Cardiovascular: Normal S1, Normal S2, No Murmurs, irregular Lungs: bilateral basal fine crackles Abdomen: Normal Bowel Sounds, Soft, No Tenderness Neurological: Normal Speech, Strength at 5/5 X4 Ext, Normal Tone, Sensation Intact, Cranial Nerves 3-12 NL, Reflexes 2+ Extremities: No Clubbing, No Cyanosis, Normal Pulses, Bilateral LE pedal edema + 2 Bilateral UE trace edema Assessment/Plan Assessment: 86-year-old woman with a past medical history of atrial fibrillation, chronic congestive heart failure (preserved LV systolic function) and hypertension. She presents to our hospital with worsening dyspnea as well as recent increase in her lower extremity edema. Echocardiogram -Echocardiogram result: Normal left ventricular systolic function with borderline hypertrophy. Right ventricular dilatation and hypokinesia. Severe Pulmonary hypertension by doppler. Biatrial enlargement. Vital signs -temperature -90 7.7, pulse 62, respiratory rate 20, blood pressure 128/54, SPO2-94% Intake/output -1640/700, Pertinent labs -Hb -10.7, K -5.4, Cr -1.8, BUN -72, INR -1.65 Plan - Acute and chronic kidney disease * Creatinine improved, today 1.6, will start Lasix 40 mg daily per cardiology recommendation. * Keep negative fluid balance, over the last 24 hours was -720 * Chest x-ray was obtained yesterday to rule out pulmonary edema/interstitial edema, was negative Hematuria * Patient is having intermittent hematuria, improved after starting CBI over the last 24 hours * Recommendation to remove Simpson catheter as it may cause further irritation of the bladder * Urine was clear earlier this morning and changed to orange/tea colored later in the day * Plan to start anticoagulation with Coumadin if patient consistent to have clear urine over the next 4 hours * Patient underwent cystoscopy on 09/11/2016 which showed diffuse erythema in the bladder * Biopsy was taken and send for the pathology. According to the urologist erythematouse area in bladder had tendency to bleed. 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 She had D&C done 3 years ago with the pathology being normal at that time. * Evaluated by [employer] , due to patient body habitus speculum exam could not be done at bedside. However, [employer] did not feel that the vaginal bleeding was severe enough to exclude starting anticoagulation for A. fib. * Recommendation for workup on vaginal bleed which could be secondary to the cervical mass seen in TV US or the thickened endometrial stripe will be done on an outpatient basis. * If patient stays longer might consider an MRI. Exertional dyspnea most likely CHF exacerbation * Chest x ray on 09/16/16 no evidence of pulmonary edema or effusion * She recently had pacemaker implantation, and we excluded acute pacer-induced cardio myopathy by echo. * We stopped lasix as her creatinine bumped up to 1.6 to 1.9. We will regularly monitor the creatinine, decide from it. * Strict I's and O's * Daily weights * We will follow pulmonology and cardiology recommendation Atrial fibrillation: * Patient INR is 1.65 * Recommendation to start anticoagulation if patient has persistent clear urine for next 4 hours Right lower extremity wound: * We will follow wound recommendation * We will do dry dressing as advised by wound Obstructive sleep apnea. * Continue nocturnal CPAP Elevated bilirubin * Patient bilirubin slightly improved, GGT is high up to 64. GI is on board * Follow LFTs * As per GI, we will consider outpatient cross-sectional imaging, check mitochondrial antibody, antinuclear antibody, 5'-nucleotidase, and consider eventual EGD to rule out varices, if cardiac status allows Chronic thrombocytopenia under evaluation * [place] [address] * We will follow the hematology/oncology recommendation * We will regularly monitor platelet count and watch for bleeding * Blood workup showed that she has stable chronic thrombocytopenia. * LEDY - Neg and we will follow anticadiolipin antibody. Diet - Heart healthy diet DVT prophylaxis -Alps CODE STATUS - Full code Problem List: 1. Thrombocytopenia 2. Hematuria 3. Endometrial thickening on ultra sound 4. CHF (congestive heart failure) 5. Obstructive sleep apnea syndrome 6. COPD Pain Ratin Pain Location: none Pain Goal: Pain 4 or less Pain Plan: mild pain pathway Tomorrow's Labs & Rationales: CBC, BMP, INR Consulting Request: Consulting Specialty: Gynecology Consulting Physician: Dr Snider Reason for Consult: vaginal bleeding [facility] 09/17/16 1319: Attending MD Review Statement Attending Statement Attending MD Statement: examined this patient, discuss w/resident/PA/ADULT PROBATION OFFICER, agreed w/resident/PA/ADULT PROBATION OFFICER, reviewed EMR data (avail), discussed with nursing, discussed with case mgmt, reviewed images, amended to note Attending Assessment/Plan: Patient seen and examined, offers no complaints. Her urine is now getting.. CBI has been stopped. Her vital signs remained stable. Per urology, will DC the Simpson catheter. She will be kept on antibiotics. If no further hematuria in the next 4 hours, she'll be started back on her Coumadin. Since her creatinine is improving we can resume her by mouth Lasix. The Lasix at 40 mg daily can be restarted. Continue all other current medications. DVT px; ALPS. Plaese check, cbc, inr and BEP in am.
--- NOTE | 2016-09-17 07:30 | PN- Urology ---
Subjective Subjective: Sitting comfortably in chair. CBI started yesterday now off and urine is clear Objective Vital Signs and I&Os Vital Signs Date Time Temp Pulse Resp B/P B/P Pulse O2 O2 Flow FiO2 Mean Ox Delivery Rate 09/17 0000 CPAP 09/16 2159 97.3 68 20 132/56 93 CPAP 09/16 2045 CPAP 2.0L 09/16 1433 97.7 62 20 128/54 94 Room Air 09/16 0800 Room Air Intake & Output 09/17 0800 09/17 0000 09/16 1600 09/16 0800 09/16 0000 09/15 1600 Intake Total 480 720 240 720 800 Output Total 880 550 350 Balance 480 -160 -310 720 450 Intake, Oral 480 720 240 720 800 Output, Urine 880 550 350 Patient 242 lb 236 lb Weight Weight Chair scale Chair scale Measurement Method Edgar in place. CBI off and urine clear Plts=94k Bladder bx path: mild atypical, extensive submucosal inflammation with eosinophillic infiltrate. Assessment/Plan Assessment/Plan Imp: 1. Hematuria resolved at this point. Due to cystitis 2. UTI Plan: 1. Would d/c edgar today 2. Complete full course of abx 3. If urine remains clear may then start anticoagulation tomorrow if necessary
[2016-09-17 08:06] VITALS: BP 140/80
[2016-09-17 08:35] LABS: ABSOLUTE BASOPHIL COUNT 0 /CUMM (0.0-0.2); ABSOLUTE EOSINOPHIL COUNT 0.2 /CUMM (0.0-0.7); ABSOLUTE GRANULOCYTE CT 3.6 /CUMM (1.4-6.5); ABSOLUTE LYMPH COUNT 0.9 /CUMM (1.2-3.4); ABSOLUTE MONOCYTE COUNT 0.6 /CUMM (0.10-0.60); BASOPHIL % 0.5 % (0.0-2.0); EOSINOPHIL % 3.5 % (0-5); GRANULOCYTE % 67.3 % (42.2-75.2); HEMATOCRIT 34.3 % (37-47); MEAN CORPUSCULAR HGB 31.5 PG (27.0-31.0); MEAN CORPUSCULAR VOLUME 98.6 FL (81.0-99.0); MEAN PLATELET VOLUME 8.8 FL (7.4-10.4); PLATELET COUNT 83 /CUMM (130-400); RBC DISTRIBUTION WIDTH 18.7 % (11.5-14.5); RED BLOOD CELL CT 3.48 /CUMM (4.20-5.40); WHITE BLOOD CELL COUNT 5.3 /CUMM (4.8-10.8)
--- NOTE | 2016-09-17 11:16 | PN- Cardiology ---
Subjective Subjective: Patient denies chest pain or shortness of breath. She still notes hematuria with bladder irrigation Review of Systems: Eyes no blurred or double vision Ears no deafness or ringing Nose and throat no recurrent sinusitis Lungs per history of present illness Heart per history of present illness Abdomen no nausea vomiting Musculoskeletal occasional muscle and joint pains Psych no anxiety or depression Neuro without recurrent headache or seizures Endocrine no heat or cold intolerance Objective Vital Signs and I&Os Vital Signs Date Time Temp Pulse Resp B/P B/P Pulse O2 O2 Flow FiO2 Mean Ox Delivery Rate 09/17 900 CPAP 2.0L 09/17 08 97.9 76 20 140/80 93 Room Air 09/17 0000 CPAP 09/16 2159 97.3 68 20 132/56 93 CPAP 09/16 2044 CPAP 2.0L 09/16 1433 97.7 62 20 128/54 94 Room Air Intake & Output 09/17 1600 09/17 0800 09/17 0000 09/16 1600 09/16 0800 09/16 0000 Intake Total 480 480 720 240 720 Output Total 1200 880 550 Balance -720 480 -160 -310 720 Intake, Oral 480 480 720 240 720 Output, Urine 1200 880 550 Patient 242 lb 236 lb Weight Weight Chair scale Chair scale Measurement Method Physical Exam: Patient is a well-developed well-nourished female appearing in no acute distress HEENT is unremarkable Neck is supple there is no JVD Lungs are clear Heart regular rhythm S1 and S2 are normal no murmurs gallops or rubs Abdomen bowel sounds positive Extremities 3+ edema Current Medications: Current Medications Sig/[place] Start time Last Medication Dose Route Stop Time Status Admin Acetaminophen 650 MG Q6P PRN 09/11 1430 AC 09/14 PO 211 Albuterol Sulfate 2 PUF Q4P PRN 09/11 1500 AC INH Albuterol Sulfate 3 ML Q4P PRN 09/05 1999 AC INH Artificial Tears 2 GTT 4 TIMES/DAY 09/11 1800 AC 09/17 OPH 0950 Ciprofloxacin 500 MG DAILY@0 09/15 2199 AC 09/16 PO 09/19 Citalopram 20 MG DAILY 09/12 1000 AC 09/17 Hydrobromide PO 0950 Furosemide 40 MG DAILY 09/17 1100 AC IV Melatonin 3 MG AT BEDTIME 09/11 2199 AC 09/16 PO 2024 Patient Medication 1 ED ONE ONE 09/16 1415 DC Teaching ED 09/16 1416 Polyethylene Glycol 17 GM DAILY 09/12 1000 AC 09/17 PO 0950 Tiotropium [place] 1 PUF DAILY 09/12 1000 AC 09/17 INH 1059 Tramadol HCl 50 MG Q6P PRN 09/11 1445 AC 09/17 PO 0434 Results Last 48 Hrs of Labs/Mics: Laboratory Tests 09/17/16 0733: Anion Gap 8, Estimated GFR 31 L, BUN/Creatinine Ratio 43.1 H, CBC w Diff NO MAN DIFF REQ, RBC 3.48 L, MCV 98.6, MCH 31.5 H, RDW 18.7 H, MPV 8.8, Gran % 67.3, Lymphocytes % 17.5 L, Monocytes % 11.2 H, Eosinophils % 3.5, Basophils % 0.5, Absolute Granulocytes 3.6, Absolute Lymphocytes 0.9 L, Absolute Monocytes 0.6, Absolute Eosinophils 0.2, Absolute Basophils 0, PUBS MCHC 32.0 L 09/16/16 0624: Anion Gap 9, Estimated GFR 27 L, BUN/Creatinine Ratio 40.0 H, PT 17.2 H, INR 1.65 H, CBC w Diff NO MAN DIFF REQ, RBC 3.38 L, MCV 99.0, MCH 31.5 H, RDW 19.2 H, MPV 9.6, Gran % 61.7, Lymphocytes % 21.0, Monocytes % 11.6 H, Eosinophils % 5.3 H, Basophils % 0.4, Absolute Granulocytes 3.3, Absolute Lymphocytes 1.1 L, Absolute Monocytes 0.6, Absolute Eosinophils 0.3, Absolute Basophils 0, PUBS MCHC 31.8 L Assessment/Plan Assessment/Plan 1. Acute on chronic congestive heart failure with normal left ventricular ejection fraction and mild right ventricular dysfunction 2. Pulmonary hypertension with mild right ventricular dysfunction 3. Atrial fibrillation on outpatient Coumadin currently being held she is on IV heparin 4. Right lower extremity wound 5. Hypertension 6. Obstructive sleep apnea on nocturnal CPAP 7. Postmenopausal bleeding status post prior D&C 8. History of bradycardia with permanent pacemaker in situ 9. Thrombocytopenia 10. Elevated bilirubin 11. Hematuria Recommendations: -I discussed the situation in detail with the patient and her daughter -In view of the patient's persistent hematuria on IV heparin, I would be reluctant to start the patient on long-term oral anticoagulation for now. -Discussed resuming lasix since renal function has improved with the residents -Continue current medications Continue telemetry? No
--- NOTE | 2016-09-17 14:01 | NUR ---
PT REFUSED TREATMENT TODAY, NOT FEELING WELL.
[2016-09-17 15:06] VITALS: BP 130/70
--- NOTE | 2016-09-17 20:11 | Transfer of Care Summary ---
Hospital Course Course Hospital Course: This is an 86-year-old woman with a past medical history of atrial fibrillation, chronic congestive heart failure (preserved LV systolic function) and hypertension who presented to the hospital on 09/01/16 with worsening dyspnea as well as recent increase in her lower extremity edema. The following problems are being addressed: #Hematuria: Noted on admission also had a supratherapeutic INR. Renal ultrasound was done and the results came back benign with no pathology to be addressed. UNIT SECY did not feel that the vaginal bleeding was severe enough to exclude starting anticoagulation for A. fib. Recommendation for workup on vaginal bleed which could be secondary to the cervical mass seen in TV US or the thickened endometrial stripe will be done on an outpatient basis. Patient was maintained on IV heparin for AC initially later on DC's / persistent hematuria. Patient underwent cystoscopy on 09/11/2016 which showed diffuse erythema in the bladder. Biopsy sent for the pathology. According to the urologist erythematouse area in bladder had tendency to bleed. 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 She had D&C done 3 years ago with the pathology being normal at that time. Intermittent spotting. Evaluated by UNIT SECY , due to patient body habitus speculum exam could not be done at bedside. However, UNIT SECY did not feel that the vaginal bleeding was severe enough to exclude starting anticoagulation for A. fib. * Recommendation for workup on vaginal bleed which could be secondary to the cervical mass seen in TV US or the thickened endometrial stripe will be done on an outpatient basis. #Exertional dyspnea most likely CHF exacerbation Chest x ray on 09/16/16 no evidence of pulmonary edema or effusion * She recently had pacemaker implantation, and we excluded acute pacer-induced cardio myopathy by echo. * We stopped lasix as her creatinine bumped up to 1.6 to 1.9. We will regularly monitor the creatinine, decide from it. * Strict I's and O's * Daily weights * We will follow pulmonology and cardiology recommendation Atrial fibrillation: * Patient INR is 1.65 * Recommendation to start anticoagulation if patient has persistent clear urine Right lower extremity wound: * We will follow wound recommendation * We will do dry dressing as advised by wound Obstructive sleep apnea. * Continue nocturnal CPAP Elevated bilirubin * Patient bilirubin slightly improved, GGT is high up to 64. GI is on board * Follow LFTs * As per GI, we will consider outpatient cross-sectional imaging, check mitochondrial antibody, antinuclear antibody, 5'-nucleotidase, and consider eventual EGD to rule out varices, if cardiac status allows #Chronic thrombocytopenia under evaluation; today her platelet count: 83 * Follow the hematology/oncology recommendation * We will regularly monitor platelet count and watch for bleeding * Blood workup showed that she has stable chronic thrombocytopenia. * LEDY - Neg and we will follow anticadiolipin antibody. Diet - Heart healthy diet DVT prophylaxis -Alps CODE STATUS - Full code Significant Procedures: Date: 09/11/16 Name of Procedure: Cystoscopy, bladder biopsy, fulguration of bleeding points Assessment/Plan: See above.
[2016-09-17 20:15] LABS: PT 17.5 SEC (9.4-12.5)
[2016-09-17 22:26] VITALS: BP 130/68
[2016-09-18 07:11] VITALS: BP 1128/62
--- NOTE | 2016-09-18 07:26 | PN- Urology ---
Subjective Subjective: No acute distress Objective Vital Signs and I&Os Vital Signs Date Time Temp Pulse Resp B/P B/P Pulse O2 O2 Flow FiO2 Mean Ox Delivery Rate 09/18 0711 97.7 66 20 1128/62 97 Room Air 09/18 0000 CPAP 09/17 2226 97.6 63 20 130/68 94 Room Air 09/17 1506 97.7 68 20 130/70 93 Room Air 09/17 0901 CPAP 2.0L 09/17 0806 97.9 76 20 140/80 93 Room Air Intake & Output 09/18 0800 09/18 0000 09/17 1600 09/17 0800 09/17 0000 09/16 1600 Intake Total 600 800 480 480 720 Output Total 626 623 2390 880 Balance 400 -50 -720 480 -160 Intake, Oral 600 800 480 480 720 Number 1 Bowel Movements Output, Urine 757 103 6973 880 Patient 235 lb 242 lb Weight Weight Chair scale Measurement Method Edgar is out Patient voiding spontaneously. Urine grossly clear Pt started on coumadin Assessment/Plan Assessment/Plan Imp: 1. Gross hematuria due to cystitis. Improved 2. UTI Plan: 1. Leave edgar out 2. Complete full course of cipro for UTI 3. Continue coumadin for now and monitor urine. Would aim for lowest end of therapeutic range if possible
[2016-09-18 07:46] VITALS: BP 128/62
[2016-09-18 08:15] LABS: PT 16.6 SEC (9.4-12.5)
[2016-09-18 08:16] LABS: ABSOLUTE BASOPHIL COUNT 0 /CUMM (0.0-0.2); ABSOLUTE EOSINOPHIL COUNT 0.2 /CUMM (0.0-0.7); ABSOLUTE GRANULOCYTE CT 3.7 /CUMM (1.4-6.5); ABSOLUTE LYMPH COUNT 0.9 /CUMM (1.2-3.4); ABSOLUTE MONOCYTE COUNT 0.5 /CUMM (0.10-0.60); BASOPHIL % 0.3 % (0.0-2.0); GRANULOCYTE % 68.6 % (42.2-75.2); HEMATOCRIT 35.5 % (37-47); MEAN CORPUSCULAR HGB 31.1 PG (27.0-31.0); MEAN CORPUSCULAR HGB CONC 31.5 G/DL (33.0-37.0); MEAN CORPUSCULAR VOLUME 98.6 FL (81.0-99.0); MEAN PLATELET VOLUME 9.5 FL (7.4-10.4); PLATELET COUNT 103 /CUMM (130-400); WHITE BLOOD CELL COUNT 5.4 /CUMM (4.8-10.8)
--- NOTE | 2016-09-18 11:23 | PN- Housestaff ---
EV REYNOLDS,[facility] 09/18/16 1122: Subjective Follow-up For: Hematuria Acute on chronic kidney disease Subjective: Patient was seen and examined this morning, alert and oriented, denied any pain, urine is clear since yesterday, we started Lasix yesterday with negative fluid balance, warfarin was started yesterday as well with no evidence of bleeding. Overnight events reported by the nurse. Vital signs are stable. Review of Systems Constitutional: Reports: see HPI. Objective Last 24 Hrs of Vital Signs/I&O Vital Signs Date Time Temp Pulse Resp B/P B/P Pulse O2 O2 Flow FiO2 Mean Ox Delivery Rate 09/18 1444 97.3 66 20 126/70 96 Room Air 09/18 0945 CPAP 2.0L 09/18 0746 128/62 09/18 0711 97.7 66 20 1128/62 97 Room Air / 0000 CPAP 09/17 2226 97.6 63 20 130/68 94 Room Air Intake & Output 09/18 1600 09/18 0800 09/18 0000 Intake Total 900 600 Output Total 200 Balance 900 400 Intake, Oral 900 600 Output, Urine 200 Patient 106.594 kg Weight Physical Exam General Appearance: Alert, Oriented X3, Cooperative, No Acute Distress Skin: No Rashes, No Breakdown, No Significant Lesion Skin Temp/Moisture Exam: Warm/Dry HEENT: Atraumatic, PERRLA, EOMI, Mucous Membr. moist/pink Neck: Supple, No JVD Cardiovascular: Normal S1, Normal S2, No Murmurs Lungs: Clear to Auscultation, Normal Air Movement Abdomen: Normal Bowel Sounds, Soft, No Tenderness, No Hepatospenomegaly, No Masses Neurological: Normal Speech, Strength at 5/5 X4 Ext, Normal Tone, Sensation Intact, Cranial Nerves 3-12 NL, Reflexes 2+ Extremities: No Clubbing, No Cyanosis, Normal Pulses, No Tenderness/Swelling, BL LE pedal edema +2 Assessment/Plan Assessment: 86-year-old woman with a past medical history of atrial fibrillation, chronic congestive heart failure (preserved LV systolic function) and hypertension. She presents to our hospital with worsening dyspnea as well as recent increase in her lower extremity edema. Echocardiogram -Echocardiogram result: Normal left ventricular systolic function with borderline hypertrophy. Right ventricular dilatation and hypokinesia. Severe Pulmonary hypertension by doppler. Biatrial enlargement. Vital signs -temperature -90 7.7, pulse 62, respiratory rate 20, blood pressure 128/54, SPO2-94% Intake/output -1640/700, Pertinent labs -Hb -10.7, K -5.4, Cr -1.8, BUN -72, INR -1.65 Plan - Acute and chronic kidney disease * Creatinine is continue to improve, 1.4 <1.6, will start Lasix by mouth daily * Keep negative fluid balance, and daily weight * Chest x-ray was obtained yesterday to rule out pulmonary edema/interstitial edema, was negative Hematuria * Urine is clear since yesterday despite starting warfarin 5 mg * Urology recommendation to target low therapeutic range, continue Coumadin unless start to have clari hematuria * Patient ihad intermittent hematuria, improved after starting CBI over the last 24 hours * Recommendation to remove Simpson catheter as it may cause further irritation of the bladder * Patient underwent cystoscopy on 09/11/2016 which showed diffuse erythema in the bladder * Biopsy was taken and send for the pathology. According to the urologist erythematouse area in bladder had tendency to bleed. 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 She had D&C done 3 years ago with the pathology being normal at that time. * Evaluated by POOL TABLE MECHANIC , due to patient body habitus speculum exam could not be done at bedside. However, POOL TABLE MECHANIC did not feel that the vaginal bleeding was severe enough to exclude starting anticoagulation for A. fib. * Recommendation for workup on vaginal bleed which could be secondary to the cervical mass seen in TV US or the thickened endometrial stripe will be done on an outpatient basis. * If patient stays longer might consider an MRI. Exertional dyspnea most likely CHF exacerbation * Chest x ray on 09/16/16 no evidence of pulmonary edema or effusion * She recently had pacemaker implantation, and we excluded acute pacer-induced cardio myopathy by echo. * We stopped lasix as her creatinine bumped up to 1.6 to 1.9. We will regularly monitor the creatinine, decide from it. * Strict I's and O's * Daily weights * We will follow pulmonology and cardiology recommendation Atrial fibrillation: * Patient INR is 1.59 * Coumadin 5 mg daily * Target low therapeutic range 2-3 Right lower extremity wound: * We will follow wound recommendation * We will do dry dressing as advised by wound Obstructive sleep apnea. * Continue nocturnal CPAP Elevated bilirubin * Patient bilirubin slightly improved, GGT is high up to 64. GI is on board * Follow LFTs * As per GI, we will consider outpatient cross-sectional imaging, check mitochondrial antibody, antinuclear antibody, 5'-nucleotidase, and consider eventual EGD to rule out varices, if cardiac status allows Chronic thrombocytopenia under evaluation * [place] [address] * We will follow the hematology/oncology recommendation * We will regularly monitor platelet count and watch for bleeding * Blood workup showed that she has stable chronic thrombocytopenia. * LEDY - Neg * Anticardiolipin antibody undetermined, recommendation to follow-up as an outpatient Diet - Heart healthy diet DVT prophylaxis -Alps CODE STATUS - Full code Problem List: 1. ATRIAL FIBRILATION 2. BIPEDAL EDEMA 3. Hematuria 4. Thrombocytopenia Pain Ratin Pain Location: None Pain Goal: Pain 4 or less Pain Plan: Mild pain pathway Tomorrow's Labs & Rationales: INR Consulting Request: Consulting Specialty: Gynecology Consulting Physician: Dr Snider Reason for Consult: vaginal bleeding CONCHIS REYNOLDS,[facility] 09/18/16 1252: Attending MD Review Statement Attending Statement Attending MD Statement: examined this patient, discuss w/resident/PA/DRENCHER, agreed w/resident/PA/DRENCHER, reviewed EMR data (avail), discussed with nursing, discussed with case mgmt, reviewed images, amended to note Attending Assessment/Plan: Patient seen and examined, feels ok, DEnies any pains, aches, urine is clear. Cr remain stable. vss. She still has 2+ lower ext edema. HAs been started back on lasix. Received IV lasix yesterday and today will receive PO. Urine remains clear. INR is subtherapeutic and patient received first dose of Coumadin yesterday. Per urology, okay to keep in the low therapeutic range of INR. Patient can be discharged to rehabilitation today there is a bed available. She will be resumed on her Lasix. We'll continue the Coumadin with a goal INR between 2 and 3 in the low 2 range. Tapered instructions on the paperwork for the rehabilitation to keep an eye on her urine. If she develops any clari which react, patient will need to be reevaluated. Otherwise by urology, in case if she is having a pink urine, no need to stop anticoagulation she can still be continued on her anticoagulation. Her repeat CBC will be checked in 2 days. I left a msg for her daughter.
[2016-09-18 14:44] VITALS: BP 126/70
[2016-09-18 22:30] VITALS: BP 128/72
[2016-09-19 06:14] VITALS: BP 118/68
--- NOTE | 2016-09-19 07:16 | PN- Housestaff ---
EV REYNOLDS,[facility] 09/19/16 0716: Subjective Follow-up For: Hematuria Acute on chronic kidney disease Subjective: Patient was seen and examined this morning, no new complaint. Urine continue to be clear. Vital signs are stable. No overnight events was reported by the patient or the nurses. Review of Systems Constitutional: Reports: see HPI. Objective Last 24 Hrs of Vital Signs/I&O Vital Signs Date Time Temp Pulse Resp B/P B/P Pulse O2 O2 Flow FiO2 Mean Ox Delivery Rate 09/19 1131 98.9 80 20 118/68 06/08 0614 98.9 80 20 118/68 92 06/08 0000 CPAP 09/18 2230 97.6 68 20 128/72 98 CPAP 2.0L 09/18 2030 CPAP 2.0L 09/18 1444 97.3 66 20 126/70 96 Room Air Intake & Output 09/19 1600 /08 0800 /08 0000 Intake Total 600 Output Total 550 500 100 Balance 50 -500 -100 Intake, Oral 600 Number 1 1 Bowel Movements Output, Urine 550 500 100 Patient 108.409 kg Weight Physical Exam General Appearance: Alert, Oriented X3, Cooperative, No Acute Distress Skin: No Rashes, No Breakdown, No Significant Lesion Skin Temp/Moisture Exam: Warm/Dry HEENT: Atraumatic, PERRLA, EOMI, Mucous Membr. moist/pink Neck: Supple, No JVD Cardiovascular: Regular Rate, Normal S1, Normal S2, No Murmurs Lungs: Clear to Auscultation, Normal Air Movement Abdomen: Normal Bowel Sounds, Soft, No Tenderness, No Hepatospenomegaly, No Masses Neurological: Normal Speech, Strength at 5/5 X4 Ext, Normal Tone, Sensation Intact, Cranial Nerves 3-12 NL, Reflexes 2+ Extremities: No Clubbing, No Cyanosis, Normal Pulses, No Tenderness/Swelling, BL LE pedal edema +1 Assessment/Plan Assessment: 86-year-old woman with a past medical history of atrial fibrillation, chronic congestive heart failure (preserved LV systolic function) and hypertension. She presents to our hospital with worsening dyspnea as well as recent increase in her lower extremity edema. Echocardiogram -Echocardiogram result: Normal left ventricular systolic function with borderline hypertrophy. Right ventricular dilatation and hypokinesia. Severe Pulmonary hypertension by doppler. Biatrial enlargement. Plan - Acute and chronic kidney disease * Creatinine improved * Keep negative fluid balance, and daily weight * Chest x-ray was obtained yesterday to rule out pulmonary edema/interstitial edema, was negative Hematuria * Continue ciprofloxacin, switched to Augmentin on discharge today to finish total of 10 days of antibiotic * Urine is clear since yesterday despite starting warfarin 5 mg * Urology recommendation to target low therapeutic range, continue Coumadin unless start to have clari hematuria * Patient ihad intermittent hematuria, improved after starting CBI over the last 24 hours * Recommendation to remove Simpson catheter as it may cause further irritation of the bladder * Patient underwent cystoscopy on 09/11/2016 which showed diffuse erythema in the bladder * Biopsy was taken and send for the pathology. According to the urologist erythematouse area in bladder had tendency to bleed. 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 She had D&C done 3 years ago with the pathology being normal at that time. * Evaluated by CHERRY PICKER OPERATOR , due to patient body habitus speculum exam could not be done at bedside. However, CHERRY PICKER OPERATOR did not feel that the vaginal bleeding was severe enough to exclude starting anticoagulation for A. fib. * Recommendation for workup on vaginal bleed which could be secondary to the cervical mass seen in TV US or the thickened endometrial stripe will be done on an outpatient basis. * If patient stays longer might consider an MRI. Exertional dyspnea most likely CHF exacerbation * Chest x ray on 09/16/16 no evidence of pulmonary edema or effusion * She recently had pacemaker implantation, and we excluded acute pacer-induced cardio myopathy by echo. * Lasix was stopped as her creatinine bumped up to 1.6 to 1.9. We will regularly monitor the creatinine, decide from it. * Strict I's and O's * Daily weights Atrial fibrillation: * Patient INR is 1.68 * Coumadin 5 mg daily * Target low therapeutic range 2-3 Right lower extremity wound: * We will follow wound recommendation * We will do dry dressing as advised by wound Obstructive sleep apnea. * Continue nocturnal CPAP Elevated bilirubin * Patient bilirubin slightly improved, GGT is high up to 64. GI is on board * Follow LFTs * As per GI, we will consider outpatient cross-sectional imaging, check mitochondrial antibody, antinuclear antibody, 5'-nucleotidase, and consider eventual EGD to rule out varices, if cardiac status allows Chronic thrombocytopenia under evaluation * [place] [address] * We will follow the hematology/oncology recommendation * We will regularly monitor platelet count and watch for bleeding * Blood workup showed that she has stable chronic thrombocytopenia. * LEDY - Neg * Anticardiolipin antibody undetermined, recommendation to follow-up as an outpatient Diet - Heart healthy diet DVT prophylaxis -Alps CODE STATUS - Full code She does for discharge today Problem List: 1. ATRIAL FIBRILATION 2. BIPEDAL EDEMA 3. Hematuria 4. Thrombocytopenia Pain Ratin Pain Location: none Pain Goal: Pain 4 or less Pain Plan: Mild pain pathway Tomorrow's Labs & Rationales: NONE Consulting Request: Consulting Specialty: Gynecology Consulting Physician: Dr Snider Reason for Consult: vaginal bleeding CONCHIS REYNOLDS,[facility] 09/19/16 1310: Attending MD Review Statement Attending Statement Attending MD Statement: examined this patient, discuss w/resident/PA/SECURITY MESSENGER, agreed w/resident/PA/SECURITY MESSENGER, discussed with family, reviewed EMR data (avail), discussed with nursing, discussed with case mgmt, amended to note Attending Assessment/Plan: Patient seen and examined, feels ok. Denies any pain, no sob. The urine remains clear. Coumadin was restarted and INR is still subtherapeutic. No bridging 2/2 to thrombocytopenia. Patient needs to go to rehab and has a bed available. Medically stable for Discharge today.
--- NOTE | 2016-09-19 07:22 | PN- Urology ---
Subjective Subjective: No acute distress Objective Vital Signs and I&Os Vital Signs Date Time Temp Pulse Resp B/P B/P Pulse O2 O2 Flow FiO2 Mean Ox Delivery Rate 09/19 0514 98.9 80 20 118/68 92 /08 0000 CPAP 09/18 2230 97.6 68 20 128/72 98 CPAP 2.0L 09/18 2030 CPAP 2.0L 09/18 1444 97.3 66 20 126/70 96 Room Air 09/18 0945 CPAP 2.0L 09/18 0746 128/62 Intake & Output 09/19 0800 09/19 0000 09/18 1600 09/18 0800 09/18 0000 09/17 1600 Intake Total 900 600 800 Output Total 500 100 200 850 Balance -500 -100 900 400 -50 Intake, Oral 900 600 800 Number 1 1 Bowel Movements Output, Urine 500 100 200 850 Patient 239 lb 235 lb Weight Pt reports voiding grossly clear urine Laboratory Tests 09/18 1124 Chemistry Sodium (137 - 145 mmol/L) 136 L Potassium (3.5 - 5.1 mmol/L) 4.9 Chloride (98 - 107 mmol/L) 98 Carbon Dioxide (22 - 30 mmol/L) 28 Anion Gap (5 - 16) 11 BUN (7 - 17 mg/dL) 63 H Creatinine (0.5 - 1.0 mg/dL) 1.4 H Estimated GFR (>60 ml/min) 36 L BUN/Creatinine Ratio (7 - 25 %) 45.0 H Assessment/Plan Assessment/Plan Imp: 1. Gross hematuria due to cystitis, resolved. Bladder bx neg for carcinoma Plan: 1. Leave edgar out 2. Continue coumadin, aim for lower end of therapeutic range
[2016-09-19] MEDS ORDERED: CIPRO500 M1 PO ×2 (08:00→11:18)
[2016-09-19 08:37] LABS: PT 17.5 SEC (9.4-12.5)
--- NOTE | 2016-09-19 11:06 | PN- Cardiology ---
Subjective Subjective: Patient is laying in her chair reports no symptoms of chest pains or unusual shortness of breath. Discussion with the nursing staff tells me that plan discharge to [facility] facility might be pending. Objective Vital Signs and I&Os Vital Signs Date Time Temp Pulse Resp B/P B/P Pulse O2 O2 Flow FiO2 Mean Ox Delivery Rate 09/19 613 98.9 80 20 118/68 92 06/08 0000 CPAP 09/18 2230 97.6 68 20 128/72 98 CPAP 2.0L 09/18 2030 CPAP 2.0L 09/18 1444 97.3 66 20 126/70 96 Room Air Intake & Output 09/19 1600 09/19 0800 09/19 0000 09/18 1600 09/18 0800 09/18 0000 Intake Total 900 600 Output Total 500 100 200 Balance -500 -100 900 400 Intake, Oral 900 600 Number 1 Bowel Movements Output, Urine 500 100 200 Patient 239 lb 235 lb Weight Physical Exam: Head normocephalic/atraumatic Eyes sclera anicteric conjunctiva showed no pallor extraocular muscles were normal Neck mild jugular venous distention, no bruits no palpable nodes no thyroid masses Chest lungs were clear bilaterally Heart regular rhythm with grade 1 to 2/6 systolic murmur Abdomen protuberant bowel sounds normal Extremities chronic venous stasis Neurological no gross motor or sensory deficits Current Medications: Current Medications Sig/Aparna Start time Last Medication Dose Route Stop Time Status Admin Acetaminophen 650 MG Q6P PRN 09/11 1430 AC 09/14 PO 2111 Albuterol Sulfate 2 PUF Q4P PRN 09/11 1500 AC INH Albuterol Sulfate 3 ML Q4P PRN 09/05 1999 AC INH Artificial Tears 2 GTT 4 TIMES/DAY 09/11 1800 AC 09/17 OPH 0950 Ciprofloxacin 500 MG DAILY@0 09/150 AC 09/18 PO 09/19 2159 2144 Citalopram 20 MG DAILY 09/12 1000 AC 09/19 Hydrobromide PO 0843 Furosemide 40 MG DAILY 09/18 1402 AC 09/19 PO 0843 Melatonin 3 MG AT BEDTIME 09/11 2199 AC 09/18 PO 2144 Polyethylene Glycol 17 GM DAILY 09/12 1000 AC 09/19 PO 0843 Tiotropium [place] 1 PUF DAILY 09/12 1000 AC 09/19 INH 0844 Tramadol HCl 50 MG Q6 PRN 09/18 1615 AC 09/18 PO 2144 Tramadol HCl 50 MG Q6P PRN 09/11 1445 DC 09/17 PO 2128 Warfarin Sodium 5 MG COUMADIN 1700 ONE 09/18 1700 DC 09/18 PO 09/18 1701 1603 Results Last 48 Hrs of Labs/Mics: Laboratory Tests 09/19/16 0715: PT 17.5 H, INR 1.68 H 09/18/16 1124: Anion Gap 11, Estimated GFR 36 L, BUN/Creatinine Ratio 45.0 H 09/18/16 0634: PT 16.6 H, INR 1.59 H, CBC w Diff NO MAN DIFF REQ, RBC 3.60 L, MCV 98.6, MCH 31.1 H, RDW 19.0 H, MPV 9.5, Gran % 68.6, Lymphocytes % 17.3 L, Monocytes % 9.8 H, Eosinophils % 4.0, Basophils % 0.3, Absolute Granulocytes 3.7, Absolute Lymphocytes 0.9 L, Absolute Monocytes 0.5, Absolute Eosinophils 0.2, Absolute Basophils 0, PUBS MCHC 31.5 L 09/17/16 1944: PT 17.5 H, INR 1.68 H Assessment/Plan Assessment/Plan 1. Acute on chronic congestive heart failure with normal left ventricular ejection fraction and mild right ventricular dysfunction 2. Pulmonary hypertension with mild right ventricular dysfunction 3. Atrial fibrillation on outpatient Coumadin. 4. Right lower extremity wound 5. Hypertension 6. Obstructive sleep apnea on nocturnal CPAP 7. Postmenopausal bleeding status post prior D&C 8. History of bradycardia with permanent pacemaker in situ 9. Thrombocytopenia 10. Elevated bilirubin 11. Hematuria She appears comfortable. Oxygen saturations have been stable. Labs have been stable. She is back on Lasix 40 mg and Coumadin. INR should be maintained between 2 and 3. Okay for [facility] facility placement Continue telemetry? Not applicable
[2016-09-19 11:31] VITALS: BP 118/68
--- NOTE | 2016-09-19 13:06 | NUR ---
NURSING NOTE: PT DISCHARGED TO [facility]. REPORT GIVEN PRIOR TO DISCAHRGE. PER DR. BALDERRAMA MARY/ARB ARE NOT NEED ON DISCHARGE.
--- NOTE | 2016-09-25 15:50 | Discharge Summary ---
Visit Information Visit Dates Admission Date: 09/01/16 Discharge Date: 09/19/16 Hospital Course Course Attending Physician: CONCHIS REYNOLDS,SIMON Primary Care Physician: CADY MOLINA APRN Consulting Request: Consulting Specialty: Gynecology Consulting Physician: Dr Snider Reason for Consult: vaginal bleeding Hospital Course: This is an 86-year-old woman with a past medical history of atrial fibrillation, chronic congestive heart failure (preserved LV systolic function) and hypertension who presented to the hospital on 09/01/16 with worsening dyspnea as well as recent increase in her lower extremity edema. The following problems are being addressed: #Hematuria: Noted on admission, also had a supratherapeutic INR. Renal ultrasound was done and the results came back benign with no pathology to be addressed. Patient was maintained on IV heparin . Patient underwent cystoscopy on 09/11/2016 which showed diffuse erythema in the bladder. Biopsy sent for the pathology. 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 According to the urologist erythematouse area in bladder had tendency to bleed. hep had been stopped in the interrim. Patient was started on continuous bladder irrigation, hematuria improved and urine started to clear up, Coumadin was restarted without recurrence of hematuria. Urology recommendation to target low therapeutic range, continue Coumadin unless start to have clari hematuria. 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 #Vaginal bleeding Patient has chronic vaginal bleeding. She had D&C done 3 years ago with the pathology being normal at that time. Intermittent spotting. Evaluated by FURNACE COMBUSTION ANALYST , due to patient body habitus speculum exam could not be done at bedside. However, FURNACE COMBUSTION ANALYST did not feel that the vaginal bleeding was severe enough to exclude starting anticoagulation for A. fib. Recommendation for workup on vaginal bleed which could be secondary to the cervical mass seen in TV US or the thickened endometrial stripe will be done on an outpatient basis. #Exertional dyspnea most likely CHF exacerbation Chest x ray on 09/16/16 no evidence of pulmonary edema or effusion. Patient recently had pacemaker implantation, acute pacer-induced cardio myopathy was excluded by echocardiogram. Initially, Lasix was discontinued because creatinine bumped up to 1.6 to 1.9. Creatinine was rechecked daily, Lasix was restarted eventually with good tolerance. Atrial fibrillation: IV heparin initially, Coumadin was restarted after resolving of hematuria. We will target low therapeutic range. Therapeutic range 2-3. Right lower extremity wound: Wound care, daily dry dressing. Obstructive sleep apnea. Nocturnal CPAP. Elevated bilirubin Patient presented with elevated bilirubin and alkaline phosphatase, which apparently chronic findings 2008, 2011 and 2012, GI consultation was obtained, recommendation to follow liver function test while on Lasix, and to consider cross-sectional imaging phasic CT scan with contrast to assess for any evidence of congestive hepatopathy, cirrhosis and screening for hepatocellular carcinoma. Consideration for outpatient endoscopy to rule out varices if cardiac status allows. #Chronic thrombocytopenia under evaluation; today her platelet count: 83 Patient presented with chronic stable thrombocytopenia, hematology oncology consultation was obtained with recommendation to regularly follow up platelet count and watch for bleeding. Antinuclear antibody negative, anti-car to live pain IgM +19, IgA +17, IgG negative less than 14 Diet - Heart healthy diet DVT prophylaxis -Alps CODE STATUS - Full code Allergies: Coded Allergies: guaifenesin (HIVES 09/01/16) Disposition Summary Disposition Principal Diagnosis: CHF exacerbation Additional Diagnosis: Hematuria Vagina bleeding Atrial fibrillation Chronic thrombocytopenia Elevated bilirubin Obstructive sleep apnea Right lower extremity wound Discharge Disposition: SNF Discharge Instructions General Discharge Information Code Status: Full Code Patient's Diet: Heart healthy Patient's Activity: As tolerated Follow-Up Instructions/Appts: -Please follow up with your PCP within one week after discharge -Please follow up with urologist Dr. Robb after discharge -Please continue taking Coumadin with a goal INR between 2 and 3 in the low 2 range -Please keep an eye on urine, once start to have clari hematuria, discontinue Coumadin -Please continue taking Coumadin in case pink urine, no need to stop anticoagulation -Please repeat CBC on Friday09/23/16 Medications at Discharge Discharge Medications: Stop taking the following medications: Cephalexin (Cephalexin) 500 MG CAPSULE ORAL THREE TIMES DAILY Qty = 21 Continue taking these medications: Tiotropium [place] (Spiriva) 18 MCG CAP.W.DEV 1 Capsule Inhale through mouth DAILY Qty = 90 Comments: Last Taken: 09/19/16 Time: 9:00 AM Albuterol Sulfate (Proair Hfa) 90 MCG HFA.AER.AD 2 Puff Inhale through mouth EVERY 4-6 HOURS NEEDED as needed for BREATHING Comments: NOT GIVEN IN HOSPTIAL Potassium Chloride (Potassium Chloride) 20 MEQ TAB.ER.PRT 0.5 Tablet ORAL DAILY Qty = 90 Comments: NOT GIVEN IN HOSPITAL Furosemide (Furosemide) 40 MG TABLET 1 Milligram ORAL DAILY Qty = 180 Comments: Last Taken: 09/19/16 Time: 9:00 AM Cholecalciferol (Vitamin D3) (Vitamin D) 2,000 UNIT TABLET 1 Tablet ORAL 5 PM Comments: NOT GIVEN IN HOSPITAL Warfarin Sodium (Coumadin) 3 MG TABLET 1 Tablet ORAL As Directed Qty = 90 Comments: 5 MG PO GIVEN 09/19/16 @ 1230PM Biotin (Biotin) (Unknown Strength) TABLET 30 Microgram ORAL DAILY Comments: NOT GIVEN IN HOSPITAL Calcium Carb/Vitamin D3/Vit K1 (Calcium + Vit D & K Chew Tab) 500 MG CALCIUM-500 UNIT-40 MCG TAB.CHEW 1 Tablet ORAL DAILY Comments: NOT GIVEN IN HOSPITAL Citalopram Hydrobromide (Citalopram HBr) 20 MG TABLET 1 Tablet ORAL DAILY Qty = 90 Comments: Last Taken: 09/19/16 Time: 9:00 AM Warfarin Sodium (Coumadin) 1 MG TABLET 1.5 Tablet ORAL As Directed Comments: 5 MG PO GIVEN 09/19/16 @ 12:30 PM Ketoconazole (Ketoconazole) 2 % CREAM..G. 1 Application On the skin TWICE DAILY Qty = 30 Instructions: apply to affected area(s) Comments: NOT GIVEN IN HOSPITAL Tramadol HCl (Tramadol HCl) 50 MG TABLET 1 Tablet ORAL Every night as needed for PAIN Qty = 30 Comments: Last Taken: 09/17/16 Time: 9:30 PM Acetaminophen (Tylenol Arthritis) 650 MG TABLET.ER 2 Tablet ORAL Every night Comments: Last Taken: 09/14/16 Time: 9:10 PM Allopurinol (Allopurinol) 300 MG TABLET 0.5 Tablet ORAL Every Morning Qty = 45 Comments: NOT GIVEN IN HOSPITAL Start taking the following new medications: Ciprofloxacin HCl (Cipro) 500 MG TABLET 1 Tablet ORAL TWICE DAILY Qty = 8 No Refills Comments: Last Taken: 09/18/16 Time: 10:00 PM Copies To: JOSEPH REYNOLDS,SHA Dang; TRAVIS REYNOLDS,LIDIA Ham; CADY MOLINA APRN; KATELIN REYNOLDS, PARVEEN Dang; VIKTOR REYNOLDS,JOHNATHON Bryant; LISA REYNOLDS,BAILEY
== END 2016-09-19 13:05 | DRG 987 ==
LOC: ERH 09:49 → 2NB 15:00 → ERHI 15:00 → 1NO 15:00 → ENRESERV 15:46 → ENTRNSPT 16:53 → 1NO 17:12 → CMPTRNSPT 19:49 → 1NO 09-02 10:09 → 2NB 09-07 19:19
PROVIDERS: Internal Medicine; Physician Assistant; Radiology Diagnostic Radiology; Student in an Organized Health Care Education/Training Program; ADMIT Internal Medicine
PROC: 0T5B8ZZ Destruction of Bladder, Via Natural or Artificial Opening Endoscopic (ICD-10-PCS; principal; 2016-09-11)
PROC: 0TBB8ZX Excision of Bladder, Via Natural or Artificial Opening Endoscopic, Diagnostic (ICD-10-PCS; principal; 2016-09-11)
DX: I13.0 Hypertensive heart and chronic kidney disease with heart failure and stage 1 through stage 4 chronic kidney disease, or unspecified chronic kidney disease (principal); I50.33 Acute on chronic diastolic (congestive) heart failure; N17.9 Acute kidney failure, unspecified; I27.2 Other secondary pulmonary hypertension; D69.6 Thrombocytopenia, unspecified; I48.91 Unspecified atrial fibrillation; N30.91 Cystitis, unspecified with hematuria; K75.81 Nonalcoholic steatohepatitis (NASH); E66.9 Obesity, unspecified; G47.33 Obstructive sleep apnea (adult) (pediatric); N18.9 Chronic kidney disease, unspecified; Z68.35 Body mass index [BMI] 35.0-35.9, adult; Z95.0 Presence of cardiac pacemaker; N95.0 Postmenopausal bleeding; M10.9 Gout, unspecified; E78.5 Hyperlipidemia, unspecified; S80.821A Blister (nonthermal), right lower leg, initial encounter; L08.9 Local infection of the skin and subcutaneous tissue, unspecified
CPT/HCPCS: 1NP; 2NBSP; 36415; 76775; 81001; 82436; 87086; 88305; 93005; 93010; 93306; 96374; 97110-GO; 97116-GO; 97161-GP; 97166-GO; 97530-GO; 99291; J0131; J0690; J0696; J0744; J1100; J1644; J1940; J2405; J3490; J7042; J7060

== ENCOUNTER 2016-10-10 12:49 | Inpatient (IN) | payer OTHER, MEDICARE ==
[~2016-10-10] VITALS: Ht 149.9 cm; Wt 114.5 kg
[~2016-10-10 12:49] MED LIST changes: +CALCIUM + VIT1 EACH PO; +CEPHALEXIN500 M3 PO; +CIPRO500 M1 PO; +CITALOPRAM HBR20 MG PO; +COUMADIN2.5 M1 PO; +KETOCONAZOLE15 GM TOP; +TRAMADOL HCL50 M1 PO; +TYLENOL ARTHRI650 M1 PO
--- NOTE | 2016-10-10 13:00 | NUR ---
PT BIBA FROM ECF FOR LOWER O2 SAT. PER [facility] RN PT HAS A HX OF SOB AND CONFUSION BUT LAST THREE DAYS PT HAS BEEN MORE CONFUSED. PT HAD A CHEST XRAY YESTERDAY THAT SHOWED PNA. PT WAS STARTED ON ABX AND A PREDNISONE TAPER. PER ECF SENT PT IN FOR ABG PER FAMILY PT HAS GREAT DAYS WHERE SHE RECALLS EVERYTHING AND OTHER DAYS INCREASED CONFUSION. PT HAS NO COMPLAINTS ON ARRIVAL. PT IS ALERT BUT CONFUSED. PT 02 SAT ON ARRIVAL 98% ON 2L
--- NOTE | 2016-10-10 13:20 | NUR ---
PT TO X-RAY
--- NOTE | 2016-10-10 13:23 | ED GENERAL ADULT ---
History of Present Illness General Chief Complaint: Dyspnea (COPD, CHF, Other) Stated Complaint: BIBA, SOB Source: patient, family, old records Exam Limitations: poor historian Vital Signs & Intake/Output Vital Signs & Intake/Output Vital Signs Date Time Temp Pulse Resp B/P B/P Pulse O2 O2 Flow FiO2 Mean Ox Delivery Rate 10/12 1039 95 Nasal 1.0L Cannula 10/12 0800 94 Nasal 1.0L Cannula 10/12 0743 98.8 67 22 106/68 94 Nasal Cannula 10/12 0000 Nasal 1.0L Cannula 10/11 2232 98.3 72 24 112/70 96 Nasal 1.0L Cannula 10/11 2026 95 Nasal 1.0L Cannula 10/11 1902 18 93 Nasal 1.0L Cannula 10/11 1600 Nasal 1.0L Cannula 10/11 1428 98.2 64 20 113/78 98 Room Air ED Intake and Output 10/12 0000 10/11 1200 Intake Total 920 300 Output Total 550 300 Balance 370 0 Intake, IV 300 Intake, Oral 920 Number 2 Bowel Movements Output, Urine 550 300 Allergies Coded Allergies: guaifenesin (HIVES 09/01/16) Reconcile Medications Acetaminophen (Tylenol Arthritis) 650 MG TABLET.ER 2 TAB PO QPM PAIN ( Reported) Albuterol Sulfate (Proair Hfa) 90 MCG HFA.AER.AD 2 PUF INH Q4-6 PRN PRN BREATHING (Reported) Albuterol Sulfate 2.5 MG/3 ML (0.083 %) VIAL.NEB 1 Vial INH/CONSTANTIN 4 TIMES/DAY BREATHING PROBLEMS (Reported) Allopurinol 300 MG TABLET 0.5 TAB PO QAM GOUT (Reported) Budesonide/Formoterol Fumarate (Symbicort 160-4.5 Mcg Inhaler) 160 MCG-4.5 MCG/ ACTUATION HFA.AER.AD 2 PUF INH BID BREATHING PROBLEMS (Reported) Calcium Carbonate (Calcium) 500 MG CALCIUM (1,250 MG) TABLET 1 TAB PO DAILY SUPPLEMENT (Reported) Cholecalciferol (Vitamin D3) (Vitamin D) 2,000 UNIT TABLET 1 TAB PO 1700 SUPPLEMENT (Reported) Citalopram Hydrobromide (Citalopram HBr) 20 MG TABLET 1 TAB PO DAILY MENTAL HEALTH (Reported) Cyanocobalamin (Vitamin B-12) (B-12 Dots) 500 MCG TABLET 1 TAB PO DAILY VITAMIN SUPPORT (Reported) Doxycycline Hyclate 100 MG TABLET 1 TAB PO BID ANTIBIOTIC, INFECTION ( Reported) Folic Acid 1 MG TABLET 1 TAB PO DAILY SUPPLEMENT (Reported) Furosemide 40 MG TABLET 2 MG PO DAILY SWELLING (Reported) Lactobacillus Acidophilus (Probiotic) 10 BILLION CELL CAPSULE 1 CAP PO BID GI (Reported) Metolazone 2.5 MG TABLET 1 TAB PO DAILY BEFORE FUROSEMIDE (Reported) Potassium Chloride 20 MEQ TAB.ER.PRT 2 TAB PO DAILY SUPPLEMENT (Reported) Prednisone 20 MG TABLET 1 TAB PO TID STEROID (Reported) Tiotropium [place] (Spiriva) 18 MCG CAP.W.DEV 1 CAP INH DAILY BREATHING PROBLEMS (Reported) Tramadol HCl 50 MG TABLET 1 TAB PO QPM PRN PAIN (Reported) Warfarin Sodium (Coumadin) 2.5 MG TABLET 0.5 TAB PO 2100 BLOOD THINNER ( Reported) Triage Note: PT BIBA FROM ECF FOR LOWER O2 SAT. PER Triage Nurses Notes Reviewed? yes Onset: Gradual Duration: week(s): Timing: recent history Severity: moderate HPI: 86-year-old female with hx of COPD, CHF, A. fib on Coumadin, diabetes, hypertension, sleep apnea on CPAP qHS, presents to emergency department complaining of dyspnea ongoing for the past few weeks. Sent in from rehabilitation facility for low O2 saturations. Daughter states that patient has been complaining of dyspnea since her last admission here. The patient was admitted September 01 for CHF, family states that her leg swelling has improved since her discharge. Patient also has worsening confusion per her rehabilitation facility. Yesterday her chest x-ray showed an atypical pneumonia and the patient was started on oral antibiotics for this as well as a steroid. The patient is complaining of a cough productive of white sputum for the past 3 days. The patient denies fevers, chills, and abdominal pain, chest pain. The patient is a poor historian, family state that she has intermittent waxing and waning confusion. (PHILIP GILMAN PA-C) Past History Travel History Traveled to [place] past 21 day No Medical History Any Pertinent Medical History? see below for history Neurological: NONE EENT: NONE Cardiovascular: AFIB, CHF, hypertension Respiratory: NONE Gastrointestinal: NONE Hepatic: NONE Renal: NONE Musculoskeletal: NONE Psychiatric: NONE Endocrine: NONE Blood Disorders: NONE Cancer(s): NONE HEAVY FORGER/Reproductive: NONE History of MRSA: No History of VRE: No History of CDIFF: No Surgical History Surgical History: D&C, pacemaker Psychosocial History Who do you live with Patient/Self Services at Home Home Health Aide What is your primary language Slovak Tobacco Use: Never used Family History Hx Contributory? No (PHILIP GILMAN PA-C) Review of Systems Review of Systems Constitutional: Reports: no symptoms. EENTM: Reports: no symptoms. Respiratory: Reports: see HPI. Cardiovascular: Reports: no symptoms. GI: Reports: no symptoms. Genitourinary: Reports: no symptoms. Musculoskeletal: Reports: see HPI. Skin: Reports: no symptoms. Neurological/Psychological: Reports: see HPI. Hematologic/Endocrine: Reports: no symptoms. Immunologic/Allergic: Reports: no symptoms. All Other Systems: Reviewed and Negative (PHILIP GILMAN PA-C) Physical Exam Physical Exam General Appearance: well developed/nourished, no apparent distress, alert, awake Head: atraumatic, normal appearance Eyes: Bilateral: normal appearance. Ears, Nose, Throat: hearing grossly normal Neck: normal inspection, supple, full range of motion Respiratory: normal breath sounds, chest non-tender, no respiratory distress, lungs clear Cardiovascular: irregularly irregular Gastrointestinal: normal bowel sounds, soft, non-tender Back: normal inspection Extremities: 1+ pitting pedal edema bilaterally, hyperpigmentation of skin of bilateral hands and feet Neurologic/Psych: awake, alert, oriented x 3 Skin: hyperpigmentation of doral hands bilaterally, hyperpigmentation of lower legs bilaterally Core Measures ACS in differential dx? Yes CVA/TIA Diagnosis: No Severe Sepsis Present: No Septic Shock Present: No (PHILIP GILMAN PA-C) Progress Differential Diagnoses I considered the following diagnoses in my evaluation of the patient: [ACS, PNA, sepsis, CHF exacerbation, COPD exacerbation, bronchitis] Plan of Care: Orders Procedure Date/time Status PROTHROMBIN TIME 10/13 599 Active CBC WITHOUT DIFFERENTIAL 10/13 599 Active BASIC ELECTROLYTES PLUS BUN&CR 10/13 599 Active Heart Healthy Diet 10/12 B Active Weight 10/12 0910 Complete URIC ACID 10/12 0700 Complete THYROID STIMULATING HORMONE 10/12 07 Complete PROTHROMBIN TIME 10/12 0600 Complete PT Evaluate & Treat 10/12 UNK Active Lab Add-on Test 10/12 UNK Active Weight 10/12 UNK Active Change service to 10/11 1838 Active THERAPIST ORDERS 10/11 1430 Complete Evaluate Swallowing 10/11 UNK Complete Current Medications Sig/Aparna Start time Last Medication Dose Stop Time Status Admin Furosemide 60 MG 7:30 AM, & 4:30 PM 10/11 1630 AC 10/12 (Lasix) 0850 Amoxicillin/ 500 MG Q12 10/11 1352 AC 10/12 Clavulanate Potassium 0852 (Augmentin) Albuterol Sulfate 3 ML BID 10/11 1000 AC 10/12 (Proventil) 1032 Allopurinol 150 MG QAM 10/11 1000 AC 10/12 (Zyloprim) 0851 Calcium Carbonate 500 MG DAILY 10/11 1000 AC 10/12 (TUMS) 0850 Folic Acid 1 MG DAILY 10/11 1000 AC 10/12 (Folic Acid) 0851 Metolazone 2.5 MG DAILY 10/11 1000 AC 10/12 (Zaroxolyn) 0908 Potassium Chloride 40 MEQ DAILY 10/11 1000 AC 10/11 (K-Dur) 0940 Nystatin 1 PONCHO TIDPRN PRN 10/11 0745 AC (Mycostatin) Budesonide/ 2 PUF BID 10/10 2200 AC 10/12 Formoterol Fumarate 0851 (Symbicort) Prednisone 20 MG TID 10/10 2200 AC 10/12 0851 Albuterol Sulfate 2 PUF Q4-6 PRN PRN 10/10 1730 AC (Ventolin) Citalopram 20 MG DAILY 10/10 1726 AC 10/12 Hydrobromide 0907 (Celexa) Tiotropium [place] 1 PUF DAILY 10/10 1726 AC 10/12 (Spiriva) 0851 Acetaminophen 650 MG Q6P PRN 10/10 1630 AC (Tylenol) Acetaminophen/ 1 TAB Q6P PRN 10/10 1630 AC Hydrocodone Bitart (Vicodin) Morphine Sulfate 1 MG Q4P PRN 10/10 1630 AC (Morphine) Laboratory Tests 10/12/16 0700: Anion Gap 12, Estimated GFR 36 L, BUN/Creatinine Ratio 39.3 H, Lactic Acid 2.4 H, Uric Acid 8.6 H, Total Bilirubin 3.2 H, Direct Bilirubin 2.3 H, AST 38 H , ALT 28, Alkaline Phosphatase 151 H, Total Protein 6.2 L, Albumin 2.7 L, TSH 3.730, PT 31.2 H, INR 3.00 H, CBC w Diff MAN DIFF ORDERED, RBC 2.93 L, MCV 98.0, MCH 31.5 H, RDW 19.9 H, MPV 9.3, Gran % 87.7 H, Lymphocytes % 9.3 L, Monocytes % 2.6, Eosinophils % 0, Basophils % 0.4, Absolute Granulocytes 5.1, Absolute Lymphocytes 0.5 L, Absolute Monocytes 0.2, Absolute Eosinophils 0, Absolute Basophils 0, Platelet Estimate DECREASED, Polychromasia 1+, Anisocytosis 1+, PUBS MCHC 32.1 L 14:21 - CXR shows possible pneumonia, patient sent in for low O2 sats from rehab facility, she is complaining of dyspnea. The patient is alert and oriented however she is a poor historian, per rehabilitation facility they have noted increased confusion over the past several days. Blood cultures and lactic acid drawn, patient started on IV antibiotics for pneumonia coverage. The patient was discussed with Dr. Tatum. 15:31 - Lactic acid is 2.6, 500cc bolus NS given, ABG shows hypoxia. Spoke with Hospitalist, Dr. Mann who will admit patient given PNA requiring IV antibiotics, hypoxia, not on home O2 requiring O2 here in the ED, possible fluids, repeat labs, monitoring of her comorbid DM, CHF, COPD. Premature discharge would be medically unsafe at this time given her current clinical status. (KALINA RAIN,PHILIP) Diagnostic Imaging: Viewed by Me: Radiology Read. Discussed w/RAD: Radiology Read. CXR Impression: PATIENT: HENRY CHAMBERS PRESENT AGE : 86 PATIENT ACCOUNT NO: [id number] : 32 LOCATION: [facility] ORDERING PHYSICIAN: PHILIP GILMAN PA-C SERVICE DATE: 10/10/16-2104 EXAM TYPE: RAD - XRY- CHEST XRAY, PA AND LATERAL EXAMINATION: XR CHEST CLINICAL INFORMATION: Shortness of breath and cough. COMPARISON: Chest radiograph 09/16/2016 TECHNIQUE: 2 views of the chest were obtained. FINDINGS: Stable cardiomegaly. Atherosclerotic aortic arch. Single lead left-sided pacemaker is stable in position. There is central vascular congestion without overt edema. Left lower lobe airspace disease is noted. There is a small left pleural effusion. No pneumothorax. No acute osseous abnormality. IMPRESSION: 1. Stable cardiomegaly with central vascular congestion. No overt edema. 2. Left lower lobe airspace disease which may represent atelectasis and/or pneumonia. Clinical correlation and follow-up recommended. 3. Small left pleural effusion. DICTATED BY: CESAR CLIFTON DO DATE/TIME DICTATED:10/10/161349 ELECTRICAL ENGINEERING PROFESSOR:IVORY DATE/TIME TRANSCRIBED:10/10/161349 CONFIDENTIAL, DO NOT COPY WITHOUT APPROPRIATE AUTHORIZATION. <Electronically signed in Other Vendor System> SIGNED BY: CESAR CLIFTON DO 10/10/161356 Initial ED EKG: A FIB,64BPM, PROLONGED QT INTERVAL, FLATTENED T WAVES Prior EKG: changed (PHILIP GILMAN PA-C) Departure Departure Disposition: STILL A PATIENT Condition: Stable Clinical Impression Primary Impression: Pneumonia Secondary Impressions: Confusion, Hypoxia Referrals: CADY MOLINA APRN (PCP/Family) Departure Forms: Customer Survey General Discharge Information Admission Note Spoke With: MADHU MANN MD Documentation of Exam: Documentation of any treatments & extenuating circumstances including Concerns Regarding Discharge (functional status, medication knowledge or non-compliance, living conditions, etc.) that warrant an admission rather than observation: [LLL pneumonia, requiring IV antibiotics, hypoxia, not on home O2, requiring O2 with low sats on room air, +Lactic acid, repeat labs necessary, monitoring of comorbid conditions CHF, DM, HTN] (PHILIP GILMAN PA-C) PA/CAB STATION ATTENDANT Co-Sign Statement Statement: ED Attending supervision documentation- [X] I saw and evaluated the patient. I have also reviewed all the pertinent lab results and diagnostic results. I agree with the findings and the plan of care as documented in the PA's/CAB STATION ATTENDANT's documentation. [X] I have reviewed the ED Record and agree with the PA's/CAB STATION ATTENDANT's documentation. [] Additions or exceptions (if any) to the PAs/CAB STATION ATTENDANT's note and plan are summarized below: [Patient sent in for evaluation of hypoxia and a chest x-ray consistent with atypical pneumonia. Patient's ABG is hypoxic. She has no white count and she does have a left shift. Patient is requiring O2 and she does not require going to baseline. Patient will be admitted for pneumonia.] (VADIM REYNOLDS,YVAN Moseley) Critical Care Note Critical Care Note Critical Care Time: mins: (20) (KALINA RAIN,PHILIP)
--- NOTE | 2016-10-10 13:32 | NUR ---
BACK FROM X-RAY
--- NOTE | 2016-10-10 13:51 | NUR ---
LABS DRAWN AND SENT BY [facility]. [facility]. BLUE, SST, LAV.
--- NOTE | 2016-10-10 13:57 | RADIOLOGY REPORT ---
EXAMINATION: XR CHEST CLINICAL INFORMATION: Shortness of breath and cough. COMPARISON: Chest radiograph 09/16/2016 TECHNIQUE: 2 views of the chest were obtained. FINDINGS: Stable cardiomegaly. Atherosclerotic aortic arch. Single lead left-sided pacemaker is stable in position. There is central vascular congestion without overt edema. Left lower lobe airspace disease is noted. There is a small left pleural effusion. No pneumothorax. No acute osseous abnormality. IMPRESSION: 1. Stable cardiomegaly with central vascular congestion. No overt edema. 2. Left lower lobe airspace disease which may represent atelectasis and/or pneumonia. Clinical correlation and follow-up recommended. 3. Small left pleural effusion.
[2016-10-10 13:59] LABS: ABSOLUTE BASOPHIL COUNT 0 /CUMM (0.0-0.2); ABSOLUTE EOSINOPHIL COUNT 0 /CUMM (0.0-0.7); ABSOLUTE GRANULOCYTE CT 3.5 /CUMM (1.4-6.5); ABSOLUTE LYMPH COUNT 0.4 /CUMM (1.2-3.4); ABSOLUTE MONOCYTE COUNT 0.1 /CUMM (0.10-0.60); BASOPHIL % 0.2 % (0.0-2.0); EOSINOPHIL % 0 % (0-5); HEMATOCRIT 31.5 % (37-47); MEAN CORPUSCULAR HGB 30.9 PG (27.0-31.0); MEAN CORPUSCULAR HGB CONC 31.8 G/DL (33.0-37.0); MEAN CORPUSCULAR VOLUME 97.3 FL (81.0-99.0); MEAN PLATELET VOLUME 9.8 FL (7.4-10.4); RBC DISTRIBUTION WIDTH 18.8 % (11.5-14.5); RED BLOOD CELL CT 3.23 /CUMM (4.20-5.40); WHITE BLOOD CELL COUNT 4.1 /CUMM (4.8-10.8)
[2016-10-10] MEDS ORDERED: CALCIUM500 M1 PO (13:59)
[2016-10-10] MEDS ORDERED: METOLAZONE2.5 M1 PO (14:00)
[2016-10-10] MEDS ORDERED: ALBUTEROL2.5 MG/3 M INH/SOL (14:02)
[2016-10-10] MEDS ORDERED: SYMBICORT 16010.2 GM INH (14:03)
[2016-10-10] MEDS ORDERED: DOXYCYCLINE HY100 M4 PO (14:04)
[2016-10-10] MEDS ORDERED: PREDNISONE20 M1 PO (14:05)
[2016-10-10] MEDS ORDERED: PROBIOTIC1 EACH PO (14:07)
[2016-10-10] MEDS ORDERED: FOLIC ACID1 M1 PO (14:08)
[2016-10-10] MEDS ORDERED: B-12 DOTS500 MCG PO (14:08)
[2016-10-10 14:25] LABS: GRANULOCYTE % 86.1 % (42.2-75.2)
[2016-10-10 14:26] LABS: PLATELET COUNT 90 /CUMM (130-400)
--- NOTE | 2016-10-10 14:30 | NUR ---
RA SAT 92-93%. PT PLACED ON 2L NC, SATS UP TO 97%.
--- NOTE | 2016-10-10 14:31 | NUR ---
URINE TRIO COLLECTED AND SENT BY THIS [facility].
--- NOTE | 2016-10-10 15:13 | NUR ---
CRITICAL TEST RESULTS [id number] HENRY CHAMBERS 86 F TESTS AND RESULTS: LACTIC ACID 2.6 Results received and read back by: KRANTHI RO Results received date and time: 10/10/16 1513 The following provider was notified of the results, and read the results back: BRANDO GILMAN Notified date and time: 10/10/16 at 1515
--- NOTE | 2016-10-10 15:15 | NUR ---
REPORT HANDED OFF TO JOLIE BRYSON.
--- NOTE | 2016-10-10 15:22 | NUR ---
PT CARE ASSUMED BY THIS RN AT THIS TIME. EVELIA RUNNING IN PER EMAR. PT VERBALIZES UNDERSTANDING OF PLAN FOR HOSPITAL ADMISSION, OFFERS NO COMPLAINTS AT THIS TIME. NURSING WILL CONTINUE TO MONITOR.
--- NOTE | 2016-10-10 15:33 | NUR ---
DR. GONZALEZ TO BEDSIDE FOR EVAL.
--- NOTE | 2016-10-10 15:39 | History & Physical ---
ALBA REYNOLDS,[facility] 10/10/16 1539: General Information and HPI MD Statement: I have seen and personally examined HENRY CHAMBERS and documented this H&P. The patient is a 86 year old F who presented with a patient stated chief complaint of SOB Source of Information: patient, family, old records Exam Limitations: no limitations History of Present Illness: Ms Chambers is an 86-year-old woman with a past medical history of atrial fibrillation, chronic congestive heart failure (preserved LV systolic function) and hypertension who presented to the hospital on 10/10/2016 due to shortness of breath. She was last discharged from [facility] on 09/25/2016. Some of the clinical history was obtained from the [id number] Eryn, who was present at the time of our clinical encounter. Patient states that since she has been discharge she has continued to feel dyspneic and experience dyspnia on exertion. Over the last 24 hours she is found that her dyspnea has continued to worsen. She was also acutely confused at the [facility]. On the evening of 10/10/2016 a chest x-ray was done at her extended care facility which was evident for atypical pneumonia. She was started on Prednisone, placed on supplemental oxygen and started on an antibiotic. Vitals at this time last evening were: T: 96.9, HR: 74. RR: 24. BP: 122/60 This morning her family made the decision to have her brought into the hospital. She also endorses a mild cough. Nonproductive in nature. Patient also endorses left lower extremity pain. Pain is rated 8 out of 10 in severity. Worse with movement. Patient denies any vaginal bleeding or acute symptoms of blood loss. Patient reports a decreased appetite. She denies any fever although endorses subjective chills. She denies any nausea or vomiting. Eryn was present during the clinical encounter. Documents from [facility] also show the patient was recently started on metolazone. Allergies/Medications Allergies: Coded Allergies: guaifenesin (HIVES 09/01/16) Home Med list Acetaminophen (Tylenol Arthritis) 650 MG TABLET.ER 2 TAB PO QPM PAIN ( Reported) Albuterol Sulfate (Proair Hfa) 90 MCG HFA.AER.AD 2 PUF INH Q4-6 PRN PRN BREATHING (Reported) Albuterol Sulfate 2.5 MG/3 ML (0.083 %) VIAL.NEB 1 Vial INH/CONSTANTIN 4 TIMES/DAY BREATHING PROBLEMS (Reported) Allopurinol 300 MG TABLET 0.5 TAB PO QAM GOUT (Reported) Budesonide/Formoterol Fumarate (Symbicort 160-4.5 Mcg Inhaler) 160 MCG-4.5 MCG/ ACTUATION HFA.AER.AD 2 PUF INH BID BREATHING PROBLEMS (Reported) Calcium Carbonate (Calcium) 500 MG CALCIUM (1,250 MG) TABLET 1 TAB PO DAILY SUPPLEMENT (Reported) Cholecalciferol (Vitamin D3) (Vitamin D) 2,000 UNIT TABLET 1 TAB PO 1700 SUPPLEMENT (Reported) Citalopram Hydrobromide (Citalopram HBr) 20 MG TABLET 1 TAB PO DAILY MENTAL HEALTH (Reported) Cyanocobalamin (Vitamin B-12) (B-12 Dots) 500 MCG TABLET 1 TAB PO DAILY VITAMIN SUPPORT (Reported) Doxycycline Hyclate 100 MG TABLET 1 TAB PO BID ANTIBIOTIC, INFECTION ( Reported) Folic Acid 1 MG TABLET 1 TAB PO DAILY SUPPLEMENT (Reported) Furosemide 40 MG TABLET 2 MG PO DAILY SWELLING (Reported) Lactobacillus Acidophilus (Probiotic) 10 BILLION CELL CAPSULE 1 CAP PO BID GI (Reported) Metolazone 2.5 MG TABLET 1 TAB PO DAILY BEFORE FUROSEMIDE (Reported) Potassium Chloride 20 MEQ TAB.ER.PRT 2 TAB PO DAILY SUPPLEMENT (Reported) Prednisone 20 MG TABLET 1 TAB PO TID STEROID (Reported) Tiotropium [place] (Spiriva) 18 MCG CAP.W.DEV 1 CAP INH DAILY BREATHING PROBLEMS (Reported) Tramadol HCl 50 MG TABLET 1 TAB PO QPM PRN PAIN (Reported) Warfarin Sodium (Coumadin) 2.5 MG TABLET 0.5 TAB PO 2100 BLOOD THINNER ( Reported) Compliance With Home Meds: GOOD Past History Travel History Traveled to [place] past 21 day No Medical History Neurological: NONE EENT: NONE Cardiovascular: AFIB, CHF, hypertension Respiratory: NONE Gastrointestinal: NONE Hepatic: NONE Renal: NONE Musculoskeletal: NONE Psychiatric: NONE Endocrine: NONE Blood Disorders: NONE Cancer(s): NONE 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 Extended Care Facility Who Do You Live With? self Services at Home: Home Health Aide Primary Language: Italian Smoking Status: Former Smoker ETOH Use: denies use Illicit Drug Use: denies illicit drug use Living Will? no Functional Ability ADLs Independent: dressing, eating, toileting, bathing. Ambulation: independent, walker IADLs Needs Assist: shopping, housework, finances, food prep, telephone, transportation, medication admin. Review of Systems Review of Systems Constitutional: Reports: see HPI, chills. Denies: diaphoresis, fever, malaise, weakness. Respiratory: Reports: cough, short of breath. Denies: hemoptysis, orthopnea, sputum production, stridor, wheezing. GI: Denies: abdominal pain, constipation, diarrhea, distention, bowel incontinence, melena, nausea. Musculoskeletal: Denies: back pain, gout, joint pain, joint swelling. Exam & Diagnostic Data Last 24 Hrs of Vital Signs/I&O Vital Signs Date Time Temp Pulse Resp B/P B/P Pulse O2 O2 Flow FiO2 Mean Ox Delivery Rate 10/10 1450 97.5 20 97 Nasal 2.0L Cannula 10/10 1439 94.7 63 23 122/58 93 Room Air 10/10 1430 98 Nasal 2.0L Cannula 10/10 1430 64 20 93 Room Air 10/10 1254 95.8 66 22 129/62 97 Nasal 2.0L Cannula Intake & Output 10/10 1600 10/10 0800 10/10 0000 Intake Total 750 Output Total Balance 750 Intake, IV 750 Physical Exam General Appearance Alert, Oriented X3, Cooperative, No Acute Distress Skin No Rashes, No Breakdown HEENT PERRLA, EOMI, Mucous Membranes Dry Neck Supple Lymphatic Cervical nl Cardiovascular Normal S1, Normal S2, No Murmurs, Irregular Rate and rhythm Lungs Left lower Crackles, Scattered Wheezing. Abdomen Normal Bowel Sounds, Soft, No Tenderness, No Hepatospenomegaly Neurological Normal Speech, Strength at 5/5 X4 Ext, Normal Tone, Sensation Intact, Cranial Nerves 3-12 NL Extremities Edema 4+ Vascular Normal Pulses Last 24 Hrs of Labs/Otis: Laboratory Tests 10/10/16 1444: Lactic Acid 2.6 H 10/10/16 1430: pH 7.52 H, pCO2 32 L, pO2 65 L, HCO3 25, ABG O2 Sat (Measured) 92.0 L, P-50 (Temp Corrected) Y, Carboxyhemoglobin 2.0, O2 Concentration % .21, Temperature 95.8 L, O2 Delivery Method RA, Phlebotomy Draw Site RIGHT RADIAL 10/10/16 1426: Urine Color YEL, Urine Clarity CLEAR, Urine pH 6.0, Ur Specific [place] 1.010, Urine Protein NEG, Urine Ketones NEG, Urine Nitrite NEG, Urine Bilirubin NEG, Urine Urobilinogen 0.2, Ur Leukocyte Esterase MOD H, Ur Microscopic SEDIMENT EXAMINED, Urine RBC 5-10 H, Urine WBC 5-10 H, Ur Epithelial Cells RARE, Urine Bacteria MANY H, Urine Hemoglobin SMALL H, Urine Glucose NEG 10/10/16 1350: Anion Gap 12, Estimated GFR 39 L, BUN/Creatinine Ratio 40.0 H, Glucose 136 H, Calcium 9.0, Total Bilirubin 5.4 H, AST 36, ALT 24, Alkaline Phosphatase 170 H , Troponin I 0.03, Afh-Q-Ajjcbvfsuxr Pept 3530 H, Total Protein 6.7, Albumin 3.0 L, Globulin 3.7, Albumin/Globulin Ratio 0.8 L, CBC w Diff NO MAN DIFF REQ, RBC 3.23 L, MCV 97.3, MCH 30.9, RDW 18.8 H, MPV 9.8, Gran % 86.1 H, Lymphocytes % 11.1 L, Monocytes % 2.6, Eosinophils % 0, Basophils % 0.2, Absolute Granulocytes 3.5, Absolute Lymphocytes 0.4 L, Absolute Monocytes 0.1 L, Absolute Eosinophils 0, Absolute Basophils 0, PUBS MCHC 31.8 L Microbiology 10/10 1444 BLOOD: Blood Culture - RECD 10/10 1430 BLOOD: Blood Culture - RECD Diagnostic Data CXR Results SERVICE DATE: 10/10/16 EXAM TYPE: RAD - XRY-CHEST XRAY, PA AND LATERAL EXAMINATION: XR CHEST CLINICAL INFORMATION: Shortness of breath and cough. COMPARISON: Chest radiograph 09/16/2016 TECHNIQUE: 2 views of the chest were obtained. FINDINGS: Stable cardiomegaly. Atherosclerotic aortic arch. Single lead left-sided pacemaker is stable in position. There is central vascular congestion without overt edema. Left lower lobe airspace disease is noted. There is a small left pleural effusion. No pneumothorax. No acute osseous abnormality. IMPRESSION: 1. Stable cardiomegaly with central vascular congestion. No overt edema. 2. Left lower lobe airspace disease which may represent atelectasis and/or pneumonia. Clinical correlation and follow-up recommended. 3. Small left pleural effusion. DICTATED BY: CESAR CLIFTON DO Assessment/Plan Assessment: Ms Chambers is an 86-year-old woman with a past medical history of atrial fibrillation, chronic congestive heart failure (preserved LV systolic function) and hypertension who presented to the hospital on 10/10/2016 due to shortness of breath. At the ED the patient was positive for sepsis criteria after the following vitals were recorded. T: 95.8. Pulse: 66. Respirations: 22. Blood pressure: 129/62. She is was saturating 97% on 2 L via nasal cannula. Her labs were evident for: Lactate level of 2.6. She was also started on ceftriaxone and azithromycin. #Severe sepsis with known infectious source, likely lung IV Antibiotics: Cefrtiaxone and Azithromycin Wells Score: Moderate risk for PE A VQ scan has been ordered to rule out a PE owing to know onset hypoxia in the setting of prolonged immobility. Doppler of the Lower extemity was negative for DVT. Incentive spirometer. CT of chest to evalaute CBC in AM #Exacerbation of CHF with generalized Anasarca. ProBNP at 3000 Monitor ins and outs. Monitor daily BEP. Informed cardiology service for consultation a.m. Last echocardiogram done in August 2016. Ejection fraction estimated between 60 and 65%. Rule out Acs, trend troponins till peak, look fo Acute EKG Changes. #Metabolic Alkalosis pH 7.52 on admission. Lower CO2 due to hyperventilation. Recent Increased in Lasix dose may have contributed to excess bicarbonate excretion. Cotinue CPAP Overnight. If patients repiratory function changes, consider repeat ABG. #Lactic acidosis. Lilely due to hypoperfusion, in the setting of new medication. Trend lactic acid to resolves. Ensure mean arterial pressure remains above 65. #Hx of A fib. Continue Warfarin at home dose. Repeat INR in a.m. Target INR between 2-3. Informed patients soft tile setter Dr. Green that the patient has been admitted. . Formal cardiology consultation in am. #History of COPD Formal pulmonology consultation already obtained. Severe obstructive sleep apnea, continue CPAP overnight. TRC Nebs #History of HTN Conitnue home medciations. Monitor need for metolazone. If pressures remain elevated may consider this. #Bilirubinemia The patient patient does have a history of increased bilirubin. We'll continue to monitor this overnight. Repeat LFT in a.m. Abdominal CT and pelvis to rule out any intra-abdominal pathology. If evidence of pathology contact GI stat. #History of Vaginal Mass Last saw Dr Em on 09/07. Was supposed to follow up for outpatient testing. Denies any vaginal issues or acute bleeding. Avoid Simpson insertion as this caused a lot of problems on last visit. #Diet heart healthy obtain formal swallow evaluation in a.m. #Code full code As Ranked By This Provider Problem List: 1. Confusion 2. Hypoxia 3. Pneumonia 4. Thrombocytopenia Core Measures/Miscellaneous Acute Coronary Syndrome ACS Diagnosis: No Cerebrovascular Accident CVA/TIA Diagnosis: No Congestive Heart Failure CHF Diagnosis: No VTE (View Protocol) VTE Risk Factors: Age > 40 Sepsis (View Protocol) Severe Sepsis Present: No Septic Shock Septic Shock Present: No Miscellaneous Documentation Attending Case Discussed With: Dr Mati Mann Primary Care Physician: CADY MOLINA APRN Patient sees these Specialists Dr Snider Level of Patient Care: General Medicine Consults Needed: Consulting Specialty: Pulmonary Disease JOSE ALBERTO TREJO 10/10/16 1724: Resident Review Statement Other Findings: ADMISSION NOTE Clinical History: This patient was admitted to [facility] with the chief complaint: Shortness of breath. The patient was seen in conjunction with Dr. Mancilla. I have independently interviewed and examined the patient and reviewed pertinent historical, laboratory, and other data. Please refer to Dr. Mancilla's note for details of this patient's presentation, findings, and recommendations. I have reviewed Dr. Mancilla's note and concur fully with documented findings. In brief, Ms. Chambers is a 86-year-old woman with past medical history of atrial fibrillation, congestive heart failure with preserved ejection fraction and hypertension who was recently discharged from the hospital 3 weeks ago after being treated for hematuria and vaginal bleeding. The patient was discharged to Rehabilitation where she showed improvement, but subsequently started developing shortness of breath over the past 3-4 days that limited her functionality will point that she had to get a chest x-ray done at the rehabilitation which showed "atypical pneumonia". This prompted patient's family to bring her to the [facility] ED. She denies any worsening cough or phlegm production. No fevers or chills at home. No aspiration, except for aspiration on potassium pills per the patient. Positive sick contacts at nursing care facility, with similar symptoms. Also complains of intermittent left leg pain, relieved with Tylenol. Periods of immobility noted, ambulatory at baseline with a walker. Physical Examination: GENERAL APPEARANCE: The patient is alert, oriented. She is in no acute distress. VITAL SIGNS: T-min was 94.7, currently 97.2, blood pressure 126/64, respirations 21, and heart rate 66. Sats - 94 on 2L. HEENT: Head is normocephalic. The sinuses are otherwise nontender. Pupils are equal and reactive. The nares are patent. Oropharynx reveals normal dentition but is clear without lesions. NECK: Supple without lymphadenopathy. No JVD. HEART: Regular rate and rhythm. LUNGS: Revealed decreased breath sounds at the bases. No crackles or wheezes are heard. ABDOMEN: Soft, nontender, nondistended with good bowel sounds heard. EXTREMITIES : Without cyanosis, clubbing or 1+ pitting edema. NEUROLOGICAL: Gross nonfocal. Skin: Warm and dry without any rash. There is no costovertebral angle tenderness. Pertinent Data: White count 4.1, H&H 10 and 31.5, platelet count 90. Potassium 3.4. BUN/ creatinine 52/1.3. Lactate 2.6. Total bilirubin 5.4. Alkaline phosphatase 170. Assessment: A 86-year-old woman recently discharged from [facility] 3 weeks ago, presents to ED for shortness of breath, worsening over days, chest x-ray showing atelectasis versus pneumonia, meeting the criteria for severe sepsis likely of lung origin. Patient comes from a nursing facility, we should ideally treat her for MDR, but in accordance with the recent 2016 guidelines, patient may not be at high risk for MDR infection , and can be appropriately treated with antibiotics for CAP. Recommendations: I have discussed the results of my overview and impressions with the patient and family(Eryn daughter in law, at bedside): 1. Severe sepsis, likely secondary to pneumonia: Continue IV antibiotics, IV ceftriaxone and Zithromax. Respiratory culture. TRC. Broaden coverage if spikes a fever or white count rises. Repeat lactate. Cautious use of fluids. Await CT of chest. Swallow eval in a.m. Rule out other sources, check urine culture. Well score: Moderate risk at best for PE, on Coumadin. Check VQ scan. Check ultrasound lower extremities. 2. Primary metabolic alkalosis, chronic, with: Secondary metabolic alkalosis: Primary disturbance, likely a result of hyperventilation secondary to sepsis or hyperventilation (high set respiratory rate) on nocturnal CPAP machine. The secondary disturbance of metabolic alkalosis, likely due to excess chloride excretion with Lasix, with resultant high bicarbonate. 3. Hyperbilirubinemia: High bilirubin noted in previous admissions. No right upper quadrant pain on exam. No fevers, low white count-not uncommon for elderly to not mount fevers and white count. Monitor closely. Transfer to ICU on any signs of hypotension or worsening confusion . Await CAT scan of the abdomen. Monitor LFTs periodically. 4. Congestive heart failure, stable: No JVD, no hepatojugular reflex, lung exam not very suggestive of fluid overload, neither his chest x-ray. ProBNP approximately 3000, improved leg swelling. Continue home regimen of diuretics tomorrow, hold currently in light of her current state of severe sepsis and low blood pressures. Obtain cardiology evaluation. Ct evidence of distended IVC noted. Avoid fluids for worsening interventricular dependence and resultant hypotension. Serial troponins and EKG. May give a dose of Lasix tonight, if hypoxemia worsens, with careful monitoring of blood pressures (bear in mind, preload dependence-careful diuresis). Please confirm CMR. 5. Atrial fibrillation, on Coumadin: Currently in A. fib, rate controlled. Continue anticoagulation, goal INR 2-3. 6. Chronic thrombocytopenia: Evaluated by hematology in the past. Avoid heparin or heparin-like products. Anticoagulation with Coumadin. Full code. Heart healthy diet. Coumadin as DVT prophylaxis. EV REYNOLDS,[facility] 10/11/16 0236: Core Measures/Miscellaneous VTE (View Protocol) [facility] prophylaxis d/t: No contraindications No VTE Pharm Prophylaxis d/t: No contraindications VTE Diagnosis: No VTE Type: NONE VTE Confirmed by (Test): NONE MADHU MANN MD 10/11/16 1042: Attending MD Review Statement Attending Statement Attending MD Statement: examined this patient, discuss w/resident/PA/SENIOR COMMUNICATIONS SPECIALIST, agreed w/resident/PA/SENIOR COMMUNICATIONS SPECIALIST, reviewed EMR data (avail) Attending Assessment/Plan: 86F PMH HTN, atrial fibrillation on Coumadin, HFpEF, severe pulmonary hypertension, history of bradycardia s/p PPM, BÁRBARA on CPAP presenting with several weeks of worsening fatigue, shortness of breath, and dyspnea on exertion. Has developed a cough of late that sounds wheezing in nature. Denies fever, chills, n/v, diarrhea, dysuria. Found to have left sided infiltrate on CXR, elevated lactate. Bilirubin was elevated but appears chronically so, though was never this high. Hypothermic 94.7 with WBC 4.1 and tachycardic, meets SIRS criteria but unclear if infectious etiology at this time. Plan - Admit to general medicine - Start Ceftriaxone and Azithromycin - V/Q scan to rule out PE - CT chest to evaluate for pneumonia or effusion - Follow cultures - Continue home medications - Pulmonary consult - DVT PPx
--- NOTE | 2016-10-10 16:24 | Cons- Pulmonary ---
General Information and HPI Consulting Request Date of Consult: 10/10/16 Requested By: ER/Patient's family Reason for Consult: dyspnea Source of Information: patient, family, old records Exam Limitations: no limitations History of Present Illness: 86 year old woman. She is known to me from the office and previous admits. She is sent by her nursing facility for worsened dyspnea and reduced o2 saturation. Recent admission for CHF. Overall leg swelling persists but somewhat improved. Per family has had a CXR performed at her NH facility. Whitish phlegm, cough persists. She was started on abx and steroids. Her medical hx includes mark on cpap, a.fib on coumadin, chf, copd, pacemaker. Severe ph in setting of chf and cirrhosis. She is on spiriva and albuterol. In ED her CXR shows LLL airspace disease, no leukocytosis, afebrile. Lactate 2.6. Allergies/Medications Allergies: Coded Allergies: guaifenesin (HIVES 09/01/16) Home Med List: Acetaminophen (Tylenol Arthritis) 650 MG TABLET.ER 2 TAB PO QPM PAIN ( Reported) Albuterol Sulfate (Proair Hfa) 90 MCG HFA.AER.AD 2 PUF INH Q4-6 PRN PRN BREATHING (Reported) Albuterol Sulfate 2.5 MG/3 ML (0.083 %) VIAL.NEB 1 Vial INH/CONSTANTIN 4 TIMES/DAY BREATHING PROBLEMS (Reported) Allopurinol 300 MG TABLET 0.5 TAB PO QAM GOUT (Reported) Budesonide/Formoterol Fumarate (Symbicort 160-4.5 Mcg Inhaler) 160 MCG-4.5 MCG/ ACTUATION HFA.AER.AD 2 PUF INH BID BREATHING PROBLEMS (Reported) Calcium Carbonate (Calcium) 500 MG CALCIUM (1,250 MG) TABLET 1 TAB PO DAILY SUPPLEMENT (Reported) Cholecalciferol (Vitamin D3) (Vitamin D) 2,000 UNIT TABLET 1 TAB PO 1700 SUPPLEMENT (Reported) Citalopram Hydrobromide (Citalopram HBr) 20 MG TABLET 1 TAB PO DAILY MENTAL HEALTH (Reported) Cyanocobalamin (Vitamin B-12) (B-12 Dots) 500 MCG TABLET 1 TAB PO DAILY VITAMIN SUPPORT (Reported) Doxycycline Hyclate 100 MG TABLET 1 TAB PO BID ANTIBIOTIC, INFECTION ( Reported) Folic Acid 1 MG TABLET 1 TAB PO DAILY SUPPLEMENT (Reported) Furosemide 40 MG TABLET 2 MG PO DAILY SWELLING (Reported) Lactobacillus Acidophilus (Probiotic) 10 BILLION CELL CAPSULE 1 CAP PO BID GI (Reported) Metolazone 2.5 MG TABLET 1 TAB PO DAILY BEFORE FUROSEMIDE (Reported) Potassium Chloride 20 MEQ TAB.ER.PRT 2 TAB PO DAILY SUPPLEMENT (Reported) Prednisone 20 MG TABLET 1 TAB PO TID STEROID (Reported) Tiotropium [place] (Spiriva) 18 MCG CAP.W.DEV 1 CAP INH DAILY BREATHING PROBLEMS (Reported) Tramadol HCl 50 MG TABLET 1 TAB PO QPM PRN PAIN (Reported) Warfarin Sodium (Coumadin) 2.5 MG TABLET 0.5 TAB PO 2100 BLOOD THINNER ( Reported) Current Medications: Current Medications Sig/Aparna Start time Last Medication Dose Route Stop Time Status Admin Azithromycin 500 MG ONCE ONE 10/10 1430 DC 10/10 Sodium Chloride 250 ML IV 10/10 1529 1447 Ceftriaxone Sodium 0 .STK-MED ONE 10/10 1447 DC .ROUTE Ceftriaxone Sodium 1,000 MG ONCE ONE 10/10 1430 DC 10/10 IV 10/10 1431 1447 Sodium Chloride 500 ML BOLUS ONE 10/10 1530 AC 10/10 IV 10/10 1629 1533 Past History Travel History Traveled to [place] past 21 day No Medical History Neurological: NONE EENT: NONE Cardiovascular: AFIB, CHF, hypertension Respiratory: NONE Gastrointestinal: NONE Hepatic: NONE Renal: NONE Musculoskeletal: NONE Psychiatric: NONE Endocrine: NONE Blood Disorders: NONE Cancer(s): NONE 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 self Services at Home: Home Health Aide Primary Language: Urdu Living Will? no Functional Ability ADLs Independent: dressing, eating, toileting, bathing. Ambulation: independent, walker IADLs Needs Assist: shopping, housework, finances, food prep, telephone, transportation, medication admin. Exam & Diagnostic Data Last 24 Hrs of Vital Signs/I&O Vital Signs Date Time Temp Pulse Resp B/P B/P Pulse O2 O2 Flow FiO2 Mean Ox Delivery Rate 10/10 1450 97.5 20 97 Nasal 2.0L Cannula 10/10 1439 94.7 63 23 122/58 93 Room Air 10/10 1430 98 Nasal 2.0L Cannula 10/10 1430 64 20 93 Room Air 10/10 1254 95.8 66 22 129/62 97 Nasal 2.0L Cannula Intake & Output 10/10 1600 10/10 0800 10/10 0000 Intake Total 750 Output Total Balance 750 Intake, IV 750 Physical Exam Other Physical Findings: gen awake and alert heent ncat cvs s1, s2, systolic murmur lungs rare rhonchi abd soft bs+ ext edematous Last 48 Hrs of Labs/Otis: Laboratory Tests 10/10/16 1444: Lactic Acid 2.6 H 10/10/16 1430: pH 7.52 H, pCO2 32 L, pO2 65 L, HCO3 25, ABG O2 Sat (Measured) 92.0 L, P-50 (Temp Corrected) Y, Carboxyhemoglobin 2.0, O2 Concentration % .21, Temperature 95.8 L, O2 Delivery Method RA, Phlebotomy Draw Site RIGHT RADIAL 10/10/16 1426: Urine Color YEL, Urine Clarity CLEAR, Urine pH 6.0, Ur Specific [place] 1.010, Urine Protein NEG, Urine Ketones NEG, Urine Nitrite NEG, Urine Bilirubin NEG, Urine Urobilinogen 0.2, Ur Leukocyte Esterase MOD H, Ur Microscopic SEDIMENT EXAMINED, Urine RBC 5-10 H, Urine WBC 5-10 H, Ur Epithelial Cells RARE, Urine Bacteria MANY H, Urine Hemoglobin SMALL H, Urine Glucose NEG 10/10/16 1350: Anion Gap 12, Estimated GFR 39 L, BUN/Creatinine Ratio 40.0 H, Glucose 136 H, Calcium 9.0, Total Bilirubin 5.4 H, AST 36, ALT 24, Alkaline Phosphatase 170 H , Troponin I 0.03, Gvo-M-Swflmbbnycb Pept 3530 H, Total Protein 6.7, Albumin 3.0 L, Globulin 3.7, Albumin/Globulin Ratio 0.8 L, CBC w Diff NO MAN DIFF REQ, RBC 3.23 L, MCV 97.3, MCH 30.9, RDW 18.8 H, MPV 9.8, Gran % 86.1 H, Lymphocytes % 11.1 L, Monocytes % 2.6, Eosinophils % 0, Basophils % 0.2, Absolute Granulocytes 3.5, Absolute Lymphocytes 0.4 L, Absolute Monocytes 0.1 L, Absolute Eosinophils 0, Absolute Basophils 0, PUBS MCHC 31.8 L Assessment/Plan Impression/Plan: Impression 86 year old woman. She is known to me from the office and previous admits. She is sent by her nursing facility for worsened dyspnea and reduced o2 saturation. Recent admission for CHF. Overall leg swelling persists but somewhat improved. Per family has had a CXR performed at her NH facility. Whitish phlegm, cough persists. She was started on abx and steroids. Her medical hx includes mark on cpap, a.fib on coumadin, chf, copd, pacemaker. Severe ph in setting of chf and cirrhosis. She is on spiriva and albuterol. In ED her CXR shows LLL airspace disease, no leukocytosis, afebrile. Lactate 2.6. Plan -agree with abx, however cxr can represent atelectasis or possibly pneumonia -BNP is worsened - can have element of worsened chf -alert cardiology of her admission -ins/outs, monitor creatinine -monitor lactate -cont nocturnal cpap -trc/nebs, spiriva Consult Acknowledgment - Thank you for your consult request.
--- NOTE | 2016-10-10 16:42 | NUR ---
DR. MANN TO BEDSIDE FOR EVAL. PT REQUESTING SOMETHING TO DRINK. PT ADVISED TO REMAIN NPO UNTIL FURTHER TESTING IS COMPLETED, VERBALIZES UNDERSTANDING.
--- NOTE | 2016-10-10 16:50 | NUR ---
PT TO CAT SCAN VIA STRETCHER AT THIS TIME. PER DR. MANN PT IS OK TO HAVE ICE CHIPS.
--- NOTE | 2016-10-10 17:11 | NUR ---
PT HAS BED ASSIGNMENT 219-2. RN NOTIFIED.
--- NOTE | 2016-10-10 17:25 | NUR ---
REPEAT LACTIC DRAWN AND SENT BY THIS MST.
--- NOTE | 2016-10-10 17:39 | NUR ---
REPORT GIVEN TO JOLIE DRAPER. PT WILL BE TRANSPORTED FROM [facility], RN IN AGREEMENT TO PLAN.
--- NOTE | 2016-10-10 17:47 | NUR ---
PER TECH PT WILL BE NEXT AND IT IS OK TO BOOK TRANSPORT FROM .
[2016-10-10 17:48] LABS: PT 23.2 SEC (9.4-12.5)
--- NOTE | 2016-10-10 18:04 | NUR ---
CRITICAL TEST RESULTS [id number] HENRY CHAMBERS 86 F TESTS AND RESULTS: LACTIC 2.4 Results received and read back by: KACEY HEART Results received date and time: 10/10/16 1805 The following provider was notified of the results, and read the results back: HOUSE STAFF PAGED Notified date and time: 10/10/16 at 1805
--- NOTE | 2016-10-10 18:16 | CT SCAN REPORT ---
EXAMINATION: CT CHEST, ABDOMEN AND PELVIS WITHOUT CONTRAST CLINICAL INFORMATION: Hypoxia. Abdominal pain with elevated lactic acid. COMPARISON: No pertinent prior studies are available for comparison TECHNIQUE: Multidetector volumetric imaging was performed from the thoracic inlet through the pubic symphysis without contrast. Sagittal and coronal reformatted images were obtained on the technologist workstation. DLP: 1574. mGy-cm FINDINGS: CHEST: LUNG: Moderate left lower lobe airspace disease, atelectasis and/or infiltrate, trace left pleural effusion. MEDIASTINUM: Heart is enlarged with extensive atherosclerotic aortic calcification with a small pericardial effusion. There is extensive atherosclerotic aortic and coronary calcification. There is no mediastinal or hilar lymphadenopathy. There are a few subcentimeter mediastinal lymph nodes. Single lead pacer from the left. PERICARDIUM/PLEURA: Small pericardial effusion trace left pleural effusion with atelectasis. CHEST WALL/AXILLA: Diffuse anasarca. ABDOMEN/PELVIS: LIVER, GALLBLADDER, BILIARY TREE: Unremarkable. PANCREAS: Unremarkable. SPLEEN: Mildly enlarged. ADRENAL GLANDS AND KIDNEYS: Unremarkable. URETERS AND BLADDER: No evidence of obstruction or urolithiasis. BOWEL LOOPS: Largely unremarkable on this noncontrast examination. No convincing evidence of pneumatosis intestinalis is identified. What appears to represent the appendix is unremarkable. LYMPHOVASCULAR STRUCTURES: No lymphadenopathy. The inferior vena cava and its direct branches are distended with the uppermost aspect of the IVC measuring 3 cm transverse dimension suggesting right-sided heart failure. There is extensive atherosclerotic calcification throughout the aorta and its branches no air is identified in the mesenteric vessels. PERITONEAL CAVITY: No free air or free fluid is seen, PELVIC VISCERA: Somewhat bulky appearing uterus for the patient's age suggesting mild myomatous changes. BONES: No aggressive osseous lesions. There are are fairly significant degenerative changes most notably in the lumbar spine. ANTERIOR ABDOMINAL WALL AND SOFT TISSUES: There is a moderate-sized periumbilical hernia containing only mesenteric fat without evidence of incarceration. There is fairly extensive diffuse soft tissue anasarca throughout the superficial soft tissues, no focal fluid collections are seen. IMPRESSION: 1. No convincing evidence of an acute intra-abdominal or intrathoracic process to suggest the etiology of the patient's elevated lactic acid level. 2. Left lower lobe volume loss and airspace disease could represent evolving infiltrate in the proper clinical setting. 3. Distended inferior vena cava suggesting right-sided heart failure with underlying fairly extensive anasarca etiology indeterminate. 4. Extensive degenerative changes.
--- NOTE | 2016-10-10 19:33 | ULTRASOUND REPORT ---
EXAMINATION: US TRIPLEX OF LOWER EXTREMITIES, BILATERAL CLINICAL INFORMATION: Pain in the left leg. Rule out DVT. COMPARISON: None available. TECHNIQUE: Color-flow triplex imaging with spectral analysis and compression Doppler were performed on the lower extremities. FINDINGS: Respiratory variation, normal compression and augmented flow are noted throughout the lower extremities. The visualized common femoral vein, superficial femoral vein, profunda femoral vein, popliteal vein and midcalf peroneal and posterior tibial venous segments show no evidence of deep venous thrombosis. There is no Connell's cyst. IMPRESSION: Normal triplex scan without evidence of deep venous thrombosis involving the lower extremities.
[2016-10-10 20:55] LABS: PT 24.2 SEC (9.4-12.5)
--- NOTE | 2016-10-10 21:13 | NUR ---
LATE ENTRY: PT ARRIVED ON FLOOR AT 1845 FROM ER. PT A&OX3, VSS, AFEBRILE, PT ON 2LNC, #20 LAC FLUSHING WITH NO DIFFICULTY. PT HAS BRUISE TO R BUTTOCK SIZE OF GOLF BALL. +2 EDEMA TO BLE. SIZEWISE BED ORDERED. PT IS BED BOUND. PT ORIENTED TO ROOM/FLOOR. REPORT GIVEN TO JOLIE RODRIGUEZ AT SHIFT CHANGE.
[2016-10-10 23:08] VITALS: BP 118/60
[2016-10-11 06:53] VITALS: BP 122/62
--- NOTE | 2016-10-11 07:33 | PN- Housestaff ---
ALBA REYNOLDS,[facility] 10/11/16 0732: Subjective Follow-up For: Pneumonia Chf Exacerbation Fluid Overload. Subjective: Ms Le was seen and examined this morning. She is resting comfortably in bed. She denies any issues overnight. She is currently saturating well by supplemental oxygen through the nasal cannula. Patient states that her dyspnea has improved. She was able to get some sleep last night. States that her lower extremity pain has resolved. She is currently pain-free. She denies any fever, chills, nausea, vomiting. Patient endorses some mild anxiety. Review of Systems Constitutional: Denies: chills, diaphoresis, fever, malaise, weakness. Cardiovascular: Reports: edema, peripheral edema. Denies: chest pain, orthopena. Respiratory: Reports: short of breath. Denies: cough, hemoptysis, sputum production, wheezing. Gastrointestinal: Denies: abdominal pain, bloating, constipation, diarrhea, bowel incontinence, vomiting. Genitourinary: Denies: dysuria. Musculoskeletal: Reports: joint pain. Skin: Reports: see HPI. Neurological/Psychological: Reports: anxiety. Objective Last 24 Hrs of Vital Signs/I&O Vital Signs Date Time Temp Pulse Resp B/P B/P Pulse O2 O2 Flow FiO2 Mean Ox Delivery Rate 10/11 0653 98.0 60 20 122/62 94 10/11 0000 CPAP 10/10 2308 98.0 60 18 118/60 95 Nasal 2.0L Cannula 10/10 2221 98 CPAP 10/10 2152 Nasal 2.0L Cannula 10/10 1840 94 Nasal 2.0L Cannula 10/10 1707 97.2 66 21 126/64 94 Nasal 2.0L Cannula 10/10 1450 97.5 20 97 Nasal 2.0L Cannula 10/10 1439 94.7 63 23 122/58 93 Room Air 10/10 1430 98 Nasal 2.0L Cannula 10/10 1430 64 20 93 Room Air 10/10 1254 95.8 66 22 129/62 97 Nasal 2.0L Cannula Intake & Output 10/11 1600 10/11 0800 10/11 0000 Intake Total 300 415 Output Total 300 Balance 0 415 Intake, IV 300 75 Intake, Oral 340 Output, Urine 300 Patient 115.666 kg Weight Weight Reported by Patient Measurement Method Physical Exam General Appearance: Alert, Oriented X3, Cooperative, No Acute Distress Cardiovascular: Normal S1, Normal S2, Irregular Rate Lungs: wheezing R>L Abdomen: Normal Bowel Sounds, Soft, No Tenderness, No Hepatospenomegaly Neurological: Normal Speech, Strength at 5/5 X4 Ext Extremities: 2+ edema bilaterally Current Medications: Current Medications Sig/Aparna Start time Last Medication Dose Route Stop Time Status Admin Acetaminophen 650 MG Q6P PRN 10/10 1630 AC PO Acetaminophen/ 1 TAB Q6P PRN 10/10 1630 AC Hydrocodone Bitart PO Albuterol Sulfate 3 ML BID 10/11 1000 AC INH Albuterol Sulfate 3 ML 4 TIMES/DAY 10/10 1800 AC INH Albuterol Sulfate 2 PUF Q4-6 PRN PRN 10/10 1730 AC INH Allopurinol 150 MG QAM 10/11 1000 AC PO Azithromycin 500 MG Q24H 10/11 1000 AC Sodium Chloride 250 ML IV Azithromycin 500 MG ONCE ONE 10/10 1430 DC 10/10 Sodium Chloride 250 ML IV 10/10 1529 1447 Budesonide/ 2 PUF BID 10/10 2200 AC 10/10 Formoterol Fumarate INH 2121 Calcium Carbonate 500 MG DAILY 10/11 1000 AC PO Ceftriaxone Sodium 1,000 MG DAILY 10/11 1000 AC IV Ceftriaxone Sodium 0 .STK-MED ONE 10/10 1447 DC .ROUTE Ceftriaxone Sodium 1,000 MG ONCE ONE 10/10 1430 DC 10/10 IV 10/10 1431 1447 Citalopram 20 MG DAILY 10/10 1726 AC Hydrobromide PO Folic Acid 1 MG DAILY 10/11 1000 AC PO Furosemide 40 MG DAILY 10/11 1000 DC PO Furosemide 80 MG BID 10/11 1000 AC PO Metolazone 2.5 MG DAILY 10/11 1000 CAN PO Metolazone 2.5 MG DAILY 10/11 1000 AC PO Morphine Sulfate 1 MG Q4P PRN 10/10 1630 AC IV Nystatin 1 PONCHO TIDPRN PRN 10/11 0745 AC TOP Potassium Chloride 40 MEQ DAILY 10/11 1000 AC PO Potassium Chloride 40 MEQ DAILY 10/10 1726 DC PO Potassium Chloride 40 MEQ ONCE ONE 10/10 1715 DC 10/10 PO 10/10 1716 2121 Prednisone 20 MG TID 10/10 2200 AC 10/10 PO 2121 Sodium Chloride 1,000 ML ONCE ONE 10/10 2230 AC 10/10 IV 10/11 1149 2321 Sodium Chloride 500 ML BOLUS ONE 10/10 1530 DC 10/10 IV 10/10 1629 1533 Tiotropium [place] 1 PUF DAILY 10/10 1726 AC INH Warfarin Sodium 1 MG COUMADIN 1700 ONE 10/11 1700 AC PO 10/11 1701 Warfarin Sodium 1.25 MG 2100 10/10 2100 CAN PO Last 24 Hrs of Lab/Otis Results Last 24 Hrs of Labs/Mics: Laboratory Tests 10/11/16 0610: Sodium Pending, Potassium Pending, Chloride Pending, Carbon Dioxide Pending, Anion Gap Pending, BUN Pending, Creatinine Pending, BUN/Creatinine Ratio Pending , Lactic Acid Pending, Total Bilirubin Pending, Direct Bilirubin Pending, AST Pending, ALT Pending, Alkaline Phosphatase Pending, Total Protein Pending, Albumin Pending, CBC w Diff Pending, WBC Pending, RBC Pending, Hgb Pending, Hct Pending, MCV Pending, MCH Pending, RDW Pending, Plt Count Pending, MPV Pending, PUBS MCHC Pending 10/11/16 0150: Troponin I 0.02 10/11/16 0150: Lactic Acid 2.3 H 10/10/16 2030: Lactic Acid 2.7 H, Troponin I 0.03, PT 24.2 H, INR 2.32 H 10/10/16 1723: Lactic Acid 2.4 H 10/10/16 1444: Lactic Acid 2.6 H 10/10/16 1430: pH 7.52 H, pCO2 32 L, pO2 65 L, HCO3 25, ABG O2 Sat (Measured) 92.0 L, P-50 (Temp Corrected) Y, Carboxyhemoglobin 2.0, O2 Concentration % .21, Temperature 95.8 L, O2 Delivery Method RA, Phlebotomy Draw Site RIGHT RADIAL 10/10/16 1426: Urine Color YEL, Urine Clarity CLEAR, Urine pH 6.0, Ur Specific [place] 1.010, Urine Protein NEG, Urine Ketones NEG, Urine Nitrite NEG, Urine Bilirubin NEG, Urine Urobilinogen 0.2, Ur Leukocyte Esterase MOD H, Ur Microscopic SEDIMENT EXAMINED, Urine RBC 5-10 H, Urine WBC 5-10 H, Ur Epithelial Cells RARE, Urine Bacteria MANY H, Urine Hemoglobin SMALL H, Urine Glucose NEG 10/10/16 1350: Anion Gap 12, Estimated GFR 39 L, BUN/Creatinine Ratio 40.0 H, Glucose 136 H, Calcium 9.0, Total Bilirubin 5.4 H, Direct Bilirubin 3.4 H, GGT 48 H, AST 36, ALT 24, Alkaline Phosphatase 170 H, Troponin I 0.03, Tsp-C-Wqbglzxltpr Pept 3530 H, Total Protein 6.7, Albumin 3.0 L, Globulin 3.7, Albumin/Globulin Ratio 0.8 L, PT 23.2 H, INR 2.23 H, CBC w Diff NO MAN DIFF REQ, RBC 3.23 L, MCV 97.3, MCH 30.9, RDW 18.8 H, MPV 9.8, Gran % 86.1 H, Lymphocytes % 11.1 L, Monocytes % 2.6, Eosinophils % 0, Basophils % 0.2, Absolute Granulocytes 3.5, Absolute Lymphocytes 0.4 L, Absolute Monocytes 0.1 L, Absolute Eosinophils 0, Absolute Basophils 0, PUBS MCHC 31.8 L Microbiology 10/11 0716 LOWER RESP: Respiratory Culture - ORD 10/11 0716 LOWER RESP: Gram Stain - ORD 10/10 1444 BLOOD: Blood Culture - RECD 10/10 1430 BLOOD: Blood Culture - RECD 10/10 1426 URINE ROUT: Urine Culture - RECD Assessment/Plan Assessment: She was also started on ceftriaxone and azithromycin. #Community Acquire Pneumonia, Left Lower Lobe. IV Antibiotics: Cefrtiaxone and Azithromycin--> Transition to Oral Augmentin. Total Coverage 7 days. Wells Score: Moderate risk for PE A VQ scan has been ordered to rule out a PE owing to know onset hypoxia in the setting of prolonged immobility. Doppler of the Lower extemity was negative for DVT. Incentive spirometer. CT of chest to evalaute CBC in AM #Exacerbation of CHF with generalized Anasarca. ProBNP at 3000 Monitor ins and outs. Monitor daily BEP. IV Lasix 60 mg. Monitor on Telemetry for any acute changes. Informed cardiology service for consultation a.m. Last echocardiogram done in August 2016. Ejection fraction estimated between 60 and 65%. #Metabolic Alkalosis pH 7.52 on admission. Lower CO2 due to hyperventilation. Recent Increased in Lasix dose may have contributed to excess bicarbonate excretion. Cotinue CPAP Overnight. If patients repiratory function changes, consider repeat ABG. #Lactic acidosis. Lilely due to hypoperfusion, in the setting of new medication. Trend lactic acid to resolves. Ensure mean antral pressure remains above 65. Repeat Lactic Acid in AM #Hx of A fib. Continue Warfarin at home dose. Repeat INR in a.m. INR this am: 2.51 Target INR between 2-3. #History of COPD, BÁRBARA on nocturnal CPAP Formal pulmonology consultation already obtained. Severe obstructive sleep apnea, continue CPAP overnight. TRC Nebs #History of HTN Conitnue home medciations. Continue Metolazone. 2.5 mg #Bilirubinemia, cholestatic liver disease The patient patient does have a history of increased bilirubin. Total Bilirubin this am: 4.3. Repeat LFT in AM. Abdominal CT and pelvis to rule out any intra-abdominal pathology. If evidence of pathology contact GI stat. #History of Vaginal Mass Last saw Dr Em on 09/07. Was supposed to follow up for outpatient testing. Denies any vaginal issues or acute bleeding. Avoid Simpson insertion as this caused a lot of problems on last visit. #Diet heart healthy obtain formal swallow evaluation in a.m. #Code full code Problem List: 1. Hypoxia 2. Pneumonia 3. Elevated INR 4. Elevated bilirubin 5. CHF (congestive heart failure) 6. ATRIAL FIBRILATION Pain Ratin Pain Location: no pain Pain Goal: Remain pain free Pain Plan: Morphine and tylenol Tomorrow's Labs & Rationales: INR: Comadin Dosing. , MACKENZIE REYNOLDS,[facility] 10/11/16 1045: Attending MD Review Statement Attending Statement Attending MD Statement: examined this patient, discuss w/resident/PA/ADVERTISING SALES EXECUTIVE, agreed w/resident/PA/ADVERTISING SALES EXECUTIVE, reviewed EMR data (avail) Attending Assessment/Plan: 86F PMH HTN, atrial fibrillation on Coumadin, HFpEF, severe pulmonary hypertension, history of bradycardia s/p PPM, BÁRBARA on CPAP presenting with several weeks of worsening fatigue, shortness of breath, and dyspnea on exertion. Has developed a cough of late that sounds wheezing in nature. Denies fever, chills, n/v, diarrhea, dysuria. Found to have left sided infiltrate on CXR, elevated lactate. Bilirubin was elevated but appears chronically so, though was never this high. Hypothermic 94.7 with WBC 4.1 and tachycardic. Patient appears diffusely edematous. She has decreased breath sounds in bilateral bases. She is not making sputum, and her vitals are stable. I do not suspect an infectious source at this time, more likely the cause of her symptoms is hypervolemia and anasarca. 1. Anasarca 2. Shortness of breath 3. Acute on chronic HFpEF 4. Severe pulmonary hypertension 5. Lactic acidosis 6. Bilirubinemia 7. Paroxysmal atrial fibrillation 8. BÁRBARA on CPAP Plan - Transfer to telemetry for more extensive diuresis and monitoring - Discontinue antibiotics - V/Q scan to rule out PE - Cardiology consult - Increase Lasix 60mg IV BID, follow cardiology recommendations - I/O, daily weights - Continue Metolazone - Follow cultures - Continue home medications - Pulmonary consult - DVT PPx
[2016-10-11 08:35] LABS: ABSOLUTE BASOPHIL COUNT 0 /CUMM (0.0-0.2); ABSOLUTE EOSINOPHIL COUNT 0 /CUMM (0.0-0.7); ABSOLUTE LYMPH COUNT 0.7 /CUMM (1.2-3.4); ABSOLUTE MONOCYTE COUNT 0.1 /CUMM (0.10-0.60); BASOPHIL % 0.3 % (0.0-2.0); EOSINOPHIL % 0.1 % (0-5); HEMATOCRIT 29.3 % (37-47); MEAN CORPUSCULAR HGB 31.4 PG (27.0-31.0); MEAN CORPUSCULAR HGB CONC 32.3 G/DL (33.0-37.0); MEAN CORPUSCULAR VOLUME 97.3 FL (81.0-99.0); MEAN PLATELET VOLUME 10.1 FL (7.4-10.4); PLATELET COUNT 80 /CUMM (130-400); RBC DISTRIBUTION WIDTH 19.7 % (11.5-14.5); RED BLOOD CELL CT 3.01 /CUMM (4.20-5.40); WHITE BLOOD CELL COUNT 4.8 /CUMM (4.8-10.8)
[2016-10-11 09:21] LABS: PT 26.1 SEC (9.4-12.5)
--- NOTE | 2016-10-11 10:11 | NUR ---
NURSING NOTE: PATIENT LEFT FLOOR VIA SIZEWISE BED WITH DRAFTER CHIEF DESIGN AND OTHER STAFF ON [employer]A FLAKER. PATIENT MOVED TO ROOM 180-1, MEDS/BELONGINGS/CHART TRANSFERED WITH PATIENT. PATIENT ON O2@2L VIA NC. IV PATENT TO LW. DAUGHTER FOLLOWING PATIENT TO NEW ROOM. REPORT GIVEN OVER THE PHONE TO JOLIE HERNANDEZ.
[2016-10-11 10:26] LABS: GRANULOCYTE % 83.2 % (42.2-75.2)
[2016-10-11 10:34] VITALS: BP 102/62
--- NOTE | 2016-10-11 12:17 | Cons- Cardiology ---
General Information and HPI Consulting Request Date of Consult: 10/11/16 Requested By: MADHU MANN MD Reason for Consult: chf Source of Information: patient, family, old records History of Present Illness: This is an 86 year old female with a past medical history of chronic heart failure with normal left ventricular ejection fraction mild right ventricular dysfunction, pulmonary hypertension, atrial fibrillation on Coumadin, renal insufficiency, obesity with BÁRBARA on nocturnal CPAP, hypertension, permanent pacemaker, and thrombocytopenia who presents to from extended care facility after recent hospitalization. The patient notes increasing swelling in her arms and legs with some increased dyspnea without associated increasing orthopnea. She did note pain in both her arms and legs. She also noted a cough without subjective fever. Denies associated chest pain. Was noted to have decreased oxygen saturations per report. Denies any headache, slurring of speech, visual changes, or syncope. It appears she was recently started on metolazone. Denies any recurrent hematuria since last discharge. Allergies/Medications Allergies: Coded Allergies: guaifenesin (HIVES 09/01/16) Home Med List: Acetaminophen (Tylenol Arthritis) 650 MG TABLET.ER 2 TAB PO QPM PAIN ( Reported) Albuterol Sulfate (Proair Hfa) 90 MCG HFA.AER.AD 2 PUF INH Q4-6 PRN PRN BREATHING (Reported) Albuterol Sulfate 2.5 MG/3 ML (0.083 %) VIAL.NEB 1 Vial INH/CONSTANTIN 4 TIMES/DAY BREATHING PROBLEMS (Reported) Allopurinol 300 MG TABLET 0.5 TAB PO QAM GOUT (Reported) Budesonide/Formoterol Fumarate (Symbicort 160-4.5 Mcg Inhaler) 160 MCG-4.5 MCG/ ACTUATION HFA.AER.AD 2 PUF INH BID BREATHING PROBLEMS (Reported) Calcium Carbonate (Calcium) 500 MG CALCIUM (1,250 MG) TABLET 1 TAB PO DAILY SUPPLEMENT (Reported) Cholecalciferol (Vitamin D3) (Vitamin D) 2,000 UNIT TABLET 1 TAB PO 1700 SUPPLEMENT (Reported) Citalopram Hydrobromide (Citalopram HBr) 20 MG TABLET 1 TAB PO DAILY MENTAL HEALTH (Reported) Cyanocobalamin (Vitamin B-12) (B-12 Dots) 500 MCG TABLET 1 TAB PO DAILY VITAMIN SUPPORT (Reported) Doxycycline Hyclate 100 MG TABLET 1 TAB PO BID ANTIBIOTIC, INFECTION ( Reported) Folic Acid 1 MG TABLET 1 TAB PO DAILY SUPPLEMENT (Reported) Furosemide 40 MG TABLET 2 MG PO DAILY SWELLING (Reported) Lactobacillus Acidophilus (Probiotic) 10 BILLION CELL CAPSULE 1 CAP PO BID GI (Reported) Metolazone 2.5 MG TABLET 1 TAB PO DAILY BEFORE FUROSEMIDE (Reported) Potassium Chloride 20 MEQ TAB.ER.PRT 2 TAB PO DAILY SUPPLEMENT (Reported) Prednisone 20 MG TABLET 1 TAB PO TID STEROID (Reported) Tiotropium [place] (Spiriva) 18 MCG CAP.W.DEV 1 CAP INH DAILY BREATHING PROBLEMS (Reported) Tramadol HCl 50 MG TABLET 1 TAB PO QPM PRN PAIN (Reported) Warfarin Sodium (Coumadin) 2.5 MG TABLET 0.5 TAB PO 2100 BLOOD THINNER ( Reported) Current Medications: Current Medications Sig/Aparna Start time Last Medication Dose Route Stop Time Status Admin Acetaminophen 650 MG Q6P PRN 10/10 1630 AC PO Acetaminophen/ 1 TAB Q6P PRN 10/10 1630 AC Hydrocodone Bitart PO Albuterol Sulfate 3 ML BID 10/11 1000 AC INH Albuterol Sulfate 3 ML 4 TIMES/DAY 10/10 1800 AC INH Albuterol Sulfate 2 PUF Q4-6 PRN PRN 10/10 1730 AC INH Allopurinol 150 MG QAM 10/11 1000 AC 10/11 PO 0941 Azithromycin 500 MG Q24H 10/11 1000 DC Sodium Chloride 250 ML IV Azithromycin 500 MG ONCE ONE 10/10 1430 DC 10/10 Sodium Chloride 250 ML IV 10/10 1529 1447 Budesonide/ 2 PUF BID 10/10 2200 AC 10/11 Formoterol Fumarate INH 0942 Calcium Carbonate 500 MG DAILY 10/11 1000 AC 10/11 PO 0941 Ceftriaxone Sodium 1,000 MG DAILY 10/11 1000 CAN IV Ceftriaxone Sodium 0 .STK-MED ONE 10/10 1447 DC .ROUTE Ceftriaxone Sodium 1,000 MG ONCE ONE 10/10 1430 DC 10/10 IV 10/10 1431 1447 Citalopram 20 MG DAILY 10/10 1726 AC 10/11 Hydrobromide PO 0941 Folic Acid 1 MG DAILY 10/11 1000 AC 10/11 PO 0940 Furosemide 60 MG 7:30 AM, & 4:30 PM 10/11 1630 AC 10/11 IV 0941 Furosemide 40 MG DAILY 10/11 1000 DC PO Furosemide 80 MG BID 10/11 1000 CAN PO Metolazone 2.5 MG DAILY 10/11 1000 CAN PO Metolazone 2.5 MG DAILY 10/11 1000 AC 10/11 PO 0941 Morphine Sulfate 1 MG Q4P PRN 10/10 1630 AC IV Nystatin 1 PONCHO TIDPRN PRN 10/11 0745 AC TOP Potassium Chloride 40 MEQ DAILY 10/11 1000 AC 10/11 PO 0940 Potassium Chloride 40 MEQ DAILY 10/10 1726 DC PO Potassium Chloride 40 MEQ ONCE ONE 10/10 1715 DC 10/10 PO 10/10 1716 2121 Prednisone 20 MG TID 10/10 2200 AC 10/11 PO 0942 Sodium Chloride 1,000 ML ONCE ONE 10/10 2230 DC 10/10 IV 10/11 1149 2321 Sodium Chloride 500 ML BOLUS ONE 10/10 1530 DC 10/10 IV 10/10 1629 1533 Tiotropium [place] 1 PUF DAILY 10/10 1726 AC 10/11 INH 0942 Warfarin Sodium 1 MG COUMADIN 1700 ONE 10/11 1700 AC PO 10/11 1701 Warfarin Sodium 1.25 MG 2100 10/10 2100 CAN PO Review of Systems Review of Systems: Review of systems as per HPI. The remainder of a 10 point review of systems was reviewed and was otherwise negative. 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 Extended Care Facility Who Do You Live With? self Services at Home: Home Health Aide Primary Language: German Smoking Status: Former Smoker ETOH Use: denies use Illicit Drug Use: denies illicit drug use Living Will? no Functional Ability ADLs Independent: dressing, eating, toileting, bathing. Ambulation: independent, walker IADLs Needs Assist: shopping, housework, finances, food prep, telephone, transportation, medication admin. Exam & Diagnostic Data Vital Signs and I&O Vital Signs Date Time Temp Pulse Resp B/P B/P Pulse O2 O2 Flow FiO2 Mean Ox Delivery Rate 10/11 1034 98.1 58 20 102/62 98 Nasal 1.0L Cannula 10/11 0800 Nasal 2.0L Cannula 10/11 0653 98.0 60 20 122/62 94 10/11 0000 CPAP 10/10 2308 98.0 60 18 118/60 95 Nasal 2.0L Cannula 10/10 2221 98 CPAP 10/10 2152 Nasal 2.0L Cannula 10/10 1840 94 Nasal 2.0L Cannula 10/10 1707 97.2 66 21 126/64 94 Nasal 2.0L Cannula 10/10 1450 97.5 20 97 Nasal 2.0L Cannula 10/10 1439 94.7 63 23 122/58 93 Room Air 10/10 1430 98 Nasal 2.0L Cannula 10/10 1430 64 20 93 Room Air 10/10 1254 95.8 66 22 129/62 97 Nasal 2.0L Cannula Intake & Output 10/11 1600 10/11 0800 10/11 0000 10/10 1600 10/10 0800 10/10 0000 Intake Total 300 415 750 Output Total 300 Balance 0 415 750 Intake, IV 300 75 750 Intake, Oral 340 Output, Urine 300 Patient 255 lb Weight Weight Reported by Patient Measurement Method Physical Exam: General: no apparent distress. Alert. NC O2. Obese. Eyes: No obvious scleral icterus. HEENT: No jugular venous distention or abnormal jugular venous pulsations. Cardiovascular: Normal intensity S1/S2. Respiratory: No rales or rhonchi Abdomen: no guarding or rebound tenderness. Musculoskeletal: No clubbing or cyanosis noted, 1+ UE/LE edema Skin: warm Neuro: Grossly nonfocal Labs/Otis Results: Laboratory Tests 10/11 10/11 10/11 10/11 0834 0610 0150 0150 Chemistry Sodium (137 - 145 mmol/L) 139 Potassium (3.5 - 5.1 mmol/L) 3.7 Chloride (98 - 107 mmol/L) 99 Carbon Dioxide (22 - 30 mmol/L) 28 Anion Gap (5 - 16) 12 BUN (7 - 17 mg/dL) 51 H Creatinine (0.5 - 1.0 mg/dL) 1.3 H Estimated GFR (>60 ml/min) 39 L BUN/Creatinine Ratio (7 - 25 %) 39.2 H Lactic Acid (0.7 - 2.1 mmol/L) 2.3 H 2.3 H Total Bilirubin (0.2 - 1.3 mg/dL) 4.3 H Direct Bilirubin (< 0.4 mg/dL) 2.9 H AST (14 - 36 U/L) 34 ALT (9 - 52 U/L) 23 Alkaline Phosphatase (<127 U/L) 160 H Troponin I (< 0.11 ng/ml) 0.02 Total Protein (6.3 - 8.2 g/dL) 6.3 Albumin (3.5 - 5.0 g/dL) 2.8 L Coagulation PT (9.4 - 12.5 SEC) 26.1 H INR (0.90 - 1.19) 2.51 H Hematology CBC w Diff NO MAN DIFF REQ WBC (4.8 - 10.8 /CUMM) 4.8 RBC (4.20 - 5.40 /CUMM) 3.01 L Hgb (12.0 - 16.0 G/DL) 9.4 L Hct (37 - 47 %) 29.3 L MCV (81.0 - 99.0 FL) 97.3 MCH (27.0 - 31.0 PG) 31.4 H RDW (11.5 - 14.5 %) 19.7 H Plt Count (130 - 400 /CUMM) 80 L MPV (7.4 - 10.4 FL) 10.1 Gran % (42.2 - 75.2 %) 83.2 H Lymphocytes % (20.5 - 51.1 %) 13.8 L Monocytes % (1.7 - 9.3 %) 2.6 Eosinophils % (0 - 5 %) 0.1 Basophils % (0.0 - 2.0 %) 0.3 Absolute Granulocytes (1.4 - 6.5 /CUMM) 4.0 Absolute Lymphocytes (1.2 - 3.4 /CUMM) 0.7 L Absolute Monocytes (0.10 - 0.60 /CUMM) 0.1 L Absolute Eosinophils (0.0 - 0.7 /CUMM) 0 Absolute Basophils (0.0 - 0.2 /CUMM) 0 PUBS MCHC (33.0 - 37.0 G/DL) 32.3 L 10/10 10/10 10/10 10/10 2030 1723 1444 1430 Blood Gas pH (7.35 - 7.45 PH) 7.52 H pCO2 (35 - 45 TORR) 32 L pO2 (80 - 100 TORR) 65 L HCO3 (21 - 28 MEQ/L) 25 ABG O2 Sat (Measured) (>96.0 %) 92.0 L P-50 (Temp Corrected) Y Carboxyhemoglobin (1.5 - 5.0 %) 2.0 O2 Concentration % .21 Temperature (97.0 - 100.0 FARH) 95.8 L O2 Delivery Method RA Chemistry Lactic Acid (0.7 - 2.1 mmol/L) 2.7 H 2.4 H 2.6 H Troponin I (< 0.11 ng/ml) 0.03 Coagulation PT (9.4 - 12.5 SEC) 24.2 H INR (0.90 - 1.19) 2.32 H Miscellaneous Phlebotomy Draw Site RIGHT RADIAL 10/10 10/10 1426 1350 Chemistry Sodium (137 - 145 mmol/L) 136 L Potassium (3.5 - 5.1 mmol/L) 3.4 L Chloride (98 - 107 mmol/L) 95 L Carbon Dioxide (22 - 30 mmol/L) 29 Anion Gap (5 - 16) 12 BUN (7 - 17 mg/dL) 52 H Creatinine (0.5 - 1.0 mg/dL) 1.3 H Estimated GFR (>60 ml/min) 39 L BUN/Creatinine Ratio (7 - 25 %) 40.0 H Glucose (65 - 99 mg/dL) 136 H Calcium (8.4 - 10.2 mg/dL) 9.0 Total Bilirubin (0.2 - 1.3 mg/dL) 5.4 H Direct Bilirubin (< 0.4 mg/dL) 3.4 H GGT (12 - 43 U/L) 48 H AST (14 - 36 U/L) 36 ALT (9 - 52 U/L) 24 Alkaline Phosphatase (<127 U/L) 170 H Troponin I (< 0.11 ng/ml) 0.03 Cad-U-Eqjbcaotaba Pept (<125 pg/mL) 3530 H Total Protein (6.3 - 8.2 g/dL) 6.7 Albumin (3.5 - 5.0 g/dL) 3.0 L Globulin (1.9 - 4.2 gm/dL) 3.7 Albumin/Globulin Ratio (1.1 - 2.2 %) 0.8 L Coagulation PT (9.4 - 12.5 SEC) 23.2 H INR (0.90 - 1.19) 2.23 H Hematology CBC w Diff NO MAN DIFF REQ WBC (4.8 - 10.8 /CUMM) 4.1 L RBC (4.20 - 5.40 /CUMM) 3.23 L Hgb (12.0 - 16.0 G/DL) 10.0 L Hct (37 - 47 %) 31.5 L MCV (81.0 - 99.0 FL) 97.3 MCH (27.0 - 31.0 PG) 30.9 RDW (11.5 - 14.5 %) 18.8 H Plt Count (130 - 400 /CUMM) 90 L MPV (7.4 - 10.4 FL) 9.8 Gran % (42.2 - 75.2 %) 86.1 H Lymphocytes % (20.5 - 51.1 %) 11.1 L Monocytes % (1.7 - 9.3 %) 2.6 Eosinophils % (0 - 5 %) 0 Basophils % (0.0 - 2.0 %) 0.2 Absolute Granulocytes (1.4 - 6.5 /CUMM) 3.5 Absolute Lymphocytes (1.2 - 3.4 /CUMM) 0.4 L Absolute Monocytes (0.10 - 0.60 /CUMM) 0.1 L Absolute Eosinophils (0.0 - 0.7 /CUMM) 0 Absolute Basophils (0.0 - 0.2 /CUMM) 0 PUBS MCHC (33.0 - 37.0 G/DL) 31.8 L Urines Urine Color (YEL,AMB,STR) YEL Urine Clarity (CLEAR) CLEAR Urine pH (5.0 - 8.0) 6.0 Ur Specific [place] (1.001 - 1.035) 1.010 Urine Protein (NEG,<30 MG/DL) NEG Urine Ketones (NEG) NEG Urine Nitrite (NEG) NEG Urine Bilirubin (NEG) NEG Urine Urobilinogen (0.1 - 1.0 EU/dl) 0.2 Ur Leukocyte Esterase (NEG) MOD H Ur Microscopic SEDIMENT EXAMINED Urine RBC (0 - 5 /HPF) 5-10 H Urine WBC (0 - 2 /HPF) 5-10 H Ur Epithelial Cells (NONE,FEW) RARE Urine Bacteria (NEG/NONE) MANY H Urine Hemoglobin (NEG) SMALL H Urine Glucose (N MG/DL) NEG Diagnostic Data EKG Results Tracing was personally reviewed and shows low-voltage,?afib, poor R-wave progression, nonspecific T-wave abnormality CXR Results IMPRESSION: 1. Stable cardiomegaly with central vascular congestion. No overt edema. 2. Left lower lobe airspace disease which may represent atelectasis and/or pneumonia. Clinical correlation and follow-up recommended. 3. Small left pleural effusion. Other Results Chest CT: IMPRESSION: 1. No convincing evidence of an acute intra-abdominal or intrathoracic process to suggest the etiology of the patient's elevated lactic acid level. 2. Left lower lobe volume loss and airspace disease could represent evolving infiltrate in the proper clinical setting. 3. Distended inferior vena cava suggesting right-sided heart failure with underlying fairly extensive anasarca etiology indeterminate. 4. Extensive degenerative changes. echocardiogram Normal left ventricular systolic function with borderline hypertrophy. Right ventricular dilatation and hypokinesia. Severe Pulmonary hypertension by doppler. Biatrial enlargement. Mookie Rizvi M.D. (Electronically Signed) Final Date: 03 Sep 2016 07:49 Assessment/Plan Assessment/Plan 1. Acute on chronic congestive heart failure with normal left ventricular ejection fraction and mild right ventricular dysfunction 2. Pulmonary hypertension with mild right ventricular dysfunction 3. Atrial fibrillation on outpatient Coumadin 4. Chronic renal insufficiency 5. Hypertension 6. Obesity with obstructive sleep apnea on nocturnal CPAP 7. Postmenopausal bleeding status post prior D&C 8. History of bradycardia with permanent pacemaker in situ 9. Thrombocytopenia 10. Elevated bilirubin, cholestatic liver disease 11. Hematuria, resolved The patient's shortness of breath is likely multifactorial. She does have a left lower lobe consolidation and pneumonia is possible. She also has known pulmonary hypertension and obesity with obstructive sleep apnea. She does seem to have a component of volume overload but does not appear to be in florid congestive heart failure. Would diurese cautiously with the Lasix as she does have previous kidney injury thought likely due to over diuresis previously. Recommend daily metabolic panels while on IV Lasix. Can continue on metolazone. Follow strict I& Os and daily weights. Defer Assessment of the elevated bilirubin to the medical team, she was previously evaluated by GI. INR is currently therapeutic. Walker Holm MD [facility] Consult Acknowledgment - Thank you for your consult request.
--- NOTE | 2016-10-11 12:38 | PN- Pulmonary ---
Subjective HPI/Critical Care Issues: Patient seen and examined this morning. She is transferred to telemetry. She somewhat feeling better. Her CAT scan shows left lower lobe infiltrate. Objective Current Medications: Current Medications Sig/Aparna Start time Last Medication Dose Route Stop Time Status Admin Acetaminophen 650 MG Q6P PRN 10/10 1630 AC PO Acetaminophen/ 1 TAB Q6P PRN 10/10 1630 AC Hydrocodone Bitart PO Albuterol Sulfate 3 ML BID 10/11 1000 AC INH Albuterol Sulfate 3 ML 4 TIMES/DAY 10/10 1800 AC INH Albuterol Sulfate 2 PUF Q4-6 PRN PRN 10/10 1730 AC INH Allopurinol 150 MG QAM 10/11 1000 AC 10/11 PO 0941 Azithromycin 500 MG Q24H 10/11 1000 DC Sodium Chloride 250 ML IV Azithromycin 500 MG ONCE ONE 10/10 1430 DC 10/10 Sodium Chloride 250 ML IV 10/10 1529 1447 Budesonide/ 2 PUF BID 10/10 2200 AC 10/11 Formoterol Fumarate INH 0942 Calcium Carbonate 500 MG DAILY 10/11 1000 AC 10/11 PO 0941 Ceftriaxone Sodium 1,000 MG DAILY 10/11 1000 CAN IV Ceftriaxone Sodium 0 .STK-MED ONE 10/10 1447 DC .ROUTE Ceftriaxone Sodium 1,000 MG ONCE ONE 10/10 1430 DC 10/10 IV 10/10 1431 1447 Citalopram 20 MG DAILY 10/10 1726 AC 10/11 Hydrobromide PO 0941 Folic Acid 1 MG DAILY 10/11 1000 AC 10/11 PO 0940 Furosemide 60 MG 7:30 AM, & 4:30 PM 10/11 1630 AC 10/11 IV 0941 Furosemide 40 MG DAILY 10/11 1000 DC PO Furosemide 80 MG BID 10/11 1000 CAN PO Metolazone 2.5 MG DAILY 10/11 1000 CAN PO Metolazone 2.5 MG DAILY 10/11 1000 AC 10/11 PO 0941 Morphine Sulfate 1 MG Q4P PRN 10/10 1630 AC IV Nystatin 1 PONCHO TIDPRN PRN 10/11 0745 AC TOP Potassium Chloride 40 MEQ DAILY 10/11 1000 AC 10/11 PO 0940 Potassium Chloride 40 MEQ DAILY 10/10 1726 DC PO Potassium Chloride 40 MEQ ONCE ONE 10/10 1715 DC 10/10 PO 10/10 1716 2121 Prednisone 20 MG TID 10/10 2200 AC 10/11 PO 0942 Sodium Chloride 1,000 ML ONCE ONE 10/10 2230 DC 10/10 IV 10/11 1149 2321 Sodium Chloride 500 ML BOLUS ONE 10/10 1530 DC 10/10 IV 10/10 1629 1533 Tiotropium [place] 1 PUF DAILY 10/10 1726 AC 10/11 INH 0942 Warfarin Sodium 1 MG COUMADIN 1700 ONE 10/11 1700 AC PO 10/11 1701 Warfarin Sodium 1.25 MG 2100 10/10 2100 CAN PO Vital Signs & I&O Last 24 Hrs of Vitals and I&O: Vital Signs Date Time Temp Pulse Resp B/P B/P Pulse O2 O2 Flow FiO2 Mean Ox Delivery Rate 10/11 1034 98.1 58 20 102/62 98 Nasal 1.0L Cannula 10/11 0800 Nasal 2.0L Cannula 10/11 0653 98.0 60 20 122/62 94 10/11 0000 CPAP 10/10 2308 98.0 60 18 118/60 95 Nasal 2.0L Cannula 10/10 2221 98 CPAP 10/10 2152 Nasal 2.0L Cannula 10/10 1840 94 Nasal 2.0L Cannula 10/10 1707 97.2 66 21 126/64 94 Nasal 2.0L Cannula 10/10 1450 97.5 20 97 Nasal 2.0L Cannula 10/10 1439 94.7 63 23 122/58 93 Room Air 10/10 1430 98 Nasal 2.0L Cannula 10/10 1430 64 20 93 Room Air 10/10 1254 95.8 66 22 129/62 97 Nasal 2.0L Cannula Intake & Output 10/11 1600 10/11 0800 10/11 0000 Intake Total 300 415 Output Total 300 Balance 0 415 Intake, IV 300 75 Intake, Oral 340 Output, Urine 300 Patient 255 lb Weight Weight Reported by Patient Measurement Method Exam Other Physical Findings: gen awake and alert heent ncat cvs s1, s2, systolic murmur lungs rare rhonchi abd soft bs+ ext edematous Results Last 24 Hrs of Lab Results: Laboratory Tests 10/11/16 0834: PT 26.1 H, INR 2.51 H 10/11/16 0610: Anion Gap 12, Estimated GFR 39 L, BUN/Creatinine Ratio 39.2 H, Lactic Acid 2.3 H, Total Bilirubin 4.3 H, Direct Bilirubin 2.9 H, AST 34, ALT 23, Alkaline Phosphatase 160 H, Total Protein 6.3, Albumin 2.8 L, CBC w Diff NO MAN DIFF REQ, RBC 3.01 L, MCV 97.3, MCH 31.4 H, RDW 19.7 H, MPV 10.1, Gran % 83.2 H, Lymphocytes % 13.8 L, Monocytes % 2.6, Eosinophils % 0.1, Basophils % 0.3, Absolute Granulocytes 4.0, Absolute Lymphocytes 0.7 L, Absolute Monocytes 0.1 L, Absolute Eosinophils 0, Absolute Basophils 0, PUBS MCHC 32.3 L 10/11/16 0150: Troponin I 0.02 10/11/16 0150: Lactic Acid 2.3 H 10/10/16 2030: Lactic Acid 2.7 H, Troponin I 0.03, PT 24.2 H, INR 2.32 H 10/10/16 1723: Lactic Acid 2.4 H 10/10/16 1444: Lactic Acid 2.6 H 10/10/16 1430: pH 7.52 H, pCO2 32 L, pO2 65 L, HCO3 25, ABG O2 Sat (Measured) 92.0 L, P-50 (Temp Corrected) Y, Carboxyhemoglobin 2.0, O2 Concentration % .21, Temperature 95.8 L, O2 Delivery Method RA, Phlebotomy Draw Site RIGHT RADIAL 10/10/16 1426: Urine Color YEL, Urine Clarity CLEAR, Urine pH 6.0, Ur Specific [place] 1.010, Urine Protein NEG, Urine Ketones NEG, Urine Nitrite NEG, Urine Bilirubin NEG, Urine Urobilinogen 0.2, Ur Leukocyte Esterase MOD H, Ur Microscopic SEDIMENT EXAMINED, Urine RBC 5-10 H, Urine WBC 5-10 H, Ur Epithelial Cells RARE, Urine Bacteria MANY H, Urine Hemoglobin SMALL H, Urine Glucose NEG 10/10/16 1350: Anion Gap 12, Estimated GFR 39 L, BUN/Creatinine Ratio 40.0 H, Glucose 136 H, Calcium 9.0, Total Bilirubin 5.4 H, Direct Bilirubin 3.4 H, GGT 48 H, AST 36, ALT 24, Alkaline Phosphatase 170 H, Troponin I 0.03, Mhu-W-Xhdsompeqlw Pept 3530 H, Total Protein 6.7, Albumin 3.0 L, Globulin 3.7, Albumin/Globulin Ratio 0.8 L, PT 23.2 H, INR 2.23 H, CBC w Diff NO MAN DIFF REQ, RBC 3.23 L, MCV 97.3, MCH 30.9, RDW 18.8 H, MPV 9.8, Gran % 86.1 H, Lymphocytes % 11.1 L, Monocytes % 2.6, Eosinophils % 0, Basophils % 0.2, Absolute Granulocytes 3.5, Absolute Lymphocytes 0.4 L, Absolute Monocytes 0.1 L, Absolute Eosinophils 0, Absolute Basophils 0, PUBS MCHC 31.8 L Impression/Plan Impression/Plan Impression/Plan: Impression 86 year old woman. * acute exacerbation of CHF/volume overload * likely underlying LLL CAP Plan -7 days of Augmentin, monitor wbc, fevers -BNP is worsened - can have element of worsened chf -f/u cardiology -ins/outs, monitor creatinine -cont nocturnal cpap -trc/nebs, spiriva DVT prophylaxis at all times
--- NOTE | 2016-10-11 13:27 | NUCLEAR MEDICINE REPORT ---
EXAMINATION: PULMONARY VENTILATION PERFUSION STUDY CLINICAL INFORMATION: Hypoxia. COMPARISON: No previous lung scan is available for comparison. Radiographs of the chest dated 11/09/[address] also dated 11/09/2016 are available for comparison. TECHNIQUE: Serial gamma scintillation camera images were obtained over the posterior chest during the single breath, equilibrium rebreathing and washout of 15.1 mCi Xe 133 gas. The patient then received 4.0 mCi Tc-99m MAA intravenously and a 6-view perfusion study was performed. FINDINGS: Ventilation images: On the single breath and equilibrium images there is a mild diffuse decrease in activity in the left lung compared to the right.. Decreased activity in the left lung is present likely due in part to dilatation the cardiac silhouette. During the washout phase there is no abnormal retention. Perfusion images: No segmental perfusion defects are present. There is a mild diffuse decrease in activity in the left lung with moderate dilatation the cardiac silhouette which appears well matched to the ventilation images. No focal anatomic appearing perfusion defects are present. The chest radiograph dated 11/09/2016 shows cardiomegaly well matched to the ventilation and perfusion images described above. IMPRESSION: Very low probability of pulmonary embolism. Cardiomegaly.
[2016-10-11 14:28] VITALS: BP 113/78
[2016-10-11 22:32] VITALS: BP 112/70
[2016-10-12 07:43] VITALS: BP 106/68
[2016-10-12 07:59] LABS: ABSOLUTE BASOPHIL COUNT 0 /CUMM (0.0-0.2); ABSOLUTE EOSINOPHIL COUNT 0 /CUMM (0.0-0.7); ABSOLUTE GRANULOCYTE CT 5.1 /CUMM (1.4-6.5); ABSOLUTE LYMPH COUNT 0.5 /CUMM (1.2-3.4); ABSOLUTE MONOCYTE COUNT 0.2 /CUMM (0.10-0.60); BASOPHIL % 0.4 % (0.0-2.0); EOSINOPHIL % 0 % (0-5); GRANULOCYTE % 87.7 % (42.2-75.2); HEMATOCRIT 28.7 % (37-47); MEAN CORPUSCULAR HGB 31.5 PG (27.0-31.0); MEAN CORPUSCULAR HGB CONC 32.1 G/DL (33.0-37.0); MEAN PLATELET VOLUME 9.3 FL (7.4-10.4); PLATELET COUNT 80 /CUMM (130-400); RBC DISTRIBUTION WIDTH 19.9 % (11.5-14.5); RED BLOOD CELL CT 2.93 /CUMM (4.20-5.40); WHITE BLOOD CELL COUNT 5.9 /CUMM (4.8-10.8)
[2016-10-12 08:49] LABS: PT 31.2 SEC (9.4-12.5)
--- NOTE | 2016-10-12 11:50 | PN- Pulmonary ---
Subjective HPI/Critical Care Issues: pt seen and examined 1LNC doing well on Augmentin afebrile no leukocytosis Objective Current Medications: Current Medications Sig/Aaprna Start time Last Medication Dose Route Stop Time Status Admin Acetaminophen 650 MG Q6P PRN 10/10 1630 AC PO Acetaminophen/ 1 TAB Q6P PRN 10/10 1630 AC Hydrocodone Bitart PO Albuterol Sulfate 3 ML BID 10/11 1000 AC 10/12 INH 1032 Albuterol Sulfate 3 ML 4 TIMES/DAY 10/10 1800 DC INH Albuterol Sulfate 2 PUF Q4-6 PRN PRN 10/10 1730 AC INH Allopurinol 150 MG QAM 10/11 1000 AC 10/12 PO 0851 Amoxicillin/ 500 MG Q12 10/11 1352 AC 10/12 Clavulanate Potassium PO 0852 Amoxicillin/ 875 MG Q12 10/11 1340 DC Clavulanate Potassium PO Budesonide/ 2 PUF BID 10/10 2200 AC 10/12 Formoterol Fumarate INH 0851 Calcium Carbonate 500 MG DAILY 10/11 1000 AC 10/12 PO 0850 Citalopram 20 MG DAILY 10/10 1726 AC 10/12 Hydrobromide PO 0907 Folic Acid 1 MG DAILY 10/11 1000 AC 10/12 PO 0851 Furosemide 60 MG 7:30 AM, & 4:30 PM 10/11 1630 AC 10/12 IV 0850 Metolazone 2.5 MG DAILY 10/11 1000 AC 10/12 PO 0908 Morphine Sulfate 1 MG Q4P PRN 10/10 1630 AC IV Nystatin 1 PONCHO TIDPRN PRN 10/11 0745 TOP Patient Medication 1 ED .STK-MED ONE 10/11 1406 OK Teaching ED 10/11 1407 Patient Medication 1 ED .STK-MED ONE 10/11 1405 OK Teaching ED 10/11 1406 Potassium Chloride 20 MEQ DAILY 10/12 1000 AC PO Potassium Chloride 40 MEQ DAILY 10/11 1000 AC 10/11 PO 0940 Prednisone 20 MG TID 10/10 2200 AC 10/12 PO 0851 Sodium Chloride 1,000 ML ONCE ONE 10/10 2230 DC 10/10 IV 10/11 1149 2321 Tiotropium [place] 1 PUF DAILY 10/10 1726 AC 10/12 INH 0851 Warfarin Sodium 1 MG COUMADIN 1700 ONE 10/11 1700 DC 10/11 PO 10/11 1701 1719 Vital Signs & I&O Last 24 Hrs of Vitals and I&O: Vital Signs Date Time Temp Pulse Resp B/P B/P Pulse O2 O2 Flow FiO2 Mean Ox Delivery Rate 10/12 1039 95 Nasal 1.0L Cannula 10/12 0800 94 Nasal 1.0L Cannula 10/12 0743 98.8 67 22 106/68 94 Nasal Cannula 10/12 0000 Nasal 1.0L Cannula 10/11 2232 98.3 72 24 112/70 96 Nasal 1.0L Cannula 10/11 2026 95 Nasal 1.0L Cannula 10/11 1902 18 93 Nasal 1.0L Cannula 10/11 1600 Nasal 1.0L Cannula 10/11 1428 98.2 64 20 113/78 98 Room Air 10/11 1313 Nasal 1.0L Cannula 10/11 1308 93 Nasal 1.0L Cannula Intake & Output 10/12 1600 10/12 0800 10/12 0000 Intake Total 300 100 480 Output Total 200 Balance 300 100 280 Intake, Oral 300 100 480 Output, Urine 200 Patient 255 lb Weight Exam Other Physical Findings: gen awake and alert heent ncat cvs s1, s2, systolic murmur lungs rare rhonchi abd soft bs+ ext edematous Results Last 24 Hrs of Lab Results: Laboratory Tests 10/12/16 0700: Anion Gap 12, Estimated GFR 36 L, BUN/Creatinine Ratio 39.3 H, Lactic Acid 2.4 H, Uric Acid 8.6 H, Total Bilirubin 3.2 H, Direct Bilirubin 2.3 H, AST 38 H , ALT 28, Alkaline Phosphatase 151 H, Total Protein 6.2 L, Albumin 2.7 L, TSH 3.730, PT 31.2 H, INR 3.00 H, CBC w Diff MAN DIFF ORDERED, RBC 2.93 L, MCV 98.0, MCH 31.5 H, RDW 19.9 H, MPV 9.3, Gran % 87.7 H, Lymphocytes % 9.3 L, Monocytes % 2.6, Eosinophils % 0, Basophils % 0.4, Absolute Granulocytes 5.1, Absolute Lymphocytes 0.5 L, Absolute Monocytes 0.2, Absolute Eosinophils 0, Absolute Basophils 0, Platelet Estimate DECREASED, Polychromasia 1+, Anisocytosis 1+, PUBS MCHC 32.1 L Impression/Plan Impression/Plan Impression/Plan: Impression 86 year old woman. * acute exacerbation of CHF/volume overload * likely underlying LLL CAP Plan -complete course of Augmentin, monitor wbc, fevers -f/u cardiology -ins/outs, monitor creatinine -cont nocturnal cpap -trc/nebs, spiriva -V/Q scan noted to be low probability for VTE DVT prophylaxis at all times
--- NOTE | 2016-10-12 12:53 | PN- Housestaff ---
See Addendum Subjective Follow-up For: Severe sepsis with known infectious source, likely lung Exacerbation of CHF with generalized Anasarca. Metabolic Alkalosis Hx of A fib. History of COPD History of HTN Bilirubinemia History of Vaginal Mass Complaints: no complaints Tele-Events Since Last Visit: afib, , no event Review of Systems Constitutional: Reports: no symptoms. EENTM: Reports: no symptoms. Cardiovascular: Reports: no symptoms. Respiratory: Reports: cough, short of breath. Denies: hemoptysis, sputum production, stridor , wheezing. Gastrointestinal: Reports: no symptoms. Genitourinary: Reports: no symptoms. Musculoskeletal: Reports: no symptoms. Skin: Reports: no symptoms. Neurological/Psychological: Reports: no symptoms. Hematologic/Endocrine: Reports: no symptoms. Immunologic/Allergic: Reports: no symptoms. Comments: Ms Le was seen and examined by me this morning. She is resting comfortably in bed. She denies any issues overnight. She is currently saturating well by supplemental oxygen through the nasal cannula. Patient states that her dyspnea has improved. She was able to get some sleep last night. States that her lower extremity pain has resolved. She is currently pain-free. She denies any fever,dyspnea or cough. Objective Last 24 Hrs of Vital Signs/I&O Vital Signs Date Time Temp Pulse Resp B/P B/P Pulse O2 O2 Flow FiO2 Mean Ox Delivery Rate 10/12 1039 95 Nasal 1.0L Cannula 10/12 0800 94 Nasal 1.0L Cannula 10/12 0743 98.8 67 22 106/68 94 Nasal Cannula 10/12 0000 Nasal 1.0L Cannula 10/11 2232 98.3 72 24 112/70 96 Nasal 1.0L Cannula 10/11 2026 95 Nasal 1.0L Cannula 10/11 1902 18 93 Nasal 1.0L Cannula 10/11 1600 Nasal 1.0L Cannula 10/11 1428 98.2 64 20 113/78 98 Room Air 10/11 1313 Nasal 1.0L Cannula 10/11 1308 93 Nasal 1.0L Cannula Intake & Output 10/12 1600 10/12 0800 10/12 0000 Intake Total 300 100 480 Output Total 200 Balance 300 100 280 Intake, Oral 300 100 480 Output, Urine 200 Patient 255 lb Weight Physical Exam General Appearance: Alert, Oriented X3, Cooperative, No Acute Distress Skin: No Rashes, No Breakdown, No Significant Lesion Sepsis Skin Exam (color): Normal for Ethnicity HEENT: Atraumatic, PERRLA, EOMI, Mucous Membr. moist/pink Neck: Supple Cardiovascular: Regular Rate, Normal S1, Normal S2 (irregular rhythm) Lungs: Clear to Auscultation (scatered wheezes and crepitati) Abdomen: Normal Bowel Sounds, Soft, No Tenderness Neurological: Normal Speech, Strength at 5/5 X4 Ext, Normal Tone, Sensation Intact, Cranial Nerves 3-12 NL Extremities: 3+ Bilateral edema Vascular: Normal Pulses Current Medications: Current Medications Sig/Aparna Start time Last Medication Dose Route Stop Time Status Admin Acetaminophen 650 MG Q6P PRN 10/10 1630 AC PO Acetaminophen/ 1 TAB Q6P PRN 10/10 1630 AC Hydrocodone Bitart PO Albuterol Sulfate 3 ML BID 10/11 1000 AC 10/12 INH 1032 Albuterol Sulfate 3 ML 4 TIMES/DAY 10/10 1800 DC INH Albuterol Sulfate 2 PUF Q4-6 PRN PRN 10/10 1730 AC INH Allopurinol 150 MG QAM 10/11 1000 AC 10/12 PO 0851 Amoxicillin/ 500 MG Q12 10/11 1352 AC 10/12 Clavulanate Potassium PO 0852 Amoxicillin/ 875 MG Q12 10/11 1340 DC Clavulanate Potassium PO Budesonide/ 2 PUF BID 10/10 2200 AC 10/12 Formoterol Fumarate INH 0851 Calcium Carbonate 500 MG DAILY 10/11 1000 AC 10/12 PO 0850 Citalopram 20 MG DAILY 10/10 1726 AC 10/12 Hydrobromide PO 0907 Folic Acid 1 MG DAILY 10/11 1000 AC 10/12 PO 0851 Furosemide 60 MG 7:30 AM, & 4:30 PM 10/11 1630 AC 10/12 IV 0850 Metolazone 2.5 MG DAILY 10/11 1000 AC 10/12 PO 0908 Morphine Sulfate 1 MG Q4P PRN 10/10 1630 IV Nystatin 1 PONCHO TIDPRN PRN 10/11 0745 TOP Patient Medication 1 ED .STK-MED ONE 10/11 1406 MD Teaching ED 10/11 1407 Patient Medication 1 ED .STK-MED ONE 10/11 1405 MD Teaching ED 10/11 1406 Potassium Chloride 20 MEQ DAILY 10/12 1000 DC 10/12 PO 1210 Potassium Chloride 40 MEQ DAILY 10/11 1000 AC 10/11 PO 0940 Prednisone 20 MG TID 10/10 2200 AC 10/12 PO 0851 Tiotropium Sal[place] 1 PUF DAILY 10/10 1726 AC 10/12 INH 0851 Warfarin Sodium 1 MG COUMADIN 1700 ONE 10/11 1700 DC 10/11 PO 10/11 1701 1719 Last 24 Hrs of Lab/Otis Results Last 24 Hrs of Labs/Mics: Laboratory Tests 10/12/16 0700: Anion Gap 12, Estimated GFR 36 L, BUN/Creatinine Ratio 39.3 H, Lactic Acid 2.4 H, Uric Acid 8.6 H, Total Bilirubin 3.2 H, Direct Bilirubin 2.3 H, AST 38 H , ALT 28, Alkaline Phosphatase 151 H, Total Protein 6.2 L, Albumin 2.7 L, TSH 3.730, PT 31.2 H, INR 3.00 H, CBC w Diff MAN DIFF ORDERED, RBC 2.93 L, MCV 98.0, MCH 31.5 H, RDW 19.9 H, MPV 9.3, Gran % 87.7 H, Lymphocytes % 9.3 L, Monocytes % 2.6, Eosinophils % 0, Basophils % 0.4, Absolute Granulocytes 5.1, Absolute Lymphocytes 0.5 L, Absolute Monocytes 0.2, Absolute Eosinophils 0, Absolute Basophils 0, Platelet Estimate DECREASED, Polychromasia 1+, Anisocytosis 1+, PUBS MCHC 32.1 L Orders Radiology Findings: CXR:Stable cardiomegaly with central vascular congestion. No overt edema. 2. Left lower lobe airspace disease which may represent atelectasis and/or pneumonia. Clinical correlation and follow-up recommended. 3. Small left pleural effusion. Assessment/Plan Assessment: Assessment: This is an 86 year old female with a past medical history of chronic heart failure with normal left ventricular ejection fraction mild right ventricular dysfunction, pulmonary hypertension, atrial fibrillation on Coumadin, renal insufficiency, obesity with BÁRBARA on nocturnal CPAP, hypertension, permanent pacemaker, and thrombocytopenia who presents to [facility] from extended care facility after recent hospitalization. The patient notes increasing swelling in her arms and legs with some increased dyspnea without associated increasing orthopnea. She did note pain in both her arms and legs. She also noted a cough without subjective fever. Denies associated chest pain. #Community Acquire Pneumonia, Left Lower Lobe. * Oral Augmentin. DAY 3 OF ANTIBIOTICS. Total Coverage 7 days. * A VQ scan: Very low probability of pulmonary embolism. Cardiomegaly.. * Doppler of the Lower extemity was negative for DVT. * Incentive spirometer. * CT of chest show: . No convincing evidence of an acute intra-abdominal or intrathoracic process to suggest the etiology of the patient's elevated lactic acid level. #Exacerbation of CHF with generalized Anasarca. * ProBNP at 3000 * Monitor ins and outs. Monitor daily BEP. * IV Lasix 60 mg BID. Monitor for any acute changes. #Lactic acidosis. * Likely due to hypoperfusion, in the setting of new medication. * Lactic acid today is 2.4 was 2.3 on October 11, * Trend lactic acid to resolves. * Ensure mean atrial pressure remains above 65. * Repeat Lactic Acid in AM #Hx of A fib. * Holding Coumadin today as INR is 3 * Repeat INR in a.m. Target INR between 2-3. #History of COPD, BÁRBARA on nocturnal CPAP * Formal pulmonology consultation recommended cont nocturnal cpap * trc/nebs, spiriva * V/Q scan noted to be low probability for VTE * Severe obstructive sleep apnea, continue CPAP overnight. * TRC Nebs #History of HTN Conitnue home medciations. * Continue Metolazone. 2.5 mg #Bilirubinemia, cholestatic liver disease: * might be due to liver congestion due to heart failure. * The patient patient does have a history of increased bilirubin. * Total Bilirubin this am: 3.2 Repeat LFT in AM. #History of Vaginal Mass * Last saw Dr Em on 09/07. Was supposed to follow up for outpatient testing. * Denies any vaginal issues or acute bleeding. * Avoid Simpson insertion as this caused a lot of problems on last visit. #Diet * heart healthy obtain formal swallow evaluation in a.m. #Code full code Problem List: 1. Hypoxia 2. Pneumonia 3. ATRIAL FIBRILATION 4. CHF (congestive heart failure) 5. Elevated bilirubin 6. Elevated INR Pain Ratin Pain Location: N/A Alt Method for Pain Treatment: Other(free text) Pain Goal: Remain pain free Pain Plan: Morphine and Tylenol Tomorrow's Labs & Rationales: INR TSH Uric acid DVT/Prophylaxis: pharmacological Consulting Request: Consulting Specialty: Pulmonary Disease #Code full code Problem List: 1. Hypoxia 2. Pneumonia 3. ATRIAL FIBRILATION 4. CHF (congestive heart failure) 5. Elevated bilirubin 6. Elevated INR Pain Ratin Pain Location: N/A Alt Method for Pain Treatment: Other(free text) Pain Goal: Remain pain free Pain Plan: Morphine and Tylenol Tomorrow's Labs & Rationales: INR TSH Uric acid DVT/Prophylaxis: pharmacological Consulting Request: Consulting Specialty: Pulmonary Disease
--- NOTE | 2016-10-12 14:03 | PN- Cardiology ---
Subjective Subjective: The patient is feeling better. She states her breathing is better. She states her swelling is improved. Her I's and O's do not reflect diuresis but they're probably inaccurate. She is on IV Lasix twice daily. Objective Vital Signs and I&Os Vital Signs Date Time Temp Pulse Resp B/P B/P Pulse O2 O2 Flow FiO2 Mean Ox Delivery Rate 10/12 1039 95 Nasal 1.0L Cannula 10/12 0800 94 Nasal 1.0L Cannula 10/12 0743 98.8 67 22 106/68 94 Nasal Cannula 10/12 0000 Nasal 1.0L Cannula 10/11 2232 98.3 72 24 112/70 96 Nasal 1.0L Cannula 10/11 2026 95 Nasal 1.0L Cannula 10/11 1902 18 93 Nasal 1.0L Cannula 10/11 1600 Nasal 1.0L Cannula 10/11 1428 98.2 64 20 113/78 98 Room Air Intake & Output 10/12 1600 10/12 0800 10/12 0000 10/11 1600 10/11 0800 10/11 0000 Intake Total 300 100 480 440 300 415 Output Total 200 350 300 Balance 300 100 280 90 0 415 Intake, IV 300 75 Intake, Oral 300 100 480 440 340 Number 2 Bowel Movements Output, Urine 200 350 300 Patient 255 lb 255 lb Weight Weight Chair scale Reported by Patient Measurement Method Physical Exam: She is in no distress sitting in a chair HEENT exam is normal Chest reveals some mild expiratory wheezing Heart reveals irregular rhythm with grade 2/6 widespread systolic ejection murmur Extremities reveal chronic edema and chronic skin changes. Current Medications: Current Medications Sig/Aparna Start time Last Medication Dose Route Stop Time Status Admin Acetaminophen 650 MG Q6P PRN 10/10 1630 AC PO Acetaminophen/ 1 TAB Q6P PRN 10/10 1630 AC Hydrocodone Bitart PO Albuterol Sulfate 3 ML BID 10/11 1000 AC 10/12 INH 1032 Albuterol Sulfate 3 ML 4 TIMES/DAY 10/10 1800 DC INH Albuterol Sulfate 2 PUF Q4-6 PRN PRN 10/10 1730 AC INH Allopurinol 150 MG QAM 10/11 1000 AC 10/12 PO 0851 Amoxicillin/ 500 MG Q12 10/11 1352 AC 10/12 Clavulanate Potassium PO 0852 Amoxicillin/ 875 MG Q12 10/11 1340 DC Clavulanate Potassium PO Budesonide/ 2 PUF BID 10/10 2200 AC 10/12 Formoterol Fumarate INH 0851 Calcium Carbonate 500 MG DAILY 10/11 1000 AC 10/12 PO 0850 Citalopram 20 MG DAILY 10/10 1726 AC 10/12 Hydrobromide PO 0907 Folic Acid 1 MG DAILY 10/11 1000 AC 10/12 PO 0851 Furosemide 60 MG 7:30 AM, & 4:30 PM 10/11 1630 AC 10/12 IV 0850 Metolazone 2.5 MG DAILY 10/11 1000 AC 10/12 PO 0908 Morphine Sulfate 1 MG Q4P PRN 10/10 1630 IV Nystatin 1 PONCHO TIDPRN PRN 10/11 0745 TOP Patient Medication 1 ED .STK-MED ONE 10/11 1406 SC Teaching ED 10/11 1407 Patient Medication 1 ED .STK-MED ONE 10/11 1405 SC Teaching ED 10/11 1406 Potassium Chloride 20 MEQ DAILY 10/12 1000 DC 10/12 PO 1210 Potassium Chloride 40 MEQ DAILY 10/11 1000 AC 10/11 PO 0940 Prednisone 20 MG TID 10/10 2200 AC 10/12 PO 0851 Tiotropium [place] 1 PUF DAILY 10/10 1726 AC 10/12 INH 0851 Warfarin Sodium 1 MG COUMADIN 1700 ONE 10/11 1700 DC 10/11 PO 10/11 1701 1719 Results Last 48 Hrs of Labs/Mics: Laboratory Tests 10/12/16 0700: Anion Gap 12, Estimated GFR 36 L, BUN/Creatinine Ratio 39.3 H, Lactic Acid 2.4 H, Uric Acid 8.6 H, Total Bilirubin 3.2 H, Direct Bilirubin 2.3 H, AST 38 H , ALT 28, Alkaline Phosphatase 151 H, Total Protein 6.2 L, Albumin 2.7 L, TSH 3.730, PT 31.2 H, INR 3.00 H, CBC w Diff MAN DIFF ORDERED, RBC 2.93 L, MCV 98.0, MCH 31.5 H, RDW 19.9 H, MPV 9.3, Gran % 87.7 H, Lymphocytes % 9.3 L, Monocytes % 2.6, Eosinophils % 0, Basophils % 0.4, Absolute Granulocytes 5.1, Absolute Lymphocytes 0.5 L, Absolute Monocytes 0.2, Absolute Eosinophils 0, Absolute Basophils 0, Platelet Estimate DECREASED, Polychromasia 1+, Anisocytosis 1+, PUBS MCHC 32.1 L 10/11/16 0834: PT 26.1 H, INR 2.51 H 10/11/16 0610: Anion Gap 12, Estimated GFR 39 L, BUN/Creatinine Ratio 39.2 H, Lactic Acid 2.3 H, Total Bilirubin 4.3 H, Direct Bilirubin 2.9 H, AST 34, ALT 23, Alkaline Phosphatase 160 H, Total Protein 6.3, Albumin 2.8 L, CBC w Diff NO MAN DIFF REQ, RBC 3.01 L, MCV 97.3, MCH 31.4 H, RDW 19.7 H, MPV 10.1, Gran % 83.2 H, Lymphocytes % 13.8 L, Monocytes % 2.6, Eosinophils % 0.1, Basophils % 0.3, Absolute Granulocytes 4.0, Absolute Lymphocytes 0.7 L, Absolute Monocytes 0.1 L, Absolute Eosinophils 0, Absolute Basophils 0, PUBS MCHC 32.3 L 10/11/16 0150: Troponin I 0.02 10/11/16 0150: Lactic Acid 2.3 H 10/10/16 2030: Lactic Acid 2.7 H, Troponin I 0.03, PT 24.2 H, INR 2.32 H 10/10/16 1723: Lactic Acid 2.4 H 10/10/16 1444: Lactic Acid 2.6 H 10/10/16 1430: pH 7.52 H, pCO2 32 L, pO2 65 L, HCO3 25, ABG O2 Sat (Measured) 92.0 L, P-50 (Temp Corrected) Y, Carboxyhemoglobin 2.0, O2 Concentration % .21, Temperature 95.8 L, O2 Delivery Method RA, Phlebotomy Draw Site RIGHT RADIAL 10/10/16 1426: Urine Color YEL, Urine Clarity CLEAR, Urine pH 6.0, Ur Specific [place] 1.010, Urine Protein NEG, Urine Ketones NEG, Urine Nitrite NEG, Urine Bilirubin NEG, Urine Urobilinogen 0.2, Ur Leukocyte Esterase MOD H, Ur Microscopic SEDIMENT EXAMINED, Urine RBC 5-10 H, Urine WBC 5-10 H, Ur Epithelial Cells RARE, Urine Bacteria MANY H, Urine Hemoglobin SMALL H, Urine Glucose NEG Microbiology 10/11 1215 URINE ROUT: Legionella Antigen - COMP 06/30 1215 URINE ROUT: Streptococcus pneumoniae Antigen (M - COMP 10/10 1426 URINE ROUT: Urine Culture - COMP Assessment/Plan Assessment/Plan The patient is slowly improving. She is receiving appropriate medical therapy for her acute on chronic predominantly right-sided congestive heart failure. She is in chronic atrial fibrillation with no other significant arrhythmias. She is appropriately anticoagulated. I recommend continuing the same therapy for now. When her edema and breathing are back to baseline she can be returned to the extended care facility, probably in a couple of days. Continue telemetry? Yes
[2016-10-12 15:30] VITALS: BP 122/80
[2016-10-12 21:43] VITALS: BP 104/66
[2016-10-13 06:00] VITALS: BP 112/62
[2016-10-13 07:41] LABS: ABSOLUTE BASOPHIL COUNT 0 /CUMM (0.0-0.2); ABSOLUTE EOSINOPHIL COUNT 0 /CUMM (0.0-0.7); ABSOLUTE GRANULOCYTE CT 4.5 /CUMM (1.4-6.5); ABSOLUTE LYMPH COUNT 0.4 /CUMM (1.2-3.4); ABSOLUTE MONOCYTE COUNT 0.1 /CUMM (0.10-0.60); BASOPHIL % 0 % (0.0-2.0); EOSINOPHIL % 0 % (0-5); GRANULOCYTE % 89.2 % (42.2-75.2); HEMATOCRIT 30.1 % (37-47); MEAN CORPUSCULAR HGB 31.2 PG (27.0-31.0); MEAN CORPUSCULAR HGB CONC 31.9 G/DL (33.0-37.0); MEAN CORPUSCULAR VOLUME 97.9 FL (81.0-99.0); MEAN PLATELET VOLUME 9.7 FL (7.4-10.4); PLATELET COUNT 81 /CUMM (130-400); RED BLOOD CELL CT 3.08 /CUMM (4.20-5.40)
--- NOTE | 2016-10-13 07:50 | PN- Housestaff ---
Subjective Follow-up For: Severe sepsis with known infectious source, likely lung Exacerbation of CHF with generalized Anasarca. Metabolic Alkalosis Hx of A fib. History of COPD History of HTN Bilirubinemia History of Vaginal Mass Complaints: pain scale (0-10) Tele-Events Since Last Visit: A FIB, 54-66 PVCS Subjective: I connie seen Mrs Mimi Franco at bed side , this morning she was feeling better with no complians of difficulty of breathing Review of Systems Constitutional: Reports: no symptoms. EENTM: Reports: no symptoms. Cardiovascular: Reports: no symptoms. Respiratory: Reports: no symptoms. Gastrointestinal: Reports: no symptoms. Genitourinary: Reports: no symptoms. Musculoskeletal: Reports: no symptoms. Skin: Reports: no symptoms. Neurological/Psychological: Reports: no symptoms. Hematologic/Endocrine: Reports: no symptoms. Immunologic/Allergic: Reports: no symptoms. Objective Last 24 Hrs of Vital Signs/I&O Vital Signs Date Time Temp Pulse Resp B/P B/P Pulse O2 O2 Flow FiO2 Mean Ox Delivery Rate 10/13 0948 95 Room Air 10/13 0800 Room Air 10/13 0600 96.7 70 20 112/62 97 Room Air 10/13 0000 CPAP 10/12 2143 98.9 67 22 104/66 94 BIPAP 10/12 2003 93 Room Air Room Air 10/12 1530 97.6 68 18 122/80 94 Intake & Output 10/13 1600 / 0800 / 0000 Intake Total 0 240 Output Total 400 Balance 0 -160 Intake, Oral 0 240 Output, Urine 400 Physical Exam General Appearance: Alert, Oriented X3, Cooperative, No Acute Distress Skin: No Rashes, No Breakdown, No Significant Lesion Skin Temp/Moisture Exam: Warm/Dry Sepsis Skin Exam (color): Normal for Ethnicity HEENT: Atraumatic, PERRLA, EOMI, Mucous Membr. moist/pink Neck: Supple Cardiovascular: Regular Rate, Normal S1, Normal S2, No Murmurs (irregular rhythm ) Lungs: scattered wheezes and crepitation Abdomen: Normal Bowel Sounds, Soft, No Tenderness Neurological: Normal Speech, Strength at 5/5 X4 Ext, Normal Tone, Sensation Intact, Cranial Nerves 3-12 NL Extremities: No Clubbing, No Cyanosis Current Medications: Current Medications Sig/Aparna Start time Last Medication Dose Route Stop Time Status Admin Acetaminophen 650 MG Q6P PRN 10/10 1630 AC PO Acetaminophen/ 1 TAB Q6P PRN 10/10 1630 AC Hydrocodone Bitart PO Albuterol Sulfate 3 ML BID 10/11 1000 AC 10/13 INH 0935 Albuterol Sulfate 2 PUF Q4-6 PRN PRN 10/10 1730 AC INH Allopurinol 300 MG QAM 10/13 1000 AC 10/13 PO 1107 Allopurinol 150 MG QAM 10/11 1000 DC 10/12 PO 0851 Amoxicillin/ 500 MG Q12 10/11 1352 AC 10/13 Clavulanate Potassium PO 0914 Budesonide/ 2 PUF BID 10/10 2200 AC 10/13 Formoterol Fumarate INH 0926 Calcium Carbonate 500 MG DAILY 10/11 1000 AC 10/13 PO 0914 Citalopram 20 MG DAILY 10/10 1726 AC 10/13 Hydrobromide PO 0913 Folic Acid 1 MG DAILY 10/11 1000 AC 10/13 PO 0914 Furosemide 60 MG 7:30 AM, & 4:30 PM 10/11 1630 AC 10/13 IV 0807 Metolazone 2.5 MG DAILY 10/11 1000 AC 10/13 PO 0914 Morphine Sulfate 1 MG Q4P PRN 10/10 1630 AC IV Nystatin 1 PONCHO TIDPRN PRN 10/11 0745 AC TOP Potassium Chloride 40 MEQ DAILY 10/11 1000 DC 10/11 PO 0940 Prednisone 20 MG DAILY 10/14 1000 AC PO 10/15 1001 Prednisone 20 MG TID 10/10 2200 DC 10/13 PO 0914 Tiotropium [place] 1 PUF DAILY 10/10 1726 AC 10/13 INH 0914 Tramadol HCl 50 MG QPM PRN 10/12 1530 AC 10/12 PO 1527 Warfarin Sodium 1 MG COUMADIN 1700 ONE 10/13 1700 AC PO 10/13 1701 Last 24 Hrs of Lab/Otis Results Last 24 Hrs of Labs/Mics: Laboratory Tests 10/13/16 0620: Anion Gap 11, Estimated GFR 33 L, BUN/Creatinine Ratio 38.7 H, Lactic Acid 2.4 H, PT 29.3 H, INR 2.82 H, CBC w Diff NO MAN DIFF REQ, RBC 3.08 L, MCV 97.9, MCH 31.2 H, RDW 20.0 H, MPV 9.7, Gran % 89.2 H, Lymphocytes % 8.9 L, Monocytes % 1.9, Eosinophils % 0, Basophils % 0 L, Absolute Granulocytes 4.5, Absolute Lymphocytes 0.4 L, Absolute Monocytes 0.1 L, Absolute Eosinophils 0, Absolute Basophils 0, PUBS MCHC 31.9 L Orders Radiology Findings: CXR:Stable cardiomegaly with central vascular congestion. No overt edema. 2. Left lower lobe airspace disease which may represent atelectasis and/or pneumonia. Clinical correlation and follow-up recommended. 3. Small left pleural effusion. Assessment/Plan Assessment: Assessment: This is an 86 year old female with a past medical history of chronic heart failure with normal left ventricular ejection fraction mild right ventricular dysfunction, pulmonary hypertension, atrial fibrillation on Coumadin, renal insufficiency, obesity with BÁRBARA on nocturnal CPAP, hypertension, permanent pacemaker, and thrombocytopenia who presents to [facility] from extended care facility after recent hospitalization. The patient notes increasing swelling in her arms and legs with some increased dyspnea without associated increasing orthopnea. She did note pain in both her arms and legs. She also noted a cough without subjective fever. Denies associated chest pain. #Community Acquire Pneumonia, Left Lower Lobe. * Oral Augmentin. DAY 4 OF ANTIBIOTICS. Total Coverage 7 days. * A VQ scan: Very low probability of pulmonary embolism. Cardiomegaly.. * Doppler of the Lower extemity was negative for DVT. * Incentive spirometer. * CT of chest show: . No convincing evidence of an acute intra-abdominal or intrathoracic process to suggest the etiology of the patient's elevated lactic acid level. #Exacerbation of CHF with generalized Anasarca. * Monitor ins and outs. * Family refusion edgar because of hematuria in past. do daily wt. cont to monitor creatinine closely. * IV Lasix 60 mg BID. Monitor for any acute changes. #Gout: * pt on allopurinol. uric acid level still high will increase allopurinol to 300 mg qd today on 10/13 #Lactic acidosis. * Likely due to hypoperfusion, in the setting of new medication. * Lactic acid today is 2.4 was 2.3 on October 11, * Trend lactic acid to resolves. * Ensure mean atrial pressure remains above 65. * Repeat Lactic Acid in AM #Hx of A fib. * INR therapuetic at 2.82 today, will give coumadin tonight at 1mg and recheck INR in am #History of COPD, BÁRBARA on nocturnal CPAP * prednisone order is noted, (she has taken it for gout in past), regardless, she needs to have a quick taper of prednisone as discussed with pulmonolgist * Formal pulmonology consultation recommended cont nocturnal cpap * trc/nebs, spiriva * V/Q scan noted to be low probability for VTE * Severe obstructive sleep apnea, continue CPAP overnight. * TRC Nebs #History of HTN Conitnue home medciations. * Continue Metolazone. 2.5 mg #Bilirubinemia, cholestatic liver disease: * might be due to liver congestion due to heart failure. * The patient patient does have a history of increased bilirubin. * Total Bilirubin this am: 3.2 Repeat LFT in AM. #History of Vaginal Mass * Last saw Dr Em on 09/07. Was supposed to follow up for outpatient testing. * Denies any vaginal issues or acute bleeding. * Avoid Edgar insertion as this caused a lot of problems on last visit. #Diet * heart healthy obtain formal swallow evaluation in a.m. #Code full code Problem List: 1. CHF (congestive heart failure) 2. COPD 3. Lactic acidosis 4. Pneumonia 5. ATRIAL FIBRILATION Pain Ratin Pain Location: n/a Pain Goal: Remain pain free Pain Plan: morphin and tylenol Tomorrow's Labs & Rationales: prothrombin time patient on BEP patient is on lasix DVT/Prophylaxis: mechanical Consulting Request: Consulting Specialty: Pulmonary Disease
[2016-10-13 09:02] LABS: PT 29.3 SEC (9.4-12.5)
--- NOTE | 2016-10-13 10:33 | PN- Pulmonary ---
Subjective HPI/Critical Care Issues: pt seen and examined on room air comfortable noted that she is on prednisone Objective Current Medications: Current Medications Sig/Aparna Start time Last Medication Dose Route Stop Time Status Admin Acetaminophen 650 MG Q6P PRN 10/10 1630 AC PO Acetaminophen/ 1 TAB Q6P PRN 10/10 1630 AC Hydrocodone Bitart PO Albuterol Sulfate 3 ML BID 10/11 1000 AC 10/13 INH 0935 Albuterol Sulfate 2 PUF Q4-6 PRN PRN 10/10 1730 AC INH Allopurinol 300 MG QAM 10/13 1000 AC PO Allopurinol 150 MG QAM 10/11 1000 DC 10/12 PO 0851 Amoxicillin/ 500 MG Q12 10/11 1352 AC 10/13 Clavulanate Potassium PO 0914 Budesonide/ 2 PUF BID 10/10 2200 AC 10/13 Formoterol Fumarate INH 0926 Calcium Carbonate 500 MG DAILY 10/11 1000 AC 10/13 PO 0914 Citalopram 20 MG DAILY 10/10 1726 AC 10/13 Hydrobromide PO 0913 Folic Acid 1 MG DAILY 10/11 1000 AC 10/13 PO 0914 Furosemide 60 MG 7:30 AM, & 4:30 PM 10/11 1630 AC 10/13 IV 0807 Metolazone 2.5 MG DAILY 10/11 1000 AC 10/13 PO 0914 Morphine Sulfate 1 MG Q4P PRN 10/10 1630 AC IV Nystatin 1 PONCHO TIDPRN PRN 10/11 0745 AC TOP Potassium Chloride 20 MEQ DAILY 10/12 1000 DC 10/12 PO 1210 Potassium Chloride 40 MEQ DAILY 10/11 1000 DC 10/11 PO 0940 Prednisone 20 MG DAILY 10/14 1000 AC PO 10/15 1001 Prednisone 20 MG TID 10/10 2200 DC 10/13 PO 0914 Tiotropium [place] 1 PUF DAILY 10/10 1726 AC 10/13 INH 0914 Tramadol HCl 50 MG QPM PRN 10/12 1530 AC 10/12 PO 1527 Warfarin Sodium 1 MG COUMADIN 1700 ONE 10/13 1700 AC PO 10/13 1701 Vital Signs & I&O Last 24 Hrs of Vitals and I&O: Vital Signs Date Time Temp Pulse Resp B/P B/P Pulse O2 O2 Flow FiO2 Mean Ox Delivery Rate 10/13 0948 95 Room Air 10/13 0800 Room Air 10/13 0600 96.7 70 20 112/62 97 Room Air 10/13 0000 CPAP 10/12 2143 98.9 67 22 104/66 94 BIPAP 10/12 2002 93 Room Air Room Air 10/12 1530 97.6 68 18 122/80 94 10/12 1039 95 Nasal 1.0L Cannula Intake & Output 10/13 1600 10/13 0800 07 0000 Intake Total 0 240 Output Total 400 Balance 0 -160 Intake, Oral 0 240 Output, Urine 400 Exam Other Physical Findings: gen awake and alert heent ncat cvs s1, s2, systolic murmur lungs rare rhonchi abd soft bs+ ext edematous Results Last 24 Hrs of Lab Results: Laboratory Tests 10/13/16 0620: Anion Gap 11, Estimated GFR 33 L, BUN/Creatinine Ratio 38.7 H, Lactic Acid 2.4 H, PT 29.3 H, INR 2.82 H, CBC w Diff NO MAN DIFF REQ, RBC 3.08 L, MCV 97.9, MCH 31.2 H, RDW 20.0 H, MPV 9.7, Gran % 89.2 H, Lymphocytes % 8.9 L, Monocytes % 1.9, Eosinophils % 0, Basophils % 0 L, Absolute Granulocytes 4.5, Absolute Lymphocytes 0.4 L, Absolute Monocytes 0.1 L, Absolute Eosinophils 0, Absolute Basophils 0, PUBS MCHC 31.9 L Impression/Plan Impression/Plan Impression/Plan: Impression 86 year old woman. * acute exacerbation of CHF/volume overload * likely underlying LLL CAP Plan -prednisone order is noted, please confirm longevity of steroids (she has taken it for gout in past), regardless, she needs to have a quick taper of prednisone as discussed with primary team -complete course of Augmentin, monitor wbc, fevers -f/u cardiology -ins/outs, monitor creatinine -cont nocturnal cpap -trc/nebs, spiriva -V/Q scan noted to be low probability for VTE DVT prophylaxis at all times
--- NOTE | 2016-10-13 11:52 | PN- Att Addend ---
Attending MD Review Statement Attending Statement Attending MD Statement: examined this patient, discuss w/resident/PA/RECORD FILING CLERK, agreed w/resident/PA/RECORD FILING CLERK, discussed with family, reviewed EMR data (avail), discussed w/ nursing Attending Assessment/Plan: Laboratory Tests 10/13/16 0620: Anion Gap 11, Estimated GFR 33 L, BUN/Creatinine Ratio 38.7 H, Lactic Acid 2.4 H, PT 29.3 H, INR 2.82 H, CBC w Diff NO MAN DIFF REQ, RBC 3.08 L, MCV 97.9, MCH 31.2 H, RDW 20.0 H, MPV 9.7, Gran % 89.2 H, Lymphocytes % 8.9 L, Monocytes % 1.9, Eosinophils % 0, Basophils % 0 L, Absolute Granulocytes 4.5, Absolute Lymphocytes 0.4 L, Absolute Monocytes 0.1 L, Absolute Eosinophils 0, Absolute Basophils 0, PUBS MCHC 31.9 L Vital Signs Date Time Temp Pulse Resp B/P B/P Pulse O2 O2 Flow FiO2 Mean Ox Delivery Rate 10/13 0948 95 Room Air 10/13 0800 Room Air 10/13 0600 96.7 70 20 112/62 97 Room Air 10/13 0000 CPAP 10/12 2143 98.9 67 22 104/66 94 BIPAP 10/12 2002 93 Room Air Room Air 10/12 1530 97.6 68 18 122/80 94 severe pulm htn causing acute diastolic chf- cont lasix and metalozone. f/u on urine output. Family refusion edgar because of hematuria in past. do daily wt. cont to monitor creatinine closely. Gout - pt on allopurinol. uric acid level still high will increase allopurinol to 300 mg qd today on 10/13 COPD- no acute exacerbation, will do rapid taper of steroids. cont nebs and inhalers PNA- cont augmentin for total of 7 days. INR therapuetic at 2.82 today, will give coumadin tonight at 1mg and recheck INR in am.
--- NOTE | 2016-10-13 14:18 | Discharge Summary ---
Visit Information Visit Dates Admission Date: 10/10/16 Discharge Date: 10/18/2016 Hospital Course Course Attending Physician: TUTU REYNOLDS,WON Mcguire Primary Care Physician: CADY MOLINA APRN Consulting Request: Consulting Specialty: Pulmonary Disease Hospital Course: 86F PMH HTN, atrial fibrillation on Coumadin, HFpEF, severe pulmonary hypertension, history of bradycardia s/p PPM, BÁRBARA on CPAP presenting with several weeks of worsening fatigue, shortness of breath, and dyspnea on exertion. Found to have left sided infiltrate on CXR/ CT chest, elevated lactate level. Bilirubin was elevated but appears chronically so. Hypothermic 94.7 with WBC 4.1 and tachycardic, meets SIRS criteria but unclear if infectious etiology. Dopplers were negative for PE, lung V/Q showed low priority of pulmonary embolism. Patient was treated in the hospital for the following problems: 1. Acute hypoxic respiratory failure likely secondary to acute on chronic congestive heart failure and pneumonia : Patient was evaluated by cardiology/ pulmonology. Her shortness of breath was likely multifactorial due to CHF and pneumonia. She also had known pulmonary hypertension and obesity with obstructive sleep apnea which could have worsened her respiratory status. She was diuresed aggressively with IV Lasix and metolazone with close monitoring of her metabolic panel. Electrolytes were repleted as needed. Input and output was closely monitored however a Simpson could not be put in because of families refusal.(Patient had hematuria in the past due to trauma from Simpson insertion). Daily weight checks were done. Lites were closely monitored and repleted as needed. She was on oxygen through nasal cannula initially but later improved with diuresis and was saturating good on room air. She was discharged home on 80 MG BID and 80 mg IV lasix at the CHF clinic every week. She needs to gets weekly CEP, CBC , INR done to monitor her creatinine, inr and cbc. 2.Community Acquire Pneumonia, Left Lower Lobe: Patient was initially treated given IV ceftriaxone and azithromycin in the ED and later transitioned to by mouth Augmentin to complete a total course of 7 days. She remained afebrile and cultures were negative. Her shortness of breath improved with antibiotics and IV diuresis. 3. Exacerbation acute on chronic congestive heart failure with generalized Anasarca/severe pulmonary hypertension: ProBNP was elevated at 3000 .Echo showed normal LV function with borderline hypertrophy. Right ventricular dilatation and hypokinesia. Severe Pulmonary hypertension by doppler pressures to 80. Patient was aggressively diuresed with IV Lasix with close monitoring of the ins and outs and daily weight checks. Her symptoms improved with diuresis. She was instructed to follow up with her manager managing post discharge. She was discharged home on 80 MG BID and 80 mg IV lasix at the CHF clinic every week. She needs to gets weekly CEP, CBC , INR done to monitor her creatinine, inr and cbc. 4. Rectal hematoma: Patient complained of abdominal pain in the hospital. There was a hyperdense hematoma within the inferior right rectus abdominis muscle on the CT scan. Patient H/H remained stable and her pain 5.Lactic acidosis: Lactate levels were elevated likely due to hypoperfusion, in the setting of new medication metolazone. Lactate levels were trended daily. 6.Hx of A fib: Maintained on Coumadin with a target INR of 2-3. 7. History of COPD, BÁRBARA on nocturnal CPAP: Pulmonology was following the patient in the hospital, TRC nebs were continued along with Spiriva and CPAP during the night. 8. Bilirubinemia, cholestatic liver disease: Patient had cardiac cirrhosis and has been worked up in the past for elevated LFTs. Passive congestion due to heart failure was also a possibility. LFTs were trended however they remained elevated. Patient needs to follow up with GI as an outpatient for the issue. 9. History of gout: Patient was on steroids and allopurinol. Allopurinol dose was increased as uric acid levels were high and steroids were tapered off. Diet heart healthy DVT prophylaxis Coumadin full code Allergies: Coded Allergies: guaifenesin (HIVES 09/01/16) Disposition Summary Disposition Principal Diagnosis: Acute on chronic congestive heart failure with normal left ventricular ejection fraction and mild right ventricular dysfunction Additional Diagnosis: Pulmonary hypertension with mild right ventricular dysfunction Discharge Disposition: SNF Discharge Instructions General Discharge Information Code Status: Full Code Patient's Diet: heart healthy Patient's Activity: as tolerated Follow-Up Instructions/Appts: 1. PLEASE FOLLOW UP AT THE CHF CLINIC EVERY WEEK FOR IV LASIX 80MG. 2. PLEASE F/U WITH YOUR LAPEL PADDER WITHIN 1 WEEK OF DISCHARGE. 3. PLEASE F/U WITH YOUR PCP WITHIN 1 WEEK OF DISCHARGE. Medications at Discharge Discharge Medications: Stop taking the following medications: Furosemide (Furosemide) 40 MG TABLET ORAL DAILY Qty = 180 Doxycycline Hyclate (Doxycycline Hyclate) 100 MG TABLET ORAL TWICE DAILY Prednisone (Prednisone) 20 MG TABLET ORAL THREE TIMES DAILY Lactobacillus Acidophilus (Probiotic) 10 BILLION CELL CAPSULE ORAL TWICE DAILY Continue taking these medications: Tiotropium [place] (Spiriva) 18 MCG CAP.W.DEV 1 Capsule Inhale through mouth DAILY Qty = 90 Comments: Last Taken: 10/18/16 Time: 09:30 AM Albuterol Sulfate (Proair Hfa) 90 MCG HFA.AER.AD 2 Puff Inhale through mouth EVERY 4-6 HOURS NEEDED as needed for BREATHING Comments: NOT GIVEN IN HOSPTIAL Potassium Chloride (Potassium Chloride) 20 MEQ TAB.ER.PRT 2 Tablet ORAL DAILY Qty = 90 Comments: NOT GIVEN IN HOSPITAL Cholecalciferol (Vitamin D3) (Vitamin D) 2,000 UNIT TABLET 1 Tablet ORAL 5 PM Comments: NOT GIVEN IN HOSPITAL Citalopram Hydrobromide (Citalopram HBr) 20 MG TABLET 1 Tablet ORAL DAILY Qty = 90 Comments: Last Taken: 10/18/16 Time: 9:00 AM Warfarin Sodium (Coumadin) 2.5 MG TABLET 0.5 Tablet ORAL 2100 Comments: Last Taken: 10/17/16 Time: 05:30 PM Tramadol HCl (Tramadol HCl) 50 MG TABLET 1 Tablet ORAL Every night as needed for PAIN Qty = 30 Comments: Last Taken: 10/17/16 Time: 08:30 PM Acetaminophen (Tylenol Arthritis) 650 MG TABLET.ER 2 Tablet ORAL Every night Comments: Last Taken: 10/15/16 Time: 4:30 PM Allopurinol (Allopurinol) 300 MG TABLET 0.5 Tablet ORAL Every Morning Qty = 45 Comments: Last Taken: 10/18/16 Time: 09:30 AM Calcium Carbonate (Calcium) 500 MG CALCIUM (1,250 MG) TABLET 1 Tablet ORAL DAILY Comments: Last Taken: 10/18/16 Time: 09:30AM Metolazone (Metolazone) 2.5 MG TABLET 1 Tablet ORAL DAILY Comments: Last Taken: 10/18/16 Time: 09:20 AM Albuterol Sulfate (Albuterol Sulfate) 2.5 MG/3 ML (0.083 %) VIAL.NEB 1 Vial Inhale Solution 4 TIMES A DAY Comments: Last Taken: 10/18/16 Time: 09:00 AM Budesonide/Formoterol Fumarate (Symbicort 160-4.5 Mcg Inhaler) 160 MCG-4.5 MCG/ ACTUATION HFA.AER.AD 2 Puff Inhale through mouth TWICE DAILY Comments: Last Taken: 10/18/16 Time: 09:30 AM Cyanocobalamin (Vitamin B-12) (B-12 Dots) 500 MCG TABLET 1 Tablet ORAL DAILY Comments: NOT GIVEN IN HOSPITAL Folic Acid (Folic Acid) 1 MG TABLET 1 Tablet ORAL DAILY Comments: Last Taken: 10/18/16 Time: 09:30 AM Start taking the following new medications: Furosemide (Lasix) 40 MG TABLET 2 Tablet ORAL 7:30AM & 4:30PM Days = 30 No Refills Instructions: TAKE 80 MG BID OF LASIX Comments: Last Taken: 10/18/16 Time: 0900AM Copies To: JONATHAN SCHNEIDER MDH; SUN CHI MD; LISA REYNOLDS,BAILEY Bravo MD Review Statement Documenting Attending: SUN CHI MD Other Findings: The patient was seen and discussed with house staff, Dr. Schneider, and the patient's daughter. OK to discharge today to [facility] with plans for IV Lasix weekly in CHF clinic.
[2016-10-13 14:38] VITALS: BP 120/76
[2016-10-13 23:08] VITALS: BP 116/58
--- NOTE | 2016-10-14 06:49 | PN- Housestaff ---
See Addendum Subjective Follow-up For: Severe sepsis with known infectious source, likely lung Exacerbation of CHF with generalized Anasarca. Metabolic Alkalosis Complaints: SHORTNESS OF BREATH Tele-Events Since Last Visit: Tyson SAMM , 57-60 NO EVENTS Subjective: Patient was examined by me at bedside she was sitting comfortably in chair and she was on room air she only complained of some mild dyspnea especially at night and she reports using her CPAP despite Review of Systems Constitutional: Denies: no symptoms. EENTM: Denies: no symptoms. Cardiovascular: Denies: no symptoms. Respiratory: Reports: short of breath. Gastrointestinal: Denies: no symptoms. Objective Last 24 Hrs of Vital Signs/I&O Vital Signs Date Time Temp Pulse Resp B/P B/P Pulse O2 O2 Flow FiO2 Mean Ox Delivery Rate 10/14 1500 97.6 61 20 120/60 95 Room Air 10/14 1036 97 Room Air Room Air 10/14 0800 Room Air 10/14 0720 97.0 59 20 132/80 98 CPAP 10/13 2308 97.7 74 20 116/58 94 Room Air 10/13 2117 Room Air 10/13 2031 95 Room Air Room Air Intake & Output 10/14 1600 03 0800 10/14 0000 Intake Total 600 50 356 Output Total 50 Balance 600 0 356 Intake, IV 16 Intake, Oral 600 50 340 Output, Urine 50 Patient 249 lb Weight Weight Chair scale Measurement Method Physical Exam General Appearance: Alert, Oriented X3, Cooperative, No Acute Distress Skin: No Rashes, No Breakdown, No Significant Lesion Skin Temp/Moisture Exam: Warm/Dry Sepsis Skin Exam (color): Normal for Ethnicity HEENT: Atraumatic, PERRLA, EOMI, Mucous Membr. moist/pink Neck: Supple Cardiovascular: Regular Rate, Normal S1, Normal S2, No Murmurs Lungs: scattered wheezes and crepitaion Abdomen: Normal Bowel Sounds, Soft, No Tenderness, No Hepatospenomegaly Neurological: Normal Speech, Strength at 5/5 X4 Ext, Normal Tone, Sensation Intact, Cranial Nerves 3-12 NL Extremities: bilateral 2+ LL edema Current Medications: Current Medications Sig/Aparna Start time Last Medication Dose Route Stop Time Status Admin Acetaminophen 650 MG Q6P PRN 10/10 1630 AC PO Acetaminophen/ 1 TAB Q6P PRN 10/10 1630 AC Hydrocodone Bitart PO Albuterol Sulfate 3 ML BID 10/11 1000 AC 10/14 INH 1034 Albuterol Sulfate 2 PUF Q4-6 PRN PRN 10/10 1730 AC INH Allopurinol 300 MG QAM 10/13 1000 AC 10/14 PO 0953 Amoxicillin/ 500 MG Q12 10/11 1352 AC 10/14 Clavulanate Potassium PO 0953 Budesonide/ 2 PUF BID 10/10 2200 AC 10/14 Formoterol Fumarate INH 0959 Calcium Carbonate 500 MG DAILY 10/11 1000 AC 10/14 PO 0953 Citalopram 20 MG DAILY 10/10 1726 AC 10/14 Hydrobromide PO 0953 Folic Acid 1 MG DAILY 10/11 1000 AC 10/14 PO 0953 Furosemide 60 MG DAILY 10/15 1000 AC IV Furosemide 60 MG 7:30 AM, & 4:30 PM 10/11 1630 DC 10/14 IV 0820 Metolazone 2.5 MG DAILY 10/11 1000 AC 10/14 PO 0953 Morphine Sulfate 1 MG Q4P PRN 10/10 1630 AC IV Nystatin 1 PONCHO TIDPRN PRN 10/11 0745 AC TOP Potassium Chloride 40 MEQ ONCE ONE 10/14 1345 DC 10/14 PO 10/14 1346 1422 Potassium Chloride 20 MEQ BID 10/14 1000 AC 10/14 PO 0953 Potassium Chloride 40 MEQ ONCE ONE 10/14 0800 DC 10/14 PO 10/14 0801 0820 Prednisone 20 MG DAILY 10/14 1000 AC 10/14 PO 10/15 1001 0953 Tiotropium [place] 1 PUF DAILY 10/10 1726 AC 10/14 INH 0954 Tramadol HCl 50 MG QPM PRN 10/12 1530 AC 10/12 PO 1527 Last 24 Hrs of Lab/Otis Results Last 24 Hrs of Labs/Mics: Laboratory Tests 10/14/16 0632: Anion Gap 10, Estimated GFR 33 L, BUN/Creatinine Ratio 40.0 H, PT 31.6 H, INR 3.04 H Assessment/Plan Assessment: Assessment: This is an 86 year old female with a past medical history of chronic heart failure with normal left ventricular ejection fraction mild right ventricular dysfunction, pulmonary hypertension, atrial fibrillation on Coumadin, renal insufficiency, obesity with BÁRBARA on nocturnal CPAP, hypertension, permanent pacemaker, and thrombocytopenia who presents to [facility] from extended care facility after recent hospitalization. #Community Acquire Pneumonia, Left Lower Lobe. * Oral Augmentin. DAY 5 OF ANTIBIOTICS. Total Coverage 7 days. * monitor her cbc and temp. * Incentive spirometer. * cont nocturnal cpap * trc/nebs, spiriva #Exacerbation of CHF with generalized Anasarca. * Monitor ins and outs. * Family refusion edgar because of hematuria in past. do daily wt. cont to monitor creatinine closely. * would decrease the IV Lasix to 60 mg daily as per cardio consult #Gout: * pt on allopurinol. uric acid level still high will increase allopurinol to 300 mg qd today on 10/13 #Lactic acidosis. * Likely due to hypoperfusion, in the setting of new medication. #Hx of A fib. * INR 3.04 today, will hold off her coumadin today * will order INR tomorrow #History of COPD, BÁRBARA on nocturnal CPAP * will continue to taper prednisone * Formal pulmonology consultation recommended cont nocturnal cpap * trc/nebs, spiriva * V/Q scan noted to be low probability for VTE * Severe obstructive sleep apnea, continue CPAP overnight. * TRC Nebs #History of HTN Conitnue home medciations. * Continue Metolazone. 2.5 mg #Bilirubinemia, cholestatic liver disease: * might be due to liver congestion due to heart failure. * The patient patient does have a history of increased bilirubin. #History of Vaginal Mass * Last saw Dr Em on 09/07. Was supposed to follow up for outpatient testing. * Denies any vaginal issues or acute bleeding. * Avoid Edgar insertion as this caused a lot of problems on last visit. #Diet * heart healthy obtain formal swallow evaluation in a.m. #Code full code Problem List: 1. ATRIAL FIBRILATION 2. BILATERAL LEG WEAKNESS 3. COPD 4. CHF (congestive heart failure) 5. Pneumonia 6. Lactic acidosis 7. Bilirubinemia Pain Ratin Pain Location: N/A Pain Goal: Remain pain free Pain Plan: morphine 1 mg Q 4 prn ACETAMINOPHEN 1 MG q6 PRN Tomorrow's Labs & Rationales: bep : patient on lasix prothrombin time : patient on coumadin DVT/Prophylaxis: mechanical Consulting Request: Consulting Specialty: Pulmonary Disease
[2016-10-14 07:20] VITALS: BP 132/80
[2016-10-14 08:23] LABS: PT 31.6 SEC (9.4-12.5)
--- NOTE | 2016-10-14 10:02 | PN- Pulmonary ---
Subjective HPI/Critical Care Issues: pt seen and examined family at bedside she is on room air her edema is present she had difficulty sleeping due to thinking about hospitalization Objective Current Medications: Current Medications Sig/Aparna Start time Last Medication Dose Route Stop Time Status Admin Acetaminophen 650 MG Q6P PRN 10/10 1630 AC PO Acetaminophen/ 1 TAB Q6P PRN 10/10 1630 AC Hydrocodone Bitart PO Albuterol Sulfate 3 ML BID 10/11 1000 AC 10/13 INH 2027 Albuterol Sulfate 2 PUF Q4-6 PRN PRN 10/10 1730 AC INH Allopurinol 300 MG QAM 10/13 1000 AC 10/14 PO 0953 Amoxicillin/ 500 MG Q12 10/11 1352 AC 10/14 Clavulanate Potassium PO 0953 Budesonide/ 2 PUF BID 10/10 2200 AC 10/14 Formoterol Fumarate INH 0959 Calcium Carbonate 500 MG DAILY 10/11 1000 AC 10/14 PO 0953 Citalopram 20 MG DAILY 10/10 1726 AC 10/14 Hydrobromide PO 0953 Folic Acid 1 MG DAILY 10/11 1000 AC 10/14 PO 0953 Furosemide 60 MG 7:30 AM, & 4:30 PM 10/11 1630 AC 10/14 IV 0820 Metolazone 2.5 MG DAILY 10/11 1000 AC 10/14 PO 0953 Morphine Sulfate 1 MG Q4P PRN 10/10 1630 AC IV Nystatin 1 PONCHO TIDPRN PRN 10/11 0745 AC TOP Potassium Chloride 20 MEQ BID 10/14 1000 AC 10/14 PO 0953 Potassium Chloride 40 MEQ ONCE ONE 10/14 0800 DC 10/14 PO 10/14 0801 0820 Prednisone 20 MG DAILY 10/14 1000 AC 10/14 PO 10/15 1001 0953 Prednisone 20 MG TID 10/10 2200 DC 10/13 PO 0914 Tiotropium [place] 1 PUF DAILY 10/10 1726 AC 10/14 INH 0954 Tramadol HCl 50 MG QPM PRN 10/12 1530 AC 10/12 PO 1527 Warfarin Sodium 1 MG COUMADIN 1700 ONE 10/13 1700 DC 10/13 PO 10/13 1701 1625 Vital Signs & I&O Last 24 Hrs of Vitals and I&O: Vital Signs Date Time Temp Pulse Resp B/P B/P Pulse O2 O2 Flow FiO2 Mean Ox Delivery Rate 10/14 0800 Room Air 10/14 0720 97.0 59 20 132/80 98 CPAP 10/13 2308 97.7 74 20 116/58 94 Room Air 10/13 2117 Room Air 10/13 2031 95 Room Air Room Air 10/13 1600 Room Air 10/13 1438 97.7 67 20 120/76 94 Room Air Intake & Output 10/14 1600 10/14 0800 10/14 0000 Intake Total 50 356 Output Total 50 Balance 0 356 Intake, IV 16 Intake, Oral 50 340 Output, Urine 50 Patient 249 lb Weight Weight Chair scale Measurement Method Exam Other Physical Findings: gen awake and alert saturating well on room air heent ncat cvs s1, s2, systolic murmur lungs rare bibasilar rhonchi, improved abd soft bs+ ext chronic edema Results Last 24 Hrs of Lab Results: Laboratory Tests 10/14/16 0632: Anion Gap 10, Estimated GFR 33 L, BUN/Creatinine Ratio 40.0 H, PT 31.6 H, INR 3.04 H Impression/Plan Impression/Plan Impression/Plan: Impression 86 year old woman. * improved acute exacerbation of CHF/volume overload * likely underlying LLL CAP Plan -prednisone taper as ordered -complete course of Augmentin, monitor wbc, fevers -f/u cardiology -ins/outs, monitor creatinine -cont nocturnal cpap -trc/nebs, spiriva DVT prophylaxis at all times DC planning
--- NOTE | 2016-10-14 10:59 | PN- Cardiology ---
Subjective Subjective: Still has a cough but currently nonproductive. Denies dyspnea at rest but does have dyspnea with exertion without chest pain or palpitations. Objective Vital Signs and I&Os Vital Signs Date Time Temp Pulse Resp B/P B/P Pulse O2 O2 Flow FiO2 Mean Ox Delivery Rate 10/14 1036 97 Room Air Room Air 10/14 0800 Room Air 10/14 0720 97.0 59 20 132/80 98 CPAP 10/13 2308 97.7 74 20 116/58 94 Room Air 10/13 2117 Room Air 10/13 2031 95 Room Air Room Air 10/13 1600 Room Air 10/13 1438 97.7 67 20 120/76 94 Room Air Intake & Output 10/14 1600 10/14 0800 10/14 0000 10/13 1600 10/13 0800 10/13 0000 Intake Total 50 356 496 0 240 Output Total 50 400 Balance 0 356 496 0 -160 Intake, IV 16 16 Intake, Oral 50 340 480 0 240 Output, Urine 50 400 Patient 249 lb 249 lb Weight Weight Chair scale Chair scale Measurement Method Physical Exam: General: no apparent distress. Alert. Obese. Eyes: No obvious scleral icterus. HEENT: No jugular venous distention or abnormal jugular venous pulsations. Cardiovascular: Normal intensity S1/S2. Respiratory: No rales or rhonchi Abdomen: no guarding or rebound tenderness. Musculoskeletal: No clubbing or cyanosis noted, 1+ UE/LE edema Skin: warm Neuro: Grossly nonfocal Current Medications: Current Medications Sig/Aparna Start time Last Medication Dose Route Stop Time Status Admin Acetaminophen 650 MG Q6P PRN 10/10 1630 AC PO Acetaminophen/ 1 TAB Q6P PRN 10/10 1630 AC Hydrocodone Bitart PO Albuterol Sulfate 3 ML BID 10/11 1000 AC 10/14 INH 1034 Albuterol Sulfate 2 PUF Q4-6 PRN PRN 10/10 1730 AC INH Allopurinol 300 MG QAM 10/13 1000 AC 10/14 PO 0953 Amoxicillin/ 500 MG Q12 10/11 1352 AC 10/14 Clavulanate Potassium PO 0953 Budesonide/ 2 PUF BID 10/10 2200 AC 10/14 Formoterol Fumarate INH 0959 Calcium Carbonate 500 MG DAILY 10/11 1000 AC 10/14 PO 0953 Citalopram 20 MG DAILY 10/10 1726 AC 10/14 Hydrobromide PO 0953 Folic Acid 1 MG DAILY 10/11 1000 AC 10/14 PO 0953 Furosemide 60 MG 7:30 AM, & 4:30 PM 10/11 1630 AC 10/14 IV 0820 Metolazone 2.5 MG DAILY 10/11 1000 AC 10/14 PO 0953 Morphine Sulfate 1 MG Q4P PRN 10/10 1630 AC IV Nystatin 1 PONCHO TIDPRN PRN 10/11 0745 AC TOP Potassium Chloride 20 MEQ BID 10/14 1000 AC 10/14 PO 0953 Potassium Chloride 40 MEQ ONCE ONE 10/14 0800 DC 10/14 PO 10/14 0801 0820 Prednisone 20 MG DAILY 10/14 1000 AC 10/14 PO 10/15 1001 0953 Tiotropium [place] 1 PUF DAILY 10/10 1726 AC 10/14 INH 0954 Tramadol HCl 50 MG QPM PRN 10/12 1530 AC 10/12 PO 1527 Warfarin Sodium 1 MG COUMADIN 1700 ONE 10/13 1700 DC 10/13 PO 10/13 1701 1625 Results Last 48 Hrs of Labs/Mics: Laboratory Tests 10/14/16 0632: Anion Gap 10, Estimated GFR 33 L, BUN/Creatinine Ratio 40.0 H, PT 31.6 H, INR 3.04 H 10/13/16 0620: Anion Gap 11, Estimated GFR 33 L, BUN/Creatinine Ratio 38.7 H, Lactic Acid 2.4 H, PT 29.3 H, INR 2.82 H, CBC w Diff NO MAN DIFF REQ, RBC 3.08 L, MCV 97.9, MCH 31.2 H, RDW 20.0 H, MPV 9.7, Gran % 89.2 H, Lymphocytes % 8.9 L, Monocytes % 1.9, Eosinophils % 0, Basophils % 0 L, Absolute Granulocytes 4.5, Absolute Lymphocytes 0.4 L, Absolute Monocytes 0.1 L, Absolute Eosinophils 0, Absolute Basophils 0, PUBS MCHC 31.9 L Recent Imaging Studies: Telemetry tracings were personally reviewed and show atrial fibrillation V/Q scan: Very low probability of pulmonary embolism. Cardiomegaly. Assessment/Plan Assessment/Plan 1. Acute on chronic congestive heart failure with normal left ventricular ejection fraction and mild right ventricular dysfunction 2. Pulmonary hypertension with mild right ventricular dysfunction 3. Atrial fibrillation on outpatient Coumadin 4. Chronic renal insufficiency 5. Hypertension 6. Obesity with obstructive sleep apnea on nocturnal CPAP 7. Postmenopausal bleeding status post prior D&C 8. History of bradycardia with permanent pacemaker in situ 9. Thrombocytopenia 10. Elevated bilirubin, cholestatic liver disease 11. Hematuria, resolved No dyspnea at rest but still with some dyspnea on exertion. Still with a cough although nonproductive. Unclear if I+Os are accurate, weight reported to be down ; per report Simpson was refused due to previous hematuria. CO2 trending up with creatinine now 1.5; would decrease the IV Lasix to [address] scan was very low probability for pulmonary embolism and pretest probability for pulmonary embolism is additionally decreased as the patient remains fully anticoagulated. Is on oral antibiotics. Recommend repeating metabolic panel tomorrow morning with possible plan to transition back to oral diuretics tomorrow. Defer Assessment of the elevated bilirubin to the medical team, she was previously evaluated by GI. She may be a candidate for follow-up in [place] [facility] if she is willing. Walker Holm MD [facility] Continue telemetry? No
[2016-10-14 15:00] VITALS: BP 120/60
--- NOTE | 2016-10-14 16:04 | NUR ---
WOUND CARE: REQUESTED BY NURSING STAFF TO EVALUATE PT FOR SKIN ALTERATION PRESENT ON ADMISSION TO RIGHT BUTTOCKS - PT KNOWN TO THIS [facility] FROM [facility] VISITS WITH DR LEBRON - RIGHT BUTTOCKS NOTED WTIH AN AREA OF DEEP TISSUE INJURY 4 X 2 CM INTACT SKIN - MAG[place]A DISCOLORATION - NO C/O VOICED - PT STATED SHE "HAS HAD IT FOR A LONG TIME.. ITS FROM MY COUMADIN" RECOMMENDATION: ENCOURAGE Q 15 MIN POSITION SHIFTS WIB - CONT WITH GROUP 2 APM - MAY APPLY VITAMIN A+D OINTMENT QS TO REDUCE FRICTION AND SHEER FORCES
[2016-10-14 23:03] VITALS: BP 128/72
[2016-10-15 06:52] VITALS: BP 110/60
[2016-10-15 08:02] LABS: PT 29.6 SEC (9.4-12.5)
--- NOTE | 2016-10-15 08:22 | PN- Housestaff ---
See Addendum Subjective Follow-up For: Severe sepsis with known infectious source, likely lung Exacerbation of CHF with generalized Anasarca. Metabolic Alkalosis Complaints: shortness of breath which is less sever than at the time of admission, pt still need her c-pap at night but remain on room air during the day Tele-Events Since Last Visit: afib 65-66, pvcs Subjective: Patient was examined by me at bedside she was lying down in bed in no acute distress , she was on her c-pap Review of Systems Constitutional: Denies: no symptoms. EENTM: Denies: no symptoms. Cardiovascular: Denies: no symptoms. Respiratory: Denies: cough. Gastrointestinal: Denies: no symptoms. Objective Last 24 Hrs of Vital Signs/I&O Vital Signs Date Time Temp Pulse Resp B/P B/P Pulse O2 O2 Flow FiO2 Mean Ox Delivery Rate 10/15 1052 96 Room Air Room Air 10/15 0800 Room Air Room Air 10/15 0652 97.2 64 18 110/60 98 10/14 2303 98.2 62 16 128/72 92 Room Air 10/14 2208 95 CPAP 2.0L 10/14 1820 96 Room Air 10/14 1500 97.6 61 20 120/60 95 Room Air Intake & Output 10/15 1600 /04 0800 04 0000 Intake Total 240 400 Output Total 225 Balance 240 175 Intake, Oral 240 400 Number 1 Bowel Movements Output, Urine 225 Patient 256 lb Weight Weight Mireya Lift Measurement Method Physical Exam General Appearance: Alert, Oriented X3, Cooperative, No Acute Distress Skin: No Rashes, No Breakdown, No Significant Lesion Skin Temp/Moisture Exam: Warm/Dry Sepsis Skin Exam (color): Normal for Ethnicity HEENT: Atraumatic, PERRLA, EOMI, Mucous Membr. moist/pink Neck: Supple Cardiovascular: Normal S1, Normal S2, irregular irregular rhythm Lungs: scatteed wheezes and crepitation bilateral Abdomen: Normal Bowel Sounds, Soft, No Tenderness Neurological: Normal Speech, Strength at 5/5 X4 Ext, Normal Tone Extremities: 2+ edema in both LL Current Medications: Current Medications Sig/Aparna Start time Last Medication Dose Route Stop Time Status Admin Acetaminophen 650 MG Q6P PRN 10/10 1630 AC 04 PO 0942 Acetaminophen/ 1 TAB Q6P PRN 10/10 1630 AC Hydrocodone Bitart PO Albuterol Sulfate 3 ML BID 10/11 1000 AC 10/15 INH 1052 Albuterol Sulfate 2 PUF Q4-6 PRN PRN 10/10 1730 AC INH Allopurinol 300 MG QAM 10/13 1000 AC 10/15 PO 0944 Amoxicillin/ 500 MG Q12 10/11 1352 AC 10/15 Clavulanate Potassium PO 0946 Budesonide/ 2 PUF BID 10/10 2200 AC 10/15 Formoterol Fumarate INH 0945 Calcium Carbonate 500 MG DAILY 10/11 1000 AC 10/15 PO 0944 Citalopram 20 MG DAILY 10/10 1726 AC 10/15 Hydrobromide PO 0954 Folic Acid 1 MG DAILY 10/11 1000 AC 10/15 PO 0943 Furosemide 60 MG DAILY 10/15 1000 AC 10/15 IV 0937 Furosemide 60 MG 7:30 AM, & 4:30 PM 10/11 1630 DC 10/14 IV 0820 Metolazone 2.5 MG DAILY 10/11 1000 AC 10/15 PO 0944 Morphine Sulfate 1 MG Q4P PRN 10/10 1630 AC IV Nystatin 1 PONCHO TIDPRN PRN 10/11 0745 DC TOP Potassium Chloride 40 MEQ ONCE ONE 10/14 1345 DC 10/14 PO 10/14 1346 1422 Potassium Chloride 20 MEQ BID 10/14 1000 AC 10/15 PO 0947 Prednisone 20 MG DAILY 10/14 1000 DC 10/15 PO 10/15 1001 0943 Tiotropium [place] 1 PUF DAILY 10/10 1726 AC 10/15 INH 0954 Tramadol HCl 50 MG QPM PRN 10/12 1530 AC 10/12 PO 1527 Warfarin Sodium 0.5 MG COUMADIN 1700 ONE 10/15 1700 AC PO 10/15 1701 Last 24 Hrs of Lab/Otis Results Last 24 Hrs of Labs/Mics: Laboratory Tests 10/15/16 0703: Anion Gap 10, Estimated GFR 36 L, BUN/Creatinine Ratio 41.4 H, PT 29.6 H, INR 2.85 H Assessment/Plan Assessment: Assessment: This is an 86 year old female with a past medical history of chronic heart failure with normal left ventricular ejection fraction mild right ventricular dysfunction, pulmonary hypertension, atrial fibrillation on Coumadin, renal insufficiency, obesity with BÁRBARA on nocturnal CPAP, hypertension, permanent pacemaker, and thrombocytopenia who presents to [facility] from extended care facility after recent hospitalization. #Community Acquire Pneumonia, Left Lower Lobe. * Oral Augmentin. DAY 5 OF ANTIBIOTICS. Total Coverage 7 days. * monitor her cbc and temp. * Incentive spirometer. * cont nocturnal cpap * trc/nebs, spiriva #Exacerbation of CHF with generalized Anasarca. * Monitor ins and outs. * Family refusion edgar because of hematuria in past. do daily wt. cont to monitor creatinine closely. * would decrease the IV Lasix to 60 mg daily as per cardio consult #Gout: * pt on allopurinol 300 mg #Lactic acidosis. * Likely due to hypoperfusion, in the setting of new medication. #Hx of A fib. * INR 2.85 today, * coumadin 0.5 PO * will order INR tomorrow #History of COPD, BÁRBARA on nocturnal CPAP * continue to taper prednisone as per pulmonary recommendation * trc/nebs, spiriva * V/Q scan noted to be low probability for VTE * Severe obstructive sleep apnea, continue CPAP overnight. * TRC Nebs #History of HTN Conitnue home medciations. * Continue Metolazone. 2.5 mg #Bilirubinemia, cholestatic liver disease: * might be due to liver congestion due to heart failure. * The patient patient does have a history of increased bilirubin. #History of Vaginal Mass * Last saw Dr Em on 09/07. Was supposed to follow up for outpatient testing. * Denies any vaginal issues or acute bleeding. * Avoid Edgar insertion as this caused a lot of problems on last visit. #Diet * heart healthy obtain formal swallow evaluation in a.m. #Code full code Problem List: 1. ATRIAL FIBRILATION 2. BILATERAL LEG WEAKNESS 3. BIPEDAL EDEMA 4. Benign essential hypertension 5. COPD 6. Obstructive sleep apnea syndrome 7. Elevated INR 8. Elevated bilirubin 9. Lactic acidosis 10. Bilirubinemia Pain Ratin Pain Location: N/A Pain Goal: Remain pain free Pain Plan: Morphine sulfate 1 mg Q4 PRn IV VIcodin 1 tab PO Q6 PRN Tylenol 650 mg PO Q6 PRN Tomorrow's Labs & Rationales: INR: patient is on coumadin BEP: pt is on lasix DVT/Prophylaxis: mechanical Consulting Request: Consulting Specialty: Pulmonary Disease
--- NOTE | 2016-10-15 11:08 | PN- Pulmonary ---
Subjective HPI/Critical Care Issues: pt seen and examined comfortable no new events on ra cardiology notes reviewed Objective Current Medications: Current Medications Sig/Aparna Start time Last Medication Dose Route Stop Time Status Admin Acetaminophen 650 MG Q6P PRN 10/10 1630 AC 10/15 PO 0942 Acetaminophen/ 1 TAB Q6P PRN 10/10 1630 AC Hydrocodone Bitart PO Albuterol Sulfate 3 ML BID 10/11 1000 AC 10/15 INH 1052 Albuterol Sulfate 2 PUF Q4-6 PRN PRN 10/10 1730 AC INH Allopurinol 300 MG QAM 10/13 1000 AC 10/15 PO 0944 Amoxicillin/ 500 MG Q12 10/11 1352 AC 10/15 Clavulanate Potassium PO 0946 Budesonide/ 2 PUF BID 10/10 2200 AC 10/15 Formoterol Fumarate INH 0945 Calcium Carbonate 500 MG DAILY 10/11 1000 AC 10/15 PO 0944 Citalopram 20 MG DAILY 10/10 1726 AC 10/15 Hydrobromide PO 0954 Folic Acid 1 MG DAILY 10/11 1000 AC 10/15 PO 0943 Furosemide 60 MG DAILY 10/15 1000 AC 10/15 IV 0937 Furosemide 60 MG 7:30 AM, & 4:30 PM 10/11 1630 DC 10/14 IV 0820 Metolazone 2.5 MG DAILY 10/11 1000 AC 10/15 PO 0944 Morphine Sulfate 1 MG Q4P PRN 10/10 1630 AC IV Nystatin 1 PONCHO TIDPRN PRN 10/11 0745 DC TOP Potassium Chloride 40 MEQ ONCE ONE 10/14 1345 DC 10/14 PO 10/14 1346 1422 Potassium Chloride 20 MEQ BID 10/14 1000 AC 10/15 PO 0947 Prednisone 20 MG DAILY 10/14 1000 DC 10/15 PO 10/15 1001 0943 Tiotropium [place] 1 PUF DAILY 10/10 1726 AC 10/15 INH 0954 Tramadol HCl 50 MG QPM PRN 10/12 1530 AC 10/12 PO 1527 Vital Signs & I&O Last 24 Hrs of Vitals and I&O: Vital Signs Date Time Temp Pulse Resp B/P B/P Pulse O2 O2 Flow FiO2 Mean Ox Delivery Rate 10/15 1052 96 Room Air Room Air 10/15 0652 97.2 64 18 110/60 98 10/14 2303 98.2 62 16 128/72 92 Room Air 10/14 2208 95 CPAP 2.0L 10/14 1820 96 Room Air 10/14 1500 97.6 61 20 120/60 95 Room Air Intake & Output 10/15 1600 10/15 0800 10/15 0000 Intake Total 240 400 Output Total 225 Balance 240 175 Intake, Oral 240 400 Number 1 Bowel Movements Output, Urine 225 Patient 256 lb Weight Weight Mireya Lift Measurement Method Exam Other Physical Findings: gen awake and alert saturating well on room air heent ncat cvs s1, s2, systolic murmur lungs rare bibasilar rhonchi, improved abd soft bs+ ext chronic edema Results Last 24 Hrs of Lab Results: Laboratory Tests 10/15/16 0703: Anion Gap 10, Estimated GFR 36 L, BUN/Creatinine Ratio 41.4 H, PT 29.6 H, INR 2.85 H Impression/Plan Impression/Plan Impression/Plan: Impression 86 year old woman. * resolving acute exacerbation of CHF/volume overload * likely underlying LLL CAP Plan -prednisone taper as ordered -course of Augmentin as previously outlined -f/u cardiology, ins/outs, monitor creatinine, diuresis per cardiology -cont nocturnal cpap -trc/nebs, spiriva DVT prophylaxis at all times DC planning
--- NOTE | 2016-10-15 14:38 | PN- Cardiology ---
Subjective Subjective: The patient continues to improve significant shortness of breath. No chest pain. No palpitations. No diaphoresis. No lightheadedness or dizziness. Objective Vital Signs and I&Os Vital Signs Date Time Temp Pulse Resp B/P B/P Pulse O2 O2 Flow FiO2 Mean Ox Delivery Rate 10/15 1052 96 Room Air Room Air 10/15 0800 Room Air Room Air 10/15 0652 97.2 64 18 110/60 98 10/14 2303 98.2 62 16 128/72 92 Room Air 10/14 2208 95 CPAP 2.0L 10/14 1820 96 Room Air 10/14 1500 97.6 61 20 120/60 95 Room Air Intake & Output 10/15 1600 10/15 0800 10/15 0000 10/14 1600 10/14 0800 10/14 0000 Intake Total 600 240 400 600 50 356 Output Total 225 50 Balance 600 240 175 600 0 356 Intake, IV 16 Intake, Oral 600 240 400 600 50 340 Number 1 Bowel Movements Output, Urine 225 50 Patient 256 lb 249 lb Weight Weight Mireya Lift Chair scale Measurement Method Physical Exam: Gen: NAD HEENT: normal Lungs: Bilateral wheezing, normal resp. effort Heart: RRR, S1, S2, no murmurs Abdomen: Soft, nontender, no masses Extremities: 1+ edema Neuro: Alert and oriented x 3, cranial nerves intact Current Medications: Current Medications Sig/Aparna Start time Last Medication Dose Route Stop Time Status Admin Acetaminophen 650 MG Q6P PRN 10/10 1630 AC 10/15 PO 0942 Acetaminophen/ 1 TAB Q6P PRN 10/10 1630 AC Hydrocodone Bitart PO Albuterol Sulfate 3 ML BID 10/11 1000 AC 10/15 INH 1052 Albuterol Sulfate 2 PUF Q4-6 PRN PRN 10/10 1730 AC INH Allopurinol 300 MG QAM 10/13 1000 AC 10/15 PO 0944 Amoxicillin/ 500 MG Q12 10/11 1352 DC 10/15 Clavulanate Potassium PO 0946 Budesonide/ 2 PUF BID 10/10 2200 AC 10/15 Formoterol Fumarate INH 0945 Calcium Carbonate 500 MG DAILY 10/11 1000 AC 10/15 PO 0944 Citalopram 20 MG DAILY 10/10 1726 AC 10/15 Hydrobromide PO 0954 Folic Acid 1 MG DAILY 10/11 1000 AC 10/15 PO 0943 Furosemide 60 MG DAILY 10/15 1000 AC 10/15 IV 0937 Metolazone 2.5 MG DAILY 10/11 1000 AC 10/15 PO 0944 Morphine Sulfate 1 MG Q4P PRN 10/10 1630 AC IV Nystatin 1 PONCHO TIDPRN PRN 10/11 0745 DC TOP Potassium Chloride 20 MEQ BID 10/14 1000 AC 10/15 PO 0947 Prednisone 20 MG DAILY 10/14 1000 DC 10/15 PO 10/15 1001 0943 Tiotropium [place] 1 PUF DAILY 10/10 1726 AC 10/15 INH 0954 Tramadol HCl 50 MG QPM PRN 10/12 1530 AC 10/12 PO 1527 Warfarin Sodium 0.5 MG COUMADIN 1700 ONE 10/15 1700 AC PO 10/15 1701 Results Last 48 Hrs of Labs/Mics: Laboratory Tests 10/15/16 0703: Anion Gap 10, Estimated GFR 36 L, BUN/Creatinine Ratio 41.4 H, PT 29.6 H, INR 2.85 H 10/14/16 0632: Anion Gap 10, Estimated GFR 33 L, BUN/Creatinine Ratio 40.0 H, PT 31.6 H, INR 3.04 H Assessment/Plan Assessment/Plan Assessment: 1. Acute on chronic heart failure with preserved ejection fraction 2. Pulmonary hypertension with RV dysfunction 3. Chronic renal insufficiency 4. Hypertension plan: Plan: * Continue IV Lasix * Monitor input and output * Check basic metabolic profile daily Continue telemetry? Yes
[2016-10-15 15:10] VITALS: BP 120/64
[2016-10-15 22:20] VITALS: BP 120/58
--- NOTE | 2016-10-16 07:18 | PN- Housestaff ---
GUILLERMO REYNOLDS,VEDA 10/16/16 0718: Subjective Follow-up For: Pulmonary embolism Altered mental status hyponatremia COPD atrial fibrillation questionable lung mass Complaints: no complaints Tele-Events Since Last Visit: AFIB, - NO EVENTS Subjective: I PERSONALLY EXAMINED MARGUERITE Chavez AT BED SIDE , today she looks alert oriented , she was sitting comfortably in bed , SHE DIDN'T HAVE ANY COMPALINS AND WAS BREATHING ROOM AIR, I NOTICED REDNESS AND HOTNESS ON HER LEFT FOREARM, WHICH IS NOT PAINFUL, SHE DENIED ANY FEVER OE CHILLIS ASSOCIATED WITH IT Review of Systems Constitutional: Denies: no symptoms. EENTM: Denies: no symptoms. Cardiovascular: Denies: no symptoms. Respiratory: Denies: no symptoms. Gastrointestinal: Denies: no symptoms. Genitourinary: Denies: no symptoms. Objective Last 24 Hrs of Vital Signs/I&O Vital Signs Date Time Temp Pulse Resp B/P B/P Pulse O2 O2 Flow FiO2 Mean Ox Delivery Rate 10/16 0728 98.2 66 18 114/60 96 Room Air 10/16 0000 95 CPAP 10/15 2220 98.0 67 14 120/58 94 10/15 1510 97.6 70 20 120/64 95 Room Air 10/15 1052 96 Room Air Room Air 10/15 0800 Room Air Room Air Intake & Output 10/16 0800 10/16 0000 10/15 1600 Intake Total 400 600 Output Total Balance 400 600 Intake, Oral 400 600 Patient 256 lb Weight Weight Mireya Lift Measurement Method Physical Exam General Appearance: Alert, Oriented X3, Cooperative, No Acute Distress Skin: No Rashes, No Breakdown, ERYTHEMA IN THE LEFT FOREARM AFTER REMOVAL OF iv LINE Skin Temp/Moisture Exam: Warm/Dry HEENT: Atraumatic, PERRLA, EOMI, Mucous Membr. moist/pink Neck: Supple, No JVD Cardiovascular: Normal S1, Normal S2, No Murmurs, IRREGULAR IRREGULAR RHYTHM Lungs: MINIMAL WHEEZES Abdomen: Normal Bowel Sounds, Soft, No Tenderness Neurological: Normal Speech, Strength at 5/5 X4 Ext, Normal Tone Extremities: 2+ BILATERAL LL EDEMA Current Medications: Current Medications Sig/Aparna Start time Last Medication Dose Route Stop Time Status Admin Acetaminophen 650 MG Q6P PRN 10/10 1630 AC /04 PO 1622 Acetaminophen/ 1 TAB Q6P PRN 10/10 1630 AC Hydrocodone Bitart PO Albuterol Sulfate 3 ML BID 10/11 1000 AC 10/15 INH 1951 Albuterol Sulfate 2 PUF Q4-6 PRN PRN 10/10 1730 AC INH Allopurinol 300 MG QAM 10/13 1000 AC 10/15 PO 0944 Amoxicillin/ 500 MG Q12 10/11 1352 DC 10/15 Clavulanate Potassium PO 0946 Bacitracin 1 PONCHO BID 10/16 1000 UNVr TOP Budesonide/ 2 PUF BID 10/10 2200 AC 10/15 Formoterol Fumarate INH 2100 Calcium Carbonate 500 MG DAILY 10/11 1000 AC 10/15 PO 0944 Citalopram 20 MG DAILY 10/10 1726 AC 10/15 Hydrobromide PO 0954 Folic Acid 1 MG DAILY 10/11 1000 AC 10/15 PO 0943 Furosemide 60 MG DAILY 10/15 1000 AC 10/15 IV 0937 Metolazone 2.5 MG DAILY 10/11 1000 AC 10/15 PO 0944 Morphine Sulfate 1 MG Q4P PRN 10/10 1630 AC IV Potassium Chloride 20 MEQ BID 10/14 1000 AC 10/15 PO 2100 Prednisone 20 MG DAILY 10/14 1000 DC 10/15 PO 10/15 1001 0943 Tiotropium [place] 1 PUF DAILY 10/10 1726 AC 10/15 INH 0954 Tramadol HCl 50 MG QPM PRN 10/12 1530 AC 10/12 PO 1527 Warfarin Sodium 0.5 MG COUMADIN 1700 ONE 10/15 1700 DC 10/15 PO 10/15 1701 1620 Last 24 Hrs of Lab/Otis Results Last 24 Hrs of Labs/Mics: Laboratory Tests 10/16/16 0655: Sodium Pending, Potassium Pending, Chloride Pending, Carbon Dioxide Pending, Anion Gap Pending, BUN Pending, Creatinine Pending, BUN/Creatinine Ratio Pending , PT Pending, INR Pending, CBC w Diff Pending, WBC Pending, RBC Pending, Hgb Pending, Hct Pending, MCV Pending, MCH Pending, RDW Pending, Plt Count Pending, MPV Pending, PUBS MCHC Pending Assessment/Plan Assessment: Assessment: This is an 86 year old female with a past medical history of chronic heart failure with normal left ventricular ejection fraction mild right ventricular dysfunction, pulmonary hypertension, atrial fibrillation on Coumadin, renal insufficiency, obesity with BÁRBARA on nocturnal CPAP, hypertension, permanent pacemaker, and thrombocytopenia who presents to [facility] from extended care facility after recent hospitalization. #Community Acquire Pneumonia, Left Lower Lobe. * Oral Augmentin. DAY 6 OF ANTIBIOTICS. Total Coverage 7 days. * monitor her cbc and temp. * Incentive spirometer. * cont nocturnal cpap * trc/nebs, spiriva #Exacerbation of CHF with generalized Anasarca. * Monitor ins and outs. * Family refusion edgar because of hematuria in past. do daily wt. cont to monitor creatinine closely. * IV Lasix to 60 mg daily as per cardio consult #Gout: * Allopurinol 300 mg #Lactic acidosis. * Likely due to hypoperfusion, in the setting of new medication. #Hx of A fib. * INR 2.83 today, * coumadin 0.5 PO * will order INR tomorrow #History of COPD, BÁRBARA on nocturnal CPAP * continue to taper prednisone as per pulmonary recommendation * trc/nebs, spiriva * V/Q scan noted to be low probability for VTE * Severe obstructive sleep apnea, continue CPAP overnight. * TRC Nebs #History of HTN Conitnue home medciations. * Continue Metolazone. 2.5 mg #Bilirubinemia, cholestatic liver disease: * might be due to liver congestion due to heart failure. * The patient patient does have a history of increased bilirubin. #History of Vaginal Mass * Last saw Dr Em on 09/07. Was supposed to follow up for outpatient testing. * Denies any vaginal issues or acute bleeding. * Avoid Edgar insertion as this caused a lot of problems on last visit. #Diet * heart healthy obtain formal swallow evaluation in a.m. * ENSURE #Code full code Problem List: 1. ATRIAL FIBRILATION 2. BILATERAL LEG WEAKNESS 3. Benign essential hypertension 4. COPD 5. Obstructive sleep apnea syndrome 6. Lactic acidosis 7. Bilirubinemia 8. Elevated INR 9. Hypoxia Pain Ratin Pain Location: N/A Pain Goal: Remain pain free Pain Plan: Morphine sulfate 1 mg Q4 PRn IV VIcodin 1 tab PO Q6 PRN Tylenol 650 mg PO Q6 PRN Tomorrow's Labs & Rationales: INR :PATIENT IS ON COUMADIN BEP: PATIENT IS ON LASIX DVT/Prophylaxis: mechanical Consulting Request: Consulting Specialty: Pulmonary Disease SUN CHI MD 10/16/16 1624: Attending MD Review Statement Attending Statement Attending MD Statement: examined this patient, discuss w/resident/PA/SOCIAL AND POLITICAL STUDIES PROFESSOR, agreed w/resident/PA/SOCIAL AND POLITICAL STUDIES PROFESSOR, discussed with family, reviewed EMR data (avail), discussed with nursing, discussed with case mgmt, amended to note Attending Assessment/Plan: The patient was seen and discussed with house staff. Appreciate cardiology follow-up. Wgt increased slightly as well as edema. Will give additional IV furosemide this morning (total 80 mg today) and 80 mg in morning. Follow renal function closely as well as weights.
[2016-10-16 07:28] VITALS: BP 114/60
[2016-10-16 08:26] LABS: ABSOLUTE BASOPHIL COUNT 0 /CUMM (0.0-0.2); ABSOLUTE EOSINOPHIL COUNT 0 /CUMM (0.0-0.7); ABSOLUTE GRANULOCYTE CT 4.8 /CUMM (1.4-6.5); ABSOLUTE LYMPH COUNT 0.7 /CUMM (1.2-3.4); ABSOLUTE MONOCYTE COUNT 0.4 /CUMM (0.10-0.60); BASOPHIL % 0.2 % (0.0-2.0); EOSINOPHIL % 0.1 % (0-5); GRANULOCYTE % 80.8 % (42.2-75.2); HEMATOCRIT 30.6 % (37-47); MEAN CORPUSCULAR VOLUME 96.9 FL (81.0-99.0); MEAN PLATELET VOLUME 9.6 FL (7.4-10.4); PLATELET COUNT 86 /CUMM (130-400); RBC DISTRIBUTION WIDTH 19.8 % (11.5-14.5); RED BLOOD CELL CT 3.16 /CUMM (4.20-5.40); WHITE BLOOD CELL COUNT 5.9 /CUMM (4.8-10.8)
[2016-10-16 08:41] LABS: PT 29.4 SEC (9.4-12.5)
--- NOTE | 2016-10-16 09:26 | NUR ---
PHYSICAL THERAPY. PT RE-CONSULTED ON THIS PATIENT. Pt EVALUATION ALREADY ON 10/13/16 AND FOUND TO BE AT HER BASELINE, ASSISTX2 FOR MOBILITY. NO SKILLED PT NEEDS AT THIS TIME. CONTINUE TO RECOMMEND ASSISTX2 BY NURSING OR GENNA LIFT OOB WITH PLAN FOR D/C TO STR/ECF.
--- NOTE | 2016-10-16 10:37 | PN- Pulmonary ---
Subjective HPI/Critical Care Issues: pt seen and examined on room air abx 6/7 days iv lasix incontinence Objective Current Medications: Current Medications Sig/Aparna Start time Last Medication Dose Route Stop Time Status Admin Acetaminophen 650 MG Q6P PRN 10/10 1630 AC 10/15 PO 1622 Acetaminophen/ 1 TAB Q6P PRN 10/10 1630 AC Hydrocodone Bitart PO Albuterol Sulfate 3 ML BID 10/11 1000 AC 10/15 INH 1951 Albuterol Sulfate 2 PUF Q4-6 PRN PRN 10/10 1730 AC INH Allopurinol 300 MG QAM 10/13 1000 AC 10/16 PO 0928 Amoxicillin/ 500 MG Q12 10/11 1352 DC 10/15 Clavulanate Potassium PO 0946 Bacitracin 1 PONCHO BID 10/16 1000 AC 10/16 TOP 0947 Budesonide/ 2 PUF BID 10/10 2200 AC 10/16 Formoterol Fumarate INH 0928 Calcium Carbonate 500 MG DAILY 10/11 1000 AC 10/16 PO 0928 Citalopram 20 MG DAILY 10/10 1726 AC 10/16 Hydrobromide PO 0927 Folic Acid 1 MG DAILY 10/11 1000 AC 10/16 PO 0928 Furosemide 60 MG DAILY 10/15 1000 AC 10/16 IV 0929 Metolazone 2.5 MG DAILY 10/11 1000 AC 10/16 PO 0928 Morphine Sulfate 1 MG Q4P PRN 10/10 1630 AC IV Potassium Chloride 20 MEQ BID 10/14 1000 AC 10/16 PO 0928 Tiotropium [place] 1 PUF DAILY 10/10 1726 AC 10/16 INH 0928 Tramadol HCl 50 MG QPM PRN 10/12 1530 AC 10/12 PO 1527 Warfarin Sodium 0.5 MG COUMADIN 1700 ONE 10/15 1700 DC 10/15 PO 10/15 1701 1620 Vital Signs & I&O Last 24 Hrs of Vitals and I&O: Vital Signs Date Time Temp Pulse Resp B/P B/P Pulse O2 O2 Flow FiO2 Mean Ox Delivery Rate 10/16 08 Room Air 10/16 0728 98.2 66 18 114/60 96 Room Air /05 0000 95 CPAP 10/15 2220 98.0 67 14 120/58 94 07/04 1510 97.6 70 20 120/64 95 Room Air / 1052 96 Room Air Room Air Intake & Output 10/16 1600 10/16 0800 10/16 0000 Intake Total 300 400 Output Total 75 Balance 225 400 Intake, Oral 300 400 Output, Urine 75 Exam Other Physical Findings: gen awake and alert saturating well on room air heent ncat cvs s1, s2, systolic murmur lungs rare bibasilar rhonchi, improved abd soft bs+ ext chronic edema Results Last 24 Hrs of Lab Results: Laboratory Tests 10/16/16 0655: Anion Gap 9, Estimated GFR 39 L, BUN/Creatinine Ratio 45.4 H, PT 29.4 H, INR 2.83 H, CBC w Diff NO MAN DIFF REQ, RBC 3.16 L, MCV 96.9, MCH 31.0, RDW 19.8 H, MPV 9.6, Gran % 80.8 H, Lymphocytes % 12.0 L, Monocytes % 6.9, Eosinophils % 0.1, Basophils % 0.2, Absolute Granulocytes 4.8, Absolute Lymphocytes 0.7 L, Absolute Monocytes 0.4, Absolute Eosinophils 0, Absolute Basophils 0, PUBS MCHC 32.0 L Impression/Plan Impression/Plan Impression/Plan: Impression 86 year old woman. * resolving acute exacerbation of CHF/volume overload * likely underlying LLL CAP Plan -stop abx tomorrow 10/17 -cont nocturnal cpap -trc/nebs, spiriva -ins/outs/diuresis -PT, incontinence per primary team DVT prophylaxis at all times DC planning
--- NOTE | 2016-10-16 12:01 | PN- Cardiology ---
Subjective Subjective: Resting comfortably. Still with lower extremity edema. No chest pain or palpitations. Objective Vital Signs and I&Os Vital Signs Date Time Temp Pulse Resp B/P B/P Pulse O2 O2 Flow FiO2 Mean Ox Delivery Rate 10/16 0800 Room Air 10/16 0728 98.2 66 18 114/60 96 Room Air / 0000 95 CPAP 10/15 2220 98.0 67 14 120/58 94 07/04 1510 97.6 70 20 120/64 95 Room Air Intake & Output 10/16 1600 10/16 0810/16 0000 10/15 1600 10/15 0810/15 0000 Intake Total 300 400 600 240 400 Output Total 75 225 Balance 225 400 600 240 175 Intake, Oral 300 400 600 240 400 Number 1 Bowel Movements Output, Urine 75 225 Patient 253 lb 256 lb Weight Weight Chair scale Mireya Lift Measurement Method Physical Exam: General: no apparent distress. Alert. Obese. Eyes: No obvious scleral icterus. HEENT: No jugular venous distention or abnormal jugular venous pulsations. Cardiovascular: Normal intensity S1/S2. Respiratory: No rales or rhonchi Abdomen: no guarding or rebound tenderness. Musculoskeletal: No clubbing or cyanosis noted, 2+ LE edema Skin: warm Neuro: Grossly nonfocal Current Medications: Current Medications Sig/Aparna Start time Last Medication Dose Route Stop Time Status Admin Acetaminophen 650 MG Q6P PRN 10/10 1630 AC 10/15 PO 1622 Acetaminophen/ 1 TAB Q6P PRN 10/10 1630 AC Hydrocodone Bitart PO Albuterol Sulfate 3 ML BID 10/11 1000 AC 10/15 INH 1951 Albuterol Sulfate 2 PUF Q4-6 PRN PRN 10/10 1730 AC INH Allopurinol 300 MG QAM 10/13 1000 AC 10/16 PO 0928 Amoxicillin/ 500 MG Q12 10/11 1352 DC 10/15 Clavulanate Potassium PO 0946 Bacitracin 1 PONCHO BID 10/16 1000 AC 10/16 TOP 0947 Budesonide/ 2 PUF BID 10/10 2200 AC 10/16 Formoterol Fumarate INH 0928 Calcium Carbonate 500 MG DAILY 10/11 1000 AC 10/16 PO 0928 Citalopram 20 MG DAILY 10/10 1726 AC 10/16 Hydrobromide PO 0927 Folic Acid 1 MG DAILY 10/11 1000 AC 10/16 PO 0928 Furosemide 20 MG ONCE ONE 10/16 1145 DC IV PUSH 10/16 1146 Furosemide 60 MG DAILY 10/15 1000 AC 10/16 IV 0929 Metolazone 2.5 MG DAILY 10/11 1000 AC 10/16 PO 0928 Morphine Sulfate 1 MG Q4P PRN 10/10 1630 AC IV Potassium Chloride 20 MEQ BID 10/14 1000 AC 10/16 PO 0928 Tiotropium [place] 1 PUF DAILY 10/10 1726 AC 10/16 INH 0928 Tramadol HCl 50 MG QPM PRN 10/12 1530 AC 10/12 PO 1527 Warfarin Sodium 0.5 MG COUMADIN 1700 ONE 10/15 1700 DC 10/15 PO 10/15 1701 1620 Results Last 48 Hrs of Labs/Mics: Laboratory Tests 10/16/16 0655: Anion Gap 9, Estimated GFR 39 L, BUN/Creatinine Ratio 45.4 H, PT 29.4 H, INR 2.83 H, CBC w Diff NO MAN DIFF REQ, RBC 3.16 L, MCV 96.9, MCH 31.0, RDW 19.8 H, MPV 9.6, Gran % 80.8 H, Lymphocytes % 12.0 L, Monocytes % 6.9, Eosinophils % 0.1, Basophils % 0.2, Absolute Granulocytes 4.8, Absolute Lymphocytes 0.7 L, Absolute Monocytes 0.4, Absolute Eosinophils 0, Absolute Basophils 0, PUBS MCHC 32.0 L 10/15/16 0703: Anion Gap 10, Estimated GFR 36 L, BUN/Creatinine Ratio 41.4 H, PT 29.6 H, INR 2.85 H Recent Imaging Studies: Telemetry tracings were personally reviewed and show atrial fibrillation with one ventricular triplet Assessment/Plan Assessment/Plan 1. Acute on chronic congestive heart failure with normal left ventricular ejection fraction and mild right ventricular dysfunction 2. Pulmonary hypertension with mild right ventricular dysfunction 3. Atrial fibrillation on outpatient Coumadin 4. Chronic renal insufficiency 5. Hypertension 6. Obesity with obstructive sleep apnea on nocturnal CPAP 7. Postmenopausal bleeding status post prior D&C 8. History of bradycardia with permanent pacemaker in situ 9. Thrombocytopenia 10. Elevated bilirubin, cholestatic liver disease 11. Hematuria, resolved Doing well but weight now documented to be increased and still volume overloaded by physical exam. Creatinine stable on IV Lasix. I discussed with the medical team and would recommend increasing the Lasix to 80 mg IV daily. If she is able to tolerate this dose we may consider giving her a standing outpatient dose of Lasix 80 mg IV daily in the CHF clinic once a week. INR remains therapeutic. Walker Holm MD [facility] Continue telemetry? No
[2016-10-16 15:15] VITALS: BP 136/60
[2016-10-16 21:46] VITALS: BP 126/70
--- NOTE | 2016-10-17 06:44 | NUR ---
AT AROUND 0200, PT C/O INABILITY TO VOID EVEN THOUGH FEELING LIKE SHE NEEDS TO VOID. PT HAS NOT BEEN INCONTINENT MUCH SHE HAS BEEN THE PAST FEW NIGHTS. ONLY VOIDING SMALL AMOUNTS BUT STILL FEELING THAT URGENCY. STRAIGHT CATH DONE AT 0500 TO COLLECT URINE CULTURE. ONLY 25 ML OUT WITH STRAIGHT CATH. AFTER CATH DONE, PT STILL C/O FEELING THAT THERE IS URINE IN HER BLADDER AND RLQ, SUPRAPUBIC PAIN. DR. DAVILA IN TO SEE PATIENT. GIVEN 50MG PO ULTRAM. PT ASLEEP AFTER ONE HOUR OF PAIN MEDS. WILL PASS ON IN REPORT TO DAY RN.
[2016-10-17 06:45] VITALS: BP 130/66
--- NOTE | 2016-10-17 06:55 | Discharge Summary ---
Hospital Course Course Consulting Request: Consulting Specialty: Pulmonary Disease Allergies: Coded Allergies: guaifenesin (YELENA 09/01/16)
--- NOTE | 2016-10-17 06:55 | PN- Housestaff ---
Assessment/Plan Assessment: Assessment: This is an 86 year old female with a past medical history of chronic heart failure with normal left ventricular ejection fraction mild right ventricular dysfunction, pulmonary hypertension, atrial fibrillation on Coumadin, renal insufficiency, obesity with BÁRBARA on nocturnal CPAP, hypertension, permanent pacemaker, and thrombocytopenia who presents to [facility] from extended care facility after recent hospitalization. #Community Acquire Pneumonia, Left Lower Lobe. * Oral Augmentin. DAY 6 OF ANTIBIOTICS. Total Coverage 7 days. * monitor her cbc and temp. * Incentive spirometer. * cont nocturnal cpap * trc/nebs, spiriva #Exacerbation of CHF with generalized Anasarca. * Monitor ins and outs. * Family refusion edgar because of hematuria in past. do daily wt. cont to monitor creatinine closely. * IV Lasix to 60 mg daily as per cardio consult #Gout: * Allopurinol 300 mg #Lactic acidosis. * Likely due to hypoperfusion, in the setting of new medication. #Hx of A fib. * INR 2.83 today, * coumadin 0.5 PO * will order INR tomorrow #History of COPD, BÁRBARA on nocturnal CPAP * continue to taper prednisone as per pulmonary recommendation * trc/nebs, spiriva * V/Q scan noted to be low probability for VTE * Severe obstructive sleep apnea, continue CPAP overnight. * TRC Nebs #History of HTN Conitnue home medciations. * Continue Metolazone. 2.5 mg #Bilirubinemia, cholestatic liver disease: * might be due to liver congestion due to heart failure. * The patient patient does have a history of increased bilirubin. #History of Vaginal Mass * Last saw Dr Em on 09/07. Was supposed to follow up for outpatient testing. * Denies any vaginal issues or acute bleeding. * Avoid Edgar insertion as this caused a lot of problems on last visit. #Diet * heart healthy obtain formal swallow evaluation in a.m. * ENSURE #Code full code Consulting Request: Consulting Specialty: Pulmonary Disease
[2016-10-17 08:32] LABS: PT 24.4 SEC (9.4-12.5)
--- NOTE | 2016-10-17 08:46 | PN- Cardiology ---
Subjective Subjective: Overnight patient complained of right lower quadrant abdominal pain. Telemetry reviewed. Atrial fibrillation with ventricular rate from 60-70. No reported vomiting or fever. Objective Vital Signs and I&Os Vital Signs Date Time Temp Pulse Resp B/P B/P Pulse O2 O2 Flow FiO2 Mean Ox Delivery Rate 10/17 0645 98.7 64 18 130/66 98 CPAP 10/17 0000 BIPAP 10/16 2146 98.0 77 16 126/70 96 Room Air 10/16 2113 98 CPAP 2.0L 10/16 1950 92 Room Air 10/16 1515 97.5 68 18 136/60 92 Room Air 10/16 1204 94 Room Air Intake & Output 10/17 1600 10/17 0800 / 0000 10/16 1600 10/16 0800 10/16 0000 Intake Total 120 240 568 300 400 Output Total 275 201 75 Balance -155 240 367 225 400 Intake, IV 28 Intake, Oral 120 240 540 300 400 Number 1 Bowel Movements Output, Stool 1 Output, Urine 275 200 75 Patient 252 lb 253 lb Weight Weight Chair scale Chair scale Measurement Method Physical Exam: On general exam patient was sitting on a chair wrapped in a blanket but comfortable. Admitted to right lower quadrant pain worse last night. Head normocephalic atraumatic Eyes sclera anicteric conjunctiva showed no pallor X Elan muscles were normal Neck minimal jugular venous distention no thyroid masses no palpable nodes Chest lungs were clear bilaterally Heart irregular rhythm with a red-espino around 80 Abdomen definite right lower quadrant tenderness. No guarding or rigidity. 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 Next and neurological no gross motor or sensory deficits Current Medications: Current Medications Sig/Aparna Start time Last Medication Dose Route Stop Time Status Admin Acetaminophen 650 MG Q6P PRN 10/10 1630 AC /04 PO 1622 Acetaminophen/ 1 TAB Q6P PRN 10/10 1630 AC Hydrocodone Bitart PO Albuterol Sulfate 3 ML BID 10/11 1000 AC 10/16 INH 1950 Albuterol Sulfate 2 PUF Q4-6 PRN PRN 10/10 1730 AC INH Allopurinol 300 MG QAM 10/13 1000 AC 10/16 PO 0928 Bacitracin 1 PONCHO BID 10/16 1000 AC 10/16 TOP 205 Budesonide/ 2 PUF BID 10/10 2200 AC 10/16 Formoterol Fumarate INH 205 Calcium Carbonate 500 MG DAILY 10/11 1000 AC 10/16 PO 0928 Citalopram 20 MG DAILY 10/10 1726 AC 10/16 Hydrobromide PO 09 Folic Acid 1 MG DAILY 10/11 1000 AC 10/16 PO 09 Furosemide 80 MG DAILY 10/17 1000 AC IV Furosemide 40 MG .STK-MED ONE 10/16 1153 DC IV 10/16 1154 Furosemide 20 MG ONCE ONE 10/16 1145 DC 10/16 IV PUSH 10/16 1146 1157 Furosemide 60 MG DAILY 10/15 1000 AC 10/16 IV 0929 Metolazone 2.5 MG DAILY 10/11 1000 AC 10/16 PO 0928 Morphine Sulfate 1 MG Q4P PRN 10/10 1630 AC IV Potassium Chloride 20 MEQ BID 10/14 1000 AC 10/16 PO 205 Tiotropium [place] 1 PUF DAILY 10/10 1726 AC 10/16 INH 0928 Tramadol HCl 50 MG QPM PRN 10/12 1530 AC 10/17 PO 0515 Warfarin Sodium 0.5 MG COUMADIN 1700 ONE 10/16 1700 DC 10/16 PO 10/16 1701 1643 Results Last 48 Hrs of Labs/Mics: Laboratory Tests 10/17/16 0710: Anion Gap 10, Estimated GFR 36 L, BUN/Creatinine Ratio 44.3 H, PT Pending, INR Pending 10/16/16 0655: Anion Gap 9, Estimated GFR 39 L, BUN/Creatinine Ratio 45.4 H, PT 29.4 H, INR 2.83 H, CBC w Diff NO MAN DIFF REQ, RBC 3.16 L, MCV 96.9, MCH 31.0, RDW 19.8 H, MPV 9.6, Gran % 80.8 H, Lymphocytes % 12.0 L, Monocytes % 6.9, Eosinophils % 0.1, Basophils % 0.2, Absolute Granulocytes 4.8, Absolute Lymphocytes 0.7 L, Absolute Monocytes 0.4, Absolute Eosinophils 0, Absolute Basophils 0, PUBS MCHC 32.0 L Assessment/Plan Assessment/Plan 1. Acute on chronic congestive heart failure with normal left ventricular ejection fraction and mild right ventricular dysfunction 2. Pulmonary hypertension with mild right ventricular dysfunction 3. Atrial fibrillation on outpatient Coumadin 4. Chronic renal insufficiency 5. Hypertension 6. Obesity with obstructive sleep apnea on nocturnal CPAP 7. Postmenopausal bleeding status post prior D&C 8. History of bradycardia with permanent pacemaker in situ 9. Thrombocytopenia 10. Elevated bilirubin, cholestatic liver disease 11. Hematuria, resolved 12. Right lower quadrant abdominal pain. X It is noted that she developing some degree of prerenal azotemia. I would probably transition are now to Lasix 80 mg by mouth twice a day. She should probably have a CT scan of the abdomen in view of her right lower quadrant tenderness and abdominal pain. She does not have any fever or vomiting. She may need CHF clinic with once a week Lasix IV to keep her in a euvolemic status. Continue telemetry? Yes
--- NOTE | 2016-10-17 09:29 | PN- Pulmonary ---
Subjective HPI/Critical Care Issues: pt seen and examined some right lower quandrant discomfort last day of abx creatinine 1.4 Objective Current Medications: Current Medications Sig/Aparna Start time Last Medication Dose Route Stop Time Status Admin Acetaminophen 650 MG Q6P PRN 10/10 1630 AC 10/15 PO 1622 Acetaminophen/ 1 TAB Q6P PRN 10/10 1630 AC Hydrocodone Bitart PO Albuterol Sulfate 3 ML BID 10/11 1000 AC 10/16 INH 1950 Albuterol Sulfate 2 PUF Q4-6 PRN PRN 10/10 1730 AC INH Allopurinol 300 MG QAM 10/13 1000 AC 10/16 PO 0928 Bacitracin 1 PONCHO BID 10/16 1000 AC 10/16 TOP 205 Budesonide/ 2 PUF BID 10/10 2200 AC 10/16 Formoterol Fumarate INH 205 Calcium Carbonate 500 MG DAILY 10/11 1000 AC 10/16 PO 0928 Citalopram 20 MG DAILY 10/10 1726 AC 10/16 Hydrobromide PO 0927 Folic Acid 1 MG DAILY 10/11 1000 AC 10/16 PO 0928 Furosemide 80 MG DAILY 10/17 1000 AC IV Furosemide 40 MG .STK-MED ONE 10/16 1153 DC IV 10/16 1154 Furosemide 20 MG ONCE ONE 10/16 1145 DC 10/16 IV PUSH 10/16 1146 1157 Furosemide 60 MG DAILY 10/15 1000 AC 10/16 IV 0929 Metolazone 2.5 MG DAILY 10/11 1000 AC 10/16 PO 0928 Morphine Sulfate 1 MG Q4P PRN 10/10 1630 AC IV Potassium Chloride 20 MEQ BID 10/14 1000 AC 10/16 PO 205 Tiotropium [place] 1 PUF DAILY 10/10 1726 AC 10/16 INH 0928 Tramadol HCl 50 MG QPM PRN 10/12 1530 AC 10/17 PO 0515 Warfarin Sodium 0.5 MG COUMADIN 1700 ONE 10/16 1700 DC 10/16 PO 10/16 1701 1643 Vital Signs & I&O Last 24 Hrs of Vitals and I&O: Vital Signs Date Time Temp Pulse Resp B/P B/P Pulse O2 O2 Flow FiO2 Mean Ox Delivery Rate 10/17 644 98.7 64 18 130/66 98 CPAP 10/17 0000 BIPAP 10/16 2145 98.0 77 16 126/70 96 Room Air 07/05 2113 98 CPAP 2.0L 10/16 1950 92 Room Air 10/16 1515 97.5 68 18 136/60 92 Room Air 10/16 1204 94 Room Air Intake & Output 10/17 1600 10/17 0800 10/17 0000 Intake Total 120 240 Output Total 275 Balance -155 240 Intake, Oral 120 240 Number 1 Bowel Movements Output, Urine 275 Patient 252 lb Weight Weight Chair scale Measurement Method Exam Other Physical Findings: gen awake and alert saturating well on room air heent ncat cvs s1, s2, systolic murmur lungs rare bibasilar rhonchi, improved abd soft bs+ ext chronic edema Results Last 24 Hrs of Lab Results: Laboratory Tests 10/17/16 0710: Anion Gap 10, Estimated GFR 36 L, BUN/Creatinine Ratio 44.3 H, PT 24.4 H, INR 2.34 H Impression/Plan Impression/Plan Impression/Plan: Impression 86 year old woman. * resolving acute exacerbation of CHF/volume overload * likely underlying LLL CAP Plan -last day of abx for LLL CAP -abd discomfort per primary team -lasix per cardiology (creatinine 1.4) -cont nocturnal cpap -trc/nebs, spiriva -ins/outs/diuresis -PT, incontinence per primary team DVT prophylaxis at all times Call with any questions
--- NOTE | 2016-10-17 10:42 | ULTRASOUND REPORT ---
EXAMINATION: US ABDOMEN COMPLETE CLINICAL INFORMATION: Abdominal pain and tenderness.. COMPARISON: None TECHNIQUE: Real-time imaging of the abdominal viscera. FINDINGS: PANCREAS: Normal. ABDOMINAL AORTA: The proximal (atherosclerotic) segment is normal in caliber. INFERIOR VENA CAVA: The intrahepatic segment of the inferior vena cava is prominent, measuring 3 cm AP, likely secondary to elevated right-sided cardiac pressures. LIVER: Normal. The liver demonstrates normal size, contour and echogenicity. No focal lesion or intrahepatic biliary duct dilatation. GALLBLADDER: Normal. The gallbladder is physiologically distended without evidence of stones, sludge, polyps, wall thickening or pericholecystic fluid. COMMON BILE DUCT: Normal in caliber measuring 0.4 cm in diameter. RIGHT KIDNEY: The right kidney measures 10.6 cm in length and has normal cortical thickness and echotexture. No nephrolithiasis or hydronephrosis. LEFT KIDNEY: The left kidney is not well-visualized due to a suboptimal acoustic window. The kidney measures at least 9.1 cm in length; it has normal cortical thickness and cortical echotexture. No overt nephrolithiasis or hydronephrosis. SPLEEN: The spleen is suboptimally visualized; it measures approximately 11.4 cm in length. Splenic vascular calcifications are noted. No perisplenic fluid. FREE FLUID: No free fluid in Morison's pouch. IMPRESSION: 1. No evidence of cholelithiasis, cholecystitis or biliary tract obstruction. 2. Inferior vena cava is enlarged -- suggestive of increased intravascular fluid volume and/or elevated right-sided cardiac pressures.
[2016-10-17 14:56] VITALS: BP 134/70
--- NOTE | 2016-10-17 15:39 | CT SCAN REPORT ---
EXAMINATION: CT ABDOMEN AND PELVIS WITH CONTRAST CLINICAL INFORMATION: Abdominal pain. Evaluate for acute abdominal pathology and hernia strangulation. COMPARISON: CT images of abdomen pelvis from 10/10/2016. TECHNIQUE: Multidetector volumetric imaging was performed from the superior aspect of the liver through the pubic symphysis following administration of oral contrast. Sagittal and coronal reformatted images were obtained on the technologist's workstation. DLP: 1255 mGy-cm FINDINGS: PHOTOVOLTAIC TECHNICIAN: Obese body habitus. LUNG BASES: Small pleural effusions, increased on the right and similar in size on the left compared to 10/10/2016. Atelectasis and/or consolidation in the medial left lower lobe has decreased. Other findings include cardiomegaly and coronary artery atherosclerotic disease with single lead cardiac pacemaker in place. LIVER, GALLBLADDER, AND BILIARY TREE: Liver has normal size and contour. No focal hepatic lesion or intrahepatic bile duct dilatation. Gallbladder is unremarkable. PANCREAS: Unremarkable. SPLEEN: Spleen measures 13 cm AP. No focal splenic lesions. ADRENAL GLANDS: Unremarkable. KIDNEYS AND URETERS: Renal vascular calcifications. No nephrolithiasis or hydroureteronephrosis. BLADDER: Unremarkable. GASTROINTESTINAL TRACT: Stomach is unremarkable. Bowel loops remain normal in size. No evidence of acute inflammation or obstruction along the gastrointestinal tract. No ascites or pneumoperitoneum. ABDOMINAL WALL: Small, approximately 2.5 x 3 cm cm hyperdense hematoma in the inferior right rectus abdominis muscle is a new finding compared to 10/10/2016 (images 56-66, series 2). Again noted is extensive edema within subcutaneous tissues of the abdominal wall, flanks, back and thighs. The fat-containing umbilical hernia is unchanged with hernia sac measuring 5.6 x 3 x 5.5 cm. LYMPH NODES: No pathologic sized lymph nodes in the abdomen or pelvis. VASCULAR: There is extensive atherosclerotic calcification of the abdominal aorta and branch vessels, including splenic and renal arteries. No aortic aneurysm. No retroperitoneal hematoma. Again noted is an engorged inferior vena cava suggesting presence of increased intravascular fluid volume and/or elevated right-sided cardiac pressures. PELVIC VISCERA: The uterus is grossly unremarkable. No adnexal mass. OSSEOUS STRUCTURES: No acute findings within the degenerated, dextroscoliotic lumbar spine. 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 IMPRESSION: 1. No acute imaging abnormalities along the gastrointestinal tract. 2. Fat-containing umbilical hernia is unchanged. 3. Obesity and anasarca with extensive edema in subcutaneous tissues of the abdominal wall, flanks and thighs. The small left pleural effusion is similar in size compared to 10/10/2016 whereas the small right pleural effusion has increased in size. 4. The hyperdense hematoma within the inferior right rectus abdominis muscle is a new finding compared to 10/10/2016. 5. Mild splenomegaly.
--- NOTE | 2016-10-17 16:46 | NUR ---
PT DR IVAN-PT MAY EAT AFTER U/S AND CT SCAN. DIET ORDER PLACED
--- NOTE | 2016-10-17 20:56 | PN- Housestaff ---
See Addendum Subjective Follow-up For: Pulmonary embolism Altered mental status hyponatremia COPD atrial fibrillation questionable lung mass Tele-Events Since Last Visit: afib 65-73 Review of Systems Constitutional: Reports: malaise, weakness. Objective Last 24 Hrs of Vital Signs/I&O Vital Signs Date Time Temp Pulse Resp B/P B/P Pulse O2 O2 Flow FiO2 Mean Ox Delivery Rate 10/17 1713 98 Nasal 2.0L Cannula 10/17 1456 97.6 64 18 134/70 90 Room Air 10/17 1033 93 Room Air Room Air 10/17 0645 98.7 64 18 130/66 98 CPAP 10/17 0000 BIPAP 10/16 2146 98.0 77 16 126/70 96 Room Air 10/16 2113 98 CPAP 2.0L Intake & Output 10/17 1600 10/17 0800 10/17 0000 Intake Total 900 120 240 Output Total 200 275 Balance 700 -155 240 Intake, Oral 900 120 240 Number 1 Bowel Movements Output, Urine 200 275 Patient 252 lb Weight Weight Chair scale Measurement Method Physical Exam General Appearance: Alert, Oriented X3, Cooperative Assessment/Plan Assessment: Assessment: This is an 86 year old female with a past medical history of chronic heart failure with normal left ventricular ejection fraction mild right ventricular dysfunction, pulmonary hypertension, atrial fibrillation on Coumadin, renal insufficiency, obesity with BÁRBARA on nocturnal CPAP, hypertension, permanent pacemaker, and thrombocytopenia who presents to [facility] from extended care facility after recent hospitalization. # abdominal pain: -yesterday night the patient c/o of dysurea and diffuse vague diffuse abdominal pain, which was suspected to be due to complication of her umbilical hernia - ct abdomen today showed hyperdense hematoma within the inferior right rectus abdominis muscle,new finding compared to 10/10/2016. no changes to her umbilical hernis. - u/s today showed Inferior vena cava is enlarged -- suggestive of increased intravascular fluid volume and/or elevated right-sided cardiac pressures. - might also be dt UTI , as patient c/o of dysurea, urine analysis showed hazy urine with 3-5 WBCS, urinne c/s was ordered to r/o UTI #Community Acquire Pneumonia, Left Lower Lobe. * Oral Augmentin. last day OF ANTIBIOTICS. Total Coverage 7 days. * monitor her cbc and temp. * Incentive spirometer. * cont nocturnal cpap * trc/nebs, spiriva #Exacerbation of CHF with generalized Anasarca. * Lasix tab 80 mg bid per cardio consult * metalozone 2.5 mg po daily * potassium cl powder * Monitor ins and outs. * Family refusion edgar because of hematuria in past. do daily wt. cont to monitor creatinine closely. #Gout: * Allopurinol 300 mg #Lactic acidosis. * Likely due to hypoperfusion, in the setting of new medication. #Hx of A fib. * INR 2.34 today, * coumadin 0.5 PO * will order INR tomorrow #History of COPD, BÁRBARA on nocturnal CPAP * continue to taper prednisone as per pulmonary recommendation * trc/nebs, spiriva * V/Q scan noted to be low probability for VTE * Severe obstructive sleep apnea, continue CPAP overnight. * TRC Nebs #History of HTN Conitnue home medciations. * Continue Metolazone. 2.5 mg #Bilirubinemia, cholestatic liver disease: * might be due to liver congestion due to heart failure. * The patient patient does have a history of increased bilirubin. #History of Vaginal Mass * Last saw Dr Em on 09/07. Was supposed to follow up for outpatient testing. * Denies any vaginal issues or acute bleeding. * Avoid Edgar insertion as this caused a lot of problems on last visit. #Diet * heart healthy obtain formal swallow evaluation in a.m. * ENSURE #Code full code Problem List: 1. ATRIAL FIBRILATION 2. BIPEDAL EDEMA 3. COPD 4. Obstructive sleep apnea syndrome 5. CHF (congestive heart failure) 6. Elevated bilirubin 7. Elevated INR 8. Pneumonia 9. Hypoxia 10. Lactic acidosis 11. Bilirubinemia Pain Ratin Pain Location: diffuse abdominal Alt Method for Pain Treatment: Other(free text) Pain Goal: Remain pain free Pain Plan: tramadol acetaminophen Tomorrow's Labs & Rationales: pt : pt on coumadin bep: pt on lasix DVT/Prophylaxis: pharmacological Consulting Request: Consulting Specialty: Pulmonary Disease
[2016-10-17 23:02] VITALS: BP 136/71
--- NOTE | 2016-10-18 07:11 | PN- Housestaff ---
GUILLERMO REYNOLDS,VEDA 10/18/16 0711: Subjective Follow-up For: Pulmonary embolism Altered mental status hyponatremia COPD atrial fibrillation questionable lung mass Complaints: abd pain sob Tele-Events Since Last Visit: afib 65-73 Subjective: pt is lying down in bed in no acute distress, on nasal oxygen Review of Systems Constitutional: Denies: malaise, weakness. Cardiovascular: Denies: no symptoms. Respiratory: Reports: short of breath. Gastrointestinal: Reports: abdominal pain. Genitourinary: Reports: dysuria. Objective Last 24 Hrs of Vital Signs/I&O , Physical Exam General Appearance: Alert, Oriented X3, Cooperative, No Acute Distress Skin: No Rashes, No Breakdown, No Significant Lesion HEENT: Atraumatic, PERRLA Neck: Supple Cardiovascular: Normal S1, Normal S2, No Murmurs (irregular irreular) Lungs: Clear to Auscultation, Normal Air Movement Abdomen: Normal Bowel Sounds, Soft, No Tenderness Neurological: Normal Speech Extremities: bilateral 2+ Assessment/Plan Assessment: Assessment: This is an 86 year old female with a past medical history of chronic heart failure with normal left ventricular ejection fraction mild right ventricular dysfunction, pulmonary hypertension, atrial fibrillation on Coumadin, renal insufficiency, obesity with BÁRBARA on nocturnal CPAP, hypertension, permanent pacemaker, and thrombocytopenia who presents to [facility] from extended care facility after recent hospitalization. # abdominal pain: -yesterday night the patient c/o of dysurea and diffuse vague diffuse abdominal pain, which was suspected to be due to complication of her umbilical hernia - ct abdomen today showed hyperdense hematoma within the inferior right rectus abdominis muscle,new finding compared to 10/10/2016. no changes to her umbilical hernis. - u/s today showed Inferior vena cava is enlarged -- suggestive of increased intravascular fluid volume and/or elevated right-sided cardiac pressures. - might also be dt UTI , as patient c/o of dysurea, urine analysis showed hazy urine with 3-5 WBCS, urinne c/s was ordered to r/o UTI #Community Acquire Pneumonia, Left Lower Lobe. * Oral Augmentin. last day OF ANTIBIOTICS. Total Coverage 7 days. * monitor her cbc and temp. * Incentive spirometer. * cont nocturnal cpap * trc/nebs, spiriva #Exacerbation of CHF with generalized Anasarca. * Lasix tab 80 mg bid per cardio consult * metalozone 2.5 mg po daily * potassium cl powder * Monitor ins and outs. * Family refusion edgar because of hematuria in past. do daily wt. cont to monitor creatinine closely. # Abdominal pain: u/s No evidence of cholelithiasis, cholecystitis or biliary tract obstruction. 2. Inferior vena cava is enlarged -- suggestive of increased intravascular fluid volume and/or elevated right-sided cardiac pressures urine. -urine cult was neative #Gout: * Allopurinol 300 mg #Lactic acidosis. * Likely due to hypoperfusion, in the setting of new medication. #Hx of A fib. * INR 2.34 today, * coumadin 0.5 PO * will order INR tomorrow #History of COPD, BÁRBARA on nocturnal CPAP * continue to taper prednisone as per pulmonary recommendation * trc/nebs, spiriva * V/Q scan noted to be low probability for VTE * Severe obstructive sleep apnea, continue CPAP overnight. * TRC Nebs #History of HTN Conitnue home medciations. * Continue Metolazone. 2.5 mg #Bilirubinemia, cholestatic liver disease: * might be due to liver congestion due to heart failure. * The patient patient does have a history of increased bilirubin. #History of Vaginal Mass * Last saw Dr Em on 09/07. Was supposed to follow up for outpatient testing. * Denies any vaginal issues or acute bleeding. * Avoid Edgar insertion as this caused a lot of problems on last visit. #Diet * heart healthy obtain formal swallow evaluation in a.m. * ENSURE today the patient is stable for discharge was advised to f/u with her pcp and chf clinic #Code full code Problem List: 1. ATRIAL FIBRILATION 2. BILATERAL LEG WEAKNESS 3. Benign essential hypertension 4. COPD 5. Obstructive sleep apnea syndrome 6. CHF (congestive heart failure) 7. Bilirubinemia 8. Lactic acidosis 9. Hypoxia Pain Ratin Pain Location: periumbilical Pain Goal: Pain 4 or less Pain Plan: Morphine sulfate 1 mg Q4 PRn IV VIcodin 1 tab PO Q6 PRN Tylenol 650 mg PO Q6 PRN Tomorrow's Labs & Rationales: n/a DVT/Prophylaxis: pharmacological Consulting Request: Consulting Specialty: Pulmonary Disease SUN CHI MD 10/18/16 5096: Attending MD Review Statement Attending Statement Attending MD Statement: examined this patient, discuss w/resident/PA/CONSULTING PROPERTY MANAGER, agreed w/resident/PA/CONSULTING PROPERTY MANAGER, discussed with family, reviewed EMR data (avail), discussed with nursing, discussed with case mgmt, reviewed images, amended to note Attending Assessment/Plan: The patient was seen and discussed with house staff. Agree with the plan of care as outlined. OK to transfer to [facility] at [facility] today. Will need weekly IV Lasix as per cardiology.
[2016-10-18 07:15] VITALS: BP 124/56
--- NOTE | 2016-10-18 08:14 | NUR ---
NURSING NOTE: ASSUMED CARE OF PATIENT THIS AM, OS SAT FOUND TO BE 85% ON 1l, PATIENT WAS TITRATED UP TO 2L WITHOUT EFFECT, SPOKE [facility] RESIDENT REETUP #[id number], RECOMMENDED TO TITRATE UP AGAIN TO 4-5 LITERS NC AND CALL RESP FOR TREATMENT. PATIENT DENIES SHORTNESS OF BREATH OR CHEST PAIN, CAP REFILL <2, NO CYANOSIS TO NAIL BEDS OR MUCOUS MEMBRANES. PATIENT POSITIONED TO HIGH FOWLERS, O2 SAT 88% ON 4L. RESPIRATORY TO COME ADMINISTER TREATMENT THIS AM. NO FURTHER ORDERS AT THIS TIME. WILL CONTINUE TO MONITOR PATIENT.
[2016-10-18 08:59] LABS: PT 22.2 SEC (9.4-12.5)
--- NOTE | 2016-10-18 10:52 | PN- Pulmonary ---
Subjective HPI/Critical Care Issues: pt seen and examined back on o2, however no less than 88% on RA so far abdominal wall hematoma causing some discomfort in right abdomen Objective Current Medications: Current Medications Sig/Aparna Start time Last Medication Dose Route Stop Time Status Admin Acetaminophen 650 MG Q6P PRN 10/10 1630 AC 10/15 PO 1622 Acetaminophen/ 1 TAB Q6P PRN 10/10 1630 DC 10/17 Hydrocodone Bitart PO 1254 Albuterol Sulfate 3 ML BID 10/11 1000 AC 10/18 INH 0852 Albuterol Sulfate 2 PUF Q4-6 PRN PRN 10/10 1730 AC INH Allopurinol 300 MG QAM 10/13 1000 AC 10/18 PO 0920 Bacitracin 1 PONCHO BID 10/16 1000 AC 10/18 TOP 0940 Budesonide/ 2 PUF BID 10/10 2200 AC 10/18 Formoterol Fumarate INH 0933 Calcium Carbonate 500 MG DAILY 10/11 1000 AC 10/18 PO 0926 Citalopram 20 MG DAILY 10/10 1726 AC 10/18 Hydrobromide PO 0923 Folic Acid 1 MG DAILY 10/11 1000 AC 10/18 PO 0924 Furosemide 80 MG 7:30 AM, & 4:30 PM 10/18 0730 AC 10/18 PO 0745 Furosemide 80 MG DAILY 10/17 1000 DC 10/17 IV 1044 Metolazone 2.5 MG DAILY 10/11 1000 AC 10/18 PO 0920 Morphine Sulfate 1 MG Q4P PRN 10/10 1630 DC IV Potassium Chloride 20 MEQ BID 10/14 1000 AC 10/18 PO 0924 Tiotropium [place] 1 PUF DAILY 10/10 1726 AC 10/18 INH 0926 Tramadol HCl 50 MG QPM PRN 10/12 1530 AC 10/17 PO 2031 Vitamin A/Vitamin D 1 PONCHO TID 10/18 1000 AC 10/18 TOP 1041 Warfarin Sodium 1 MG COUMADIN 1700 ONE 10/17 1700 DC 10/17 PO 10/17 1701 1726 Vital Signs & I&O Last 24 Hrs of Vitals and I&O: Vital Signs Date Time Temp Pulse Resp B/P B/P Pulse O2 O2 Flow FiO2 Mean Ox Delivery Rate 10/18 0852 94 Nasal 1.0L Cannula 10/18 0800 88 Nasal 4.0L Cannula 10/18 0745 24 94 Nasal 1.0L Cannula 10/18 0715 98.4 71 20 124/56 93 CPAP 10/18 0000 CPAP 10/17 2302 97.0 78 18 136/71 98 BIPAP 10/17 1713 98 Nasal 2.0L Cannula 10/17 1456 97.6 64 18 134/70 90 Room Air Intake & Output 10/18 1600 10/18 0800 10/18 0000 Intake Total 50 240 Output Total 100 Balance 50 140 Intake, Oral 50 240 Output, Urine 100 Patient 253 lb Weight Exam Other Physical Findings: gen awake and alert heent ncat cvs s1, s2, systolic murmur lungs rare bibasilar rhonchi abd soft bs+ ext chronic edema Results Last 24 Hrs of Lab Results: Laboratory Tests 10/18/16 0700: Anion Gap 9, Estimated GFR 39 L, BUN/Creatinine Ratio 50.0 H, PT 22.2 H, INR 2.13 H 10/17/16 1700: Urinalysis LIGHT H, Urine Color YEL, Urine Clarity HAZY H, Urine pH 6.0, Ur Specific [place] 1.010, Urine Protein NEG, Urine Ketones NEG, Urine Nitrite NEG, Urine Bilirubin NEG, Urine Urobilinogen 0.2, Ur Leukocyte Esterase TRACE H, Ur Microscopic SEDIMENT EXAMINED, Urine RBC 1-3, Urine WBC 3-5 H, Ur Epithelial Cells FEW, Urine Bacteria RARE H, Urine Mucus FEW, Urine Hemoglobin TRACE-LYSED , Urine Glucose NEG Impression/Plan Impression/Plan Impression/Plan: Impression 86 year old woman. * resolving acute exacerbation of CHF/volume overload * likely underlying LLL CAP Plan -off abx for LLL CAP -lasix per cardiology -cont nocturnal cpap -trc/nebs, spiriva -ins/outs/diuresis -PT, incontinence per primary team -DC planning DVT prophylaxis at all times Call with any questions
--- NOTE | 2016-10-18 11:42 | Patient Discharge Instructions ---
Discharge Instructions General Discharge Information You were seen/treated for: Acute on chronic congestive heart failure Pneumonia Special Instructions: 1. PLEASE FOLLOW UP AT THE CHF CLINIC EVERY WEEK FOR IV LASIX 80MG. 2. PLEASE F/U WITH YOUR PUBLIC SERVICES LIBRARIAN WITHIN 1 WEEK OF DISCHARGE. 3. PLEASE F/U WITH YOUR PCP WITHIN 1 WEEK OF DISCHARGE. 4. WEEKLY CBC, BEP, AND INR CHECKS. Diet Recommended Diet: Heart Healthy Activity Full Activity/No Limits: Yes ( TOLERATED) Acute Coronary Syndrome Inclusion Criteria At DC or during hospital stay patient has or had the following: ACS DIAGNOSIS No Discharge Core Measures Meds if any: Prescribed or Continued at Discharge Meds if any: NOT Prescribed or Continued at Discharge Congestive Heart Failure Inclusion Criteria At DC or during hospital stay patient has or had the following: CHF DIAGNOSIS Yes Discharge Core Measures Meds if any: Prescribed or Continued at Discharge MARY/ARB for EF <40% No (POOR KIDNEY FUNCTION) Meds if any: NOT Prescribed or Continued at Discharge Cerebrovascular accident Inclusion Criteria At DC or during hospital stay patient has or had the following: CVA/TIA Diagnosis No Discharge Core Measures Meds if any: Prescribed or Continued at Discharge Meds if any: NOT Prescribed or Continued at Discharge Venous thromboembolism Inclusion Criteria VTE Diagnosis No VTE Type NONE VTE Confirmed by (Test) NONE Discharge Core Measures - Per Current guidelines, there needs to be overlap - treatment for the first 5 days of Warfarin therapy. - If discharged on Warfarin prior to 5 days of - overlap therapy, the patient will need to be - assessed for post discharge needs including - *Post discharge parental anticoagulation - *Warfarin and/or parental anticoagulation education - *Follow up date to check INR post discharge At least 5 days overlap therapy as Inpatient No Meds if any: Prescribed or Continued at Discharge Note: Overlap Therapy is Warfarin and Anticoagulant Meds if any: NOT Prescribed or Continued at Discharge
[2016-10-18] MEDS ORDERED: LASIX40 M1 PO ×3 (11:43→12:00)
--- NOTE | 2016-10-18 11:59 | PN- Cardiology ---
Subjective Subjective: Denies dyspnea at rest. Still with a cough but not any worse. No chest pain. Still with some abdominal discomfort. Objective Vital Signs and I&Os Vital Signs Date Time Temp Pulse Resp B/P B/P Pulse O2 O2 Flow FiO2 Mean Ox Delivery Rate 10/18 0852 94 Nasal 1.0L Cannula 10/18 0800 88 Nasal 4.0L Cannula 10/18 0745 24 94 Nasal 1.0L Cannula 10/18 0715 98.4 71 20 124/56 93 CPAP 10/18 0000 CPAP 10/17 2302 97.0 78 18 136/71 98 BIPAP 10/17 1713 98 Nasal 2.0L Cannula 10/17 1456 97.6 64 18 134/70 90 Room Air Intake & Output 10/18 1600 10/18 0810/18 0000 10/17 1600 10/17 0810/17 0000 Intake Total 50 240 900 120 240 Output Total 100 200 275 Balance 50 140 700 -155 240 Intake, Oral 50 240 900 120 240 Number 1 Bowel Movements Output, Urine 100 200 275 Patient 253 lb 252 lb Weight Weight Chair scale Measurement Method Physical Exam: General: no apparent distress. Alert. Obese. on NC. Eyes: No obvious scleral icterus. HEENT: No jugular venous distention or abnormal jugular venous pulsations. Cardiovascular: Normal intensity S1/S2. Irregular. Respiratory: No rales or rhonchi Abdomen: no guarding or rebound tenderness. Musculoskeletal: No clubbing or cyanosis noted, 1+ LE edema Skin: warm Neuro: Grossly nonfocal Current Medications: Current Medications Sig/Aparna Start time Last Medication Dose Route Stop Time Status Admin Acetaminophen 650 MG Q6P PRN 10/10 1630 AC 10/15 PO 1622 Acetaminophen/ 1 TAB Q6P PRN 10/10 1630 DC 10/17 Hydrocodone Bitart PO 1254 Albuterol Sulfate 3 ML BID 10/11 1000 AC 10/18 INH 0852 Albuterol Sulfate 2 PUF Q4-6 PRN PRN 10/10 1730 AC INH Allopurinol 300 MG QAM 10/13 1000 AC 10/18 PO 0920 Bacitracin 1 PONCHO BID 10/16 1000 AC 10/18 TOP 0940 Budesonide/ 2 PUF BID 10/10 2200 AC 10/18 Formoterol Fumarate INH 0933 Calcium Carbonate 500 MG DAILY 10/11 1000 AC 10/18 PO 0926 Citalopram 20 MG DAILY 10/10 1726 AC 10/18 Hydrobromide PO 0923 Folic Acid 1 MG DAILY 10/11 1000 AC 10/18 PO 0924 Furosemide 80 MG 7:30 AM, & 4:30 PM 10/18 0730 AC 10/18 PO 0745 Furosemide 80 MG DAILY 10/17 1000 DC 10/17 IV 1044 Metolazone 2.5 MG DAILY 10/11 1000 AC 10/18 PO 0920 Morphine Sulfate 1 MG Q4P PRN 10/10 1630 DC IV Potassium Chloride 20 MEQ BID 10/14 1000 AC 10/18 PO 0924 Tiotropium [place] 1 PUF DAILY 10/10 1726 AC 10/18 INH 0926 Tramadol HCl 50 MG QPM PRN 10/12 1530 AC 10/17 PO 2031 Vitamin A/Vitamin D 1 PONCHO TID 10/18 1000 AC 10/18 TOP 1041 Warfarin Sodium 1 MG COUMADIN 1700 ONE 10/17 1700 DC 10/17 PO 10/17 1701 1726 Results Last 48 Hrs of Labs/Mics: Laboratory Tests 10/18/16 0700: Anion Gap 9, Estimated GFR 39 L, BUN/Creatinine Ratio 50.0 H, PT 22.2 H, INR 2.13 H 10/17/16 1700: Urinalysis LIGHT H, Urine Color YEL, Urine Clarity HAZY H, Urine pH 6.0, Ur Specific [place] 1.010, Urine Protein NEG, Urine Ketones NEG, Urine Nitrite NEG, Urine Bilirubin NEG, Urine Urobilinogen 0.2, Ur Leukocyte Esterase TRACE H, Ur Microscopic SEDIMENT EXAMINED, Urine RBC 1-3, Urine WBC 3-5 H, Ur Epithelial Cells FEW, Urine Bacteria RARE H, Urine Mucus FEW, Urine Hemoglobin TRACE-LYSED , Urine Glucose NEG 10/17/16 0710: Anion Gap 10, Estimated GFR 36 L, BUN/Creatinine Ratio 44.3 H, Total Bilirubin 3.1 H, Direct Bilirubin 1.8 H, AST 39 H, ALT 34, Alkaline Phosphatase 149 H, Total Protein 6.6, Albumin 3.1 L, PT 24.4 H, INR 2.34 H Recent Imaging Studies: Telemetry tracings were personally reviewed and show atrial fibrillation with a [address]: IMPRESSION: 1. No acute imaging abnormalities along the gastrointestinal tract. 2. Fat-containing umbilical hernia is unchanged. 3. Obesity and anasarca with extensive edema in subcutaneous tissues of the abdominal wall, flanks and thighs. The small left pleural effusion is similar in size compared to 10/10/2016 whereas the small right pleural effusion has increased in size. 4. The hyperdense hematoma within the inferior right rectus abdominis muscle is a new finding compared to 10/10/2016. 5. Mild splenomegaly. Assessment/Plan Assessment/Plan 1. Acute on chronic congestive heart failure with normal left ventricular ejection fraction and mild right ventricular dysfunction 2. Pulmonary hypertension with mild right ventricular dysfunction 3. Atrial fibrillation on outpatient Coumadin 4. Chronic renal insufficiency 5. Hypertension 6. Obesity with obstructive sleep apnea on nocturnal CPAP 7. Postmenopausal bleeding status post prior D&C 8. History of bradycardia with permanent pacemaker in situ 9. Thrombocytopenia 10. Elevated bilirubin, cholestatic liver disease 11. Hematuria, resolved 12. Inferior right rectus hematoma She has completed antibiotic course. Patient is now on oral Lasix and volume status appears to be compensated with stable renal function. She is followed in CHF clinic as an outpatient. She had a short run of NSVT on telemetry; would replete potassium and check magnesium. CT scan reported a new hyperdense hematoma within the inferior right rectus abdominis; defer to the medical team regarding further evaluation as she is on anticoagulation with mild thrombocytopenia. I had extensive discussion with her daughter via phone just now. Walker Holm MD [facility] Continue telemetry? No
[2016-10-18 12:51] VITALS: BP 124/56
--- NOTE | 2016-10-18 13:48 | NUR ---
NURSING NOTE: PATIENT BEING D/C'S TO [facility] IN [place], REPORT GIVEN, PER [facility] RESIDENT #[id number], NO MARY/ARB TO BE GIVEN TO PATIENT DUE TO RENAL FUNCTION. PATIENT TO FOLLOW UP WITH CHF CLINIC. SET UP BY CASE MANAGEMENT.
== END 2016-10-18 14:25 | DRG 291 ==
LOC: ERH 12:49 → 1NO 15:48 → 2NB 15:48 → ERHI 15:48 → ENRESERV 16:59 → ENTRNSPT 17:49 → 2NB 18:21 → 1NO 18:21 → CMPTRNSPT 18:59 → 1NO 10-11 10:06 → ENPENDDIS 10-18 12:17 → 1NO 10-18 14:25
PROVIDERS: Internal Medicine Endocrinology, Diabetes & Metabolism; Internal Medicine Hematology & Oncology; Physician Assistant; Student in an Organized Health Care Education/Training Program; ADMIT Internal Medicine
DX: I13.0 Hypertensive heart and chronic kidney disease with heart failure and stage 1 through stage 4 chronic kidney disease, or unspecified chronic kidney disease (principal); J18.9 Pneumonia, unspecified organism; J96.01 Acute respiratory failure with hypoxia; E87.2 Acidosis; E87.3 Alkalosis; I27.2 Other secondary pulmonary hypertension; S36.62XA Contusion of rectum, initial encounter; J44.0 Chronic obstructive pulmonary disease with (acute) lower respiratory infection; I48.0 Paroxysmal atrial fibrillation; D69.6 Thrombocytopenia, unspecified; I50.33 Acute on chronic diastolic (congestive) heart failure; Z68.43 Body mass index [BMI] 50.0-59.9, adult; E87.1 Hypo-osmolality and hyponatremia; Z79.01 Long term (current) use of anticoagulants; E80.6 Other disorders of bilirubin metabolism; E66.9 Obesity, unspecified; G47.33 Obstructive sleep apnea (adult) (pediatric); Z95.0 Presence of cardiac pacemaker; M10.9 Gout, unspecified; K42.9 Umbilical hernia without obstruction or gangrene; K76.1 Chronic passive congestion of liver; N18.9 Chronic kidney disease, unspecified; R31.9 Hematuria, unspecified; S30.1XXA Contusion of abdominal wall, initial encounter; X58.XXXA Exposure to other specified factors, initial encounter; Y92.230 Patient room in hospital as the place of occurrence of the external cause
CPT/HCPCS: 1NSP; 2NSBP; 36415; 74176; 78582; 81001; 82436; 87040; 87070; 87086; 87449; 87450; 93005; 93010; 93970; 96361; 96374; 96375; 97161-GP; 97530-GO; A9540; A9558; J0456; J0696; J1940; J3490; J7040